=== PATIENT | male | born 1970 | race Caucasian/White ===

== ENCOUNTER → 2018-10-06 07:18 | Outpatient (CLI) | payer BC, SELFPAY ==
[2017-10-26 15:55] VITALS: BMI 29.9
[2018-10-06 08:23] LABS: Hemoglobin A1c 5.8 % (4.2-6.3)
== END ==
PROVIDERS: Referring Provider Nurse Practitioner Family; Visit Provider Nurse Practitioner Family
DX: R73.09 Other abnormal glucose (principal)
CPT/HCPCS: 36415; 83036

== ENCOUNTER → 2019-03-10 07:35 | Outpatient (CLI) | payer BC, SELFPAY ==
[2018-11-03 15:39] VITALS: BMI 30.8
[2019-03-10 07:56] LABS: Absolute Lymphocyte Count 1.85 X10^3/ul (0.83-4.51); Absolute Neutrophil Count 5.6 X10^3/uL (2.0-7.7); Basophil# 0.05 X10^3/uL; Basophil% 0.6 % (0-1); Eosinophil# 0.63 X10^3/uL; Hematocrit 44.1 % (40-54); Lymphocyte # 1.85 X10^3/ul (4.0); Lymphocyte % 20.4 % (19-41); Mean Corpuscular Hgb 30.1 pg (27.0-32.0); Mean Corpuscular Volume 88.4 fL (80-94); Mean Platelet Vol. 9.6 fl (6.2-12.0); Monocyte# 0.96 X10^3/uL; Monocyte% 10.6 % (0-10); Neutrophil # 5.55 X10^3/uL (2.7-7.7); Neutrophil % 61.3 % (47-70); Platelet Count 303 K/mm3 (150-450); RBC Distribution Width CV 12.6 % (11.6-14.6); RBC Distribution Width SD 40.1 fl (35.1-43.9); Red Blood Count 4.99 M/mm3 (4.6-6.2); White Blood Count 9.1 K/mm3 (4.4-11.0)
[2019-03-10 08:03] LABS: POSITIVE COUNT NO; POSITIVE DIFFERENTIAL NO; POSITIVE MORPHOLOGY NO
[2019-03-10 08:34] LABS: ALB/GLOB Ratio 1.2 RATIO (0.9-2.4); AST(SGOT) 23 U/L (15-37); Alanine Aminotransfer ALT/SGPT 33 U/L (16-61); Albumin, Serum 3.8 g/dL (3.2-5.0); Alkaline Phosphatase 72 U/L (45-117); Anion Gap 7 (5-15); BUN 18 mg/dL (7-18); Calcium,Total 8.8 mg/dL (8.5-10.1); Chloride 105 mmol/L (98-107); Cholesterol 129 mg/dL (200); EST Glomerular Filtration Rate 85 mL/min (>60); Est Glom Filt Rate - Afr Amer 103 mL/min (>60); Globulin 3.3 g/dL (2.2-4.2); Glucose 116 mg/dL (74-106); High Density Lipoprotein 48 mg/dL; Protein, Total 7.1 g/dL (6.4-8.2); Sodium Level 140 mmol/L (136-145); T4 Total, Thyroxin 7.1 ug/dL (4.5-12.1); Thyroid Stim Hormone (TSH) 2.03 uIU/mL (0.358-3.74); Triglycerides 81 mg/dL; Very Low Density Lipoprotein 16 mg/dL (5-40)
[2019-03-10 09:27] LABS: Hemoglobin A1c 5.7 % (4.2-6.3)
== END ==
PROVIDERS: Referring Provider Nurse Practitioner Family; Visit Provider Nurse Practitioner Family
DX: R53.83 Other fatigue (principal); E78.2 Mixed hyperlipidemia; R73.09 Other abnormal glucose
CPT/HCPCS: 36415; 80053; 80061; 83036; 84436; 84443; 85025

== ENCOUNTER → 2020-12-27 10:32 | Outpatient (CLI) | payer BC, SELFPAY ==
[2020-11-26 16:00] VITALS: BMI 31.6
[2020-12-27 11:38] LABS: AST(SGOT) 24 U/L (15-37); Alanine Aminotransfer ALT/SGPT 38 U/L (16-61); Albumin, Serum 4.1 g/dL (3.2-5.0); Alkaline Phosphatase 71 U/L (45-117); Cholesterol 148 mg/dL (200); Globulin 3.7 g/dL (2.2-4.2); High Density Lipoprotein 48 mg/dL; Protein, Total 7.8 g/dL (6.4-8.2); Triglycerides 64 mg/dL; Very Low Density Lipoprotein 13 mg/dL (5-40)
== END ==
PROVIDERS: Referring Provider Internal Medicine Cardiovascular Disease; Visit Provider Internal Medicine Cardiovascular Disease
DX: E78.00 Pure hypercholesterolemia, unspecified (principal)
CPT/HCPCS: 36415; 80061; 80076

== ENCOUNTER 2021-01-16 08:11 | Day surgery (SDC) | payer BC, SELFPAY ==
[2020-11-26 16:00] VITALS: BMI 31.6
[2021-01-16 08:32] VITALS: BP 111/72; PULSE 62; RESP 14; TEMP 36.3; O2SAT 100; BMI 29.7
[2021-01-16] MEDS: Lactated Ringers 1,000 ML 100 ML IV (08:49)
--- NOTE | 2021-01-16 09:13 | HP.PCM_ITS ---
History of Present Illness Date of Admission: 01/16/21 The patient is a 50 year old M here for screening colonoscopy. The patient has had no previous colonoscopy. He has no family history of colon cancer. He denies any abdominal pain or blood in his stool. Past Medical/Surgical History - Planned Operation Planned Operative Procedure/s: COLONOSCOPY Date of Operative Procedure: 01/16/21 Permit Signed: Yes S.O.S: No Is This Patient Having a Total Joint: No - Previous Hospitalizations/Surgeries HX Hospitalizations: Yes HX of Surgeries: NASAL TIMES 2000 AND 2009. T AND A. VASECTOMY Any Problems With Anesthesia: No You/Your Family Experience Fever (Hyperthermia) With Anes: No Cholinesterase deficiency: No - Cardiovascular Hx Chest Pain within Last 2 months: No Hx of Irregular Heartbeat and/or Afib: No - DR. MODESTO ESPARZA LAST VISIT 12/14/20 Hx Heart Attack: No Hx Congestive Heart Failure: No Hx Rheumatic Fever: No Hx Hypertension: No Hx Internal Defibrillator: No Hx Pacemaker: No Hx Cardiac Catheterization: No Hx Cardiac Surgery/Stents/Etc.: No Hx Stress Test: Yes - 10/2016 [facility] HX Edema: No Hx Pain in Legs when Walking/Leg Cramps: No - Respiratory Chronic Cough: No HX of Shortness of Breath: No - WHEEZES WITH ALLERGRIES NO DIFF WITH INJECTIONS Hoarseness: No Hx Chronic Obstructive Pulmonary Disease (COPD): No Hx Asthma: Yes - ALLERGY INDUCED ASTHMA Hx Emphysema: No Hx Sleep Apnea: Yes CPAP: Yes BIPAP: No Hx Oxygen Use at Home: No Hx Respiratory Tract Infection/Cold (presently): No Result (for STOP score): Positive Hx Smoking: No Smoking Status: Never smoker - Gastrointestinal Hx Gastroesophageal Reflux: No Controlled With Meds: No Hx Gastrointestinal Disorders: No Hx Gastrointestinal Bleed: No Hx Ulcer: No Hx Hiatal Hernia: No Difficulty Chewing/Swallowing: No Recent Onset of Swallowing Problems: No Special diet followed at home: No Hx Unplanned Weight Loss of 20#: No HX Unplanned Weight Gain of 20#: No - Neurological Hx Seizures: No HX Syncope/Blackout Spells/Unconsciousness: No Hx Transient Ischemic Attacks (TIA): No Hx Multiple Sclerosis: No Hx Parkinson's Disease: No Hx Head/Neck Injury: No Hx Headaches: No Hx Back Injury/Pain: No Recent Onset of Speech Difficulty: No Restless Legs: Yes Does patient have nerve stimulator: No - Blood Disorder Hx Leukemia: No Bleeding Tendencies: No Hx Deep Vein Thrombosis: No Hx High Cholesterol: No Blood Transmitted Disease: No Hx Hepatitis: No Hx Cirrhosis: No Hx Anemia: No Hx Blood Disorders: No - Genitourinary Hx Renal Disease: No - Musculoskeletal Hx Arthritis: Yes Hx Rheumatoid Arthritis: No Hx Gout: No Recent Onset of an Orthopedic Problem: No - Endocrine Hx Diabetes: No Thyroid Disease: No Hx Steroid Therapy: No - Psycho/Social Hx Substance Use: No Hx Alcohol Use: No Hx Anxiety: No Hx Depression: No Mental Illness: No Hx Dementia: No - Miscellaneous Hx Cancer: No Recent Exposure to Contagious Disease: No Active MRSA: No Hx of C-Diff: No Any Loose Teeth: No Allergies iodine Allergy (Verified 01/09/21 09:32) Anaphylaxis - Discharge Is Pt Admitted From a Half-Way, or a Mcfp: No Who Could Help: After D/C, Where Do you Plan to Go: Return Home - Physical Exam Vitals/I&O's: Vital Signs Temp Pulse Resp BP Pulse Ox 97.4 F L 62 14 111/72 100 01/16/21 08:32 01/16/21 08:32 01/16/21 08:32 01/16/21 08:32 01/16/21 08:32 Oxygen Delivery Method Room Air Weight: 219 lb 12.814 oz Body Mass Index (BMI) 29.7 General: Alert, Oriented x3 Neck: No JVD Lungs: Normal air movement Cardiovascular: Regular rate, Regular Rhythm Abdomen: Soft, Non Tender, Non-Distended Microbiology Past 72 Hours 01/15/21 06:00 Interface Orders SARS-CoV-2 Antigen (Rapid) - Final Current Medications Lactated Ringer's () 1,000 mls @ 100 mls/hr IV .Q10H [facility] Last Admin: 01/16/21 08:49 Dose: 100 mls/hr Documented by: Assessment/Plan All Active Problems (Last Reviewed 11/26/20 @ 16:01 by Janee Palma) Dyspnea (Acute) Chest pain (Acute) 50-year-old male for screening colonoscopy I explained endoscopy in detail to the patient. I explained the risks including but not limited to stroke or heart attack with anesthesia, perforation of the GI tract, bleeding, infection. I explained that any of these could necessitate further emergency surgery. The patient understands and all questions were answered sufficiently. The patient wishes to proceed with procedure. Federico Guzman MD Pager: [facility] [address] [place] [address] [address] [place] [address] Office: Surgery Risks - Colonoscopy Risks Include but are not Limited To: Risks include but are not limited to: Bleeding, perforation requiring further surgery, inability to complete colonoscopy requiring barium enema.
[2021-01-16 09:42] VITALS: BP 100/55; BP 111/72; PULSE 66; RESP 16; TEMP 36.1; O2SAT 99
--- NOTE | 2021-01-16 09:42 | OP.COLON_ITS ---
Patient Name: Alden Ramirez Procedure Date: 01/16/2021 9:18 AM Date of : 1970 Age: 50 Procedure: Colonoscopy Indications: Screening for colorectal malignant neoplasm Providers: Federico Guzman MD Referring MD: Milana Tolbert Medicines: Monitored Anesthesia Care Patient Profile: This is a 50 year old male. Refer to note in patient chart for documentation of history and physical. Last Colonoscopy: none. The patient's first colonoscopy is today. Complications: No immediate complications. Procedure: Pre-Anesthesia Assessment: - Prior to the procedure, a History and Physical was performed, and patient medications and allergies were reviewed. The patient's tolerance of previous anesthesia was also reviewed. The risks and benefits of the procedure and the sedation options and risks were discussed with the patient. All questions were answered, and informed consent was obtained. Prior Anticoagulants: The patient has taken no previous anticoagulant or antiplatelet agents. After reviewing the risks and benefits, the patient was deemed in satisfactory condition to undergo the procedure. After I obtained informed consent, the scope was passed under direct vision. Throughout the procedure, the patient's blood pressure, pulse, and oxygen saturations were monitored continuously. The colonoscope was introduced through the anus and advanced to the cecum, identified by appendiceal orifice and ileocecal valve. The colonoscopy was performed without difficulty. The patient tolerated the procedure well. The quality of the bowel preparation was good. Scope In: 9:26:01 AM Scope Withdrawal Time 0 hours 6 minutes 20 seconds Scope Out: 9:39:00 AM Total Procedure Duration Time 0 hours 12 minutes 59 seconds Findings: The entire examined colon appeared normal on direct and retroflexion views. Impression: - The entire examined colon is normal on direct and retroflexion views. - No specimens collected. Recommendation: - Discharge patient to home. - Resume previous diet. - Continue present medications. - Repeat colonoscopy in 10 years for screening purposes. Procedure Code(s): --- Professional --- 55656, Colonoscopy, flexible; diagnostic, including collection of specimen(s) by brushing or washing, when performed (separate procedure) Diagnosis Code(s): --- Professional --- Z12.11, Encounter for screening for malignant neoplasm of colon CPT copyright 2017 [employer]. All rights reserved. The codes documented in this report are preliminary and upon medical coder review may be revised to meet current compliance requirements. Federico Guzman MD 01/16/2021 9:41:56 AM This report has been signed electronically. Number of Addenda: 0 Note Initiated On: 01/16/2021 9:18 AM
--- NOTE | 2021-01-16 09:42 | OP.CCLET_ITS ---
01/16/2021 Milana Tolbert Re : Colonoscopy procedure for Alden Ramirez Dear Giancarlo This procedure was performed on Saturday, January 16, 2021. My impressions and recommendations are as follows: Impressions : - The entire examined colon is normal on direct and retroflexion views. - No specimens collected. Recommendations : - Discharge patient to home. - Resume previous diet. - Continue present medications. - Repeat colonoscopy in 10 years for screening purposes. My findings are described in the full procedure note, which is enclosed. If I can be of further assistance, please feel free to contact me at Doctor phone number(s): , Work: . Sincerely, Federico Guzman MD 01/16/2021 9:41:56 AM This report has been signed electronically.
[2021-01-16 09:45] VITALS: BP 111/72; BP 92/69; PULSE 66; RESP 16; O2SAT 100
[2021-01-16 09:55] VITALS: BP 111/72; BP 99/67; PULSE 58; RESP 16; O2SAT 100
[2021-01-16 09:59] VITALS: BP 103/62; BP 111/72; PULSE 58; RESP 16; TEMP 36.3; O2SAT 100
[2021-01-16 10:24] VITALS: BP 111/72
== END 2021-01-16 10:25 | disposition home or self-care (01) ==
LOC: EN 08:13 → AC 08:14
PROVIDERS: PCP Nurse Practitioner Family; Referring Provider Nurse Practitioner Family; Visit Provider Surgery
PROC: 0DJD8ZZ Inspection of Lower Intestinal Tract, Via Natural or Artificial Opening Endoscopic (ICD-10-PCS; CPT 45378; principal; 2021-01-16 09:10)
DX: Z12.11 Encounter for screening for malignant neoplasm of colon (principal); Z20.822 Contact with and (suspected) exposure to COVID-19; J45.909 Unspecified asthma, uncomplicated; G47.30 Sleep apnea, unspecified; M19.90 Unspecified osteoarthritis, unspecified site
CPT/HCPCS: 45378; 87426; C9803; J7120; J2405

== ENCOUNTER → 2021-11-02 14:25 | Outpatient (CLI) | payer BC, SELFPAY | PROVIDERS: PCP Nurse Practitioner Family; Visit Provider Internal Medicine Critical Care Medicine | DX: Z46.89 Encounter for fitting and adjustment of other specified devices (principal) ==

== ENCOUNTER 2021-12-19 08:06 | Outpatient (CLI) | payer BC, SELFPAY ==
[2021-12-19 09:08] LABS: AST(SGOT) 42 U/L (15-37); Alanine Aminotransfer ALT/SGPT 38 U/L (16-61); Albumin, Serum 3.9 g/dL (3.2-5.0); Alkaline Phosphatase 72 U/L (45-117); Bilirubin, Direct 0.28 mg/dL (0.00-0.30); Cholesterol 136 mg/dL (200); High Density Lipoprotein 43 mg/dL; Protein, Total 7.9 g/dL (6.4-8.2); Triglycerides 60 mg/dL; Very Low Density Lipoprotein 12 mg/dL (5-40)
== END 2021-12-19 23:59 | disposition home or self-care (01) ==
LOC: LAB 08:07
PROVIDERS: PCP Nurse Practitioner Family; Referring Provider Internal Medicine Cardiovascular Disease; Visit Provider Internal Medicine Cardiovascular Disease
DX: E78.00 Pure hypercholesterolemia, unspecified (principal)
CPT/HCPCS: 36415; 80061; 80076

== ENCOUNTER → 2022-08-13 | Outpatient (CLI) | payer BC, SELFPAY ==
[2022-08-13 07:41] LABS: AST(SGOT) 22 U/L (15-37); Alanine Aminotransfer ALT/SGPT 35 U/L (16-61); Albumin, Serum 3.6 g/dL (3.2-5.0); Alkaline Phosphatase 66 U/L (45-117); Bilirubin, Direct 0.27 mg/dL (0.00-0.30); Cholesterol 136 mg/dL (200); Globulin 3.9 g/dL (2.2-4.2); High Density Lipoprotein 48 mg/dL; Protein, Total 7.5 g/dL (6.4-8.2); Triglycerides 80 mg/dL; Very Low Density Lipoprotein 16 mg/dL (5-40)
== END | disposition home or self-care (01) ==
LOC: LAB 06:04
PROVIDERS: PCP Nurse Practitioner Family; Referring Provider Internal Medicine Cardiovascular Disease; Visit Provider Internal Medicine Cardiovascular Disease
DX: E78.00 Pure hypercholesterolemia, unspecified (principal)
CPT/HCPCS: 36415; 80061; 80076

== ENCOUNTER → 2023-02-22 | Outpatient (CLI) | payer BC, SELFPAY ==
--- NOTE | 2023-02-22 14:04 | VDLE_ITS ---
Reason For Study: Pain RIGHT LEFT CFV is compressible, spontaneous, phasic, CFV is compressible, spontaneous, phasic, competent and demonstrates normal competent, and demonstrates normal augmentation. augmentation. FV is compressible, spontaneous, phasic, FV is compressible, spontaneous, phasic, competent and demonstrates normal competent and demonstrates normal augmentation. augmentation. POP V is compressible, spontaneous, phasic, POP V is compressible, spontaneous, phasic, competent and demonstrates normal competent and demonstrates normal augmentation. augmentation. T/P Trunk is compressible. T/P Trunk is compressible. PTV is compressible. PTV is compressible. RT PerV is compressible. LT PerV is compressible. SFJ is competent and measures 0.55 x 0.60 cm. SFJ is INCOMPETENT and measures 0.65 x 0.67 GSV proximal thigh measures 0.47 x 0.48 cm. cm. ASV mid thigh is INCOMPETENT for greater than GSV proximal thigh measures 0.43 x 0.43 cm. 0.5 seconds and measures 0.42 x 0.60 cm. GSV at knee measures 0.48 x 0.53 cm. GSV at knee measures 0.30 x 0.33 cm. GSV INCOMPETENT throughout for greater than GSV INCOMPETENT throughout for greater than 0.5 seconds. 0.5 seconds. ASV proximal calf is INCOMPETENT for greater SSV proximal calf is competent and measures than 0.5 seconds and measures 0.49 x 0.53 cm. 0.27 x 0.30 cm. ASV mid calf is INCOMPETENT for greater than GSV distal calf PARTIALLY COMPRESSIBLE with 0.5 seconds and measures 0.49 x 0.53 cm. bright intraluminal echogenicity. SSV prox calf PARTIALLY COMPRESSIBLE with Procedure bright intraluminal echogenicity and This is a venous duplex using B-mode, color diminished flow noted in color and doppler. flow and spectral Doppler. Exam performed in department. The exam was diagnostic. VL/Venous Duplex US - Kulwinder Extrem Interpretation Summary Chronic superficial vein thrombosis is noted in the right great saphenous vein. Chronic superficial vein thrombosis is noted in the left small saphenous vein. Deep veins of the bilateral lower extremities are patent and compressible segme ntally. There is no evidence of bilateral lower extremity deep vein thrombosis. Positive for reflux in the right great saphenous and accessory saphenous veins Positive for reflux in the left saphenofemoral junction, great saphenous vein, accessory saphenous vein Ordering Physician: Terra Plummer Referring Physician: Terra Plummer Performed By: Bishop Rodriguez RVT
== END | disposition home or self-care (01) ==
PROVIDERS: PCP Nurse Practitioner Family; Referring Provider Physician Assistant; Visit Provider Physician Assistant
DX: I83.893 Varicose veins of bilateral lower extremities with other complications (principal)
CPT/HCPCS: 93970

== ENCOUNTER 2023-04-28 08:22 | Day surgery (SDC) | payer BC, SELFPAY ==
[2023-04-28 08:41] LABS: Absolute Lymphocyte Count 1.75 X10^3/uL (0.83-4.51); Absolute Neutrophil Count 4.2 X10^3/uL (2.0-7.7); Basophil# 0.08 X10^3/uL; Basophil% 1.1 % (0-1); Eosinophil# 0.34 X10^3/uL; Eosinophils% 4.7 % (0-5); Hematocrit 44.2 % (40-54); Lymphocyte # 1.75 X10^3/ul (0.83-4.51); Lymphocyte % 24.1 % (19-41); Mean Corp Hgb Conc 33.9 g/dL (32-36); Mean Corpuscular Hgb 30.6 pg (27.0-32.0); Mean Corpuscular Volume 90.2 fL (80-94); Mean Platelet Vol. 9.1 fl (6.2-12.0); Monocyte# 0.83 X10^3/uL; Monocyte% 11.4 % (0-10); NRBC Flagged by Analyzer 0 % (0-5); Neutrophil # 4.24 X10^3/uL (2.7-7.7); Neutrophil % 58.3 % (47-70); Platelet Count 323 K/mm3 (150-450); RBC Distribution Width CV 12.4 % (11.6-14.6); RBC Distribution Width SD 40.8 fl (35.1-43.9); White Blood Count 7.3 K/mm3 (4.4-11.0)
[2023-04-28 08:58] LABS: AST(SGOT) 20 U/L (15-37); Alanine Aminotransfer ALT/SGPT 26 U/L (16-61); Albumin, Serum 3.6 g/dL (3.2-5.0); Alkaline Phosphatase 73 U/L (45-117); Anion Gap 5 (5-15); BUN 15 mg/dL (7-18); BUN/Creat Ratio 12.8 RATIO (10-20); Chloride 106 mmol/L (98-107); Cholesterol 125 mg/dL (200); Creatinine, Serum 1.17 mg/dL (0.70-1.30); EST Glomerular Filtration Rate 70 mL/min (>60); Est Glom Filt Rate - Afr Amer 84 mL/min (>60); Estimated Creatinine Clearance 81.06 ml/min; Globulin 3.8 g/dL (2.2-4.2); Glucose 111 mg/dL (74-106); High Density Lipoprotein 42 mg/dL; Protein, Total 7.4 g/dL (6.4-8.2); Sodium Level 139 mmol/L (136-145); Triglycerides 58 mg/dL; Very Low Density Lipoprotein 12 mg/dL (5-40)
--- NOTE | 2023-04-28 12:51 | PCM.OPRPT ---
Report of Operation Date of Procedure: 04/28/23 Pre-Operative Diagnosis: right lower extremity painful varicose veins, great saphenous reflux Post-Operative Diagnosis: same Surgery/Procedure Performed:: ablation right greater saphenous vein with radiofrequency Surgeon: Jann Cedeno Type of Anesthesia: Local and Sedation,Conscious Estimated Blood Loss (mL): 1 Description of Procedure: HPI: Patient is a 52-year-old male with right lower extremity venous insufficiency refractory to compression therapy. He presents now for great saphenous vein ablation with radiofrequency. Description of procedure: Upon obtaining informed consent and verification correct patient procedure site patient was taken to the Operational Assistant where he was positioned prepped and draped in usual sterile fashion. Time was performed conscious sedation administered with Versed and fentanyl. Ultrasound used to evaluate the right great saphenous vein and the saphenofemoral junction identified. Skin anesthetized over the saphenous vein at the knee and under ultrasound guidance the vessel accessed in retrograde fashion with micropuncture needle wire. This then exchanged out for the 7 [place] ablation sheath. Through the ablation sheath a Tronic RF ablation device was advanced and followed under ultrasound guidance up to just below the saphenofemoral junction. Longitudinal ultrasound measurement was obtained confirming 2.5 cm from the saphenofemoral junction to the tip of the catheter. Tumescent solution was then injected along the length of the saphenous vein to be treated with satisfactory tumescent instilled circumferentially surrounding the saphenous vein. The ablation device was then activated for 2 activations just below the saphenofemoral junction and then along the length of the treatment zone for single activation each segment. After completing the treatment the sheath and probe were withdrawn and manual pressure held for 5 minutes after which aspect of the status was noted. Ultrasound used to assess the common femoral vein and the saphenofemoral junction which were both compressible and patent. Bridger wrap was then applied and the patient taken recovery room prior to discharge to home
== END 2023-04-28 12:30 | disposition home or self-care (01) ==
PROVIDERS: PCP Nurse Practitioner Family; Referring Provider Surgery Trauma Surgery; Visit Provider Surgery Trauma Surgery
DX: I83.811 Varicose veins of right lower extremity with pain (principal); G47.33 Obstructive sleep apnea (adult) (pediatric); E78.5 Hyperlipidemia, unspecified; Z79.82 Long term (current) use of aspirin; Z79.899 Other long term (current) drug therapy
CPT/HCPCS: 36415; 36475; 80048; 80061; 80076; 85025; 99152; 99153; C1888; C1894; J7040

== ENCOUNTER → 2023-11-08 | Outpatient (CLI) | payer BC, SELFPAY ==
[2023-11-08 08:37] LABS: Absolute Lymphocyte Count 2.07 X10^3/uL (0.83-4.51); Absolute Neutrophil Count 3.3 X10^3/uL (2.0-7.7); Basophil# 0.08 X10^3/uL; Basophil% 1.2 % (0-1); Eosinophil# 0.25 X10^3/uL; Eosinophils% 3.8 % (0-5); Hematocrit 43.1 % (40-54); Hemoglobin 14.7 g/dL (13.0-16.5); Lymphocyte # 2.07 X10^3/ul (0.83-4.51); Lymphocyte % 31.8 % (19-41); Mean Corp Hgb Conc 34.1 g/dL (32-36); Mean Corpuscular Hgb 30.3 pg (27.0-32.0); Mean Corpuscular Volume 88.9 fL (80-94); Mean Platelet Vol. 9.1 fl (6.2-12.0); Monocyte# 0.77 X10^3/uL; Monocyte% 11.8 % (0-10); NRBC Flagged by Analyzer 0 % (0-5); Neutrophil # 3.33 X10^3/uL (2.7-7.7); Neutrophil % 51.2 % (47-70); Platelet Count 296 K/mm3 (150-450); RBC Distribution Width CV 12.1 % (11.6-14.6); RBC Distribution Width SD 39.4 fl (35.1-43.9); Red Blood Count 4.85 M/mm3 (4.6-6.2); White Blood Count 6.5 K/mm3 (4.4-11.0)
[2023-11-10 11:08] LABS: Alternaria alternata 1.59 kU/L (Class III); Bermuda Grass <0.10 kU/L (Class 0); Bluegrass, Kentucky <0.10 kU/L (Class 0); Cat Hair/Dander, Standard <0.10 kU/L (Class 0); D farinae Mite <0.10 kU/L (Class 0); D pteronyssinus <0.10 kU/L (Class 0); Dog Epithelia <0.10 kU/L (Class 0); Elm, American White <0.10 kU/L (Class 0); Mouse Urine <0.10 kU/L (Class 0); Oak, White <0.10 kU/L (Class 0); Plantain, English <0.10 kU/L (Class 0); Ragweed, Short/Common <0.10 kU/L (Class 0)
[2023-11-11 17:07] LABS: Aspirgillus flavus Negative (Neg:<1:1); Aspirgillus fumigatus Negative (Neg:<1:1); Aspirgillus niger Negative (Neg:<1:1); Immunoglobulin E 30 IU/mL (6-495)
== END | disposition home or self-care (01) ==
LOC: PAVLAB 08:24
PROVIDERS: PCP Nurse Practitioner Family; Referring Provider Nurse Practitioner Acute Care; Visit Provider Nurse Practitioner Acute Care
DX: J30.9 Allergic rhinitis, unspecified (principal)
CPT/HCPCS: 36415; 82785; 85025; 86003; 86606

== ENCOUNTER → 2024-11-23 | Outpatient (CLI) | payer BC, SELFPAY ==
[2024-11-23 06:37] LABS: Absolute Lymphocyte Count 1.71 X10^3/uL (0.83-4.51); Absolute Neutrophil Count 4.2 X10^3/uL (2.0-7.7); Basophil# 0.08 X10^3/uL; Basophil% 1.1 % (0-1); Eosinophil# 0.26 X10^3/uL; Eosinophils% 3.7 % (0-5); Hematocrit 43.2 % (40-54); Hemoglobin 14.7 g/dL (13.0-16.5); Lymphocyte # 1.71 X10^3/ul (0.83-4.51); Mean Corpuscular Hgb 30.3 pg (27.0-32.0); Mean Corpuscular Volume 89.1 fL (80-94); Mean Platelet Vol. 9.1 fl (6.2-12.0); Monocyte# 0.81 X10^3/uL; Monocyte% 11.4 % (0-10); NRBC Flagged by Analyzer 0 % (0-5); Neutrophil # 4.24 X10^3/uL (2.7-7.7); Neutrophil % 59.5 % (47-70); Platelet Count 312 K/mm3 (150-450); RBC Distribution Width CV 12.6 % (11.6-14.6); RBC Distribution Width SD 41.1 fl (35.1-43.9); Red Blood Count 4.85 M/mm3 (4.6-6.2); White Blood Count 7.1 K/mm3 (4.4-11.0)
== END | disposition home or self-care (01) ==
LOC: LAB 06:16
PROVIDERS: Referring Provider Nurse Practitioner Family; Visit Provider Nurse Practitioner Family
DX: R06.00 Dyspnea, unspecified (principal)
CPT/HCPCS: 36415; 85025

== ENCOUNTER → 2024-12-22 | Outpatient (CLI) | payer BC, SELFPAY ==
[2024-12-22 09:21] LABS: Absolute Lymphocyte Count 1.43 X10^3/uL (0.83-4.51); Absolute Neutrophil Count 4.2 X10^3/uL (2.0-7.7); Basophil# 0.04 X10^3/uL; Basophil% 0.6 % (0-1); Eosinophil# 0.22 X10^3/uL; Eosinophils% 3.3 % (0-5); Hematocrit 43.1 % (40-54); Hemoglobin 14.4 g/dL (13.0-16.5); Lymphocyte # 1.43 X10^3/ul (0.83-4.51); Lymphocyte % 21.6 % (19-41); Mean Corp Hgb Conc 33.4 g/dL (32-36); Mean Corpuscular Hgb 29.8 pg (27.0-32.0); Mean Platelet Vol. 9.1 fl (6.2-12.0); Monocyte# 0.75 X10^3/uL; Monocyte% 11.3 % (0-10); NRBC Flagged by Analyzer 0 % (0-5); Neutrophil # 4.16 X10^3/uL (2.7-7.7); Neutrophil % 62.7 % (47-70); Platelet Count 317 K/mm3 (150-450); RBC Distribution Width CV 12.6 % (11.6-14.6); RBC Distribution Width SD 41.4 fl (35.1-43.9); Red Blood Count 4.84 M/mm3 (4.6-6.2); White Blood Count 6.6 K/mm3 (4.4-11.0)
[2024-12-22 09:56] LABS: ALB/GLOB Ratio 0.9 RATIO (0.9-2.4); AST(SGOT) 18 U/L (15-37); Alanine Aminotransfer ALT/SGPT 22 U/L (16-61); Albumin, Serum 3.5 g/dL (3.2-5.0); Alkaline Phosphatase 65 U/L (45-117); Anion Gap 4 (5-15); BUN 18 mg/dL (7-18); BUN/Creat Ratio 19.2 RATIO (10-20); Calcium,Total 9.2 mg/dL (8.5-10.1); Chloride 105 mmol/L (98-107); Cholesterol 187 mg/dL (200); Creatinine, Serum 0.94 mg/dL (0.70-1.30); EST Glomerular Filtration Rate 89 mL/min (>60); Est Glom Filt Rate - Afr Amer 108 mL/min (>60); Globulin 3.8 g/dL (2.2-4.2); Glucose 101 mg/dL (74-106); High Density Lipoprotein 50 mg/dL; PSA,Total - Annual Screen 1.01 ng/mL (0.00-4.00); Potassium 4.2 mmol/L (3.5-5.1); Protein, Total 7.3 g/dL (6.4-8.2); Sodium Level 138 mmol/L (136-145); Triglycerides 56 mg/dL; Very Low Density Lipoprotein 11 mg/dL (5-40)
== END | disposition home or self-care (01) ==
LOC: LAB 08:35
PROVIDERS: PCP Nurse Practitioner Family; Referring Provider Nurse Practitioner Family; Visit Provider Nurse Practitioner Family
DX: Z00.01 Encounter for general adult medical examination with abnormal findings (principal); Z12.5 Encounter for screening for malignant neoplasm of prostate
CPT/HCPCS: 36415; 80053; 80061; 84153; 85025; G0103

== ENCOUNTER → 2025-01-04 | Outpatient (CLI) | payer BC, SELFPAY ==
--- NOTE | 2025-01-04 12:25 | MRI_ITS ---
PROCEDURE: Noncontrast MRI of the left knee. REASON FOR EXAM: Medial left knee pain. Evaluate for meniscal tear TECHNIQUE: Multiplanar, multisequence MRI images of the left knee were obtained without IV contrast. COMPARISON: None available FINDINGS The patellar ligament and included distal quadriceps tendon are intact. Small amount of joint fluid, without sizeable joint effusion. There is some edematous signal superficial to the otherwise intact medial collateral ligament. The cruciate and collateral ligaments are intact. Mild articular cartilage loss involving the medial compartment, greatest involving the weight-bearing surface of the medial femoral condyle. No significant articular cartilage loss of the lateral compartment. There is moderate articular cartilage loss involving the lateral patellar facet. No evidence of transient patellar dislocation. The patellar retinacula and popliteus muscle/tendon are intact. No sizable popliteal cyst. No soft tissue mass or drainable fluid collection of the left knee. There is moderate marrow edema involving the posterior medial aspect of the tibial plateau. There is some focally decreased T1 signal involving the posterior medial cortical margin of the tibial plateau, favored to represent an area of trabecular microfracture. No tibial plateau depression is demonstrated. No discrete lateral meniscal tear. There is a curvilinear radial type tear involving the posterior horn medial meniscus on image 19 of the axial T2 fat saturated sequence and image 12 of the coronal T2 fat saturated sequence. No flipped meniscal fragment. Moderate edema involving the anteromedial soft tissues of the left knee, inferior to the joint line. MRI/Lower Ext Joint Only (Routine) IMPRESSION: Moderate marrow edema posterior medial tibial plateau. There is a horizontally oriented focal area of decreased T1 signal of the posterior medial tibial plateau, favored to represent an area of trabecular osmar rofracture. No tibial plateau depression is demonstrated. No internal ligamentous derangement or sizable joint effusion. Intact lateral meniscus. Small radial type tear involving the posterior horn m edial meniscus. Moderate edema of the soft tissues and subcutaneous fat of the anterior medial left knee, inferior to the joint line, which could be due to recent trauma. Suggest correlation with clinical exam findings. Moderate articular cartilage loss involving the medial compartment and in the l ateral patellar facet. Reading Location: [facility]
== END | disposition home or self-care (01) ==
LOC: MRI 12:20
PROVIDERS: PCP Nurse Practitioner Family; Referring Provider Orthopaedic Surgery Sports Medicine; Visit Provider Orthopaedic Surgery Sports Medicine
DX: M25.562 Pain in left knee (principal)
CPT/HCPCS: 73721

== ENCOUNTER 2025-02-01 07:50 | Day surgery (SDC) | payer BC, SELFPAY ==
--- NOTE | 2025-01-22 17:30 | PAT.ANESEVAL ---
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 When Was Last Pacemaker Check QUESTION #4 FULL TEXT: You/Your Family Experience fever (hyperthermia) with Anesthesia Last Oral Intake Last Oral intake: Last Oral Intake NPO since Meds taken in AM with sips of water? 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 PONV - orthopedic mechanic: PONV - orthopedic mechanic Female No 01/22/25 12:03 HX of Motion Sickness No 01/22/25 12:03 HX of N/V After Surgery No 01/22/25 12:03 Non-Smoker Yes 01/22/25 12:03 Duration of Surgery greater Yes 01/22/25 12:03 than 60 minutes Number of Risk Factors 2 01/22/25 12:03 PONV Score Moderate Risk 01/22/25 12:03 Height & Weight Height & Weight: Anesthesia: Height & Weight Height 5 ft 11 in 01/09/25 15:21 Respiratory Assessment Respiratory Assessment - orthopedic mechanic: Respiratory Tract Infection Hx - orthopedic mechanic Hx Respiratory Tract Infection No 01/22/25 12:03 STOP Sleep Apnea STOP Sleep Apnea - orthopedic mechanic: STOP Sleep Apnea - orthopedic mechanic Hx Hypertension No 01/22/25 12:03 Hx Sleep Apnea Yes 01/22/25 12:03 CPAP Yes 01/22/25 12:03 BIPAP No 01/22/25 12:03 Do you snore loudly (louder than talking or can be heard Do you often feel tired/ fatigued/ sleepy during daytime? Has anyone observed you stop breathing during sleep? STOP Results Positive 01/22/25 12:03 QUESTION #5 FULL TEXT : Do you snore loudly (louder than talking or can be heard through closed doors)? 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 Specify any problems Hx of Preganancy in last 3 N/A 01/22/25 12:03 Months Nurse Filling Out Transfusion VCHRISTIN 01/22/25 12:03 & Questions: Date: 01/22/25 01/22/25 12:03 Time: 12:03 01/22/25 12:03 Patient unable to answer at this time (ie. confused, unrespo /Reproduction History /Reproductive History - orthopedic mechanic: /Reproductive Hx- orthopedic mechanic Hx Now Gestational Age (in weeks): EDC: Hx Hx Para Hx Section SAB PFSH Medical History (Updated 01/22/25 @ 12:02 by Coreen Bishop) Wears glasses History of steroid therapy Arthritis Gastric reflux Non-smoker BiPAP (biphasic positive airway pressure) dependence Sleep apnea Uses crutches Tear of meniscus of left knee Left tibial fracture High cholesterol History of asthma History of environmental allergies Osteoarthritis of left knee Left knee pain History of exercise stress test (~10/2016) History of echocardiogram (~10/2016) Dyspnea TIESHA (obstructive sleep apnea) Restless leg syndrome Hyperlipidemia Abnormal echocardiogram Chest pain Home Medications ?Medication ?Instructions ?Recorded ?Last Taken ?Type aspirin 81 mg tablet,delayed 81 mg PO QDAY 10/21/17 Unknown History release (Adult Low Dose Aspirin) atorvastatin 10 mg tablet 10 mg PO QDAY #90 tabs 06/06/23 Unknown Rx pramipexole 1 mg tablet 1 mg PO QHS #90 tabs 05/07/24 Unknown Rx fluticasone fur. 200 mcg-umeclid 1 inh inhalation DAILY #3 ea 11/06/24 Unknown Rx 62.5 mcg-vilant 25 mcg inhalat.powder (Trelegy Ellipta) dupilumab 300 mg/2 mL subcutaneous 300 mg (2 mL) subcut Q2W #4 mL 11/21/24 Unknown Rx pen injector (Dupixent) Allergy/AdvReac Type Severity Reaction Status Date / Time iodine Allergy Anaphylaxis Verified 01/22/25 11:53 Family History (Updated 01/09/25 @ 15:15 by Beti Jaime) Grandmother Myocardial infarction, Onset Age: 40 x3 ME's Father Alcoholism Mother Breast cancer Aunt Cancer Breast cancer Grandmother Diabetes Grandfather Heart disease Surgical History (Updated 01/22/25 @ 12:02 by Coreen Bishop) Hx of surgical procedure Hx of colonoscopy H/O knee surgery History of nasal surgery Social History (Updated 01/09/25 @ 15:15 by Beti Jaime) Smoking Status: Never smoker alcohol intake: current substance use type: does not use additional social history: uses aspirin and ibuprofen as needed Audit: Pertinent Findings Pertinent Findings Additional pertinent findings: This is a 52-year-old white male who presents today for outpatient cardiovascular follow-up of his history of hyperlipidemia superimposed upon a history of abnormal ECG, family history of cardiovascular disease, and TIESHA. Since his visit of 12-02-2021 he states overall he is been doing well. He states he has not required any further outpatient or inpatient cardiovascular diagnostic studies/procedures. The patient denies symptoms considered classic for angina pectoris, CHF / pulmonary edema (with respect to orthopnea / PND), ongoing palpitations, or near syncope / syncope. The patient denies ongoing peripheral pitting edema. He did have lipid labs on 08-13-2022. His total cholesterol was 136 with an LDL of 72 and an HDL of 48. His triglycerides were 80. Current Visit Impressions Current Visit Impressions: This patient presents to the office today for follow-up of his severe persistent asthma complicated by obstructive sleep apnea. He is ambulatory and currently on room air. He has not recently been seen in the ED or urgent care for any respiratory illness. He has not required any antibiotics or prednisone for any breathing problems. He was seen in the urgent care back in May for sinusitis and treated with a course of Augmentin. He is compliant with use of Trelegy 1 puff daily. He does report rinsing his mouth out after each use. He denies any medication side effect such as sore throat or thrush. He has not recently needed his albuterol rescue inhaler. He is compliant with Dupixent injections at home. The patient reports that recently he canceled his [employer] service which canceled his email. Unfortunately, this was linked to his Dupixent injections and he is 1 week late on getting an injection. He needs to get back in touch with the specialty pharmacy to set up delivery. Currently he denies any difficulty with shortness of breath. He denies any cough, sputum production or hemoptysis. He denies any wheezing, chest tightness, chest pain or palpitations. He also denies any fever, chills or body aches. He wakes up feeling rested refreshed with the use of his PAP device. He is not having difficulty with dry mouth or mask leaks. He is not requiring naps. He is not having excessive nocturia. Recommendation Anesthesia Recommendation Anesthesia recommendation: OPTIMIZED for anesthesia (Pending physical exam by anesthesiologist on DOS. Low risk surgery. )
[2025-02-01] VITALS (9 sets, daily range): BP systolic 121–144; BP diastolic 77–91; PULSE 72–96; RESP 16–20; TEMP 36.1–36.8; O2SAT 96–100; BMI 31.1
[2025-02-01] MEDS: 0.9% Normal Saline (1000mL) 1,000 ML 15 ML IV (08:13)
--- NOTE | 2025-02-01 08:31 | PRE.ANES_ITS ---
ASA Classification* ASA Classification ASA Classification: 2 Assessment & Plan Anesthesia* Anesthesia Assessment Anesthesia Assessment: Discussed sedation and/or anesthesia options, risks, benefits, and alternatives with patient/parents/legal guardian/POA. Questions invited. The patient/parents/legal guardian/POA seems to understand and agrees to proceed with anesthesia plan. Reviewed the physical assessment, medical history, allergy history and patient home medications list prior to surgery/procedure/anesthetic and documented any changes. Performed airway and anesthesia risk assessments. Anesthesia Type Anesthesia Type: General History Source History Obtained from:: Patient, Chart and Significant Other (spouse) Anesthesia Focused Assessment* Temperature: 98.2 F Pulse Rate: 72 Blood Pressure: 121/82 Respiratory Rate: 17 Pulse Ox: 97 Oxygen Delivery Method: Room Air Airway Assessment Mouth opens: >3 cm Mallampati Score: II Teeth Condition: Intact Neck Range of motion (ROM): Full ROM Focused Labs Anesthesia Preop lab: CBC WBC 6.6 K/mm3 (4.4-11.0) 12/22/24 08:46 12/22/24 RBC 4.84 M/mm3 (4.6-6.2) 12/22/24 08:46 12/22/24 Hgb 14.4 g/dL (13.0-16.5) 12/22/24 08:46 12/22/24 Hct 43.1 % (40-54) 12/22/24 08:46 12/22/24 Plt Count 317 K/mm3 (150-450) 12/22/24 08:46 12/22/24 CHEMISTRY Potassium 4.2 mmol/L (3.5-5.1) 12/22/24 08:46 12/22/24 Sodium 138 mmol/L (136-145) 12/22/24 08:46 12/22/24 BUN 18 mg/dL (7-18) 12/22/24 08:46 12/22/24 Creatinine 0.94 mg/dL (0.70-1.30) 12/22/24 08:46 12/22/24 Glucose 101 mg/dL (74-106) 12/22/24 08:46 12/22/24 TSH 2.03 uIU/mL (0.358-3.74) 03/10/19 07:38 04/27/ 19 COAG Pre-Assessment Diagnosis/Proposed Procedure Planned Operative Procedure(s): Bilateral upper blepharoplasty Anesthesia History Anesthesia History - technologies division chair: Anesthesia History - technologies division chair Hx Hospitalization No 01/22/25 12:03 Any Problems With Anesthesia No 01/22/25 12:03 Cholinesterase deficiency No 01/22/25 12:03 You/Your Family Experience No 01/22/25 12:03 fever (hyperthermia) with Relationship Recent Exposure to Contagious No 02/01/25 08:13 Disease Does patient have nerve No 01/22/25 12:03 stimulator Patient instructed to have device shut off --Does patient have Pacemaker No 02/01/25 08:13 or ICD? When Was Last Pacemaker Check QUESTION #4 FULL TEXT: You/Your Family Experience fever (hyperthermia) with Anesthesia Last Oral Intake Last Oral intake: Last Oral Intake NPO since 00:00 02/01/25 08:13 Meds taken in AM with sips of No 02/01/25 08:13 water? 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 PONV - technologies division chair: PONV - technologies division chair Female No 01/22/25 12:03 HX of Motion Sickness No 01/22/25 12:03 HX of N/V After Surgery No 01/22/25 12:03 Non-Smoker Yes 01/22/25 12:03 Duration of Surgery greater Yes 01/22/25 12:03 than 60 minutes Number of Risk Factors 2 01/22/25 12:03 PONV Score Moderate Risk 01/22/25 12:03 Height & Weight Height & Weight: Anesthesia: Height & Weight Height 6 ft 02/01/25 08:13 Weight: 104 kg 02/01/25 08:13 Body Mass Index (BMI) 31.1 02/01/25 08:13 Respiratory Assessment Respiratory Assessment - technologies division chair: Respiratory Tract Infection Hx - technologies division chair Hx Respiratory Tract Infection No 01/22/25 12:03 STOP Sleep Apnea STOP Sleep Apnea - technologies division chair: STOP Sleep Apnea - technologies division chair Hx Hypertension No 01/22/25 12:03 Hx Sleep Apnea Yes 01/22/25 12:03 CPAP Yes 01/22/25 12:03 BIPAP No 01/22/25 12:03 Do you snore loudly (louder than talking or can be heard Do you often feel tired/ fatigued/ sleepy during daytime? Has anyone observed you stop breathing during sleep? STOP Results Positive 01/22/25 12:03 QUESTION #5 FULL TEXT : Do you snore loudly (louder than talking or can be heard through closed doors)? 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 Specify any problems Hx of Preganancy in last 3 N/A 01/22/25 12:03 Months Nurse Filling Out Transfusion VCHRISTIN 01/22/25 12:03 & Questions: Date: 01/22/25 01/22/25 12:03 Time: 12:03 01/22/25 12:03 Patient unable to answer at this time (ie. confused, unrespo /Reproduction History /Reproductive History - technologies division chair: /Reproductive Hx- technologies division chair Hx Now Gestational Age (in weeks): EDC: Hx Hx Para Hx Section SAB Active Medications Active Medications: Current Medications Generic Name Dose Route Start Last Admin Trade Name Freq PRN Reason Stop Dose Admin Cefazolin Sodium 2 gm/ N/A 20 mls @ 400 mls/hr 02/01/25 09:20 IV 02/01/25 09:22 X1 ONE Sodium Chloride 1,000 mls @ 15 mls/hr 02/01/25 07:55 02/01/25 08:13 IV 02/06/25 21:14 15 mls/hr .Q48H CANDI Administration PFSH Medical History (Updated 01/22/25 @ 12:02 by Coreen Bishop) Wears glasses History of steroid therapy Arthritis Gastric reflux Non-smoker BiPAP (biphasic positive airway pressure) dependence Sleep apnea Uses crutches Tear of meniscus of left knee Left tibial fracture High cholesterol History of asthma History of environmental allergies Osteoarthritis of left knee Left knee pain History of exercise stress test (~10/2016) History of echocardiogram (~10/2016) Dyspnea TIESHA (obstructive sleep apnea) Restless leg syndrome Hyperlipidemia Abnormal echocardiogram Chest pain Home Medications ?Medication ?Instructions ?Recorded ?Last Taken ?Type atorvastatin 10 mg tablet 10 mg PO QDAY #90 tabs 06/0601/31/25 Rx pramipexole 1 mg tablet 1 mg PO QHS #90 tabs 4 01/31/25 Rx fluticasone fur. 200 mcg-umeclid 1 inh inhalation JOSÉ MANUEL Y #3 ea 11/06/24 01/31/25 Rx 62.5 mcg-vilant 25 mcg inhalat.powder (Trelegy Ellipta) dupilumab 300 mg/2 mL subcutaneous 300 mg (2 mL) subcu t Q2W #4 mL 11/21/24 01/31/25 Rx pen injector (Dupixent) cephalexin 500 mg capsule 500 mg PO BID 5 days #10 cap s 01/29/25 Unknown Rx erythromycin 5 mg/gram (0.5 %) eye 1 applic ophthalmic (eye) DAILY 01/29/25 Unknown Rx ointment #3.5 grams oxycodone-acetaminophen 5 mg-325 1 tab PO TID PRN pain 02/01/25 Unknown History mg tablet (Percocet) Allergy/AdvReac Type Severity Reaction Status Date / Time iodine Allergy Anaphylaxis Verified 02/01/25 08:10 Family History (Updated 01/09/25 @ 15:15 by Beti Jaime) Grandmother Myocardial infarction, Onset Age: 40 x3 HI's Father Alcoholism Mother Breast cancer Aunt Cancer Breast cancer Grandmother Diabetes Grandfather Heart disease Surgical History (Updated 01/22/25 @ 12:02 by Coreen Bishop) Hx of surgical procedure Hx of colonoscopy H/O knee surgery History of nasal surgery Social History (Updated 01/09/25 @ 15:15 by Beti Jaime) Smoking Status: Never smoker alcohol intake: current substance use type: does not use additional social history: uses aspirin and ibuprofen as needed Review of Systems (Anesthesia) ROS Narrative System reviewed and no additional complaints, except as documented.
--- NOTE | 2025-02-01 09:16 | PCM.HP.BLA ---
History and Physical Date of Admission: 02/01/25 The patient is examined and there are no changes to the H&P dated 01/28/2025. Informed consent was obtained for bilateral upper blepharoplasty. He is marked in the preop holding area prior to surgery. Assessment & Plan Assessment/Plan (1) Visual field defect: (2) Dermatochalasis of both upper eyelids: PLAN: Plan Patient for bilateral upper blepharoplasty.
[2025-02-01] MEDS: Cefazolin 2 GM in Syringe IV (09:55)
[2025-02-01] MEDS: Lidocaine 1% /Epi 1:100 (20ml) 20 ML Vial (10:07)
[2025-02-01] MEDS: Erythromycin Base 1 OPTH.TUBE 1 APPLIC (10:15)
[2025-02-01] MEDS: Tetracaine 0.5% Ophthalmic Bottle 1 DRP (10:15)
[2025-02-01] MEDS: EPINEPHrine Nasal 0.1% 30 ML Bottle (10:15)
--- NOTE | 2025-02-01 11:11 | EX.PCM.DISCH ---
Discharge Instructions Dressing / Incision Additional Dressing/Incision Instructions:: Follow the instructions given in the office. Keep your head elevated and maintain cool compresses today. Follow Up Care Please Follow Up With: Tatianna Whipple MD When: As scheduled Test Results: Test results from this visit will be discussed in further detail at your follow-up appointment, if applicable. Discharge Plan Admission Attending Provider: Tatianna Whipple Primary Care Provider: Anju Navarrete Instructions Print Language: Cymro Discharge Orders/Prescriptions Prescriptions: No Action Trelegy Ellipta 200-62.5-25 mcg blister with device 1 inh inhalation DAILY Qty: 3 3RF cephalexin 500 mg capsule 500 mg PO BID 5 Days Qty: 10 0RF erythromycin 5 mg/gram (0.5 %) ointment 1 applic ophthalmic (eye) DAILY Qty: 3.5 0RF Rx Instructions: Apply a thin layer on the incisions once a day and in the eyes bilaterally at nighttime oxycodone-acetaminophen [Percocet] 5-325 mg tablet 1 tab PO TID PRN (Reason: pain) atorvastatin 10 mg tablet 10 mg PO QDAY Qty: 90 3RF pramipexole 1 mg tablet 1 mg PO QHS Qty: 90 3RF Dupixent Pen 300 mg/2 mL pen injector 300 mg subcut Q2W Qty: 4 11RF Referrals / Follow Up: Anju Navarrete, OUTDOOR ADVENTURE INSTRUCTOR-C [Primary Care Provider] - Disposition Disposition (needs filled in before D/C Order can be placed): Home, Self Care
--- NOTE | 2025-02-01 11:12 | EX.PCM.DISCH ---
Discharge Instructions Dressing / Incision Additional Dressing/Incision Instructions:: Follow the instructions given in the office. Keep your head elevated and maintain cool compresses today. Follow Up Care Please Follow Up With: Tatianna Whipple MD Test Results: Test results from this visit will be discussed in further detail at your follow-up appointment, if applicable. Discharge Plan Admission Attending Provider: Tatianna Whipple Primary Care Provider: Anju Navarrete Instructions Print Language: Thai Discharge Orders/Prescriptions Prescriptions: No Action Trelegy Ellipta 200-62.5-25 mcg blister with device 1 inh inhalation DAILY Qty: 3 3RF cephalexin 500 mg capsule 500 mg PO BID 5 Days Qty: 10 0RF erythromycin 5 mg/gram (0.5 %) ointment 1 applic ophthalmic (eye) DAILY Qty: 3.5 0RF Rx Instructions: Apply a thin layer on the incisions once a day and in the eyes bilaterally at nighttime oxycodone-acetaminophen [Percocet] 5-325 mg tablet 1 tab PO TID PRN (Reason: pain) atorvastatin 10 mg tablet 10 mg PO QDAY Qty: 90 3RF pramipexole 1 mg tablet 1 mg PO QHS Qty: 90 3RF Dupixent Pen 300 mg/2 mL pen injector 300 mg subcut Q2W Qty: 4 11RF Referrals / Follow Up: Anju Navarrete, COMMUNITY OUTREACH SPECIALIST-C [Primary Care Provider] - Disposition Disposition (needs filled in before D/C Order can be placed): Home, Self Care
--- NOTE | 2025-02-01 11:13 | OP.PCM_ITS ---
Problems Associated Problem List Diagnoses (1) Dermatochalasis of both upper eyelids: (2) Visual field defect: Operative Report (Standard) Operative Information Date of Procedure: 02/01/25 Pre-Operative Diagnosis: Bilateral upper eyelid dermatochalasis and visual field limitation. Post-Operative Diagnosis: Same Surgery/Procedure Performed: Bilateral upper blepharoplasty. co supervisor grounds and landscape: Yes Land Surveyor Assistant: Samira Jordan Tasks completed by gallery assistant: Retracting Type of Anesthesia: General RN Documented Start/Stop Times: Operation Date: 02/01/25 09:20 Case Time Into Pre-Op 02/01/25 07:51 Out of Pre-Op 02/01/25 09:37 Anesthesia Start 02/01/25 09:44 Into Room 02/01/25 09:44 Procedure Start 02/01/25 10:15 Procedure End 02/01/25 11:08 Procedure Start Time: 10:15 Procedure Stop Time: 11:08 Select all DRAINS/GRAFTS/IMPLANTS that apply: None Estimated Blood Loss: Minimal Specimen collected: No Description of surgery: The patient presents with a history of visual field defect as well as dermatochalasis. He presents for bilateral upper blepharoplasty. An informed consent is obtained. He is marked in the preop holding area prior to surgery. The patient is brought to the operating room and placed under general anesthesia in the supine position. Care is taken to pad all pressure points, apply a a warming blanket, and sequential compression stockings. Tetracaine drops were placed in the eyes bilaterally. The patient's prepped and draped in the usual sterile fashion. Corneal markham lubricated with erythromycin ophthalmic ointment are positioned. We initially began with injecting 1% Xylocaine with epinephrine along the premarked incision lines. After allowing an adequate amount of time for hemostasis to take effect, the incisions are made. Topical epi is put on the incision lines to reduce bruising. The premarked incision is then excised. Hemostasis is controlled with bipolar cautery. A strip of orbicularis oculi is also removed. Hemostasis is controlled with bipolar cautery. The incisions tacked together with fast-absorbing gut. Cool compresses are placed on the eye and we directed our attention to the opposite side with the identical procedure performed. Following this, a 5-0 Prolene is used to approximate skin edges in a subcuticular fashion. The sutures anchored at the sikhism and glabella using Mastisol and Steri-Strips. Erythromycin ophthalmic ointment is placed on the incisions and cool compresses are applied. He tolerated the procedure well was taken to the recovery area in an awake and stable condition. Needle and sponge counts are correct. Surgical Findings: As above Complications Complications: No Admit VTE Documentation VTE Mechan Device Prophylaxis: SCD's
--- NOTE | 2025-02-01 11:27 | PCM.POST.ANE ---
Anesthesia: Postop Eval I Current Vital Signs Temperature: 97.0 F Pulse Rate: 89 Blood Pressure: 130/84 Respiratory Rate: 20 Pulse Ox: 100 Assessment Airway patent: Yes Spontaneous unlabored respirations: Yes nausea: No Vomiting: No Anesthesia Complication: No Fluid Hydration Crystalloid volume administer (ml): 1,100 Total IV fluid infused: 1,100 Progress Note Anesthesia document: Postop Eval 1 completed: Yes
--- NOTE | 2025-02-01 11:49 | POSTOPAN2_ITS ---
Anesthesia Postop Eval I Sum Postop Eval Completion status Anesthesia document: Postop Eval 1 completed: Yes Anesthesia Postop Eval I Summary Anesthesia Postop Eval I Summary: Anesthesia Postop Eval I: Assessment Summary Airway patent Yes 02/01/25 11:27 EMERGENCY DEPARTMENT TECHNICIAN.JGEN Spontaneous unlabored Yes 02/01/25 11:27 EMERGENCY DEPARTMENT TECHNICIAN.JGEN respirations Mental status nausea No 02/01/25 11:27 EMERGENCY DEPARTMENT TECHNICIAN.JGEN Vomiting No 02/01/25 11:27 EMERGENCY DEPARTMENT TECHNICIAN.JGEN Anesthesia Postop Eval I: Fluid Summary Crystalloid volume administer 1,100 02/01/25 11:27 EMERGENCY DEPARTMENT TECHNICIAN.JGEN (ml) Colloids volume administered ( ml) Blood Product volume administered (ml) Total IV fluid infused 1,100 02/01/25 11:27 EMERGENCY DEPARTMENT TECHNICIAN.JGEN Anesthesia Postop Eval I: Summary Notes Anesthesia Complication No 02/01/25 11:27 EMERGENCY DEPARTMENT TECHNICIAN.ArethaGEN Anesthesia Complication Comment: Post-operative progress note Anesthesia: Postop Eval II Evaluation Mental status: Awake Pain Level: 1 nausea: No Vomiting: No Complications Anesthesia Complication: No
--- NOTE | 2025-02-01 11:49 | PCM.POSTANE2 ---
Anesthesia Postop Eval I Sum Postop Eval Completion status Anesthesia document: Postop Eval 1 completed: Yes Anesthesia Postop Eval I Summary Anesthesia Postop Eval I Summary: Anesthesia Postop Eval I: Assessment Summary Airway patent Yes 02/01/25 11:27 TECHNICAL SERVICES REPRESENTATIVE.JGEN Spontaneous unlabored Yes 02/01/25 11:27 TECHNICAL SERVICES REPRESENTATIVE.JGEN respirations Mental status nausea No 02/01/25 11:27 TECHNICAL SERVICES REPRESENTATIVE.JGEN Vomiting No 02/01/25 11:27 TECHNICAL SERVICES REPRESENTATIVE.JGEN Anesthesia Postop Eval I: Fluid Summary Crystalloid volume administer 1,100 02/01/25 11:27 TECHNICAL SERVICES REPRESENTATIVE.JGEN (ml) Colloids volume administered ( ml) Blood Product volume administered (ml) Total IV fluid infused 1,100 02/01/25 11:27 TECHNICAL SERVICES REPRESENTATIVE.JGEN Anesthesia Postop Eval I: Summary Notes Anesthesia Complication No 02/01/25 11:27 TECHNICAL SERVICES REPRESENTATIVE.ArethaGEN Anesthesia Complication Comment: Post-operative progress note Anesthesia: Postop Eval II Evaluation Mental status: Awake Pain Level: 1 nausea: No Vomiting: No Complications Anesthesia Complication: No
== END 2025-02-01 13:45 | disposition home or self-care (01) ==
LOC: SDC 07:50 → AC 07:51
PROVIDERS: PCP Nurse Practitioner Family; Referring Provider Plastic Surgery; Visit Provider Plastic Surgery
PROC: (CPT 15822; principal; 2025-02-01 09:10)
DX: H02.831 Dermatochalasis of right upper eyelid (principal); H02.834 Dermatochalasis of left upper eyelid; H53.40 Unspecified visual field defects; K21.9 Gastro-esophageal reflux disease without esophagitis; E78.00 Pure hypercholesterolemia, unspecified; Z79.899 Other long term (current) drug therapy; Z79.51 Long term (current) use of inhaled steroids
CPT/HCPCS: 15822; 00103; J2405

== ENCOUNTER → 2025-04-18 | Outpatient (CLI) | payer BC, SELFPAY ==
--- NOTE | 2025-04-18 07:26 | VDLE_ITS ---
Reason For Study Reason For Study: BLE PAin RIGHT LEFT CFV is compressible, spontaneous, phasic, competent CFV is compressible, phasic, and INCOMPETENT for and demonstrates normal augmentation. greater than 1.0 second. FV is compressible, spontaneous, phasic, competent FV is compressible, spontaneous, phasic, competent and demonstrates normal augmentation. and demonstrates normal augmentation. POP V is compressible, spontaneous, phasic, competent POP V is compressible, spontaneous, phasic, competent and demonstrates normal augmentation. and demonstrates normal augmentation. T/P Trunk is compressible. T/P Trunk is compressible. PTV is compressible. PTV is compressible. RT PerV is compressible. LT PerV is compressible. 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 GSV ankle to knee SFJ is INCOMPETENT and measures 0.51 cm. appears PARTIALLY COMPRESSIBLE with CHRONIC SVT in GSV proximal thigh measures 0.57 x 0.52 cm. distal portions of vessel. GSV at knee measures 0.55 x 0.65 cm. SFJ is competent and measures 0.55 cm. GSV INCOMPETENT throughout for greater than 0.5 GSV at knee measures 0.24 x 0.28 cm. seconds. GSV is competent throughout. GSV appears PARTIALLY COMPRESSIBLE with CHRONIC SVT ASV proximal thigh is INCOMPETENT for greater than in distal portions of vessel. 0.5 seconds and measures 0.37 x 0.41 cm. ASV at knee is INCOMPETENT for greater than 0.5 ASV distal thigh is INCOMPETENT for greater than 0.5 seconds and measures 0.51 x 0.59 cm. seconds and measures 0.32 x 0.33 cm. Perforating Vessel mid calf is INCOMPETENT for ASV at knee is INCOMPETENT for greater than 0.5 greater than 0.5 seconds and measures 0.30 cm. seconds and measures 0.38 x 0.48 cm. SSV at junction is competent and measures 0.29 cm. Perforating Vessel distal calf is INCOMPETENT for SSV mid calf is competent and measures 0.48 x 0.54 greater than 0.5 seconds and measures 0.26 cm. cm. SSV appears PARTIALLY COMPRESSIBLE with CHRONIC SVT SSV appears PARTIALLY COMPRESSIBLE with CHRONIC SVT throughout vessel. throughtout vessel. SSV at junction is competent and measures 0.36 cm. SSV mid calf is competent and measures 0.34 x 0.29 cm. Procedure Exam performed in department. This is a venous duplex using B-mode, color flow and spectral Doppler. The exam was diagnostic. Patient was scanned in reverse Trendelenburg position during reflux assessment. VL/Venous Duplex US - Kulwinder Extrem Interpretation Summary Deep veins of the bilateral lower extremities are patent and compressible segme ntally. There is no evidence of bilateral lower extremity deep vein thrombosis. Chronic superficial vein thrombosis noted in the right great saphenous vein bel ow the knee, small saphenous vein. Chronic superficial vein thrombosis noted in the left great saphenous vein, sma ll saphenous vein. Positive for reflux in the right accessory saphenous veins in the thigh, access ory saphenous vein at knee, salvationist vein in calf. Positive for reflux in the left common femoral vein, saphenofemoral junction, g reat saphenous vein throughout, accessory saphenous vein at knee, perforating vein in the calf Ordering Physician: Terar Mtz Referring Physician: Anju Navarrete Performed By: Bishop Rodriguez RVT
--- OUTSIDE RECORDS SUMMARY | 2025-04-18 07:30 | XMS RPT_ITS | CCD ---
Author Organization [facility] Care Team Providers Care Machine Coil Assembler Name Role Phone Kathy Yang LPN Unavailable Unavaila ble DeFinis, Harumi Y Unavailable Unavailable Mary Carmen Sol Unavailable Unavailable Mary Carmen Sol Unavailable Unavailable Helritchie DEICER ELEMENT WINDER MACHINE, DEICER ELEMENT WINDER MACHINE-C Will Primary Care Provider Giancarlo DEICER ELEMENT WINDER MACHINE, DEICER ELEMENT WINDER MACHINE-C Will Referring Provider Dr. Isaac Allrde Attending Provider Janee Palma Attending Provider Unavailable Dr. Nnamdi Mondragon Attending Provider CAIO Galvan Attending Provider Dr. Jann Cedeno Attending Provider Giancarlo DEICER ELEMENT WINDER MACHINE, DEICER ELEMENT WINDER MACHINE-C Will Primary Care Provider Giancarlo DEICER ELEMENT WINDER MACHINE, DEICER ELEMENT WINDER MACHINE-C Will Referring Provider CAIO Plummer Attending Provider CAIO Plummer Referring Provider Bebe LAWSON-CKatja Attending Provider Care Physician, No Primary Primary Care Provider Unavailable Kevan LAWSON-Aster Tee Attending Provider Kevan LAWSON-CAster Referring Provider Care Physician, No Primary Referring Provider Un available Sancho Jaramillo MD Attending Provider [phone] Rodríguez VO, Dr. Virgen Attending Provider Landon DEICER ELEMENT WINDER MACHINE-C, Anju Primary Care Provider [phone] Landon DEICER ELEMENT WINDER MACHINE-C, Anju Attending Provider Landon DEICER ELEMENT WINDER MACHINE-C, Anju Referring Provider Sancho Jaramillo MD Referring Provider Sole VO, Dr. Campuzano Attending Provider Sole VO, Dr. Campuzano Referring Provider Sole VO, Dr. Campuzano Other Provider Sancho Jaramillo MD Attending Provider [phone] Terra Gann Attending Provider [place], Tatianna Attending Unavailable Landon, Anju Referring Unavailable Alndon, Anju Referring Unavailable Landon, Anju Primary Care Unavailable [place], Tatianna Attending Unavailable Bebe DEICER ELEMENT WINDER MACHINE, Katja Attending Unavailable Giancarlo DEICER ELEMENT WINDER MACHINE, Will Referring Unavailable Giancarlo DEICER ELEMENT WINDER MACHINE, Will Primary Care Unavailable Landon, Anju Primary Care Unavailable [place], Tatianna Consulting Unavailable [place], Tatianna Referring Unavailable [place], Tatianna Attending Unavailable Landon, Anju Referring Unavailable Landon, Anju Primary Care Unavailable [place], Tatianna Attending Unavailable Bebe DEICER ELEMENT WINDER MACHINE, Katja Attending Unavailable Care Physician, No Primary Referring Unava ilable Care Physician, No Primary Primary Care Unava ilable Aster Mathur Attending Unavailable Sancho Jaramillo Attending Unavailable Care Physician, No Primary Referring Unava ilable Care Physician, No Primary Primary Care Unava ilable Landon, Anju Primary Care Unavailable Landon, Anju Referring Unavailable Terra Mtz Attending Unavailable Mumtaz Diez Attending Unavailable Care Physician, No Primary Primary Care Unava ilable Param Arreguin Attending Unavailable Sancho Jaramillo Attending Unavailable Landon, Anju Primary Care Unavailable Landon, Anju Referring Unavailable Sancho Jaramillo Attending Unavailable Landon, Anju Primary Care Unavailable Landon, Anju Referring Unavailable Landon, Anju Primary Care Unavailable [place], Tatianna Referring Unavailable [place], Tatianna Attending Unavailable Landon, Anju Primary Care Unavailable Terra Mtz Referring Unavailable Terra Mtz Attending Unavailable Care Physician, No Primary Primary Care Unava ilable Aster Mathur Referring Unavailable Aster Mathur Attending Unavailable Landon, Anju Attending Unavailable Landon, Anju Primary Care Unavailable Landon, Anju Referring Unavailable Sancho Jaramillo Attending Unavailable Landon, Anju Primary Care Unavailable Sancho Jaramillo Referring Unavailable Landon, Anju Primary Care Unavailable Landon, Anju Referring Unavailable Tatianna Whipple Attending Unavailable Tatianna Whipple Attending Unavailable Landon, Anju Referring Unavailable Allergies Allergy Classification Reported Allergen(s) Allergy Type Date of Onset Reaction(s) Facility (5 sources) Iodine Drug Allergy 12-02-2021 Anaphylaxis [facility] (1 source) Iodine Drug Allergy 04-02-2025 [facility] Repository Medications Current Medications Medication Drug Class(es) Dates Sig (Normalized) Sig (Original) 2 ml dupilumab 150 mg/ml auto-injector (4 sources) Interleukin-4 Receptor alpha Antagonist Start: 01-19-2024 End: 11-21-2024 Dupilumab (Dupixent Pen) 300 mg/2 mL pen injector Active 300 mg SC every 2 weeks November 21, 2024 5:03pm Fluticasone-Umeclid in-Vilanter (6 sources) Start: 11-06-2024 Fluticasone-Umecli din-Vilanter (Trelegy Ellipta) 200-62.5-25 mcg blister with device Active 1 NMA INHALATION DAILY November 06, 2024 9:01am Start: 12-22-2023 End: 11-06-2024 Wownvoldbaq-Xaubanjry-Mlycls er (Trelegy Ellipta) 200-62.5-25 mcg blister with device Discontinued 1 NMA INHALATION DAILY December 22, 2023 9:42am November 06, 2024 9:01am Start: 11-08-2023 End: 12-22-2023 Wjplzpfatjg-Dvwekjcya-Jpsrez er (Trelegy Ellipta) 200-62.5-25 mcg blister with device Discontinued 1 NMA INHALATION DAILY November 08, 2023 1:00am December 22, 2023 9:42am Completed/Discontinued Medications Medication Drug Class(es) Dates Sig (Normalized) Sig (Original) ?Allergy (5 sources) Start: 07-11-2014 End: 10-26-2017 inject 1 mg by intramuscular injection every week ?Allergy Discontinued 1 mg IM EVERY WEEK July 11, 2014 12:00am October 26, 2017 10:15am Start: 07-11-2014 End: 10-26-2017 inject 1 mg by intramuscular injection every week ?Allergy Discontinued 1 MG IM EVERY WEEK July 11, 2014 12:00am October 26, 2017 10:15am acetaminophen 325 mg / oxyCODONE hydrochloride 5 mg oral tablet (4 sources) Opioid Agonist Start: 01-29-2025 End: 04-02-2025 Oxycodone-Acetaminophen (Percocet) 5-325 mg tablet Discontinued 1 {tbl} PO THREE TIMES A DAY as needed for pain February 01, 2025 12:00am April 02, 2025 9:11am amoxicillin 875 mg / clavulanate 125 mg oral tablet (2 sources) Penicillin-class Antibacterial Start: 06-08-2024 End: 06-18-2024 Amoxicillin-Pot Clavulanate 875-125 mg tablet Discontinued 1 {tbl} PO Q12H 20 June 08, 2024 12:00am June 17, 2024 12:00am June 18, 2024 12:03am aspirin 81 mg delayed release oral tablet (5 sources) Platelet Aggregation Inhibitor, Nonsteroidal Anti-inflammatory Drug Start: 10-21-2017 End: 01-29-2025 Aspirin (Adult Low Dose Aspirin) 81 mg tablet,delayed release (DR/EC) Discontinued 81 mg PO daily October 21, 2017 1:00am January 29, 2025 3:38pm ASPIRIN TBEC (2 sources) Start: 10-15-2016 take 1 tablet by mouth once daily ASPIR-81 TBEC One tablet by mouth daily ASPIRIN TBEC [id number] Nnamdi Mondragon MD ASPIRIN TBEC (2 sources) Start: 10-15-2016 take 1 tablet by mouth once daily ASPIR-81 TBEC One tablet by mouth daily ASPIRIN TBEC [id number] Nnamdi Mondragon MD atorvastatin 10 mg oral tablet (20 sources) HMG-CoA Reductase Inhibitor Start: 10-21-2017 End: 06-06-2023 take 1 tablet by mouth once daily Atorvastatin 10 mg tablet Discontinued 10 mg PO daily June 18, 2022 9:02am June 06, 2023 8:32am Start: 10-14-2016 take 1 tablet by jens once daily ATORVASTATIN CALCIUM 10 MG TABS One tablet by mouth daily ATORVASTATIN CALCIUM [id number] Nnamdi Mondragon MD 120 actuat budesonide 0.16 mg/actuat / formoterol fumarate 0.0045 mg/actuat metered dose inhaler (20 sources) Corticosteroid, beta2-Adrenergic Agonist Start: 04-13-2022 End: 04-16-2022 Budesonide-Formoterol (Symbicort) 160-4.5 mcg/actuation HFA aerosol inhaler Discontinued 2 NMA INHALATION Q12H 3 April 13, 2022 3:18pm April 16, 2022 11:21am Start: 04-13-2022 End: 04-16-2022 take 1 puff(s) by inhalation every twelve hours Budesonide-Formoterol (Symbicort) 160-4.5 mcg/actuation HFA aerosol inhaler Discontinued 2 PUFF INHALATION Q12H 3 April 13, 2022 3:18pm April 16, 2022 11:21am Start: 10-28-2020 End: 04-13-2022 Budesonide-Formoterol (Symbi therese) 160-4.5 mcg/actuation HFA aerosol inhaler Discontinued 2 NMA INHALATION Q12H 3 October 28, 2020 8:25am April 13, 2022 3:19pm Start: 10-28-2020 End: 04-13-2022 take 1 puff(s) by inhalation every twelve hours Budesonide-Formoterol (Symbicort) 160-4.5 mcg/actuation HFA aerosol inhaler Discontinued 2 PUFF INHALATION Q12H 3 October 28, 2020 8:25am April 13, 2022 3:19pm Start: 10-21-2017 End: 10-28-2020 Budesonide-Formoterol (Symbi therese) 160-4.5 mcg/actuation HFA aerosol inhaler Discontinued 2 NMA INHALATION Q12H 10.2 September 07, 2018 8:51am October 31, 2019 8:20am Start: 10-21-2017 End: 10-28-2020 take 1 puff(s) by inhalation every twelve hours Budesonide-Formoterol (Symbicort) 160-4.5 mcg/actuation HFA aerosol inhaler Discontinued 2 PUFF INHALATION Q12H 10.2 September 07, 2018 8:51am October 31, 2019 8:20am Start: 10-05-2016 take 2 puff(s) by in halation twice daily SYMBICORT 160-4.5 MCG/ACT AERO 2 puffs INH Twice daily BUDESONIDE-FORMOTEROL FUMARATE [id number] Isaac Allred Start: 10-05-2016 take 2 puff(s) by in halation twice daily SYMBICORT 160-4.5 MCG/ACT AERO 2 puffs INH Twice daily BUDESONIDE-FORMOTEROL FUMARATE [id number] Katja Spence CNP Start: 10-05-2016 take 2 puff(s) by in halation twice daily SYMBICORT 160-4.5 MCG/ACT AERO 2 puffs INH Twice daily BUDESONIDE-FORMOTEROL FUMARATE [id number] Isaac Allred cephalexin 500 mg oral capsule (3 sources) Cephalosporin Antibacterial Start: 02-12-2025 End: 02-19-2025 take 1 capsule by mouth twice daily Cephalexin 500 mg capsule Discontinued 500 mg PO TWICE A DAY February 12, 2025 12:00am February 19, 2025 3:42pm Start: 01-29-2025 End: 02-03-2025 take 1 capsule by mouth twice daily Cephalexin 500 mg capsule Discontinued 500 mg PO TWICE A DAY 10 5 January 29, 2025 12:00am February 02, 2025 12:00am February 03, 2025 12:12am erythromycin 0.005 mg/mg ophthalmic ointment (2 sources) Macrolide, Macrolide Antimicrobial Start: 01-29-2025 End: 02-19-2025 Erythromycin 5 mg/gram (0.5 %) ointment Discontinued 1 NMA OPHTHALMIC DAILY 3.5 January 29, 2025 12:00am February 19, 2025 3:42pm Apply a thin layer on the incisions once a day and in the eyes bilaterally at nighttime 60 actuat fluticasone propionate 0.232 mg/actuat / salmeterol xinafoate 0.014 mg/actuat dry powder inhaler (19 sources) Corticosteroid, beta2-Adrenergic Agonist Start: 12-06-2022 End: 12-08-2022 Fluticasone Propion-Salmeterol (Advair Diskus) 500-50 mcg/dose blister with device Discontinued 1 NMA INHALATION TWICE A DAY 3 December 06, 2022 12:24pm December 08, 2022 4:22pm Start: 12-06-2022 End: 12-08-2022 Fluticasone Propion-Salmeter ol (Advair Diskus) 500-50 mcg/dose blister with device Discontinued 1 INH INHALATION TWICE A DAY 3 December 06, 2022 12:24pm December 08, 2022 4:22pm Start: 12-02-2022 End: 11-08-2023 Fluticasone Propion-Salmeter ol (Airduo Respiclick) 232-14 mcg/actuation aerosol powdr breath activated Discontinued 1 NMA INHALATION TWICE A DAY 3 December 08, 2022 4:23pm November 08, 2023 9:05am Start: 12-02-2022 End: 12-08-2022 Fluticasone Propion-Salmeter ol (Airduo Respiclick) 232-14 mcg/actuation aerosol powdr breath activated Active 1 INH INHALATION TWICE A DAY 3 December 08, 2022 4:23pm Start: 04-16-2022 End: 12-06-2022 Fluticasone Propion-Salmeter ol (Advair Diskus) 500-50 mcg/dose blister with device Discontinued 1 NMA INHALATION TWICE A DAY 3 April 16, 2022 12:00am December 06, 2022 12:24pm Start: 04-16-2022 End: 12-06-2022 Fluticasone Propion-Salmeter ol (Advair Diskus) 500-50 mcg/dose blister with device Discontinued 1 INH INHALATION TWICE A DAY 3 April 16, 2022 12:00am December 06, 2022 12:24pm Start: 04-16-2022 Fluticasone Pr opion-Salmeterol (Advair Diskus) 500-50 mcg/dose blister with device Active 1 INH INHALATION TWICE A DAY 3 April 16, 2022 12:00am 14 actuat fluticasone furoate 0.2 mg/actuat / vilanterol 0.025 mg/actuat dry powder inhaler (8 sources) Corticosteroid, beta2-Adrenergic Agonist Start: 04-01-2016 End: 10-05-2016 take 1 puff(s) by inhalation once daily BREO ELLIPTA 200-25 MCG/INH AEPB One puffs INH daily FLUTICASONE FUROATE-VILANTEROL [id number] Isaac Allred Start: 04-01-2016 take 1 puff(s) by in halation once daily BREO ELLIPTA 200-25 MCG/INH AEPB One puffs INH daily FLUTICASONE FUROATE-VILANTEROL [id number] Isaac Allred Start: 04-01-2016 End: 10-05-2016 take 1 puff(s) by inhalation once daily BREO ELLIPTA 200-25 MCG/INH AEPB One puffs INH daily FLUTICASONE FUROATE-VILANTEROL [id number] Isaac Allred ibuprofen 200 mg oral tablet (5 sources) Nonsteroidal Anti-inflammatory Drug Start: 07-11-2014 End: 10-26-2017 Ibuprofen 200 mg tablet Discontinued 1 {tbl} PO EVERY 4 HOURS NEEDED as needed for Pain July 11, 2014 12:00am October 26, 2017 10:15am meloxicam 15 mg oral tablet (10 sources) Nonsteroidal Anti-inflammatory Drug Start: 08-19-2021 End: 02-16-2023 take 1 tablet by mouth once daily as needed Meloxicam 15 mg tablet Discontinued 15 mg PO DAILY as needed December 02, 2021 5:06pm February 16, 2023 2:16pm pramipexole dihydrochloride 1 mg oral tablet (20 sources) Nonergot Dopamine Agonist Start: 10-31-2019 End: 05-07-2024 take 1 tablet by mouth at bedtime Pramipexole 1 mg tablet Discontinued 1 mg PO AT BEDTIME 90 February 09, 2023 1:34pm May 07, 2024 9:00am Start: 04-03-2019 End: 10-31-2019 take 0.5 mg by mouth at bedtime Pramipexole 1 mg tablet Discontinued 0.5 mg PO AT BEDTIME 90 April 03, 2019 12:00am October 31, 2019 8:20am Start: 04-03-2019 End: 10-31-2019 take 0.5 mg by mouth at bedtime Pramipexole Discontinued 0.5 MG PO AT BEDTIME 90 May 21st, 2019 12:00am October 31, 2019 8:20am Start: 10-21-2017 End: 04-03-2019 Pramipexole (Mirapex) 0.25 m g tablet Discontinued 0.25 mg PO .COMPLEX March 02, 2018 12:59pm April 03, 2019 4:00pm 0.25 mg PO 1 tablet po prior to sleep Start: 10-05-2017 MIRAPEX 0.25 M G TABS 1 tablet PO prior to sleep PRAMIPEXOLE DIHYDROCHLORIDE [id number] Isaac Knight Chalino Problems Active Problems Problem Classification Problem Date Documented Date Episodic/Chronic Asthma (8 sources) Asthma; Translations: [Unspecified asthma, uncomplicated] Onset: 11-23-2024 10-31-2019 Chronic Comment on above: On Dupixent Blindness and vision defects (12 sources) Visual field defect; Translations: [Unspecified visual field defects] Onset: 01-29-2025 01-09-2025 Episodic Disorders of lipid metabolism (11 sources) Hyperlipidemia; Translations: [Hyperlipidemia, unspecified] Onset: 10-14-2016 10-14-2016 Chronic Nonspecific chest pain (9 sources) Chest pain; Translations: [Chest pain, unspecified] Onset: 10-15-2016 10-15-2016 Episodic Osteoarthritis (8 sources) Osteoarthritis of left knee joint; Translations: [Unilateral primary osteoarthritis, left knee] Onset: 01-10-2025 11-27-2024 Chronic Other eye disorders (12 sources) Dermatochalasis of right upper eyelid; Translations: [Dermatochalasis of both upper eyelids] Onset: 03-06-2025 01-09-2025 Episodic Other eye disorders (2 sources) Dermatochalasis of left upper eyelid; Translations: [Dermatochalasis of left upper eyelid] Onset: 01-29-2025 Episodic Other hereditary and degenerative nervous system conditions (14 sources) Restless legs; Translations: [Restless legs syndrome] Onset: 03-05-2016 03-05-2016 Chronic Other hereditary and degenerative nervous system conditions (1 source) Restless legs syndrome; Translations: [Restless legs syndrome (RLS)] 11-11-2022 Chronic Other lower respiratory disease (9 sources) Dyspnea; Translations: [Dyspnea, unspecified] Onset: 02-17-2016 02-17-2016 Episodic Other non-traumatic joint disorders (5 sources) Swelling of knee joint; Translations: [Effusion, right knee] 08-19-2021 Episodic Other non-traumatic joint disorders (12 sources) Pain in right knee; Translations: [Right knee pain] 08-20-2021 Episodic Other non-traumatic joint disorders (1 source) Pain in left knee; Translations: [Pain in left knee] Onset: 01-17-2025 Episodic Other nutritional; endocrine; and metabolic disorders (3 sources) Obesity; Translations: [Obesity, unspecified] 11-06-2024 Chronic Other upper respiratory disease (2 sources) Allergic rhinitis; Translations: [Allergic rhinitis, unspecified] 01-19-2024 Chronic Comment on above: Multiple allergies a s tested ENT Other upper respiratory disease (1 source) Allergic rhinitis, unspecified; Translations: [Allergic rhinitis, unspecified] Onset: 11-06-2024 Chronic Other upper respiratory disease (5 sources) Polyp of nasal cavity and/or nasal sinus; Translations: [Nasal polyp, unspecified] 10-28-2020 Episodic Comment on above: Multiple polypectomi es in the past Residual codes; unclassified (1 source) Obstructive sleep apnea (adult) (pediatric); Translations: [Obstructive sleep apnea (adult)(pediatric)] 11-11-2022 Chronic Residual codes; unclassified (3 sources) History of repair of eyelid; Translations: [Other specified postprocedural states] 02-12-2025 Episodic Residual codes; unclassified (1 source) Localized edema; Translations: [Localized edema] Onset: 04-16-2025 Episodic Unclassified (15 sources) Obstructive sleep apnea syndrome; Translations: [Obstructive sleep apnea (adult) (pediatric)] Onset: 02-17-2016 02-17-2016 Chronic Comment on above: BiPAP 17/13 cmH2O Varicose veins of lower extremity (8 sources) Varicose veins of lower extremity; Translations: [Varicose veins of bilateral lower extremities with other complications] Onset: 04-16-2025 02-16-2023 Episodic Past or Other Problems Problem Classification Problem Date Documented Date Episodic/Chronic Fracture of lower limb (5 sources) Fracture of tibia; Translations: [Unspecified fracture of shaft of left tibia, initial encounter for closed fracture] Onset: 01-10-2025 01-22-2025 Episodic Immunizations and screening for infectious disease (3 sources) Contact with and (suspected) exposure to other viral communicable diseases; Translations: [Contact with or suspected exposure to other viral communicable disease] Onset: 06-08-2024 06-08-2024 Episodic Joint disorders and dislocations; trauma-related (5 sources) Tear of meniscus of knee; Translations: [Unspecified tear of unspecified meniscus, current injury, left knee, initial encounter] Onset: 01-10-2025 01-10-2025 Episodic Other circulatory disease (4 sources) Electrocardiogram abnormal; Translations: [Abnormal electrocardiogram [ECG] [EKG]] Onset: 10-15-2016 10-15-2016 Episodic Other lower respiratory disease (1 source) Dyspnea, unspecified; Translations: [Dyspnea, unspecified] Onset: 12-14-2024 Episodic Other upper respiratory infections (3 sources) Acute sinusitis; Translations: [Acute sinusitis, unspecified] Onset: 06-08-2024 06-08-2024 Episodic Results Test Name Value Interpretation Reference Range Facility MR/Suzie 04-02-2025 MR/BMSESTELA [facility] Vascular Surgery [address] [place] [address] OFFICE VISIT Date of Service: 04/02/25 MR#: [id number] Acct: [id number] Name: ISAURA RAMIREZ Rep #: [id number] : 1970 Provider: CAIO Dominguez Age/Sex: 54/M Location: [facility] Status: Signed Intake Vital Signs 02/19/25 15:41 03/21/25 08:49 Height 6 ft 6 ft Weight: 235 lb 235 lb BMI 31.8 31.8 BP 133/82 H 135/88 H Blood Pressure Location Rt brachial Rt brachial Position Sitting Sitting Respiration 18 16 Pulse 94 61 Pulse Source Monitor Temp 97.7 F L 98.6 F Temp Source Oral Temporal Pulse Oximetry (%) 96 99 Oxygen Delivery Method room air room air Intake Visit Reasons: Itching where varicose veins were Chart Clerk Required: No Accompanied by: Self Is patient in pain?: No Allergies iodine Allergy (Verified 04/02/25 09:11) Anaphylaxis Medications ???Medication ???Instructions ???Recorded ???Confirmed ???Type atorvastatin 10 mg tablet 10 mg PO QDAY #90 tabs 06/06/23 Rx pramipexole 1 mg tablet 1 mg PO QHS #90 tabs 05/07/2403/15 Rx fluticasone fur. 200 mcg-umeclid 1 inh inhalation DAILY #3 ea 11/0604/02/25 Rx 62.5 mcg-vilant 25 mcg inhalat.powder (Trelegy Ellipta) dupilumab 300 mg/2 mL subcutaneous 300 mg (2 mL) subcut Q2W #4 mL 0 11/21/24 04/02/25 Rx pen injector (Dupixent) PFSH Medical History Wears glasses History of steroid therapy Arthritis Gastric reflux Non-smoker BiPAP (biphasic positive airway pressure) dependence Sleep apnea Uses crutches Tear of meniscus of left knee Left tibial fracture High cholesterol History of asthma History of environmental allergies Osteoarthritis of left knee Left knee pain History of exercise stress test ( 10/2016) History of echocardiogram ( 10/2016) Dyspnea TIESHA (obstructive sleep apnea) Restless leg syndrome Hyperlipidemia Abnormal echocardiogram Chest pain Surgical History Hx of surgical procedure Hx of colonoscopy H/O knee surgery History of nasal surgery Family History Grandmother Myocardial infarction, Onset Age: 40 x3 [place] Father Alcoholism Mother Breast cancer Aunt Cancer Breast cancer Grandmother Diabetes Grandfather Heart disease Social History Smoking Status: Never smoker alcohol intake: current substance use type: does not use additional social history: uses aspirin and ibuprofen as needed HPI HPI HPI: ISAURA RAMIREZ, is a 54 M who presents to the office today with complaint of bilateral lower leg itching. Recall he had prior R GSV RFA 04/28/2023 for painful RLE varicosities at that time. He reports the pain has largely remained resolved; however, over the last several months he has had this increased itching bilaterally which is worst in the evenings. He does also have some persistent mild edema bilaterally. He has some reticular/spider veins bilateral shins. He does not have any wounds. He does not apply lotion routinely. He does wear his measured compression stockings daily. ROS General General: No weight change, appetite, fatigue, colon cancer, breast cancer or weakness HEENT HEENT: Yes eye surgery; No difficulty swallowing, eye injury, swollen glands or hoarseness Endo Endocrine: No thyroid disease, diabetes mellitus, thyroid cancer, Hair loss, heat intolerance or cold intolerance Skin Skin: No rash or changing moles Musc Musculoskeletal: No back problems, arthritis, rheumatoid arthritis, gout or joint pain Cardio Cardiovascular: No murmur, pacemaker, heart disease, atrial fibrillation, high blood pressure, heart attack, heart stent, palpitations, shortness of breath with exertion or chest pain Psych Psychiatric: No depression, anxiety or hearing voices Resp Respiratory: No shortness of breath, Yes sleep apnea, No cough, No COPD, Yes asthma, No emphysema and No wheezing Gastro Gastrointestinal: No abdominal pain, No nausea or vomiting, No diarrhea, No constipation, No blood in stool, No acid reflux, No hemorrhoids, No ulcers, No gallbladder problem and No black,tarry stools Dashawn Hematologic: No blood thinners, No blood disorders, No bleeding, No anemia and No blood clots Neuro Neurologic: No system reviewed and no additional complaints, except as documented, No as per HPI, No abnormal gait, No abnormal hearing, No abnormal movements, No abnormal speech, No behavioral changes, No burning sensations, No confusion, No convulsions, No disequilibrium, No dizziness, No localized weakness, No frequent falls, No headache(s), No lack of coordina (more content not included)... Normal [facility] Plastic Surgery Visit Report on 02-19-2025 Plastic Surgery Visit Report [facility] Plastic Reconstructive Surgery [address] [place] [address] OFFICE VISIT Date of Service: 02/19/25 MR#: [id number] Acct: [id number] Name: ISAURA RAMIREZ Rep #: [id number] : 1970 Provider: Dr. Tatianna caro MD Age/Sex: 54/M Location: [facility] Status: Signed Intake Vital Signs 01/09/25 15:21 02/12/25 10:28 02/19/25 15:41 Height 5 ft 11 in 6 ft 6 ft Weight: 235 lb BMI 31.8 BP 144/87 H 133/82 H Blood Pressure Location Lt brachial Rt brachial Position Sitting Sitting Respiration 18 18 Pulse 70 94 Temp 98.4 F 97.7 F L Temp Source Temporal Oral Pulse Oximetry (%) 94 96 Oxygen Delivery Method room air room air Intake Visit Reasons: post #2 cierra upper bleph Chief Complaint: post cierra bleph #2 Is patient in pain?: No Allergies iodine Allergy (Verified 02/19/25 15:42) Anaphylaxis Medications ???Medication ???Instructions ???Recorded ???Confirmed ???Type atorvastatin 10 mg tablet 10 mg PO QDAY #90 tabs 06/06/23 Rx pramipexole 1 mg tablet 1 mg PO QHS #90 tabs 05/07/24 0407/08 Rx fluticasone fur. 200 mcg-umeclid 1 inh inhalation DAILY #3 ea 11/0602/19/25 Rx 62.5 mcg-vilant 25 mcg inhalat.powder (Trelegy Ellipta) dupilumab 300 mg/2 mL subcutaneous 300 mg (2 mL) subcut Q2W #4 mL 0 11/21/24 02/19/25 Rx pen injector (Dupixent) oxycodone-acetamino phen 5 mg-325 1 tab PO TID PRN pain 02/01/2507/08 History mg tablet (Percocet) Nurse's Note: pt here post upper bleph #2, no issues Subjective Details: Isaura comes in for recheck of the blepharoplasty that was done 3 weeks ago. He denies any problems. Objective Details: He still has some residual bruising above and below the left eye. His swelling is gradually resolving. Residual absorbable sutures are clipped. I reviewed massaging of the eyelids from medial to lateral with eye cream. He states his vision is improved and he is happy with the results. I will see him back as needed and he is encouraged to call with any problems. Coding Level of Care Code Global Post Op Diagnoses Status post blepharoplasty Z98.890 [facility] Medical History (Updated 01/22/25 @ 12:02 by Coreen Bishop) Wears glasses History of steroid therapy Arthritis Gastric reflux Non-smoker BiPAP (biphasic positive airway pressure) dependence Sleep apnea Uses crutches Tear of meniscus of left knee Left tibial fracture High cholesterol History of asthma History of environmental allergies Osteoarthritis of left knee Left knee pain History of exercise stress test ( 10/2016) History of echocardiogram ( 10/2016) Dyspnea TIESAH (obstructive sleep apnea) Restless leg syndrome Hyperlipidemia Abnormal echocardiogram Chest pain Surgical History (Updated 02/12/25 @ 10:[address] Tatianna Whipple MD) Hx of surgical procedure Hx of colonoscopy H/O knee surgery History of nasal surgery Family History (Updated 01/09/25 @ 15:15 by Beti Jaime) Grandmother Myocardial infarction, Onset Age: 40 x3 [place] Father Alcoholism Mother Breast cancer Aunt Cancer Breast cancer Grandmother Diabetes Grandfather Heart disease Social History (Updated 01/09/25 @ 15:15 by Beti Jaime) Smoking Status: Never smoker alcohol intake: current substance use type: does not use additional social history: uses aspirin and ibuprofen as needed Assessment and Plan (No Qualifiers) Assessment and Plan (1) Status post blepharoplasty: Status: Acute Plan Details Additional Comments: Follow-up as needed 02/19/25 1625 Date Tatianna Whipple MD Cosigner Signature: Date (if applicable) CC: [facility] Plastic Surgery Visit Report on 02-12-2025 Plastic Surgery Visit Report [facility] Plastic Reconstructive Surgery [address], [address] [place] [address] OFFICE VISIT Date of Service: 02/12/25 MR#: [id number] Acct: [id number] Name: ISAURA RAMIREZ Rep #: [id number] : 1970 Provider: Dr. Tatianna caro MD Age/Sex: 54/M Location: [facility] Status: Signed Intake Vital Signs 01/09/25 15:21 02/01/25 08:13 02/12/25 10:28 Height 5 ft 11 in 6 ft 6 ft BP 144/87 H Blood Pressure Location Lt brachial Position Sitting Respiration 18 Pulse 70 Temp 98.4 F Temp Source Temporal Pulse Oximetry (%) 94 Oxygen Delivery Method room air Intake Visit Reasons: post #1 cierra upper bleph Chief Complaint: post cierra bleph Is patient in pain?: No Allergies iodine Allergy (Verified 02/12/25 10:32) Anaphylaxis Medications ???Medication ???Instructions ???Recorded ???Confirmed ???Type atorvastatin 10 mg tablet 10 mg PO QDAY #90 tabs 06/06/23 Rx pramipexole 1 mg tablet 1 mg PO QHS #90 tabs 05/07/24 0412/08 Rx fluticasone fur. 200 mcg-umeclid 1 inh inhalation DAILY #3 ea 11/0602/12/25 Rx 62.5 mcg-vilant 25 mcg inhalat.powder (Trelegy Ellipta) dupilumab 300 mg/2 mL subcutaneous 300 mg (2 mL) subcut Q2W #4 mL 0 11/21/24 02/12/25 Rx pen injector (Dupixent) erythromycin 5 mg/gram (0.5 %) eye 1 applic ophthalmic (eye) DAILY 01/29/25 02/12/25 Rx ointment #3.5 grams oxycodone-acetamino phen 5 mg-325 1 tab PO TID PRN pain 02/01/2512/08 History mg tablet (Percocet) cephalexin 500 mg capsule 500 mg PO BID 02/12/25 02/12/25 Hi story Nurse's Note: post upper bleph , no issues other than itching. Subjective Details: Isaura comes in for recheck of the bilateral upper blepharoplasty. He is happy with the results and states his visual field and upward and lateral gaze has improved. He states he has some itching of his eyelids and I have told him to reduce the amount of topical antibiotic ointment he is using. Objective Details: Incisions are well-approximated. He has slightly more bruising on the left than the right. There is mild swelling present. The sutures are removed and the patient was instructed on massaging the eyelids from medial to lateral to help reduce the edema. He is to continue sleeping in an elevated position. He can begin to get the eyelid area wet when he washes and he can begin to drive. I will see him back in a week for recheck and he is encouraged to call with any problems or questions. Coding Level of Care Code Global Post Op Diagnoses Status post blepharoplasty Z98.890 [facility] Medical History (Updated 01/22/25 @ 12:02 by Coreen Bishop) Wears glasses History of steroid therapy Arthritis Gastric reflux Non-smoker BiPAP (biphasic positive airway pressure) dependence Sleep apnea Uses crutches Tear of meniscus of left knee Left tibial fracture High cholesterol History of asthma History of environmental allergies Osteoarthritis of left knee Left knee pain History of exercise stress test ( 10/2016) History of echocardiogram ( 10/2016) Dyspnea TIESHA (obstructive sleep apnea) Restless leg syndrome Hyperlipidemia Abnormal echocardiogram Chest pain Surgical History (Updated 02/12/25 @ 10:[address] Tatianna Whipple MD) Hx of surgical procedure Hx of colonoscopy H/O knee surgery History of nasal surgery Family History (Updated 01/09/25 @ 15:15 by Beti Jaime) Grandmother Myocardial infarction, Onset Age: 40 x3 [place] Father Alcoholism Mother Breast cancer Aunt Cancer Breast cancer Grandmother Diabetes Grandfather Heart disease Social History (Updated 01/09/25 @ 15:15 by Beti Jaime) Smoking Status: Never smoker alcohol intake: current substance use type: does not use additional social history: uses aspirin and ibuprofen as needed Assessment and Plan (No Qualifiers) Assessment and Plan (1) Status post blepharoplasty: Status: Acute Plan Details Additional Comments: Follow-up in 1 week. 02/12/25 1714 Date Tatianna Whipple MD Cosigner Signature: Date (if applicable) CC: [facility] Discharge Instructionon 03-2 Discharge Instruction [facility] Medical Records Department [address] [place] [address] Instructions for Home/Discharge Instructions 02/01/25 1112 MR#: [id number] Acct: [id number] Name: ISAURA RAMIREZ Rep #: [id number] : 1970 54 From: Tatianna Whipple MD PCP: DASHA Pitts Status:REG [facility] Discharge Instructions Dressing / Incision Additional Dressing/Incision Instructions:: Follow the instructions given in the office. Keep your head elevated and maintain cool compresses today. Follow Up Care Please Follow Up With: Tatianna Whipple MD Test Results: Test results from this visit will be discussed in further detail at your follow-up appointment, if applicable. Discharge Plan Admission Attending Provider: Tatianna Whipple Primary Care Provider: Anju Navarrete Instructions Print Language: Eritrean Discharge Orders/Prescription s Prescriptions: No Action Trelegy Ellipta 200-62.5-25 mcg blister with device 1 inh inhalation DAILY Qty: 3 3RF cephalexin 500 mg capsule 500 mg PO BID 5 Days Qty: 10 0RF erythromycin 5 mg/gram (0.5 %) ointment 1 applic ophthalmic (eye) DAILY Qty: 3.5 0RF Rx Instructions: Apply a thin layer on the incisions once a day and in the eyes bilaterally at nighttime oxycodone-acetamino phen [Percocet] 5-325 mg tablet 1 tab PO TID PRN (Reason: pain) atorvastatin 10 mg tablet 10 mg PO QDAY Qty: 90 3RF pramipexole 1 mg tablet 1 mg PO QHS Qty: 90 3RF Dupixent Pen 300 mg/2 mL pen injector 300 mg subcut Q2W Qty: 4 11RF Referrals / Follow Up: Anju Navarrete NP-C [Primary Care Provider] - Disposition Disposition (needs filled in before D/C Order can be placed): Home, Self Care 02/01/251112 Tatianna Whipple MD CC: DEICER ELEMENT WINDER MACHINE-C Anju Navarrete Signed [facility] Discharge Instruction [facility] Medical Records Department [address] [place] [address] Instructions for Home/Discharge Instructions 02/01/25 1111 MR#: [id number] Acct: [id number] Name: ISAURA RAMIREZ Rep #: [id number] : 1970 54 From: Tatianna Whipple MD PCP: DASHA Pitts Status:REG [facility] Discharge Instructions Dressing / Incision Additional Dressing/Incision Instructions:: Follow the instructions given in the office. Keep your head elevated and maintain cool compresses today. Follow Up Care Please Follow Up With: Tatianna Whipple MD When: As scheduled Test Results: Test results from this visit will be discussed in further detail at your follow-up appointment, if applicable. Discharge Plan Admission Attending Provider: Tatianna Whipple Primary Care Provider: Anju Navarrete Instructions Print Language: Eritrean Discharge Orders/Prescription s Prescriptions: No Action Trelegy Ellipta 200-62.5-25 mcg blister with device 1 inh inhalation DAILY Qty: 3 3RF cephalexin 500 mg capsule 500 mg PO BID 5 Days Qty: 10 0RF erythromycin 5 mg/gram (0.5 %) ointment 1 applic ophthalmic (eye) DAILY Qty: 3.5 0RF Rx Instructions: Apply a thin layer on the incisions once a day and in the eyes bilaterally at nighttime oxycodone-acetamino phen [Percocet] 5-325 mg tablet 1 tab PO TID PRN (Reason: pain) atorvastatin 10 mg tablet 10 mg PO QDAY Qty: 90 3RF pramipexole 1 mg tablet 1 mg PO QHS Qty: 90 3RF Dupixent Pen 300 mg/2 mL pen injector 300 mg subcut Q2W Qty: 4 11RF Referrals / Follow Up: Anju Navarrete NP-C [Primary Care Provider] - Disposition Disposition (needs filled in before D/C Order can be placed): Home, Self Care 02/01/25 1112 Tatianna Whipple MD CC: DEICER ELEMENT WINDER MACHINE-C Anju Navarrete Signed [facility] MR/POSTOP.Alexy 02-01-2025 MR/POSTOP.[facility] Medical Records Department [address] [place] [address] Anesthesia Postop Eval I 02/01/25 1127 MR#: [id number] Acct: [id number] Name: ISAURA RAMIREZ Rep #: [id number] : 1970 54 From: Marline Marcum CRNA PCP: DASHA Pitts Status:REG [facility] Y Race: C Location: [place] [address] Anesthesia: Postop Eval I Current Vital Signs Temperature: 97.0 F Pulse Rate: 89 Blood Pressure: 130/84 Respiratory Rate: 20 Pulse Ox: 100 Assessment Airway patent: Yes Spontaneous unlabored respirations: Yes nausea: No Vomiting: No Anesthesia Complication: No Fluid Hydration Crystalloid volume administer (ml): 1,100 Total IV fluid infused: 1,100 Progress Note Anesthesia document: Postop Eval 1 completed: Yes 02/01/25 112 Date Marline Marcum CRNA Cosigner Signature: Date CC: Signed [facility] MR/[id number] 02-01-2025 [facility] Medical Records Department [address] [place] [address] Anesthesia Postop Eval II 02/01/25 1149 MR#: [id number] Acct: [id number] Name: ISAURA RAMIREZ Rep #: [id number] : 1970 54 From: Isidoro Mcclendon MD PCP: DASHA Pitts Status:REG [facility] Y Race: C Location: [place] [address] Anesthesia Postop Eval I Sum Postop Eval Completion status Anesthesia document: Postop Eval 1 completed: Yes Anesthesia Postop Eval I Summary Anesthesia Postop Eval I Summary: Anesthesia Postop Eval I: Assessment Summary Airway patent Yes 02/01/25 11:27 ADULT MANAGER.JGEN Spontaneous unlabored Yes 02/01/25 11:27 ADULT MANAGER.JGEN respirations Mental status nausea No 02/01/25 11:27 ADULT MANAGER.JGEN Vomiting No 02/01/25 11:27 ADULT MANAGER.JGEN Anesthesia Postop Eval I: Fluid Summary Crystalloid volume administer 1,100 02/01/25 11:27 ADULT MANAGER.JGEN (ml) Colloids volume administered ( ml) Blood Product volume administered (ml) Total IV fluid infused 1,100 02/01/25 11:27 ADULT MANAGER.JGEN Anesthesia Postop Eval I: Summary Notes Anesthesia Complication No 02/01/25 11:27 ADULT MANAGER.JGEN Anesthesia Complication Comment: Post-operative progress note Anesthesia: Postop Eval II Evaluation Mental status: Awake Pain Level: 1 nausea: No Vomiting: No Complications Anesthesia Complication: No 02/01/25 1150 Date Isidoro Hakan VO Cosigner Signature: Date CC: Signed [facility] Operative Reporton Operative Report [facility] Medical Records Department [address] [place] [address] Operative Report 02/01/25 1113 MR#: [id number] Acct: [id number] Name: ISAURA RAMIREZ Rep #: [id number] : 1970 54 From: Tatianna Whipple MD PCP: DASHA Pitts Status:REG [facility] Location: [place] [address] Problems Associated Problem List Diagnoses (1) Dermatochalasis of both upper eyelids: (2) Visual field defect: Operative Report (Standard) Operative Information Date of Procedure: 02/01/25 Pre-Operative Diagnosis: Bilateral upper eyelid dermatochalasis and visual field limitation. Post-Operative Diagnosis: Same Surgery/Procedure Performed: Bilateral upper blepharoplasty. digital community manager: Yes Insole Presser: Samira Jordan Tasks completed by foundation assistant: Retracting Type of Anesthesia: General RN Documented Start/Stop Times: Operation Date: 02/01/25 09:20 Case Time Into Pre-Op 02/01/25 07:51 Out of Pre-Op 02/01/25 09:37 Anesthesia Start 02/01/25 09:44 Into Room 02/01/25 09:44 Procedure Start 02/01/25 10:15 Procedure End 02/01/25 11:08 Procedure Start Time: 10:15 Procedure Stop Time: 11:08 Select all DRAINS/GRAFTS/IMPLA NTS that apply: None Estimated Blood Loss: Minimal Specimen collected: No Description of surgery: The patient presents with a history of visual field defect as well as dermatochalasis. He presents for bilateral upper blepharoplasty. An informed consent is obtained. He is marked in the preop holding area prior to surgery. The patient is brought to the operating room and placed under general anesthesia in the supine position. Care is taken to pad all pressure points, apply a a warming blanket, and sequential compression stockings. Tetracaine drops were placed in the eyes bilaterally. The patient's prepped and draped in the usual sterile fashion. Corneal markham lubricated with erythromycin ophthalmic ointment are positioned. We initially began with injecting 1% Xylocaine with epinephrine along the premarked incision lines. After allowing an adequate amount of time for hemostasis to take effect, the incisions are made. Topical epi is put on the incision lines to reduce bruising. The premarked incision is then excised. Hemostasis is controlled with bipolar cautery. A strip of orbicularis oculi is also removed. Hemostasis is controlled with bipolar cautery. The incisions tacked together with fast-absorbing gut. Cool compresses are placed on the eye and we directed our attention to the opposite side with the identical procedure performed. Following this, a 5-0 Prolene is used to approximate skin edges in a subcuticular fashion. The sutures anchored at the judaism and glabella using Mastisol and Steri-Strips. Erythromycin ophthalmic ointment is placed on the incisions and cool compresses are applied. He tolerated the procedure well was taken to the recovery area in an awake and stable condition. Needle and sponge counts are correct. Surgical Findings: As above Complications Complications: No Admit VTE Documentation VTE Mechan Device Prophylaxis: SCD's 02/01/25 2248 Cosigner Signature (if applicable): CC: DASHA Navarrete; Dr. Tatianna Whiplpe MD Signed [facility] Plastic Surgery Visit Report on 01-29-2025 Plastic Surgery Visit Report [facility] Plastic Reconstructive Surgery [address], [address] [place], [place] [id number] OFFICE VISIT Date of Service: 01/29/25 MR#: [id number] Acct: [id number] Name: ISAURA RAMIREZ Rep #: [id number] : 1970 Provider: Dr. Tatianna caro MD Age/Sex: 54/M Location: [facility] Status: Signed Intake Vital Signs 01/09/25 15:21 01/23/25 15:41 01/29/25 15:36 Height 5 ft 11 in 5 ft 11 in 5 ft 11 in Weight: 231 lb 233 lb 8 oz 233 lb BMI 32.2 32.5 32.5 BP 129/84 H 128/87 H 138/84 H Blood Pressure Location Lt brachial Lt brachial Lt brachial Position Sitting Sitting Sitting Respiration 18 18 18 Pulse 78 79 78 Temp 97.4 F L 97.8 F 98.3 F Temp Source Oral Oral Pulse Oximetry (%) 96 96 96 Oxygen Delivery Method room air room air room air Intake Visit Reasons: pre #2 cierra upper bleph Chief Complaint: upper bleph prep #2 Is patient in pain?: No Allergies iodine Allergy (Verified 01/29/25 15:37) Anaphylaxis Medications ???Medication ???Instructions ???Recorded ???Confirmed ???Type atorvastatin 10 mg tablet 10 mg PO QDAY #90 tabs 06/06/23 Rx pramipexole 1 mg tablet 1 mg PO QHS #90 tabs 05/07/2401/12 Rx fluticasone fur. 200 mcg-umeclid 1 inh inhalation DAILY #3 ea 11/0601/22/25 Rx 62.5 mcg-vilant 25 mcg inhalat.powder (Trelegy Ellipta) dupilumab 300 mg/2 mL subcutaneous 300 mg (2 mL) subcut Q2W #4 mL 0 11/21/24 01/29/25 Rx pen injector (Dupixent) cephalexin 500 mg capsule 500 mg PO BID 5 days #10 caps 01/1201/29/25 Rx erythromycin 5 mg/gram (0.5 %) eye 1 applic ophthalmic (eye) DAILY 01/29/25 01/29/25 Rx ointment #3.5 grams oxycodone-acetamino phen 5 mg-325 1 tab PO TID PRN pain 3 days #6 01/29/25 Rx mg tablet (Percocet) tab-caps Nurse's Note: pt here for pre op #2 cierra upper bleph PFSH Medical History (Updated 01/22/25 @ 12:02 by Coreen Bishop) Wears glasses History of steroid therapy Arthritis Gastric reflux Non-smoker BiPAP (biphasic positive airway pressure) dependence Sleep apnea Uses crutches Tear of meniscus of left knee Left tibial fracture High cholesterol History of asthma History of environmental allergies Osteoarthritis of left knee Left knee pain History of exercise stress test ( 10/2016) History of echocardiogram ( 10/2016) Dyspnea TIESHA (obstructive sleep apnea) Restless leg syndrome Hyperlipidemia Abnormal echocardiogram Chest pain Surgical History (Updated 01/22/25 @ 12:02 by Coreen Bishop) Hx of surgical procedure Hx of colonoscopy H/O knee surgery History of nasal surgery Family History (Updated 01/09/25 @ 15:15 by Beti Jaime) Grandmother Myocardial infarction, Onset Age: 40 x3 [place] Father Alcoholism Mother Breast cancer Aunt Cancer Breast cancer Grandmother Diabetes Grandfather Heart disease Social History (Updated 01/09/25 @ 15:15 by Beti Jaime) Smoking Status: Never smoker alcohol intake: current substance use type: does not use additional social history: uses aspirin and ibuprofen as needed HPI pre #2 cierra upper bleph Details: Isaura comes in for preop preparation regarding the upcoming blepharoplasty. He has obtained his medical clearance from his primary care provider. Of note is his allergy to iodine. He continues the use of crutches and anticipates this may be discontinued later this week. Exam Details Patient with bilateral upper eyelid dermatochalasis and obstruction of his visual orozco. The procedure of upper blepharoplasty was reviewed with him including the incisions and scars as well as limitations after surgery. The pre and postop instructions were reviewed item by item. Questions were answered as they occurred. I reviewed his medications with him. I have given him prescriptions for Keflex, Percocet, and erythromycin ophthalmic ointment. Their appropriate use and risks were reviewed. The potential risk and complications of surgery were reviewed which include but are not exclusive of bleeding, infection, pain, numbness, asymmetry, scar tissue, skin necrosis, the need for further s urgery, dry eye, DVT, and even . He wishes to proceed with surgery. HENMT Other: His voice sounds hoarse but he denies URI Coding Level of Care Code Off vis,est,level 4 Diagnoses Dermatochalasis of both upper eyelids H02.831; H02.834 Visual field defect H53.40 Assessment and Plan (No Qualifiers) Assessment and Plan (1) Dermatochalasis of both upper eyelids: Status: Acute (2) Visual field defect: Status: Acute Plan Details Additional Comments: We will proceed with upper blepharoplasty in the near future. He is encouraged to call with any questions. 01/29/25 1626 Date (more content not included)... [facility] Plastic Surgery Visit Report on 01-23-2025 Plastic Surgery Visit Report [facility] Plastic Reconstructive Surgery [address], [address] [place] [address] OFFICE VISIT Date of Service: 01/23/25 MR#: [id number] Acct: [id number] Name: ISAURA RAMIREZ Rep #: [id number] : 1970 Provider: Dr. Tatianna caro MD Age/Sex: 54/M Location: [facility] Status: Signed Intake Vital Signs 01/09/25 15:21 01/23/25 15:41 Height 5 ft 11 in 5 ft 11 in Weight: 231 lb 233 lb 8 oz BMI 32.2 32.5 BP 129/84 H 128/87 H Blood Pressure Location Lt brachial Lt brachial Position Sitting Sitting Respiration 18 18 Pulse 78 79 Temp 97.4 F L 97.8 F Temp Source Oral Oral Pulse Oximetry (%) 96 96 Oxygen Delivery Method room air room air Intake Visit Reasons: pre op #1 cierra upper bleph Chief Complaint: upper bleph prep #1 Is patient in pain?: No Allergies iodine Allergy (Verified 01/23/25 15:42) Anaphylaxis Medications ???Medication ???Instructions ???Recorded ???Confirmed ???Type aspirin 81 mg tablet,delayed 81 mg PO QDAY 10/21/17 01/22/25 Hi story release (Adult Low Dose Aspirin) atorvastatin 10 mg tablet 10 mg PO QDAY #90 tabs 06/06/23 Rx pramipexole 1 mg tablet 1 mg PO QHS #90 tabs 05/07/2401/12 Rx fluticasone fur. 200 mcg-umeclid 1 inh inhalation DAILY #3 ea 11/0601/22/25 Rx 62.5 mcg-vilant 25 mcg inhalat.powder (Trelegy Ellipta) dupilumab 300 mg/2 mL subcutaneous 300 mg (2 mL) subcut Q2W #4 mL 0 11/21/24 01/23/25 Rx pen injector (Dupixent) Nurse's Note: pt here for pre op #1 upper bleph PFSH Medical History (Updated 01/22/25 @ 12:02 by Coreen Bishop) Wears glasses History of steroid therapy Arthritis Gastric reflux Non-smoker BiPAP (biphasic positive airway pressure) dependence Sleep apnea Uses crutches Tear of meniscus of left knee Left tibial fracture High cholesterol History of asthma History of environmental allergies Osteoarthritis of left knee Left knee pain History of exercise stress test ( 10/2016) History of echocardiogram ( 10/2016) Dyspnea TIESHA (obstructive sleep apnea) Restless leg syndrome Hyperlipidemia Abnormal echocardiogram Chest pain Surgical History (Updated 01/22/25 @ 12:02 by Coreen Bishop) Hx of surgical procedure Hx of colonoscopy H/O knee surgery History of nasal surgery Family History (Updated 01/09/25 @ 15:15 by Beti Jaime) Grandmother Myocardial infarction, Onset Age: 40 x3 [place] Father Alcoholism Mother Breast cancer Aunt Cancer Breast cancer Grandmother Diabetes Grandfather Heart disease Social History (Updated 01/09/25 @ 15:15 by Beti Jaime) Smoking Status: Never smoker alcohol intake: current substance use type: does not use additional social history: uses aspirin and ibuprofen as needed HPI pre op #1 cierra upper bleph Details: Isaura comes in for preop preparation regarding the upcoming upper blepharoplasty. He is recently sustained a microfracture of his left leg requiring the use of crutches. He is scheduled to see his primary care provider for a medical clearance in the near future. Exam Details The patient is noted to have bilateral upper eyelid dermatochalasis which is obstructing vision on upward and lateral gaze. The patient was given a packet of information to review prior to the next appointment. I reviewed with him the need to keep his head elevated at night to prevent bruising and swelling postoperatively. I also reviewed the cold compresses that he will continue the day of surgery. I have given him a packet of information to review including the pre and postop instructions, the medications to avoid before surgery, and an informed consent. I reviewed the perioperative course including the length of the procedure which will be under a general anesthetic. And overall review of the surgery was covered including the incision location. Const General: cooperative and healthy appearing Eyes Alignment and Position: alignment abnormal EOM: EOM intact bilaterally Extrem Other: Patient ambulating with crutches maintaining not weightbearing on his left leg. Psych Appearance: grossly normal Coding Level of Care Code Off vis,est,level 3 Diagnoses Visual field defect H53.40 Dermatochalasis of both upper eyelids H02.831; H02.834 Assessment and Plan (No Qualifiers) Assessment and Plan (1) Visual field defect: Status: Acute (2) Dermatochalasis of both upper eyelids: Status: Acute Plan Details Additional Comments: I will see him back for further preop preparation after he has had his medical clearance. 01/23/25 1620 Date Tatianna Whipple MD Cosigner Signature: Date ____ (more content not included)... 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 When Was Last Pacemaker Check QUESTION #4 FULL TEXT: You/Your Family Experience fever (hyperthermia) with Anesthesia Last Oral Intake Last Oral intake: Last Oral Intake NPO since Meds taken in AM with sips of water? 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 Has anyone observed you stop breathing during sleep? STOP Results Positive 01/22/25 12:03 QUESTION #5 FULL TEXT : Do you snore loudly (louder than talking or can be heard through closed doors)? 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 Specify any problems Hx of Preganancy in last 3 N/A 01/22/25 12:03 Months Nurse Filling Out Transfusion VCHRISTIN 01/22/25 12:03 Questions: Date: 01/22/25 01/22/25 12:03 Time: 12:03 01/22/25 12:03 Patient unable to answer at this time (ie. 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 Hx Now Gestational Age (in weeks): EDC: Hx Hx Para Hx [facility] Medical History (Updated 01/22/25 @ 12:02 by Coreen Bishop) Wears glasses History of steroid therapy Arthritis Gastric reflux Non-smoker BiPAP (biphasic positive airway pressure) dependence Sleep apnea Uses crutches Tear of meniscus of left knee Left tibial fracture High cholesterol History of asthma History of environmental allergies Osteoarthritis of left knee Left knee pain History of exercise stress test ( 10/2016) History of echocardiogram ( 10/2016) Dyspnea TIESHA (obstructive sleep apnea) Restless leg syndrome Hyperlipidemia Abnormal echocardiogram Chest pain Home Medications ???Medication ???Instructions ???Recorded ???Last Taken ???Type aspirin 81 mg tablet,delayed 81 mg PO QDAY 10/21/17 Unknown His tory release (Adult Low Dose Aspirin) atorvastatin 10 mg tablet 10 mg PO QDAY #90 tabs 06/06/23 Un known Rx pramipexole 1 mg tablet 1 mg PO QHS #90 tabs 06/24/24 Unkn own Rx fluticasone fur. 200 mcg-umeclid 1 inh inhalation DAILY #3 ea 12/ (more content not included)... Normal [facility] Orthopedic Visit Reporton Orthopedic Visit Report [facility] [address] [place] [address] [address] [place] [address] OFFICE VISIT Date of Service: 01/10/25 MR#: [id number] Acct: [id number] Name: ISAURA RAMIREZ Rep #: [id number] : 1970 Provider: Dr. Sancho rashid MD Age/Sex: 54/M Location: [facility] Status: Signed Intake Vital Signs 12/24/24 15:43 01/09/25 15:21 Height 5 ft 11 in 5 ft 11 in Weight: 231 lb BMI 32.2 BP 129/84 H Blood Pressure Location Lt brachial Position Sitting Respiration 18 Pulse 78 Temp 97.4 F L Temp Source Oral Pulse Oximetry (%) 96 Oxygen Delivery Method room air Intake Visit Reasons: LEFT KNEE Chief Complaint: upper bleph consult Allergies iodine Allergy (Verified 01/09/25 15:16) Anaphylaxis [facility] Medical History (Updated 01/10/25 @ 10:54 by Sancho Jaramillo MD) Tear of meniscus of left knee Left tibial fracture High cholesterol History of asthma History of environmental allergies Osteoarthritis of left knee Left knee pain History of exercise stress test ( 10/2016) History of echocardiogram ( 10/2016) Dyspnea TIESHA (obstructive sleep apnea) Restless leg syndrome Hyperlipidemia Abnormal echocardiogram Chest pain Surgical History (Updated 01/09/25 @ 15:14 by Beti Jaime) H/O knee surgery History of nasal surgery Family History (Updated 01/09/25 @ 15:15 by Beti Jaime) Grandmother Myocardial infarction, Onset Age: 40 x3 [place] Father Alcoholism Mother Breast cancer Aunt Cancer Breast cancer Grandmother Diabetes Grandfather Heart disease Social History (Updated 01/09/25 @ 15:15 by Beti Jaime) Smoking Status: Never smoker alcohol intake: current substance use type: does not use additional social history: uses aspirin and ibuprofen as needed HPI LEFT KNEE Details: This documentation accurately reflects the service provided and the decisions made by me, Dr. Sancho Jaramillo MD 01/10/25 0906. Part of today???s visit was documented by [ ], acting as scribe. ISAURA RAMIREZ is a 54 year old M here today for FU L knee MRI, phone call FU. Supplemental Info [facility] Imaging Services [address] [place], [place] [id number] Lower Ext Joint Only (Routine) MR#: [id number] Acct: [id number] Name: ISAURA RAMIREZ Rep #: [id number] : 1970 M 54 From: Bobby Acuna DO PCP: DASHA Pitts Status: REG CLI Study: Lower Ext Joint Only (Routine) Date of Exam: 01/04/25 Exam# [id number] Ordering Dr: Sancho Jaramillo MD PROCEDURE: Noncontrast MRI of the left knee. REASON FOR EXAM: Medial left knee pain. Evaluate for meniscal tear TECHNIQUE: Multiplanar, multisequence MRI images of the left knee were obtained without IV contrast. COMPARISON: None available FINDINGS The patellar ligament and included distal quadriceps tendon are intact. Small amount of joint fluid, without sizeable joint effusion. There is some edematous signal superficial to the otherwise intact medial collateral ligament. The cruciate and collateral ligaments are intact. Mild articular cartilage loss involving the medial compartment, greatest involving the weight- bearing surface of the medial femoral condyle. No significant articular cartilage loss of the lateral compartment. There is moderate articular cartilage loss involving the lateral patellar facet. No evidence of transient patellar dislocation. The patellar retinacula and popliteus muscle/tendon are intact. No sizable popliteal cyst. No soft tissue mass or drainable fluid collection of the left knee. There is moderate marrow edema involving the posterior medial aspect of the tibial plateau. There is some focally decreased T1 signal involving the posterior medial cortical margin of the tibial plateau, favored to represent an area of trabecular microfracture. No tibial plateau depression is demonstrated. No discrete lateral meniscal tear. There is a curvilinear radial type tear involving the posterior horn medial meniscus on image 19 of the axial T2 fat saturated sequence and image 12 of the coronal T2 fat saturated sequence. No flipped meniscal fragment. Moderate edema involving the anteromedial soft tissues of the left knee, inferior to the joint line. MRI/Lower Ext Joint Only (Routine) IMPRESSION: Moderate marrow edema posterior medial tibial plateau. There is a horizontally oriented focal area of decreased T1 signal of the posterior medial tibial plateau, favored to represent an area of trabecular microfracture. No tibial plateau depression is demonstrated. No internal lig (more content not included)... Normal [facility] Plastic Surgery Visit Report on 01-09-2025 Plastic Surgery Visit Report [facility] [address], [address] [place] [address] OFFICE VISIT Date of Service: 01/09/25 MR#: [id number] Acct: [id number] Name: ISAURA RAMIREZ Rep #: [id number] : 1970 Provider: Dr. Tatianna caro MD Age/Sex: 54/M Location: [facility] Status: Signed Intake Vital Signs 12/24/24 15:43 01/09/25 15:21 Height 5 ft 11 in 5 ft 11 in Weight: 231 lb BMI 32.2 BP 129/84 H Blood Pressure Location Lt brachial Position Sitting Respiration 18 Pulse 78 Temp 97.4 F L Temp Source Oral Pulse Oximetry (%) 96 Oxygen Delivery Method room air Intake Visit Reasons: UPPER BLEPH Chief Complaint: upper bleph consult Is patient in pain?: No Allergies iodine Allergy (Verified 01/09/25 15:16) Anaphylaxis Medications ???Medication ???Instructions ???Recorded ???Confirmed ???Type aspirin 81 mg tablet,delayed 81 mg PO QDAY 10/21/17 12/31/24 Hi story release (Adult Low Dose Aspirin) atorvastatin 10 mg tablet 10 mg PO QDAY #90 tabs 06/06/23 Rx pramipexole 1 mg tablet 1 mg PO QHS #90 tabs 05/07/2412/16 Rx fluticasone fur. 200 mcg-umeclid 1 inh inhalation DAILY #3 ea 11/0601/09/25 Rx 62.5 mcg-vilant 25 mcg inhalat.powder (Trelegy Ellipta) dupilumab 300 mg/2 mL subcutaneous 300 mg (2 mL) subcut Q2W #4 mL 0 11/21/24 01/09/25 Rx pen injector (Dupixent) Have you fallen in the past year?: No Nurse's Note: pt here for upper bleph [facility] Medical History (Updated 01/09/25 @ 15:[address] Tatianna Whipple MD) High cholesterol History of asthma History of environmental allergies Osteoarthritis of left knee Left knee pain History of exercise stress test ( 10/2016) History of echocardiogram ( 10/2016) Dyspnea TIESHA (obstructive sleep apnea) Restless leg syndrome Hyperlipidemia Abnormal echocardiogram Chest pain Surgical History (Updated 01/09/25 @ 15:14 by Beti Jaime) H/O knee surgery History of nasal surgery Family History (Updated 01/09/25 @ 15:15 by Beti Jaime) Grandmother Myocardial infarction, Onset Age: 40 x3 [place] Father Alcoholism Mother Breast cancer Aunt Cancer Breast cancer Grandmother Diabetes Grandfather Heart disease Social History (Updated 01/09/25 @ 15:15 by Beti Jaime) Smoking Status: Never smoker alcohol intake: current substance use type: does not use additional social history: uses aspirin and ibuprofen as needed HPI UPPER BLEPH Details: Mr. Ramirez is a 54-year-old male here for consideration of upper blepharoplasty. He describes issues with his vision especially on upper lateral gaze. At times he needs to physically hold his e yelid skin open in order to facilitate his vision. He does have a history of asthma and uses a CPAP regularly at nighttime. He takes a baby aspirin daily. 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 He had considered this in the past however he did not feel comfortable with the previous provider. ROS General General: Yes good health; No fatigue, fever(s) or weight loss HENMT HENMT: Yes rhinitis; No sore throat/mouth sore, nasal congestion, contacts or glaucoma Endo Endocrine: No thyroid disease, polydipsia, heat intolerance, cold intolerance, hepatitis or excessive urine Skin Skin: No Bleeding, bruising, changing moles or suspicious lesion Musc Musculoskeletal: No joint pain, joint stiffness, muscle weakness, back pain, osteoarthritis or Muscle aches/ myalgia Neuro Neurological: No headache(s), No lightheadedness and No numbness Cardio Cardiovascular: No chest pain, pacemaker, fatigue or shortness of breat with exertion Psych Psychiatric: No depression, claustrophobia or anxiety Resp Respiratory: Yes sleep apnea and asthma; No spitting up, shortness of breath, emphysema, TB, Cough or Smoker Gastro Gastrointestinal: No diarrhea, constipation, blood in stool, nausea, vomiting or abdominal bloating Dashawn Hematologic: No anemia, No bleeding and No abnormal bleeding Genitourinary: No urinary frequency, blood in urine or incontinence Exam Details 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 His eyelid skin comes down over his eyelashes. He is noted to elevate his eyebrows when opening his eyes in order to facilitate his vision. The overlying skin is intact. The procedure of upper blepharoplasty was reviewed with the patient including the incisions and scars as well as limitations after surgery. The procedure would be done as an outpatient under a general anesthetic. The expected pre-, intra-, postoperative course were reviewed. The recovery afterward as well as the need to sleep in a recliner pos (more content not included)... Normal [facility] Lower Ext Joint Only (Routin e)on 01-04-2025 Lower Ext Joint Only (Routine) [facility] Imaging Services [address] [place] [address] Lower Ext Joint Only (Routine) MR#: [id number] Acct: [id number] Name: ISAURA RAMIREZ Rep #: [id number] : 1970 M 54 From: Bobby Craft i DO PCP: DASHA Pitts Status: REG CLI Study: Lower Ext Joint Only (Routine) Date of Exam: 0 01/04/25 Exam# [id number] Ordering Dr: Sancho Jaramillo MD PROCEDURE: Noncontrast MRI of the left knee. REASON FOR EXAM: Medial left knee pain. Evaluate for meniscal tear TECHNIQUE: Multiplanar, multisequence MRI images of the left knee were obtained without IV contrast. COMPARISON: None available FINDINGS The patellar ligament and included distal quadriceps tendon are intact. Small amount of joint fluid, without sizeable joint effusion. There is some edematous signal superficial to the otherwise intact medial collateral ligament. The cruciate and collateral ligaments are intact. Mild articular cartilage loss involving the medial compartment, greatest involving the weight- bearing surface of the medial femoral condyle. No significant articular cartilage loss of the lateral compartment. There is moderate articular cartilage loss involving the lateral patellar facet. No evidence of transient patellar dislocation. The patellar retinacula and popliteus muscle/tendon are intact. No sizable popliteal cyst. No soft tissue mass or drainable fluid collection of the left knee. There is moderate marrow edema involving the posterior medial aspect of the tibial plateau. There is some focally decreased T1 signal involving the posterior medial cortical margin of the tibial plateau, favored to represent an area of trabecular microfracture. No tibial plateau depression is demonstrated. No discrete lateral meniscal tear. There is a curvilinear radial type tear involving the posterior horn medial meniscus on image 19 of the axial T2 fat saturated sequence and image 12 of the coronal T2 fat saturated sequence. No flipped meniscal fragment. Moderate edema involving the anteromedial soft tissues of the left knee, inferior to the joint line. MRI/Lower Ext Joint Only (Routine) IMPRESSION: Moderate marrow edema posterior medial tibial plateau. There is a horizontally oriented focal area of decreased T1 signal of the posterior medial tibial plateau, favored to represent an area of trabecular microfracture. No tibial plateau depression is demonstrated. No internal ligamentous derangement or sizable joint effusion. Intact lateral meniscus. Small radial type tear involving the posterior horn medial meniscus. Moderate edema of the soft tissues and subcutaneous fat of the anterior medial left knee, inferior to the joint line, which could be due to recent trauma. Suggest correlation with clinical exam findings. Moderate articular cartilage loss involving the medial compartment and in the lateral patellar facet. Electronically Signed By: Bobby rashid 01/07/2025 20:30 Reading Location: [facility] CC: DASHA Navarrete; Dr. Sancho Jaramillo MD Coldfusion: Signed [facility] Orthopedic Visit Reporton Orthopedic Visit Report [facility] [address] [place] [address] OFFICE VISIT Date of Service: 12/31/24 MR#: [id number] Acct: [id number] Name: ISAURA RAMIREZ Rep #: [id number] : 1970 Provider: Dr. Sancho rashid MD Age/Sex: 54/M Location: [facility] Status: Signed Intake Vital Signs 11/23/24 16:01 12/24/24 15:43 Height 5 ft 11 in 5 ft 11 in BP 160/89 H Blood Pressure Location Rt brachial Position Sitting Respiration 18 Pulse 81 Pulse Source Monitor Temp 97.7 F L Temp Source Temporal Pulse Oximetry (%) 97 Oxygen Delivery Method room air Intake Visit Reasons: LEFT KNEE Chief Complaint: Left Knee Pain Accompanied by: Self Is patient in pain?: Yes (Sitting (3) ) Pain scale (1-10): 3 Allergies iodine Allergy (Verified 12/31/24 15:35) Anaphylaxis Medications ???Medication ???Instructions ???Recorded ???Confirmed ???Type aspirin 81 mg tablet,delayed 81 mg PO QDAY 10/21/17 12/31/24 Hi story release (Adult Low Dose Aspirin) atorvastatin 10 mg tablet 10 mg PO QDAY #90 tabs 06/06/23 Rx pramipexole 1 mg tablet 1 mg PO QHS #90 tabs 05/07/2412/15 Rx fluticasone fur. 200 mcg-umeclid 1 inh inhalation DAILY #3 ea 11/0612/31/24 Rx 62.5 mcg-vilant 25 mcg inhalat.powder (Trelegy Ellipta) dupilumab 300 mg/2 mL subcutaneous 300 mg (2 mL) subcut Q2W #4 mL 0 11/21/24 12/31/24 Rx pen injector (Dupixent) [facility] Medical History Osteoarthritis of left knee Left knee pain History of exercise stress test ( 10/2016) History of echocardiogram ( 10/2016) Dyspnea TIESHA (obstructive sleep apnea) Restless leg syndrome Hyperlipidemia Abnormal echocardiogram Chest pain Surgical History History of nasal surgery Family History Grandmother Myocardial infarction, Onset Age: 40 x3 [place] Social History Smoking Status: Never smoker alcohol intake: current HPI LEFT KNEE Details: This documentation accurately reflects the service provided and the decisions made by me, Dr. Sancho Jaramillo MD 12/31/24 1116. Part of today???s visit was documented by [ ], acting as scribe. ISAURA RAMIREZ is a 54 year old M here today for 4 weeks follow-up left knee mild osteoarthritis as well as a cortisone shot. Unfortunately the pain has not improved in fact it has gotten worse according to the patient. Patient did have a cortisone injection but it only lasted about a week. The patient's pain is still located at the anterior medial aspect of the joint line. Had a surgery arthroscopy 8 years ago on the other knee as well. Coding Level of Care Code Off vis,est,level 3 Diagnoses Osteoarthritis of left knee M17.12 Left knee pain M25.562 Assessment and Plan Assessment and Plan (1) Osteoarthritis of left knee: Status: Acute Plan: ISAURA RAMIREZ is a 54 year old M here today for 4 weeks follow-up left knee mild osteoarthritis as well as a cortisone shot. Unfortunately the pain has not improved in fact it has gotten worse according to the patient. I will go ahead and order an MRI to rule out meniscus tears or other pathology about the knee and follow-up after that the patient understands no further questions or concerns. (2) Left knee pain: Status: Acute Orders: Orders Lower Ext Joint Only (Routine) Today M25.562 - Pain in left knee Ortho Exam General General: Yes no acute distress Neurologic: Yes alert and Yes oriented x3 Psychologic: Yes reasonable and appropriate Left Knee Skin/Wound: Yes CDI, No ecchymosis, No erythema and No swelling (mild) Examination: Yes med jt line tenderness Patella Grind: No KNEE: normal gait, NVI, slight varus alignment 12/31/24 1548 Date [facility] Signature: Date (if applicable) CC: Normal [facility] Absolute lymphocyte countOrd ered By: Anju Navarrete on 12-22-2024 Lymphocytes Auto (Unsp spec) [#/Vol] 1.43 10*3/uL 0.83-4.51 [facility] Absolute neutrophil countOrd ered By: Anjuestevan Navarrete on 12-22-2024 Neutrophils (Bld) [#/Vol] 4.2 10*3/uL 2.0-7.7 [facility] Albumin to globulin ratioOrd ered By: [facility] on 12-22-2024 Albumin/Globulin [Mass ratio] 0.9 {ratio} 0.9-2.4 [facility] Automated lymphocyte count a s percentage of total leukocytesOrdered By: [facility] on 12-22-2024 Lymphocytes/100 WBC Auto (Unsp spec) 21.6 % 19-41 [facility] Basophil percentageOrdered B y: [facility] on 12-22-2024 Basophils/100 WBC (Bld) 0.6 % 0-1 [facility] Bilirubin, totalOrdered By: Anju Landon on 12-22-2024 Bilirubin [Mass/Vol] 1.30 mg/dL High 0.20-1.00 [facility] Comment on above: For patients on eltr ombopag therapy, use of Dimension [place] TBIL is not recommended. Blood urea nitrogen (BUN)/cr eatinine ratioOrdered By: Anju Landon on 12-22-2024 Urea nitrogen/Creatinine [Mass ratio] 19.2 mg/mg 10-20 [facility] CBC W/Diff, Automatedon Absolute Lymph 1.43 X10 3/uL Normal 0.83-4.51 [facility] Comment on above: Performed By: #### L 100.0100, L501.9910, L500.4050, L500.4100 ####[facility] [address] [place], [place], [id number] Absolute Neut 4.2 X10 3/uL Normal 2.0-7.7 [facility] Comment on above: Performed By: #### L 100.0100, L501.9910, L500.4050, L500.4100 ####[facility] [address] [place], [address] Basophils/100 WBC (Bld) 0.6 % Normal 0-1 [facility] Comment on above: Performed By: #### L 100.0100, L501.9910, L500.4050, L500.4100 ####[facility] [address] [place], [address] Eosinophils/100 WBC (Bld) 3.3 % Normal 0-5 [facility] Comment on above: Performed By: #### L 100.0100, L501.9910, L500.4050, L500.4100 ####[facility] [address] [place], [address] Erythrocyte distribution width (RBC) [Ratio] 12.6 % Normal 11.6-14.6 [facility] Comment on above: Performed By: #### L 100.0100, L501.9910, L500.4050, L500.4100 ####[facility] [address] [place], [address] Hematocrit (Bld) [Volume fraction] 43.1 % Normal 40-54 [facility] Comment on above: Performed By: #### L 100.0100, L501.9910, L500.4050, L500.4100 ####[facility] [address] [place], [address] Hemoglobin (Bld) [Mass/Vol] 14.4 g/dL Normal 13.0-16.5 [facility] Comment on above: Performed By: #### L 100.0100, L501.9910, L500.4050, L500.4100 ####[facility] [address] [place], [address] IG% 0.500 Normal 0.0-0.9 [facility] Comment on above: Result Comment: IG% - Immature Granulocytes (promyelocytes, myelocytes and metamyelocytes) > 1% indicates that a LEFT SHIFT is Present. Performed By: #### L 100.0100, L501.9910, L500.4050, L500.4100 ####[facility] [address] [place], [address] Lymphocytes/100 WBC (Bld) 21.6 % Normal 19-41 [facility] Comment on above: Performed By: #### L 100.0100, L501.9910, L500.4050, L500.4100 ####[facility] [address] [place], [address] MCH (RBC) [Entitic mass] 29.8 pg Normal 27.0-32.0 [facility] Comment on above: Performed By: #### L 100.0100, L501.9910, L500.4050, L500.4100 ####[facility] [address] [place], [address] MCHC (RBC) [Mass/Vol] 33.4 g/dL Normal 32-36 [facility] Comment on above: Performed By: #### L 100.0100, L501.9910, L500.4050, L500.4100 ####[facility] [address] [place], [address] MCV (RBC) [Entitic vol] 89.0 fL Normal 80-94 [facility] Comment on above: Performed By: #### L 100.0100, L501.9910, L500.4050, L500.4100 ####[facility] [address] [place], [address] Monocytes/100 WBC (Bld) 11.3 % High 0-10 [facility] Comment on above: Performed By: #### L 100.0100, L501.9910, L500.4050, L500.4100 ####[facility] [address] [place], [address] Neutrophils/100 WBC (Bld) 62.7 % Normal 47-70 [facility] Comment on above: Performed By: #### L 100.0100, L501.9910, L500.4050, L500.4100 ####[facility] [address] [place], [address] Nucleated RBC (Bld) [#/Vol] 0 10*3/uL Normal 0-5 [facility] Comment on above: Performed By: #### L 100.0100, L501.9910, L500.4050, L500.4100 ####[facility] [address] [place], [address] Platelet mean volume (Bld) [Entitic vol] 9.1 fL Normal 6.2-12.0 [facility] Comment on above: Performed By: #### L 100.0100, L501.9910, L500.4050, L500.4100 ####[facility] [address] [place], [address] Platelets (Bld) [#/Vol] 317 10*3/uL Normal 150-450 [facility] Comment on above: Performed By: #### L 100.0100, L501.9910, L500.4050, L500.4100 ####[facility] [address] [place], [address] RBC (Bld) [#/Vol] 4.84 10*6/uL Normal 4.6-6.2 [facility] Comment on above: Performed By: #### L 100.0100, L501.9910, L500.4050, L500.4100 ####[facility] [address] [place], [address] RDW SD 41.4 fl Normal 35.1-43.9 [facility] Comment on above: Performed By: #### L 100.0100, L501.9910, L500.4050, L500.4100 ####[facility] [address] [place], [address] WBC (Bld) [#/Vol] 6.6 10*3/uL Normal 4.4-11.0 [facility] Comment on above: Performed By: #### L 100.0100, L501.9910, L500.4050, L500.4100 ####[facility] [address] [place], [address] Carbon dioxide measurementOr dered By: Anju Navarrete on 12-22-2024 CO2 [Moles/Vol] 29.0 mmol/L 21.0-32.0 [facility] Chloride measurementOrdered By: Anju Navarrete on 12-22-2024 Chloride [Moles/Vol] 105 mmol/L 98-107 [facility] Comprehensive Metabolic Prof ilon 12-22-2024 Albumin [Mass/Vol] 3.5 g/dL Normal 3.2-5.0 [facility] Comment on above: Performed By: #### L 100.0100, L501.9910, L500.4050, L500.4100 ####[facility] [address] [place], [address] Albumin/Globulin [Mass ratio] 0.9 {ratio} Normal 0.9-2.4 [facility] Comment on above: Performed By: #### L 100.0100, L501.9910, L500.4050, L500.4100 ####[facility] [address] [place], [address] ALK P 65 U/L Normal 45-117 [facility] Comment on above: Performed By: #### L 100.0100, L501.9910, L500.4050, L500.4100 ####[facility] [address] [place], [address] ALT [Catalytic activity/Vol] 22 U/L Normal 16-61 [facility] Comment on above: Performed By: #### L 100.0100, L501.9910, L500.4050, L500.4100 ####[facility] [address] [place], [address] AST [Catalytic activity/Vol] 18 U/L Normal 15-37 [facility] Comment on above: Performed By: #### L 100.0100, L501.9910, L500.4050, L500.4100 ####[facility] [address] [place], [address] Bilirubin [Mass/Vol] 1.30 mg/dL High 0.20-1.00 [facility] Comment on above: Result Comment: For patients on eltrombopag therapy, use of Dimension [place] TBIL is not recommended. Performed By: #### L 100.0100, L501.9910, L500.4050, L500.4100 ####[facility] [address] [place], [address] BUN/CRE 19.2 RATIO Normal 10-20 [facility] Comment on above: Performed By: #### L 100.0100, L501.9910, L500.4050, L500.4100 ####[facility] [address] [place], [address] CA,Total 9.2 mg/dL Normal 8.5-10.1 [facility] Comment on above: Performed By: #### L 100.0100, L501.9910, L500.4050, L500.4100 ####[facility] [address] [place], [address] Chloride [Moles/Vol] 105 mmol/L Normal 98-107 [facility] Comment on above: Performed By: #### L 100.0100, L501.9910, L500.4050, L500.4100 ####[facility] [address] [place], [address] CO2 [Moles/Vol] 29.0 mmol/L Normal 21.0-32.0 [facility] Comment on above: Performed By: #### L 100.0100, L501.9910, L500.4050, L500.4100 ####[facility] [address] [place], [address] Creatinine [Mass/Vol] 0.94 mg/dL Normal 0.70-1.30 [facility] Comment on above: Result Comment: The validity of the calculated GFR GFRAA in patients over 70 years has not been determined. Clinical correlation is essential. Performed By: #### L 100.0100, L501.9910, L500.4050, L500.4100 ####[facility] [address] [place], [address] EST GFR - AA 108 mL/min Normal >60 [facility] Comment on above: Result Comment: Afri can Australian GFR Calc Performed By: #### L 100.0100, L501.9910, L500.4050, L500.4100 ####[facility] [address] [place], [address] GAP 4 Low 5-15 [facility] Comment on above: Performed By: #### L 100.0100, L501.9910, L500.4050, L500.4100 ####[facility] [address] [place], [address] GFR/1.73 sq M.predicted among non-blacks MDRD (S/P/Bld) [Vol rate/Area] 89 mL/min/{1.73_m2} Normal >60 [facility] Comment on above: Result Comment: Non- GFR Calc Performed By: #### L 100.0100, L501.9910, L500.4050, L500.4100 ####[facility] [address] [place], [address] Globulin (S) [Mass/Vol] 3.8 g/dL Normal 2.2-4.2 [facility] Comment on above: Performed By: #### L 100.0100, L501.9910, L500.4050, L500.4100 ####[facility] [address] [place], [address] Glucose [Mass/Vol] 101 mg/dL Normal 74-106 [facility] Comment on above: Result Comment: Fast ing Glucose result from 100 to 125 mg/dL suggests IMPAIRED HOMEOSTASIS per A.D.A. criteria. Performed By: #### L 100.0100, L501.9910, L500.4050, L500.4100 ####[facility] [address] [place], [address] Potassium [Moles/Vol] 4.2 mmol/L Normal 3.5-5.1 [facility] Comment on above: Performed By: #### L 100.0100, L501.9910, L500.4050, L500.4100 ####[facility] [address] [place], [address] Sodium [Moles/Vol] 138 mmol/L Normal 136-145 [facility] Comment on above: Performed By: #### L 100.0100, L501.9910, L500.4050, L500.4100 ####[facility] [address] [place], [address] T PROT 7.3 g/dL Normal 6.4-8.2 [facility] Comment on above: Performed By: #### L 100.0100, L501.9910, L500.4050, L500.4100 ####[facility] [address] [place], [address] Urea nitrogen [Mass/Vol] 18 mg/dL Normal 7-18 [facility] Comment on above: Performed By: #### L 100.0100, L501.9910, L500.4050, L500.4101 ####[facility] [address] [place], [address] Eosinophil percentageOrdered By: Anju Navarrete on 12-22-2024 Eosinophils/100 WBC (Bld) 3.3 % 0-5 [facility] Erythrocyte distribution wid th ratioOrdered By: Anjuestevan Navarrete on 12-22-2024 Erythrocyte distribution width (RBC) [Ratio] 12.6 % 11.6-14.6 [facility] Erythrocyte distribution wid th standard deviationOrdered By: Anjuestevan Navarrete on 12-22-2024 Erythrocyte distribution width (RBC) [Entitic vol] 41.4 fL 35.1-43.9 [facility] Erythrocyte distribution width (RBC) [Ratio] 41.4 fl 35.1-43.9 [facility] Estimated glomerular filtrat ion rate (GFR) AmericanOrdered By: Anju Navarrete on 12-22-2024 Estimated GFR (MDRD) Amer 108 mL/min >60 [facility] Comment on above: GFR Calc Glomerular filtration rate ( GFR) estimationOrdered By: Anju Navarrete on 12-22-2024 Estimated GFR (MDRD) Non-Af Amer 89 mL/min >60 [facility] Comment on above: Non- GFR Calc GFR/1.73 sq M.predicted among non-blacks MDRD (S/P/Bld) [Vol rate/Area] 89 mL/min/{1.73_m2} >60 [facility] Comment on above: Non- GFR Calc Glucose measurementOrdered B y: Anju Navarrete on 12-22-2024 Glucose [Mass/Vol] 101 mg/dL 74-106 [facility] Comment on above: Fasting Glucose resu lt from 100 to 125 mg/dL suggests IMPAIRED HOMEOSTASIS per A.D.A. criteria. Hematocrit Auto (Bld) [Volum e fraction]Ordered By: Anju Navarrete on 12-22-2024 Hematocrit (Bld) [Volume fraction] 43.1 % 40-54 [facility] Hemoglobin measurementOrdere d By: Anju Navarrete on 12-22-2024 Hemoglobin (Bld) [Mass/Vol] 14.4 g/dL 13.0-16.5 [facility] High density lipoprotein (HD L) measurementOrdered By: Anju Navarrete on 12-22-2024 Cholesterol in HDL [Mass/Vol] 50 mg/dL >40 [facility] Comment on above: The drugs N-Acetylcy steine and Metamizole may falsely depress this assay. Reference Range HDL <40 mg/dL Low HDL Cholesterol HDL >or= 60 mg/dL High HDL Cholesterol Immature granulocytes/100 WB C Auto (Bld)Ordered By: Anju Navarrete on 12-22-2024 Immature granulocytes/100 WBC (Bld) 0.500 % 0.0-0.9 [facility] Comment on above: IG% - Immature Granu locytes (promyelocytes, myelocytes and metamyelocytes) > 1% indicates that a LEFT SHIFT is Present. Laboratory - Chemistry and C hemistry - challengeOrdered By: Anju Navarrete on 12-22-2024 AST [Catalytic activity/Vol] 18 U/L 15-37 [facility] Lipid Profileon 12-22-2024 Cholesterol [Mass/Vol] 187 mg/dL Normal 200 [facility] Comment on above: Result Comment: <200 mg/dL Desirable 200-240 mg/dL Borderline >240 mg/dL High Risk Performed By: #### L 100.0100, L501.9910, L500.4050, L500.4100 ####[facility] [address] [place], [address] Cholesterol in HDL [Mass/Vol] 50 mg/dL Normal [facility] Comment on above: Result Comment: The drugs N-Acetylcysteine and Metamizole may falsely depress this assay. Reference Range HDL <40 mg/dL Low HDL Cholesterol HDL >or= 60 mg/dL High HDL Cholesterol Performed By: #### L 100.0100, L501.9910, L500.4050, L500.4100 ####[facility] [address] [place], [address] Cholesterol in LDL [Mass/Vol] 126 mg/dL Normal 0-130 [facility] Comment on above: Performed By: #### L 100.0100, L501.9910, L500.4050, L500.4100 ####[facility] [address] [place], [address] Cholesterol in VLDL [Mass/Vol] 11 mg/dL Normal 5-40 [facility] Comment on above: Performed By: #### L 100.0100, L501.9910, L500.4050, L500.4100 ####[facility] [address] [place], [address] Triglyceride [Mass/Vol] 56 mg/dL Normal [facility] Comment on above: Result Comment: The drugs N-Acetylcysteine and Metamizole may falsely depress this assay. Serum Triglycerides Reference Interval Normal <150 mg/dL Borderline high 150 - 199 mg/dL High 200 - 499 mg/dL Very High > or = 500 mg/dL Performed By: #### L 100.0100, L501.9910, L500.4050, L500.4100 ####[facility] [address] [place], [address] Low density lipoprotein (LDL ) cholesterol measurementOrdered By: Anju Navarrete on 12-22-2024 Cholesterol in LDL [Mass/Vol] 126 mg/dL 0-130 [facility] Lymphocytes Auto (Unsp spec) [#/Vol]Ordered By: Anju Navarrete on 12-22-2024 Lymphocytes (Bld) [#/Vol] 1.43 10*3/uL 0.83-4.51 [facility] Lymphocytes/100 WBC Auto (Un sp spec)Ordered By: Anju Navarrete on 12-22-2024 Lymphocytes/100 WBC (Bld) 21.6 % 19-41 [facility] MCV (mean corpuscular volume ) determinationOrdered By: Anju Navarrete on 12-22-2024 MCV (RBC) [Entitic vol] 89.0 fL 80-94 [facility] Mean corpuscular hemoglobin (MCH) determinationOrdered By: Anju Navarrete on 12-22-2024 MCH (RBC) [Entitic mass] 29.8 pg 27.0-32.0 [facility] Mean corpuscular hemoglobin concentration (MCHC) determinationOrdered By: Anju Navarrete on 12-22-2024 MCHC (RBC) [Mass/Vol] 33.4 g/dL 32-36 [facility] Mean platelet volume determi nationOrdered By: Anju Navarrete on 12-22-2024 Platelet mean volume (Bld) [Entitic vol] 9.1 fL 6.2-12.0 [facility] Monocyte percentageOrdered B y: Anju Navarrete on 12-22-2024 Monocytes/100 WBC (Bld) 11.3 % High 0-10 [facility] Neutrophil percentageOrdered By: Anju Navarrete on 12-22-2024 Neutrophils/100 WBC (Bld) 62.7 % 47-70 [facility] Nucleated red blood cell per centageOrdered By: Anju Navarrete on 12-22-2024 Nucleated RBC/100 WBC (Bld) [Ratio] 0 % 0-5 [facility] PSA,Total - Annual Screenon 12-22-2024 PSA,TOT SCREEN 1.01 ng/mL Normal 0.00-4.00 [facility] Comment on above: Result Comment: This test was performed using the TPSA assay method for the [employer] chemistry system. Values obtained with different assay methods cannot be used interchangably. When changing PSA assays in the course of monitoring a patient, additional sequential testing should be carried out to confirm baseline values. Performed By: #### L 100.0100, L501.9910, L500.4050, L500.4100 ####[facility] [address] [place], [address] Platelet countOrdered By: Ra garcia Navarrete on 12-22-2024 Platelets (Bld) [#/Vol] 317 10*3/uL 150-450 [facility] Potassium measurementOrdered By: Anju Navarrete on 12-22-2024 Potassium [Moles/Vol] 4.2 mmol/L 3.5-5.1 [facility] RBC Auto (Bld) [#/Vol]Ordere d By: Anju Navarrete on 12-22-2024 RBC (Bld) [#/Vol] 4.84 10*6/uL 4.6-6.2 [facility] Screening prostate specific antigen (PSA) measurementOrdered By: Anju Navarrete on 12-22-2024 Prostate Specific Antigen Screen 1.01 ng/mL 0.00-4.00 [facility] Comment on above: This test was perfor med using the TPSA assay method for the[employer] chemistry system. Values obtained with differentassay methods cannot be used interchangably.When changing PSA assays in the course of monitoring apatient, additional sequential testing should be carriedout to confirm baseline values. Serum anion gap measurementO rdered By: Anju Navarrete on 12-22-2024 Anion gap [Moles/Vol] 4 mmol/L Low 5-15 [facility] Serum globulin measurementOr dered By: Anju Navarrete on 12-22-2024 Globulin (S) [Mass/Vol] 3.8 g/dL 2.2-4.2 [facility] Serum or plasma alanine haq otransferase (ALT) measurementOrdered By: Anju Navarrete on 12-22-2024 ALT [Catalytic activity/Vol] 22 U/L 16-61 [facility] Serum or plasma albumin mary kate urement (mass/volume)Ordered By: Anju Navarrete on 12-22-2024 Albumin [Mass/Vol] 3.5 g/dL 3.2-5.0 [facility] Serum or plasma alkaline nadege sphatase measurementOrdered By: Anju Navarrete on 12-22-2024 ALP [Catalytic activity/Vol] 65 U/L 45-117 [facility] Serum or plasma calcium mary kate urement (mass/volume)Ordered By: Anju Navarrete on 12-22-2024 Calcium [Mass/Vol] 9.2 mg/dL 8.5-10.1 [facility] Serum or plasma cholesterol measurement (mass/volume)Ordered By: Anju Navarrete on 12-22-2024 Cholesterol [Mass/Vol] 187 mg/dL <200 [facility] Comment on above: <200 mg/dL Desirable 200-240 mg/dL Borderline >240 mg/dL High Risk Serum or plasma creatinine m easurement (mass/volume)Ordered By: Anju Navarrete on 12-22-2024 Creatinine [Mass/Vol] 0.94 mg/dL 0.70-1.30 [facility] Comment on above: The validity of the calculated GFR & GFRAA in patients over 70 years has not been determined. Clinical correlation is essential. Serum or plasma urea nitroge n measurement (mass/volume)Ordered By: Anju Navarrete on 12-22-2024 Urea nitrogen [Mass/Vol] 18 mg/dL 7-18 [facility] Sodium levelOrdered By: Leila Navarrete on 12-22-2024 Sodium [Moles/Vol] 138 mmol/L 136-145 [facility] Total proteinOrdered By: Andres Navarrete on 12-22-2024 Protein [Mass/Vol] 7.3 g/dL 6.4-8.2 [facility] Triglycerides measurementOrd ered By: Anju Navarrete on 12-22-2024 Triglyceride [Mass/Vol] 56 mg/dL <199 [facility] Comment on above: The drugs N-Acetylcy steine and Metamizole may falsely depress this assay.Serum Triglycerides Reference Interval Normal <150 mg/dL Borderline high 150 - 199 mg/dL High 200 - 499 mg/dL Very High > or = 500 mg/dL Very low density lipoprotein (VLDL) cholesterol measurementOrdered By: Anju Navarrete on 12-22-2024 Very low density lipoprotein (VLDL) cholesterol measurement 11 mg/dL 5-40 [facility] VLDL Cholesterol 11 mg/dL 5-40 [facility] White blood cell (WBC) count Ordered By: Anju Navarrete on 12-22-2024 WBC (Bld) [#/Vol] 6.6 10*3/uL 4.4-11.0 [facility] Knee 4 or More Viewson 11-27 Knee 4 or More Views [facility] [address] [place] [address] Knee 4 or More Views MR#: [id number] Acct: [id number] Name: ISAURA RAMIREZ Rep #: [id number] : 1970 M 53 From: Navjot Mcallister MD PCP: Care Physician,No Primary Status: DEP AMB Study: Knee 4 or More Views Date of Exam: 11/27/24 Exam# [id number] Ordering Dr: Sancho Jaramillo MD -[id number] STUDY: X-RAY - LEFT KNEE REASON FOR EXAM: Male, 53 years old. Pain. TECHNIQUE: 4 views of the left knee. COMPARISON: None. FINDINGS: Normal visualized distal femur. Normal visualized proximal tibia and fibula. Normal proximal tibiofibular articulation. There is no demonstrated fracture. Normal medial femorotibial compartment. Normal lateral femorotibial compartment. Normal patellofemoral articulation. There is no demonstrated joint effusion. The soft tissue structures are unremarkable. RAD/Knee 4 or More Views IMPRESSION: Normal x-ray examination of the left knee. Electronically Signed: Navjot Mcallister MD at 14:38 EST Reading Location ID and State: [facility] / [place] , Service support , CC: Dr. Sancho Jaramillo MD; No Primary Care Physician Coldfusion: Signed Normal [facility] Orthopedic Visit Reporton Orthopedic Visit Report [facility] [address] [place] [address] OFFICE VISIT Date of Service: 11/27/24 MR#: [id number] Acct: [id number] Name: ISAURA RAMIREZ Rep #: [id number] : 1970 Provider: Dr. Sancho rashid MD Age/Sex: 53/M Location: [facility]JASWINDER Status: Signed with Addenda ADDENDUM by Joyce Figueroa on 11/27/24 at 1626 Office Procedure Documentation entered by Joyce Figueroa 11/27/24 16:26: Ortho Injections Injections Yes Knee Left Is this a patient provided medication?: No Details: Obtained consent for injection. Under sterile conditions, injected the patients left knee with 2cc Kenalog 4cc Bupivacaine. The patient tolerated the injection well without any noted complication. Patient should call our office if redness develops, pain worsens or if they have any concerns. Office Meds Kenalog 40 mg/mL suspension for injection Performing Provider: Sancho Jaramillo MD Performing Location: [facility] Administered by: Sancho Jaramillo MD on 11/27/24 16:24 Dose Route Admin Location Dispensed Lot Number Expiration Date NDC You ufacturer 80 mg intra-articular left knee 2 mL [id number] 03/14/26 9964-8466-12 [employer] Date cc: * Signed Intake Vital Signs 11/23/24 16:01 Height 5 ft 11 in BP 160/89 H Blood Pressure Location Rt brachial Position Sitting Respiration 18 Pulse 81 Pulse Source Monitor Temp 97.7 F L Temp Source Temporal Pulse Oximetry (%) 97 Oxygen Delivery Method room air Intake Visit Reasons: LEFT KNEE Accompanied by: Self Is patient in pain?: Yes Allergies iodine Allergy (Verified 11/27/24 14:52) Anaphylaxis Medications ???Medication ???Instructions ???Recorded ???Confirmed ???Type aspirin 81 mg tablet,delayed 81 mg PO QDAY 10/21/17 11/27/24 History release (Adult Low Dose Aspirin) atorvastatin 10 mg tablet 10 mg PO QDAY #90 tabs 06/06/23 11/27/24 Rx pramipexole 1 mg tablet 1 mg PO QHS #90 tabs 05/07/24 11/27/24 Rx fluticasone fur. 200 mcg-umeclid 1 inh inhalation DAILY #3 ea 11/06/24 11/27/24 Rx 62.5 mcg-vilant 25 mcg inhalat.powder (Trelegy Ellipta) dupilumab 300 mg/2 mL subcutaneous 300 mg (2 mL) subcut Q2W #4 mL 11/21/24 11/27/24 Rx pen injector (Dupixent) [facility] Medical History (Updated 11/27/24 @ 15:11 by Sancho Jaramillo MD) Osteoarthritis of left knee Left knee pain History of exercise stress test ( 10/2016) History of echocardiogram ( 10/2016) Dyspnea TIESHA (obstructive sleep apnea) Restless leg syndrome Hyperlipidemia Abnormal echocardiogram Chest pain Surgical History (Reviewed 11/06/24 @ 07:57 by Katja Spence [employer] 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 Sancho Jaramillo MD 11/27/24 8163. Part of today???s visit was documented by [ ], acting as scribe. ISAURA RAMIREZ is a 53 year old M here today for L knee pain. 6 weeks history came on gradually although over the weekend over the last 3 days patient had an acute twisting injury felt a pop and medial side pain catching slight swelling in the knee. Mostly a sharp pain on the medial inside aspect of the knee. The patient also had prior surgery on the right side about [address] Fine had a knee arthroscopic surgery the patient has not had recent investigations on the left side. No recent physical therapy but the patient did try some meloxicam that seems to be making a little bit better. It swelled less than the other side when he injured the right knee. The patient is having some difficulty ambulating. Pain worse with walking. 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 Will follow up if no improvement. Can be strain, meniscus tear, OA, tendonitis or other ddx. Left knee intra-articular cortisone injection We discussed the pros and cons ris (more content not included)... Normal [facility] Absolute neutrophil countOrd ered By: RENNY Mathur on 11-23-2024 Neutrophils (Bld) [#/Vol] 4.2 10*3/uL 2.0-7.7 [facility] Basophil percentageOrdered B y: RENNY Mathur on 11-23-2024 Basophils/100 WBC (Bld) 1.1 % High 0-1 [facility] CBC W/Diff, Automatedon 11-14-2024 Absolute Lymph 1.71 X10 3/uL Normal 0.83-4.51 [facility] Comment on above: Performed By: #### L 100.0100 ####[facility] [address] [place], [address] Absolute Neut 4.2 X10 3/uL Normal 2.0-7.7 [facility] Comment on above: Performed By: #### L 100.0100 ####[facility] [address] [place], [address] Basophils/100 WBC (Bld) 1.1 % High 0-1 [facility] Comment on above: Performed By: #### L 100.0100 ####[facility] [address] [place], [address] Eosinophils/100 WBC (Bld) 3.7 % Normal 0-5 [facility] Comment on above: Performed By: #### L 100.0100 ####[facility] [address] [place], [address] Erythrocyte distribution width (RBC) [Ratio] 12.6 % Normal 11.6-14.6 [facility] Comment on above: Performed By: #### L 100.0100 ####[facility] [address] [place], [address] Hematocrit (Bld) [Volume fraction] 43.2 % Normal 40-54 [facility] Comment on above: Performed By: #### L 100.0100 ####[facility] [address] [place], [address] Hemoglobin (Bld) [Mass/Vol] 14.7 g/dL Normal 13.0-16.5 [facility] Comment on above: Performed By: #### L 100.0100 ####[facility] [address] [place], [address] IG% 0.300 Normal 0.0-0.9 [facility] Comment on above: Result Comment: IG% - Immature Granulocytes (promyelocytes, myelocytes and metamyelocytes) > 1% indicates that a LEFT SHIFT is Present. Performed By: #### L 100.0100 ####[facility] [address] [place], [address] Lymphocytes/100 WBC (Bld) 24.0 % Normal 19-41 [facility] Comment on above: Performed By: #### L 100.0100 ####[facility] [address] [place], [address] MCH (RBC) [Entitic mass] 30.3 pg Normal 27.0-32.0 [facility] Comment on above: Performed By: #### L 100.0100 ####[facility] [address] [place], [address] MCHC (RBC) [Mass/Vol] 34.0 g/dL Normal 32-36 [facility] Comment on above: Performed By: #### L 100.0100 ####[facility] [address] [place], [address] MCV (RBC) [Entitic vol] 89.1 fL Normal 80-94 [facility] Comment on above: Performed By: #### L 100.0100 ####[facility] [address] [place], [address] Monocytes/100 WBC (Bld) 11.4 % High 0-10 [facility] Comment on above: Performed By: #### L 100.0100 ####[facility] [address] [place], [address] Neutrophils/100 WBC (Bld) 59.5 % Normal 47-70 [facility] Comment on above: Performed By: #### L 100.0100 ####[facility] [address] [place], [address] Nucleated RBC (Bld) [#/Vol] 0 10*3/uL Normal 0-5 [facility] Comment on above: Performed By: #### L 100.0100 ####[facility] [address] [place], [address] Platelet mean volume (Bld) [Entitic vol] 9.1 fL Normal 6.2-12.0 [facility] Comment on above: Performed By: #### L 100.0100 ####[facility] [address] [place], [address] Platelets (Bld) [#/Vol] 312 10*3/uL Normal 150-450 [facility] Comment on above: Performed By: #### L 100.0100 ####[facility] [address] [place], [address] RBC (Bld) [#/Vol] 4.85 10*6/uL Normal 4.6-6.2 [facility] Comment on above: Performed By: #### L 100.0100 ####[facility] [address] [place], [address] RDW SD 41.1 fl Normal 35.1-43.9 [facility] Comment on above: Performed By: #### L 100.0100 ####[facility] [address] [place], [address] WBC (Bld) [#/Vol] 7.1 10*3/uL Normal 4.4-11.0 [facility] Comment on above: Performed By: #### L 100.0100 ####[facility] [address] [place], [place], [id number] Eosinophil percentageOrdered By: RENNY Mathur on 11-23-2024 Eosinophils/100 WBC (Bld) 3.7 % 0-5 [facility] Erythrocyte distribution wid th ratioOrdered By: RENNY Mathur on 11-23-2024 Erythrocyte distribution width (RBC) [Ratio] 12.6 % 11.6-14.6 [facility] Erythrocyte distribution wid th standard deviationOrdered By: RENNY Mathur on 11-23-2024 Erythrocyte distribution width (RBC) [Entitic vol] 41.1 fL 35.1-43.9 [facility] Hematocrit Auto (Bld) [Volum e fraction]Ordered By: RENNY Mathur on 11-23-2024 Hematocrit (Bld) [Volume fraction] 43.2 % 40-54 [facility] Hemoglobin measurementOrdere d By: RENNY Mathur on 11-23-2024 Hemoglobin (Bld) [Mass/Vol] 14.7 g/dL 13.0-16.5 [facility] Immature granulocytes/100 WB C Auto (Bld)Ordered By: RENNY Mathur on 11-23-2024 Immature granulocytes/100 WBC (Bld) 0.300 % 0.0-0.9 [facility] Comment on above: IG% - Immature Granu locytes (promyelocytes, myelocytes and metamyelocytes) > 1% indicates that a LEFT SHIFT is Present. Lymphocytes Auto (Unsp spec) [#/Vol]Ordered By: RENNY Mathur on 11-23-2024 Lymphocytes (Bld) [#/Vol] 1.71 10*3/uL 0.83-4.51 [facility] Lymphocytes/100 WBC Auto (Un sp spec)Ordered By: RENNY Mathur on 11-23-2024 Lymphocytes/100 WBC (Bld) 24.0 % 19-41 [facility] MCV (mean corpuscular volume ) determinationOrdered By: RENNY Mathur on 11-23-2024 MCV (RBC) [Entitic vol] 89.1 fL 80-94 [facility] Mean corpuscular hemoglobin (MCH) determinationOrdered By: RENNY Mathur on 11-23-2024 MCH (RBC) [Entitic mass] 30.3 pg 27.0-32.0 [facility] Mean corpuscular hemoglobin concentration (MCHC) determinationOrdered By: RENNY Mathur on 11-23-2024 MCHC (RBC) [Mass/Vol] 34.0 g/dL 32-36 [facility] Mean platelet volume determi nationOrdered By: RENNY Mathur on 11-23-2024 Platelet mean volume (Bld) [Entitic vol] 9.1 fL 6.2-12.0 [facility] Monocyte percentageOrdered B y: RENNY Mathur on 11-23-2024 Monocytes/100 WBC (Bld) 11.4 % High 0-10 [facility] Neutrophil percentageOrdered By: RENNY Mathur on 11-23-2024 Neutrophils/100 WBC (Bld) 59.5 % 47-70 [facility] Nucleated red blood cell per centageOrdered By: RENNY Mathur on 11-23-2024 Nucleated RBC/100 WBC (Bld) [Ratio] 0 % 0-5 [facility] Office Visit Reporton 2024 Office Visit Report [facility] [address] [place] [address] OFFICE VISIT Date of Service: 11/23/24 MR#: [id number] Acct: [id number] Patient: ISAURA RAMIREZ Rep #: [id number] : 1970 Provider: Aster Mathur NP Age/Sex: 53/M Location: [facility] Status: Signed Intake Vital Signs 11/06/24 07:31 11/23/24 16:01 Height 5 ft 11 in 5 ft 11 in Weight: 234 lb 6 oz BMI 32.6 BP 134/88 H 160/89 H Blood Pressure Location Lt brachial Rt brachial Position Sitting Sitting Respiration 16 18 Pulse 74 81 Pulse Source Monitor Monitor Temp 97.3 F L 97.7 F L Temp Source Temporal Pulse Oximetry (%) 97 97 Oxygen Delivery Method room air room air Intake Visit Reasons: Asthma - severe persistent asthma Chart Clerk Required: No Accompanied by: Self Is patient in pain?: No Allergies iodine Allergy (Verified 11/23/24 16:02) Anaphylaxis Office Procedures Asthma Injection Procedure: Details:: Patient presented for Dupxient injection. Patient tolerated treatment well. The patient was monitored for 15 minutes after treatment. Patient shows no signs of adverse reaction. Reviewed signs and symptoms of reaction. Patient instructed to call the office with new or worsening symptoms. Patient advised to report to the emergency department during after hours if necessary. Patient departed from the office with no signs of distress. Injections Is this a patient provided medication?: Yes Office Meds Dupixent Pen 300 mg/2 mL subcutaneous pen injector Performing Provider: DASHA Crawford Performing Location: [facility] Administered by: Reyna Cisneros on 11/23/24 16:00 Dose Route Admin Location Dispensed Lot Number Expiration Date NDC Man ufacturer 300 mg subcut left arm 2 mL [id number] 03/13/26 [id number] [employer] Assessment and Plan Assessment and Plan Orders: Orders Dupixent Injection (Patient Provided) Today J45.50 - Severe persistent asthma, uncomplicated Medications: New Dupixent Pen (dupilumab) 300 mg (2 mL) subcut ONCE 2 mL 0RF NS J45.50 - Severe persistent asthma, uncomplicated 11/23/24 1626 Date Aster Johnson Signature: Date (if applicable) CC: Normal [facility] Platelet countOrdered By: RENNY Mathur on 11-23-2024 Platelets (Bld) [#/Vol] 312 10*3/uL 150-450 [facility] RBC Auto (Bld) [#/Vol]Ordere d By: RENNY Mathur on 11-23-2024 RBC (Bld) [#/Vol] 4.85 10*6/uL 4.6-6.2 [facility] White blood cell (WBC) count Ordered By: RENNY Mathur on 11-23-2024 WBC (Bld) [#/Vol] 7.1 10*3/uL 4.4-11.0 [facility] Pulmonary Visit Reporton Pulmonary Visit Report [facility] [place] [address] [place] [address] OFFICE VISIT Date of Service: 11/06/24 MR#: [id number] Acct: [id number] Name: ISAURA RAMIREZ Rep #: [id number] : 1970 Provider: DASHA Spence Age/Sex: 53/M Location: [facility] Status: Signed Assessment and Plan Assessment and Plan (1) Asthma: Status: Chronic Qualifiers: Asthma complication type: uncomplicated Asthma persistence: persistent Asthma severity: severe Qualified Code(s): J45.50 - Severe persistent asthma, uncomplicated Comment: On Dupixent Plan: No signs of exacerbation of asthma today. He was provided with a sample of Dupixent in the office today to prevent exacerbation and allow the patient time to get a hold of the specialty pharmacy to set up his next delivery. No change in maintenance medications, continue Trelegy and Dupixent. No additional testing at this time. Contact the office with any signs of new or worsening symptoms. Follow-up in 6 months. (2) TIESHA (obstructive sleep apnea): Status: Chronic Comment: BiPAP 17/13 cmH2O Plan: He is using and benefiting from Pap therapy. No indication for titration study at this time. Contact the office for any new or worsening symptoms in the meantime. Follow-up in 6 months. (3) Obesity: Status: Chronic Qualifiers: Body mass index: BMI 32.0-32.9 Obesity classification: adult class 1 (BMI 30 - 34.9) Obesity type: due to excess calories Serious obesity comorbidity presence: with serious comorbidity Qualified Code(s): E66.811 - Obesity, class 1; E66.09 - Other obesity due to excess calories; Z68.32 - Body mass index [BMI] 32.0-32.9, adult Plan: Complicates exam, plan, care and prognosis. Encourage weight loss. Medications: Refilled fluticasone-umeclid in-vilanter 200-62.5-25 mcg (Trelegy Ellipta) 1 inh inhalation DAILY 3 ea 3RF J30.9 - Allergic rhinitis, unspecified HPI 6 M FU Chief Complaint: Routine follow-up HPI Comments Details: This patient presents to the office today for follow-up of his severe persistent asthma complicated by obstructive sleep apnea. He is ambulatory and currently on room air. He has not recently been seen in the ED or urgent care for any respiratory illness. He has not required any antibiotics or prednisone for any breathing problems. He was seen in the urgent care back in May for sinusitis and treated with a course of Augmentin. He is compliant with use of Trelegy 1 puff daily. He does report rinsing his mouth out after each use. He denies any medication side effect such as sore throat or thrush. He has not recently needed his albuterol rescue inhaler. He is compliant with Dupixent injections at home. The patient reports that recently he canceled his [employer] service which canceled his email. Unfortunately, this was linked to his Dupixent injections and he is 1 week late on getting an injection. He needs to get back in touch with the specialty pharmacy to set up delivery. Currently he denies any difficulty with shortness of breath. He denies any cough, sputum production or hemoptysis. He denies any wheezing, chest tightness, chest pain or palpitations. He also denies any fever, chills or body aches. He wakes up feeling rested refreshed with the use of his PAP device. He is not having difficulty with dry mouth or mask leaks. He is not requiring naps. He is not having excessive nocturia. Compliance report for the past 30 days shows 100% compliance with average use of 6 hours and 28 minutes per night. Current setting is 17/13 cm of water with residual AHI of 0.2 events per hour. Leaks do not appear to be a problem. 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 200 mcg-umeclid 1 inh inhalation DAILY #3 ea 11/06/24 11/06/24 Rx 62.5 mcg-vilant 25 mcg inhalat.powder (more content not included)... Normal [facility] Urgent Care Visit Reporton 0 06-08-2024 Urgent Care Visit Report [facility] [address], [address] [place] [address] OFFICE VISIT Date of Service: 06/08/24 MR#: [id number] Acct: [id number] Name: ISAURA RAMIREZ Rep #: [id number] : 1970 Provider: CAIO Gutierrez Age/Sex: 53/M Location: [facility] Status: Signed Intake Vital Signs 05/03/24 12:25 06/08/24 11:15 Height 6 ft 5 ft 11 in Weight: 235 lb 230 lb BMI 31.8 32.1 BP 137/85 H 132/96 H Blood Pressure Location Rt brachial Rt brachial Position Sitting Sitting Respiration 14 16 Pulse 69 103 H Pulse Source Monitor Monitor Temp 98.6 F 100.4 F H Temp Source Temporal Pulse Oximetry (%) 97 97 Oxygen Delivery Method room air room air Intake Visit Reasons: congestion/fever/pringle Chief Complaint: CONGESTION FEVER HEADACHE Chart Clerk Required: No Accompanied by: Self Is patient in pain?: No Allergies iodine Allergy (Verified 06/08/24 11:16) Anaphylaxis Medications ???Medication ???Instructions ???Recorded ???Confirmed ???Type aspirin 81 mg tablet,delayed 81 mg PO QDAY 10/21/17 06/08/24 History release (Adult Low Dose Aspirin) atorvastatin 10 mg tablet 10 mg PO QDAY #90 tabs 06/06/23 06/08/24 Rx fluticasone fur. 200 mcg-umeclid 1 inh inhalation DAILY #3 ea 12/22/23 06/08/24 Rx 62.5 mcg-vilant 25 mcg inhalat.powder (Trelegy Ellipta) dupilumab 300 mg/2 mL subcutaneous 300 mg (2 mL) subcut Q2W #4 mL 01/19/24 06/08/24 Rx pen injector (Dupixent) pramipexole 1 mg tablet 1 mg PO QHS #90 tabs 05/07/24 06/08/24 Rx amoxicillin 875 mg-potassium 1 tab PO Q12H 10 days #20 tabs 06/08/24 06/08/24 Rx clavulanate 125 mg tablet PFSH Medical History (Updated 06/08/24 @ 11:48 by Mumtaz KEARNEY, CAIO) History of exercise stress test ( 10/2016) History of echocardiogram ( 10/2016) Dyspnea TIESHA (obstructive sleep apnea) Restless leg syndrome Hyperlipidemia Abnormal echocardiogram Chest pain Surgical History History of nasal surgery Family History Grandmother Myocardial infarction, Onset Age: 40 x3 [place] Social History Smoking Status: Never smoker alcohol intake: current HPI HPI Chief Complaint: CONGESTION FEVER HEADACHE Details: ISAURA RAMIREZ, is a 53 M who presents to the office today for complaint of cough, fever, headache and sinus pain and pressure for the past week. Patient denies hemoptysis, shortness of breath or difficulty breathing. No nausea, vomiting or diarrhea. No loss of taste or smell. No other associated symptoms or alleviating/aggrava ting factors. ROS Const Constitutional: No other (6 system ROS completed with pertinent findings in the HPI otherwise normal.) Exam Const General: cooperative and healthy appearing HENMT Head: normal to inspection Ears: hearing grossly normal bilaterally, TM's normal bilaterally and EAC's normal Nose: nasal discharge purulent Face and sinus: sinus tenderness frontal and maxillary Mouth: oral mucosae normal Throat: abnormal tonsil bilaterally erythema and hypertrophy 1+ and postnasal drainage Resp Effort Inspection: normal respiratory effort Auscultation: Bilateral: Clear to Auscultation Cardio Palpation: normal PMI Rate: regular rate Rhythm: regular rhythm Neuro General: patient alert and CN's II-XI intact bilaterally Psych Appearance: grossly normal Mental Status: mental status grossly normal Results POC DELIA Covid FluAB PCR POC Delia Covid PCR Not Detected Last Edit by Emily Calderón MA on 06/08/24 11:34 POC DELIA FLU NOT DETECTED FLU A B Last Edit by Emily Calderón MA on 06/08/24 11:34 Coding Level of Care Code Off vis,new,level 3 Diagnoses Acute sinusitis J01.90 Contact with or suspected exposure to other viral communicable disease Z20.828 Assessment and Plan Assessment and Plan (1) Acute sinusitis: Status: Acute (2) Contact with or suspected exposure to other viral communicable disease: Status: Acute Orders: Orders POC Delia Covid FLUAB PCR Today Medications: New amoxicillin-pot clavulanate 875-125 mg 1 TAB PO Q12H 10 days 20 tabs 0RF J01.90 - Acute sinusitis, unspecified Plan Patient tested negative for COVID in the office today. Augmentin as prescribed today. Encouraged to get plenty of rest, drink lots of clear liquids, and use Tylenol or Ibuprofen (unless contraindicated) for fever and comfort. Patient also educated on other symptomatic management techniques. To be seen in 7-10 days if no improvement; sooner if worsening of symptoms. Patient advised of potential red flags and when appropriate to report to the ED. Patient verbalized understanding and agreement with all the (more content not included)... Normal [facility] Pulmonary Visit Reporton Pulmonary Visit Report [facility] [place] [address] [place] [address] OFFICE VISIT Date of Service: 05/03/24 MR#: [id number] Acct: [id number] Name: ISAURA RAMIREZ Rep #: [id number] : 1970 Provider: DASHA Spence Age/Sex: 53/M Location: [facility] Status: Signed with Addenda ADDENDUM by DASHA Spence on 05/15/24 at 1433 Assessment and Plan Assessment and Plan (1) Asthma: Status: Chronic Qualifiers: Asthma severity: severe Asthma persistence: persistent Asthma complication type: uncomplicated Qualified Code(s): J45.50 - Severe persistent asthma, uncomplicated (2) TIESHA (obstructive sleep apnea): Status: Chronic Comment: BiPAP 17/11 cmH2O Plan Details Follow Up: 6 Months ([facility]) 05/15/24 1433 Date Katja Spence NP cc: DASHA Mondragon * Signed Assessment and Plan Assessment and Plan (1) Asthma: Status: Chronic Qualifiers: Asthma severity: moderate Asthma persistence: persistent Asthma complication type: uncomplicated Qualified Code(s): J45.40 - Moderate persistent asthma, uncomplicated Plan: Improved, no signs of exacerbation of asthma today. No change in maintenance medications, including Dupixent. No additional testing at this time. Contact the office with any signs of new or worsening symptoms. Follow-up in 6 months. (2) TIESHA (obstructive sleep apnea): Status: Chronic Comment: BiPAP 17/11 cmH2O Plan: He is using and benefiting from Pap therapy. No indication for titration study at this time. Continue to encourage weight loss. Contact the office for any new or worsening symptoms in the meantime. Follow-up in 6 months. Plan Details Follow Up: 6 Months ([facility]) HPI 3 M FU Chief Complaint: Response to Dupixent HPI Comments Details: This patient presents to the office today for follow-up of his severe persistent asthma complicated by obstructive sleep apnea. He is ambulatory and currently on room air. He has not recently been seen in the ED or urgent care for any respiratory illness. He has not required any antibiotics or prednisone for any breathing problems. He is compliant with use of Trelegy 1 puff daily. He does report rinsing his mouth out after each use. He denies any medication side effect such as sore throat or thrush. He has not recently needed his albuterol rescue inhaler. He is compliant with Dupixent injections at home. Currently he denies any difficulty with shortness of breath. He denies any cough, sputum production or hemoptysis. He denies any wheezing, chest tightness, chest pain or palpitations. He also denies any fever, chills or body aches. He wakes up feeling rested refreshed with the use of his PAP device. He is not having difficulty with dry mouth or mask leaks. He is not requiring naps. He is not having excessive nocturia. Compliance report for the past 30 days shows 97% compliance with average use of 6 hours and 45 minutes per night. Current setting is 17/11 cm of water with residual AHI of 1.4 events per hour. Leaks do not appear to be a problem. 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 200 mcg-umeclid 1 inh inhalation DAILY #3 ea 12/22/23 05/03/24 Rx 62.5 mcg-vilant 25 mcg inhalat.powder (Trelegy Ellipta) dupilumab 300 mg/2 mL subcutaneous 300 mg (2 mL) subcut Q2W #4 mL 01/19/24 05/03/24 Rx pen injector (Dupixent) [facility] Medical History (Reviewed 05/03/24 @ 14:48 by Katja Spence [employer], [employer]-C) History of exercise stress test ( 10/2016) History of echocardiogram ( 10/2016) Dyspnea TIESHA (obstructive sleep apnea) Restless leg syndrome Hyperlipidemia Abnormal echocardiogram Chest pain Surgical History (Reviewed 05/03/24 @ 14:48 by Katja Spence [employer], [employer]-C) History of nasal surgery Family History (Reviewed 05/03/24 @ 14:48 by Katja Spence [employer], [employer]-C) Grandmother Luisa (more content not included)... Normal [facility] Absolute lymphocyte countOrd ered By: Dr. Cedeno on 04-28-2023 Lymphocytes Auto (Unsp spec) [#/Vol] 1.75 10*3/uL 0.83-4.51 [facility] Basophil percentageOrdered B y: Dr. Cedeno on 04-28-2023 Basophils/100 WBC (Bld) 1.1 % 0-1 [facility] Eosinophils/100 WBC (Bld) 4.7 % 0-5 [facility] Neutrophils (Bld) [#/Vol] 4.2 10*3/uL 2.0-7.7 [facility] Neutrophils/100 WBC (Bld) 58.3 % 47-70 [facility] WBC (Bld) [#/Vol] 7.3 10*3/uL 4.4-11.0 [facility] Bilirubin [Mass/Vol] 1.40 mg/dL 0.20-1.00 [facility] Comment on above: For patients on eltr ombopag therapy, use of Dimension [place] TBIL is not recommended. Chloride [Moles/Vol] 106 mmol/L 98-107 [facility] Cholesterol [Mass/Vol] 125 mg/dL <200 [facility] Comment on above: <200 mg/dL Desirable 200-240 mg/dL Borderline >240 mg/dL High Risk Glucose [Mass/Vol] 111 mg/dL 74-106 [facility] Comment on above: Fasting Glucose resu lt from 100 to 125 mg/dL suggests IMPAIRED HOMEOSTASIS per A.D.A. criteria. Potassium [Moles/Vol] 4.0 mmol/L 3.5-5.1 [facility] Protein [Mass/Vol] 7.4 g/dL 6.4-8.2 [facility] Sodium [Moles/Vol] 139 mmol/L 136-145 [facility] Triglyceride [Mass/Vol] 58 mg/dL <199 [facility] Comment on above: The drugs N-Acetylcy steine and Metamizole may falsely depress this assay.Serum Triglycerides Reference Interval Normal <150 mg/dL Borderline high 150 - 199 mg/dL High 200 - 499 mg/dL Very High > or = 500 mg/dL Blood erythrocytes count (nu mber/volume)Ordered By: Dr. Cedeno on 04-28-2023 RBC (Bld) [#/Vol] 4.90 10*6/uL 4.6-6.2 [facility] Blood hemoglobin measurement (mass/volume)Ordered By: Dr. Cedeno on 04-28-2023 Hemoglobin (Bld) [Mass/Vol] 15.0 g/dL 13.0-16.5 [facility] Blood lymphocytes/100 leukoc ytesOrdered By: Dr. Cedeno on 04-28-2023 Lymphocytes/100 WBC (Bld) 24.1 % 19-41 [facility] Blood monocytes/100 leukocyt esOrdered By: Dr. Cedeno on 04-28-2023 Monocytes/100 WBC (Bld) 11.4 % 0-10 [facility] Blood platelet mean volumeOr dered By: Dr. Cedeno on 04-28-2023 Platelet mean volume (Bld) [Entitic vol] 9.1 fL 6.2-12.0 [facility] Determination of erythrocyte mean corpuscular volume (MCV)Ordered By: Dr. Cedeno on 04-28-2023 MCV (RBC) [Entitic vol] 90.2 fL 80-94 [facility] Direct bilirubinOrdered By: Dr. Cedeno on 04-28-2023 Bilirubin.direct [Mass/Vol] 0.30 mg/dL 0.00-0.30 [facility] Hematocrit Auto (Bld) [Volum e fraction]Ordered By: Dr. Cedeno on 04-28-2023 Hematocrit (Bld) [Volume fraction] 44.2 % 40-54 [facility] Laboratory - Chemistry and C hemistry - challengeOrdered By: Dr. Cedeno on 04-28-2023 ALP [Catalytic activity/Vol] 73 U/L 45-117 [facility] ALT [Catalytic activity/Vol] 26 U/L 16-61 [facility] CO2 [Moles/Vol] 28.0 mmol/L 21.0-32.0 [facility] Globulin (S) [Mass/Vol] 3.8 g/dL 2.2-4.2 [facility] Urea nitrogen/Creatinine [Mass ratio] 12.8 mg/mg 10-20 [facility] - Hematology and Cell countsOrdered By: Dr. Cedeno on 04-28-2023 Erythrocyte distribution width (RBC) [Entitic vol] 40.8 fL 35.1-43.9 [facility] Erythrocyte distribution width (RBC) [Ratio] 12.4 % 11.6-14.6 [facility] Immature granulocytes/100 WBC (Bld) 0.400 % 0.0-0.9 [facility] Comment on above: IG% - Immature Granu locytes (promyelocytes, myelocytes and metamyelocytes) > 1% indicates that a LEFT SHIFT is Present. MCH (RBC) [Entitic mass] 30.6 pg 27.0-32.0 [facility] Nucleated RBC/100 WBC (Bld) [Ratio] 0 % 0-5 [facility] MCHC Auto (RBC) [Mass/Vol]Or dered By: Dr. Cedeno on 04-28-2023 MCHC (RBC) [Mass/Vol] 33.9 g/dL 32-36 [facility] No Panel InformationOrdered By: Dr. Cedeno on 04-28-2023 Estimated Creatinine Clearance Calc 81.06 ml/min [facility] Estimated GFR (MDRD) Amer 84 mL/min >60 [facility] Comment on above: GFR Calc Estimated GFR (MDRD) Non-Af Amer 70 mL/min >60 [facility] Comment on above: Non- GFR Calc Platelets bldOrdered By: Dr. Cedeno on 04-28-2023 Platelets (Bld) [#/Vol] 323 10*3/uL 150-450 [facility] Serum or plasma albumin mary kate urement (mass/volume)Ordered By: Dr. Cedeno on 04-28-2023 Albumin [Mass/Vol] 3.6 g/dL 3.2-5.0 [facility] Serum or plasma calcium mary kate urement (mass/volume)Ordered By: Dr. Cedeno on 04-28-2023 Calcium [Mass/Vol] 9.0 mg/dL 8.5-10.1 [facility] Serum or plasma cholesterol in HDL measurement (mass/volume)Ordered By: Dr. Cedeno on 04-28-2023 Cholesterol in HDL [Mass/Vol] 42 mg/dL >40 [facility] Comment on above: The drugs N-Acetylcy steine and Metamizole may falsely depress this assay. Reference Range HDL <40 mg/dL Low HDL Cholesterol HDL >or= 60 mg/dL High HDL Cholesterol Serum or plasma cholesterol in VLDL measurement (mass/volume)Ordered By: Dr. Cedeno on 04-28-2023 Cholesterol in VLDL [Mass/Vol] 12 mg/dL 5-40 [facility] Serum or plasma creatinine m easurement (mass/volume)Ordered By: Dr. Cedeno on 04-28-2023 Creatinine [Mass/Vol] 1.17 mg/dL 0.70-1.30 [facility] Comment on above: The validity of the calculated GFR & GFRAA in patients over 70 years has not been determined. Clinical correlation is essential. Serum or plasma low density lipoprotein (LDL) cholesterol measurement (mass/volume)Ordered By: Dr. Cedeno on 04-28-2023 Cholesterol in LDL [Mass/Vol] 71 mg/dL 0-130 [facility] Serum or plasma urea nitroge n measurement (mass/volume)Ordered By: Dr. Cedeno on 04-28-2023 Urea nitrogen [Mass/Vol] 15 mg/dL 7-18 [facility] Thin prep Papanicolaou smear with manual screeningOrdered By: Dr. Cedeno on 04-28-2023 Thin prep Papanicolaou smear with manual screening 20 U/L 15-37 [facility] Thin prep Papanicolaou smear with manual screening 5 5-15 [facility] Basophil percentageon 2021 Bilirubin [Mass/Vol] 1.30 mg/dL 0.20-1.00 [facility] Work Phone: [phone] Comment on above: For patients on eltr ombopag therapy, use of Dimension [place] TBIL is not recommended. Cholesterol [Mass/Vol] 136 mg/dL <200 [facility] Work Phone: [phone] Comment on above: <200 mg/dL Desirable 200-240 mg/dL Borderline >240 mg/dL High Risk Protein [Mass/Vol] 7.5 g/dL 6.4-8.2 [facility] Work Phone: [phone] Triglyceride [Mass/Vol] 80 mg/dL <199 [facility] Work Phone: [phone] Comment on above: The drugs N-Acetylcy steine and Metamizole may falsely depress this assay.Serum Triglycerides Reference Interval Normal <150 mg/dL Borderline high 150 - 199 mg/dL High 200 - 499 mg/dL Very High > or = 500 mg/dL Direct bilirubinon 2 Bilirubin.direct [Mass/Vol] 0.27 mg/dL 0.00-0.30 [facility] Work Phone: [phone] Laboratory - Chemistry and C hemistry - challengeon 08-13-2022 ALP [Catalytic activity/Vol] 66 U/L 45-117 [facility] Work Phone: [phone] ALT [Catalytic activity/Vol] 35 U/L 16-61 [facility] Work Phone: [phone] Globulin (S) [Mass/Vol] 3.9 g/dL 2.2-4.2 [facility] Work Phone: [phone] Serum or plasma albumin mary kate urement (mass/volume)on 08-13-2022 Albumin [Mass/Vol] 3.6 g/dL 3.2-5.0 [facility] Work Phone: [phone] Serum or plasma cholesterol in HDL measurement (mass/volume)on 08-13-2022 Cholesterol in HDL [Mass/Vol] 48 mg/dL >40 [facility] Work Phone: [phone] Comment on above: The drugs N-Acetylcy steine and Metamizole may falsely depress this assay. Reference Range HDL <40 mg/dL Low HDL Cholesterol HDL >or= 60 mg/dL High HDL Cholesterol Serum or plasma cholesterol in VLDL measurement (mass/volume)on 08-13-2022 Cholesterol in VLDL [Mass/Vol] 16 mg/dL 5-40 [facility] Work Phone: Serum or plasma low density lipoprotein (LDL) cholesterol measurement (mass/volume)on 08-13-2022 Cholesterol in LDL [Mass/Vol] 72 mg/dL 0-130 [facility] Work Phone: Thin prep Papanicolaou smear with manual screeningon 08-13-2022 Thin prep Papanicolaou smear with manual screening 22 U/L 15-37 [facility] Work Phone: Office Visit: OSAon 10-05-20 Dietary management education, guidance, and counseling (procedure) yes Invalid Interpretation Code [facility] Phone: Documentation of current medications (procedure) Done Invalid Interpretation Code [facility] Phone: Fall risk assessment No Invalid Interpretation Code [facility] Phone: Tobacco smoking status NHIS Never Invalid Interpretation Code [facility] Phone: Tobacco use [facility] Never smoker Invalid Interpretation Code [facility] Phone: Clinical Lists Update: 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 01-27-2017 Alanine aminotransferase (ALT) 54 U/L Invalid Interpretation Code [facility] Phone: [phone] Albumin 4.6 g/dL Invalid Interpretation Code [facility] Phone: [phone] Alkaline phosphatase (ALP) 67 U/L Invalid Interpretation Code [facility] Phone: [phone] Aspartate aminotransferase (AST) 35 U/L Invalid Interpretation Code [facility] Phone: [phone] Bilirubin (total) 1.40 mg/dL High [facility] Phone: [phone] Calcium 10.2 mg/dL Invalid Interpretation Code [facility] Phone: Chloride 102 mmol/L Invalid Interpretation Code [facility] Work Phone: [phone] Cholesterol 142 mg/dL Invalid Interpretation Code [facility] Work Phone: [phone] Cholesterol to HDL Ratio 3.4 {ratio} Invalid Interpretation Code [facility] Work Phone: [phone] CO2 26 mmol/L Invalid Interpretation Code [facility] Work Phone: [phone] Creatinine 0.9 mg/dL Invalid Interpretation Code [facility] Work Phone: [phone] Erythrocytes (RBC) 5.16 10*6/uL Invalid Interpretation Code [facility] Work Phone: [phone] Glucose 96 mg/dL Invalid Interpretation Code [facility] Work Phone: [phone] Glucose mass conc 96 mg/dL Invalid Interpretation Code [facility] Work Phone: HDL Cholesterol 42.00 mg/dL Invalid Interpretation Code [facility] Work Phone: [phone] Hematocrit (HCT) 45.1 % Invalid Interpretation Code [facility] Work Phone: [phone] Hemoglobin (HGB) 15.0 g/dL Invalid Interpretation Code [facility] Work Phone: [phone] LDL Cholesterol 84.4 mg/dL Invalid Interpretation Code [facility] Work Phone: [phone] MCH 29.0 pg Invalid Interpretation Code [facility] Work Phone: [phone] MCHC 33.2 g/dL Invalid Interpretation Code [facility] Work Phone: [phone] MCV 87.4 fL Invalid Interpretation Code [facility] Work Phone: [phone] Platelets 319 10*3/mm3 Invalid Interpretation Code [facility] Work Phone: [phone] PMV by Sam 9.0 fL Invalid Interpretation Code [facility] Work Phone: [phone] Potassium 4.6 mmol/L Invalid Interpretation Code [facility] Work Phone: [phone] Protein 8.0 g/dL Invalid Interpretation Code [facility] Work Phone: [phone] RDW-CA 12.3 % Invalid Interpretation Code [facility] Work Phone: [phone] Sodium 144 mmol/L Invalid Interpretation Code [facility] Phone: [phone] Triglyceride 78 mg/dL Invalid Interpretation Code [facility] Phone: [phone] Urea nitrogen 12 mg/dL Invalid Interpretation Code [facility] Phone: [phone] very low density lipoproteins 15.60 mg/dL Invalid Interpretation Code [facility] Phone: [phone] WBC (Leukocytes) 7.1 10*3/uL Invalid Interpretation Code [facility] Phone: [phone] Clinical Lists Update: 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 10-27-2016 Left ventricular Ejection fraction 65 % Invalid Interpretation Code [facility] Phone: [phone] Office Visiton 10-15-2016 Dietary management education, guidance, and counseling (procedure) yes Invalid Interpretation Code [facility] Phone: [phone] Documentation of current medications (procedure) Done Invalid Interpretation Code [facility] Phone: [phone] Tobacco use [facility] Never smoker Invalid Interpretation Code [facility] Phone: [phone] Replaced Document: [employer] E CG Observationson 10-15-2016 EKG QRS axis 3 deg Invalid Interpretation Code [facility] Phone: electrocardiogram interpretation Sinus Rhythm Voltage criteria for LVH (R(I)+S(III) exceeds 2.50 mV) -Voltage criteria w/o ST/T abnormality may be normal. BORDERLINE Invalid Interpretation Code [facility] Phone: [phone] GE use only - for [employer] import when terms are not otherwise specified 398 ms Invalid Interpretation Code [facility] Phone: [phone] Interpretation Sinus Rhythm Voltage criteria for LVH (R(I)+S(III) exceeds 2.50 mV) -Voltage criteria w/o ST/T abnormality may be normal. BORDERLINE Invalid Interpretation Code [facility] Phone: P [place] 20 deg Invalid Interpretation Code [facility] Phone: P wave axis, electrocardiogram 20 deg Invalid Interpretation Code [facility] Phone: [phone] ME Interval 142 ms Invalid Interpretation Code [facility] [employer] Work Phone: [phone] ME interval, electrocardiogram 142 ms Invalid Interpretation Code [facility] Work Phone: [phone] Pulse (Heart Rate) 67 /min Invalid Interpretation Code [facility] Work Phone: [phone] QRS axis, electrocardiogram 3 deg Invalid Interpretation Code [facility] Work Phone: [phone] QRS Duration 96 ms Invalid Interpretation Code [facility] [employer] Work Phone: [phone] QRS duration, electrocardiogram 96 ms Invalid Interpretation Code [facility] Work Phone: [phone] QT Interval new path ms Invalid Interpretation Code [facility] [employer] Work Phone: QT interval, electrocardiogram new path ms Invalid Interpretation Code [facility] Work Phone: [phone] QTc [place] 398 ms Invalid Interpretation Code [facility] Phone: T [place] -1 deg Invalid Interpretation Code [facility] [employer] Work Phone: T wave axis, electrocardiogram -1 deg Invalid Interpretation Code [facility] Phone: [phone] Office Visit: TIESHA follow upo n 10-05-2016 Tobacco smoking status NHIS Never Invalid Interpretation Code [facility] Phone: [phone] Clinical Lists Update: 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 10-01-2016 HbA1c 5.7 % Invalid Interpretation Code [facility] Phone: [phone] Lab Report: Ferritinon 03-09 Ferritin 91 ng/mL Invalid Interpretation Code 26-388 [facility] Work Phone: [phone] Vital Signs Date Time Vital Sign Value Performing Clinician Facility 03-21-2025 08:49-0400 Body height 182.88 cm Anju Navarrete NP-C Work Phone: [facility] 03-21-2025 08:49-0400 Body mass index (BMI) [Ratio] 31.8 kg/m2 Anju Navarrete NP-C Work Phone: [facility] 03-21-2025 08:49-0400 Body temperature 98.6 [degF] Anju Landon [employer] MACHINE-C Work Phone: [facility] 03-21-2025 08:49-0400 Body weight 106.59 kg Anju Landon [employer] MACHINE-C Work Phone: [facility] 03-21-2025 08:49-0400 Diastolic blood pressure 88 mm[Hg] Anju Landon [employer] MACHINE-C Work Phone: [facility] 03-21-2025 08:49-0400 Heart rate 61 /min Anju Landon [employer] MACHINE-C Work Phone: [facility] 03-21-2025 08:49-0400 Respiratory rate 16 /min Anju Landon [employer]INE-C Work Phone: [facility] 03-21-2025 08:49-0400 SaO2% (BldA) [Mass fraction] 99 % Anju Landon [employer] MACHINE-C Work Phone: [facility] 03-21-2025 08:49-0400 Systolic blood pressure 135 mm[Hg] Anju Landon [employer] MACHINE-C Work Phone: [facility] 02-19-2025 15:41-0400 Body mass index (BMI) [Ratio] 31.8 kg/m2 Anju Landon [employer] MACHINE-C Work Phone: [facility] 02-19-2025 15:41-0400 Body temperature 97.7 [degF] Anju Landon [employer] MACHINE-C Work Phone: [facility] 02-19-2025 15:41-0400 Body weight 106.59 kg Anju Landon [employer] MACHINE-C Work Phone: [facility] 02-19-2025 15:41-0400 Diastolic blood pressure 82 mm[Hg] Anju Landon [employer] MACHINE-C Work Phone: [facility] 02-19-2025 15:41-0400 Heart rate 94 /min Anju Landon [employer] MACHINE-C Work Phone: [facility] 02-19-2025 15:41-0400 Respiratory rate 18 /min Anju Landon [employer] MACHINE-C Work Phone: [facility] 02-19-2025 15:41-0400 SaO2% (BldA) [Mass fraction] 96 % Anju Landon [employer] MACHINE-C Work Phone: [facility] 02-19-2025 15:41-0400 Systolic blood pressure 133 mm[Hg] Anju Landon [employer] MACHINE-C Work Phone: [facility] 02-12-2025 10:28-0400 Body temperature 98.4 [degF] Anju Landon [employer] MACHINE-C Work Phone: [facility] 02-12-2025 10:28-0400 Diastolic blood pressure 87 mm[Hg] Anju Landon [employer] MACHINE-C Work Phone: [facility] 02-12-2025 10:28-0400 Heart rate 70 /min Anju Landon [employer] MACHINE-C Work Phone: [facility] 02-12-2025 10:28-0400 Respiratory rate 18 /min Anju Landon [employer] MACHINE-C Work Phone: [facility] 02-12-2025 10:28-0400 SaO2% (BldA) [Mass fraction] 94 % Anju Landon [employer] MACHINE-C Work Phone: [facility] 02-12-2025 10:28-0400 Systolic blood pressure 144 mm[Hg] Anju Landon [employer] MACHINE-C Work Phone: [facility] 02-01-2025 11:56-0400 Body temperature 97.8 [degF] No Primary Care Physician [facility] 02-01-2025 11:56-0400 Diastolic blood pressure 83 mm[Hg] No Primary Care Physician [facility] 02-01-2025 11:56-0400 Heart rate 76 /min No Primary Care Physician [facility] 02-01-2025 11:56-0400 Respiratory rate 16 /min No Primary Care Physician [facility] 02-01-2025 11:56-0400 SaO2% (BldA) [Mass fraction] 96 % No Primary Care Physician [facility] 02-01-2025 11:56-0400 Systolic blood pressure 132 mm[Hg] No Primary Care Physician [facility] 02-01-2025 08:13-0400 Body height 182.88 cm No Primary Care Physician [facility] 02-01-2025 08:13-0400 Body mass index (BMI) [Ratio] 31.1 kg/m2 No Primary Care Physician [facility] 02-01-2025 08:13-0400 Body weight 104 kg No Primary Care Physician [facility] 01-29-2025 15:36-0400 Body mass index (BMI) [Ratio] 32.5 kg/m2 No Primary Care Physician [facility] 01-29-2025 15:36-0400 Body temperature 98.3 [degF] No Primary Care Physician [facility] 01-29-2025 15:36-0400 Body weight 105.68 kg No Primary Care Physician [facility] 01-29-2025 15:36-0400 Diastolic blood pressure 84 mm[Hg] No Primary Care Physician [facility] 01-29-2025 15:36-0400 Heart rate 78 /min No Primary Care Physician [facility] 01-29-2025 15:36-0400 Respiratory rate 18 /min No Primary Care Physician [facility] 01-29-2025 15:36-0400 SaO2% (BldA) [Mass fraction] 96 % No Primary Care Physician [facility] 01-29-2025 15:36-0400 Systolic blood pressure 138 mm[Hg] No Primary Care Physician [facility] 01-23-2025 15:41-0400 Body mass index (BMI) [Ratio] 32.5 kg/m2 No Primary Care Physician [facility] 01-23-2025 15:41-0400 Body temperature 97.8 [degF] No Primary Care Physician [facility] 01-23-2025 15:41-0400 Body weight 105.91 kg No Primary Care Physician [facility] 01-23-2025 15:41-0400 Diastolic blood pressure 87 mm[Hg] No Primary Care Physician [facility] 01-23-2025 15:41-0400 Heart rate 79 /min No Primary Care Physician [facility] 01-23-2025 15:41-0400 Respiratory rate 18 /min No Primary Care Physician [facility] 01-23-2025 15:41-0400 SaO2% (BldA) [Mass fraction] 96 % No Primary Care Physician [facility] 01-23-2025 15:41-0400 Systolic blood pressure 128 mm[Hg] No Primary Care Physician [facility] 01-09-2025 15:21-0500 Body mass index (BMI) [Ratio] 32.2 kg/m2 No Primary Care Physician [facility] 01-09-2025 15:21-0500 Body temperature 97.4 [degF] No Primary Care Physician [facility] 01-09-2025 15:21-0500 Body weight 104.77 kg No Primary Care Physician [facility] 01-09-2025 15:21-0500 Diastolic blood pressure 84 mm[Hg] No Primary Care Physician [facility] 01-09-2025 15:21-0500 Heart rate 78 /min No Primary Care Physician [facility] 01-09-2025 15:21-0500 Respiratory rate 18 /min No Primary Care Physician [facility] 01-09-2025 15:21-0500 SaO2% (BldA) [Mass fraction] 96 % No Primary Care Physician [facility] 01-09-2025 15:21-0500 Systolic blood pressure 129 mm[Hg] No Primary Care Physician [facility] 11-23-2024 16:01-0500 Body temperature 97.7 [degF] No Primary Care Physician [facility] 11-23-2024 16:01-0500 Diastolic blood pressure 89 mm[Hg] No Primary Care Physician [facility] 11-23-2024 16:01-0500 Heart rate 81 /min No Primary Care Physician [facility] 11-23-2024 16:01-0500 Respiratory rate 18 /min No Primary Care Physician [facility] 11-23-2024 16:01-0500 SaO2% (BldA) [Mass fraction] 97 % No Primary Care Physician [facility] 11-23-2024 16:01-0500 Systolic blood pressure 160 mm[Hg] No Primary Care Physician [facility] 11-06-2024 07:31-0500 Body mass index (BMI) [Ratio] 32.6 kg/m2 No Primary Care Physician [facility] 11-06-2024 07:31-0500 Body temperature 97.3 [degF] No Primary Care Physician [facility] 11-06-2024 07:31-0500 Body weight 106.31 kg No Primary Care Physician [facility] 11-06-2024 07:31-0500 Diastolic blood pressure 88 mm[Hg] No Primary Care Physician [facility] 11-06-2024 07:31-0500 Heart rate 74 /min No Primary Care Physician [facility] 11-06-2024 07:31-0500 Respiratory rate 16 /min No Primary Care Physician [facility] 11-06-2024 07:31-0500 SaO2% (BldA) [Mass fraction] 97 % No Primary Care Physician [facility] 11-06-2024 07:31-0500 Systolic blood pressure 134 mm[Hg] No Primary Care Physician [facility] 04-28-2023 08:41-0400 Body height 182.88 cm [employer] MACHINE-C Will Hellinger [employer] W[employer] MACHINE Work Phone: [facility] 04-28-2023 08:41-0400 Body weight 106.14 kg [employer] MACHINE-C Will Hellinger [employer] MACHINE Work Phone: [facility] 03-31-2023 09:09-0400 Body weight 106.14 kg [employer] MACHINE-C Will Hellinger [employer] MACHINE Work Phone: [facility] 03-31-2023 09:09-0400 Diastolic blood pressure 77 mm[Hg] [employer] MACHINE-C Will Hellinger [employer] MACHINE Work Phone: [facility] 03-31-2023 09:09-0400 Heart rate 72 /min [employer]INE-C Will Hellinger [employer] MACHINE Work Phone: [facility] 03-31-2023 09:09-0400 Respiratory rate 16 /min [employer] MACHINE-C Will Hellinger [employer] MACHINE Work Phone: [facility] 03-31-2023 09:09-0400 SaO2% (BldA) [Mass fraction] 99 % [employer] MACHINE-C Will Hellinger [employer] MACHINE Work Phone: [facility] 03-31-2023 09:09-0400 Systolic blood pressure 124 mm[Hg] [employer] MACHINE-C Will Hellinger [employer] MACHINE Work Phone: [facility] 02-16-2023 14:18-0400 Diastolic blood pressure 78 mm[Hg] [employer] MACHINE-C Will Hellinger [employer] MACHINE Work Phone: [facility] 02-16-2023 14:18-0400 Heart rate 82 /min [employer] MACHINE-C Will Hellinger [employer] MACHINE Work Phone: [facility] 02-16-2023 14:18-0400 SaO2% (BldA) [Mass fraction] 97 % [employer] MACHINE-C Will Hellinger [employer] W[employer] MACHINE Work Phone: [facility] 02-16-2023 14:18-0400 Systolic blood pressure 114 mm[Hg] [employer] MACHINE-C Will Hellinger [employer] MACHINE Work Phone: [facility] 01-24-2023 16:03-0400 Body height 182.88 cm [employer] MACHINE-C Will Hellinger [employer] MACHINE Work Phone: [facility] 01-24-2023 16:03-0400 Body mass index (BMI) [Ratio] 32 kg/m2 [employer]-C Will Hellinger [employer] MACHINE Work Phone: [facility] 01-24-2023 16:03-0400 Body weight 107.13 kg [employer] MACHINE-C Will Hellinger [employer] MACHINE Work Phone: [facility] 01-24-2023 16:03-0400 Diastolic blood pressure 88 mm[Hg] [employer] MACHINE-C Will Hellinger [employer] MACHINE Work Phone: [facility] 01-24-2023 16:03-0400 Heart rate 68 /min [employer] MACHINE-C Will Hellinger [employer] MACHINE Work Phone: [facility] 01-24-2023 16:03-0400 Respiratory rate 16 /min [employer] MACHINE-C Will Hellinger [employer] MACHINE Work Phone: [facility] 01-24-2023 16:03-0400 Systolic blood pressure 128 mm[Hg] [employer] MACHINE-C Will Hellinger [employer] MACHINE Work Phone: [facility] 11-11-2022 06:52-0500 Body mass index (BMI) [Ratio] 32.1 kg/m2 [employer] MACHINE-C Will Hellinger [employer]LE[employer] WINDER MACHINE Work Phone: [facility] 11-11-2022 06:52-0500 Body temperature 97.2 [degF] [employer] MACHINE-C Will Hellinger DEIC[employer] ELEMENT WINDER MACHINE Work Phone: [facility] 11-11-2022 06:52-0500 Body weight 107.5 kg [employer]ER MACHINE-C Will Hellinger DEICER ELEMENT WINDER MACHINE Work Phone: [facility] 11-11-2022 06:52-0500 Diastolic blood pressure 84 mm[Hg] [employer] WINDER MACHINE-C Will Hellinger DEICER ELEMENT WINDER MACHINE Work Phone: [facility] 11-11-2022 06:52-0500 Heart rate 78 /min [employer] WINDER MACHINE-C Will Hellinger DEICER ELEMENT WINDER MACHINE Work Phone: [facility] 11-11-2022 06:52-0500 Respiratory rate 18 /min [employer] WIND[employer] MACHINE-C Will Hellinger DEICER ELEMENT WINDER MACHINE Work Phone: [facility] 11-11-2022 06:52-0500 SaO2% (BldA) [Mass fraction] 96 % [employer] WINDER MACHINE-C Will Hellinger DEICER ELEMENT WINDER MACHINE Work Phone: [facility] 11-11-2022 06:52-0500 Systolic blood pressure 138 mm[Hg] [employer] WINDER MACHINE-C Will Hellinger DEICER ELEMENT WINDER MACHINE Work Phone: [facility] 10-05-2017 05:18-0500 BMI (Body Mass Index) 27.86 kg/m2 Mary Carmen [facility] Work Phone: 10-05-2017 05:18-0500 Body Temperature 97.5 [degF] [facility] [place] Work Phone: 10-05-2017 05:18-0500 BP Diastolic 82 mm[Hg] Mary Carmen [facility] Work Phone: 10-05-2017 05:18-0500 BP Systolic 139 mm[Hg] Mary Carmen Sol [facility] [place] Work Phone: 10-05-2017 05:18-0500 Height 182.25 cm Mary Carmen Sol [facility] Work Phone: 10-05-2017 05:18-0500 Pulse (Heart Rate) 80 /min Mary Carmen Ebenezer [facility] [place] Work Phone: 10-05-2017 05:18-0500 Respiratory Rate 18 /min Mary Carmenjulita Sol [facility] [place] Work Phone: 10-05-2017 05:18-0500 Weight 92.53 kg Mary Carmen Sol [facility] [place] Work Phone: 10-15-2016 15:01-0500 BMI (Body Mass Index) 28.95 kg/m2 Harumi [facility]is [facility] Work Phone: 10-15-2016 15:01-0500 BP Diastolic 82 mm[Hg] Harumi DeFinis [facility] Work Phone: 10-15-2016 15:01-0500 BP Systolic 128 mm[Hg] Harumi DeFinis [facility] Work Phone: 10-15-2016 15:01-0500 BSA (Body Surface Area) 2.18 m2 Harumi DeFinis [facility] Work Phone: 10-15-2016 15:01-0500 Pulse (Heart Rate) 72 /min Harumi DeFinis [facility] Work Phone: 10-15-2016 15:01-0500 Respiratory Rate 16 /min Harumi DeFinis [facility] Work Phone: 10-15-2016 15:01-0500 Weight 96.16 kg Harumi DeFinis [facility] Work Phone: 10-05-2016 06:52-0500 Body Temperature 96.4 [degF] [facility] Work Phone: 10-05-2016 06:52-0500 Body Temperature 96.44 [degF] [facility] Work Phone: 10-05-2016 06:52-0500 Height 182.25 cm [facility] Work Phone: 10-05-2016 06:52-0500 Pulse Oximetry 99 % [facility] Work Phone: 10-05-2016 06:52-0500 Weight 95 kg [facility] Work Phone: Encounters Encounter Date Encounter Type Care Provider Facility Start: 04-18-2025 [facility] Facility:[facility] Start: 04-02-2025 End: 04-02-2025 Patient encounter procedure Terra KEARNEY -[facility] Work Phone: Start: 04-02-2025 End: 04-02-2025 ambulatory [facility] DEIC[employer] ELEMENT WINDER MACHINE-C Work Phone: [facility] Work Phone: Start: 02-19-2025 End: 02-19-[address] Tatianna Whipple MD -[facility] Work Phone: Start: 02-19-2025 End: 02-19-2025 ambulatory [facility] Facility:[facility] Start: 02-12-2025 End: 02-12-[address] Tatianna Whipple MD -[facility] Work Phone: Start: 02-12-2025 End: 02-12-2025 ambulatory [facility] Facility:[facility] Start: 02-01-2025 [facility] Start: 02-01-2025 Non-patient / Non-visit Dr. Tatianna best MD -[facility] Start: 02-01-2025 End: 02-01-2025 Admission to same day surgery center Dr. Tatianna Whipple MD -[facility] Start: 02-01-2025 End: 02-01-2025 ambulatory No Primary Care Physician [facility] Work Phone: Start: 01-29-2025 End: 01-29-[address] Tatianan Whipple MD -[facility] Work Phone: Start: 01-29-2025 End: 01-29-2025 ambulatory Tatianna Sole Facility:[facility] Start: 01-23-2025 End: 01-23-[address] Tatianna Whipple MD -[facility] Work Phone: Start: 01-23-2025 End: 01-23-2025 ambulatory Tatianna Sole Facility:[facility] Start: 01-10-2025 End: 01-10-[address] Sancho Jaramillo MD -[facility] Work Phone: Start: 01-10-2025 End: 01-10-2025 [facility] Start: 01-09-2025 End: 01-09-[address] Tatianna Whipple MD -[facility] Work Phone: Start: 01-09-2025 End: 01-09-2025 ambulatory [facility] Facility:[facility] Start: 01-07-2025 Encounter for genera l adult medical examination with abnormal findings Anju Landon [facility] Start: 01-04-2025 End: 01-04-[address] Sancho Jaramillo MD -[facility] Work Phone: Start: 01-04-2025 End: 01-04-2025 ambulatory Sancho Jaramillo Facility:[facility] Start: 12-31-2024 End: 12-31-[address] Sancho Jaramillo MD -[facility] Work Phone: Start: 12-31-2024 End: 12-31-2024 ambulatory Sancho Jaramillo Facility:[facility] Start: 12-22-2024 End: 12-22-2024 Patient encounter procedure Anju Navarrete DEIC[employer] ELEMENT WINDER MACHINE-C -Laboratory Work Phone: Start: 12-22-2024 End: 12-22-2024 ambulatory Anjuestevan Navarrete Facility:[facility] Start: 11-27-2024 End: 11-27-[address] Sancho Jaramillo MD -[facility] Work Phone: Start: 11-27-2024 End: 11-27-2024 ambulatory Sancho Jaramillo Facility:[facility] Start: 11-23-2024 End: 11-23-2024 Patient encounter procedure RENNY Mathur -[facility] Work Phone: Start: 11-23-2024 End: 11-23-2024 ambulatory No Primary Care Physician Facility:[facility] Start: 11-23-2024 End: 11-23-2024 Patient encounter procedure DE[employer] ELE[employer] WINDER MACHINE Aster Mathur -Laboratory Work Phone: Start: 11-23-2024 End: 11-23-2024 ambulatory No Primary Care Physician Facility:[facility] Start: 11-06-2024 End: 11-06-2024 Patient encounter procedure Katja Spence NP-C -[facility] Work Phone: Start: 11-06-2024 End: 11-06-2024 ambulatory Katja Spence DEIC[employer] ELE[employer] WINDER MACHINE Facility:[facility] Start: 06-08-2024 End: 06-08-2024 ambulatory Mumtaz KEARNEY Facility:[facility] Start: 05-03-2024 End: 05-03-2024 ambulatory Katja Spence DEIC[employer] ELEMENT WINDER MACHINE Facility:[facility] Start: 04-28-2023 End: 04-28-2023 Admission to same day surgery center DE[employer] WINDER MACHINE-C Will Mondragon DEICER ELEMENT WINDER MACHINE Work Phone: [facility] Start: 04-28-2023 End: 04-28-2023 ambulatory [employer] WIND[employer] MACHINE-C Will Mondragon DEICER ELEMENT WINDER MACHINE Work Phone: [facility] Work Phone: Start: 03-31-2023 End: 03-31-2023 Patient encounter procedure DE[employer] ELE[employer] WINDER MACHINE-C Will Mondragon DEICER ELEMENT WINDER MACHINE Work Phone: [facility] Start: 02-22-2023 Non-patient / Non-visit [employer] MACHINE-C Gary Mondragon DEICER ELEMENT WINDER MACHINE Work Phone: [facility] Start: 02-22-2023 End: 02-22-2023 ambulatory [employer] WIND[employer] MACHINE-C Will Mnodragon DEICER ELEMENT WINDER MACHINE Work Phone: [facility] Work Phone: Start: 02-22-2023 End: 02-22-2023 Patient encounter procedure DE[employer] ELEMENT WINDER MACHINE-C Will Mondragon DEICER ELEMENT WINDER MACHINE Work Phone: [facility]-Cardi[facility] Start: 02-16-2023 End: 02-16-2023 Patient encounter procedure DEICER ELEMENT WINDER MACHINE-C Will Mondragon DEICER ELEMENT WINDER MACHINE Work Phone: [facility] Start: 01-24-2023 End: 01-24-2023 Patient encounter procedure DEICER ELEMENT WINDER MACHINE-C Will Mondragon DEICER ELEMENT WINDER MACHINE Work Phone: [facility] Start: 01-11-2023 Non-patient / Non-visit DE[employer] WINDER MACHINE-C Gary Mondragon DEICER ELEMENT WINDER MACHINE Work Phone: [facility] Start: 11-11-2022 End: 11-11-2022 Patient encounter procedure DEIC[employer] ELEMENT WINDER MACHINE-C Wlil Mondragon DEICER ELEMENT WINDER MACHINE Work Phone: [facility]-Pulmonary Medicine [facility] Start: 08-13-2022 End: 08-13-2022 ambulatory [facility] Work Phone: Start: 08-13-2022 End: 08-13-2022 Patient encounter procedure [facility] Procedures Date Procedure Procedure Detail Performing Clinician Start: 02-01-2025 Blepharoplasty No Prima ry Care Physician Start: 01-04-2025 MRI of joint of lowe r extremity No Primary Care Physician Start: 12-22-2024 Measurement of renal function Anju Navarrete DE[employer] WIND[employer] MACHINE-C Work Phone: Comment on above: GFR Calc Start: 12-22-2024 Prostate specific an tigen measurement Anju Navarrete DE[employer] WINDER MACHINE-C Work Phone: Comment on above: This test was perfor med using the TPSA assay method for [employer] chemistry system. Values obtained with differentassay methods cannot be used interchangably.When changing PSA assays in the course of monitoring apatient, additional sequential testing should be carriedout to confirm baseline values. Start: 11-27-2024 X-ray of knee, four or more views No Primary Care Physician Start: 10-15-2016 End: 10-15-2016 Ecg routine ecg w/least 12 lds w/i&r Nnamdi Mondragon MD Start: 10-15-2016 End: 10-15-2016 Electrocardiogram, complete Nnamdi soto MD Start: 06-14-2016 End: 10-01-2016 Pulmonary Function Test - complete Isaac Allred Work Phone: Start: 06-14-2016 End: 10-01-2016 Pulmonary Function Test - complete Isaac Allred Work Phone: Start: 04-01-2016 End: 04-03-2016 Demo&/eval of pt utiliz aersl gen/neb/inhlr/ip Isaac Allred Work Phone: Start: 04-01-2016 End: 04-03-2016 Evaluate pt use of inhaler Isaac Nathan r Work Phone: Start: 03-05-2016 End: 03-13-2016 Assay of ferritin Katja Tee DEICER ELEMENT WINDER MACHINE Work Phone: Start: 03-05-2016 End: 03-13-2016 Assay of ferritin Katja Tee DEIC[employer] ELEMENT WINDER MACHINE Work Phone: Start: 02-17-2016 End: 10-01-2016 Follow Up Appt 3 months Katja Salazar er SURGICAL ONCOLOGIST Work Phone: Start: 02-17-2016 End: 10-01-2016 Pulmonary Function Test - complete Katja Spence CNP Work Phone: Start: 02-17-2016 End: 10-01-2016 Follow Up Appt 3 months Katja S Martin garcia SURGICAL ONCOLOGIST Work Phone: Start: 02-17-2016 End: 10-01-2016 Pulmonary Function Test - complete Katja Spence CNP Work Phone: Plan of Treatment Date Care Activity Detail Author Start: 02-01-2025 Anesthesia eyelid reconstructive procedure ANESTH BLEPHAROPLASTY [facility] Start: 02-01-2025 Blepharoplasty upper eyelid BLEPHAROPLASTY UPPER EYELID [facility] Start: 02-01-2025 [facility] Start: 02-01-2025 Patient discharge [facility] Start: 10-26-2017 End: 10-26-2017 Appointment Appointment [facility] Phone: Start: 10-05-2017 End: 10-05-2017 Follow Up Appt 1 year Follow Up Appt 1 year [facility] Phone: Start: 10-05-2017 End: 10-05-2017 Appointment Appointment [facility] Phone: Start: 10-21-2016 End: 10-21-2016 Echocardiography Echocardiogram (complete) [facility] Phone: Start: 10-21-2016 End: 10-21-2016 Echocardiography Echocardiogram (complete) [facility] Phone: Start: 10-15-2016 End: 10-18-2016 Cardiovascular stress test using treadmill Treadmill stress test (no imaging) [facility] Phone: Start: 10-15-2016 End: 10-15-2016 Ecg routine ecg w/least 12 lds w/i&r EKG (In office) [facility] Phone: Start: 10-15-2016 End: 10-15-2016 Echocardiography Echocardiogram (complete) [facility] Phone: Start: 10-15-2016 End: 10-15-2016 Follow Up Appt 1 year Follow Up Appt 1 year [facility] Phone: Start: 10-15-2016 End: 10-15-2016 PFM PFM [facility] [employer] Work Phone: Start: 10-15-2016 End: 10-18-2016 Cardiovascular stress test using treadmill Treadmill stress test (no imaging) [facility] Work Phone: Start: 10-15-2016 End: 10-15-2016 Echocardiography Echocardiogram (complete) [facility] Work Phone: Start: 10-15-2016 End: 10-15-2016 Electrocardiogram, complete EKG (In office) [facility] [employer] [facility] [employer] Phone: Start: 10-15-2016 End: 10-15-2016 Follow Up Appt 1 year Follow Up Appt 1 year [employer] [facility] [employer] Phone: Start: 10-15-2016 End: 10-15-2016 PFM PFM [facility] Work Phone: Start: 10-05-2016 End: 10-05-2016 Follow Up Appt 1 year Follow Up Appt 1 year [facility] Phone: Start: 10-05-2016 End: 10-05-2016 Follow Up Appt 1 year Follow Up Appt 1 year [employer] [facility] [employer] Phone: Start: 06-14-2016 End: 10-01-2016 Pulmonary Function Test - complete Pulmonary Function Test - complete [facility] [employer] Work Phone: Start: 06-14-2016 End: 10-01-2016 Pulmonary Function Test - complete Pulmonary Function Test - complete [facility] Work Phone: Start: 04-01-2016 End: 04-01-2016 Follow Up Appt 6 months Follow Up Appt 6 months [facility] [employer] Work Phone: Start: 04-01-2016 End: 04-01-2016 Follow Up Appt 6 months Follow Up Appt 6 months [facility] Work Phone: Start: 03-05-2016 End: 03-13-2016 Assay of ferritin Ferritin [facility] Work Phone: Start: 03-05-2016 End: 03-13-2016 Assay of ferritin Ferritin [facility] Work Phone: Start: 02-17-2016 End: 10-01-2016 Follow Up Appt 3 months Follow Up Appt 3 months [facility] Work Phone: Start: 02-17-2016 End: 10-01-2016 Pulmonary Function Test - complete Pulmonary Function Test - complete [facility] Work Phone: Start: 02-17-2016 End: 10-01-2016 Follow Up Appt 3 months Follow Up Appt 3 months [facility] Work Phone: Start: 02-17-2016 End: 10-01-2016 Pulmonary Function Test - complete Pulmonary Function Test - complete [facility] Work Phone: Lipid 1996 panel - S monalisa or Plasma [facility] Patient referral [facility] Work Phone: [facility] Payers Date Payer Category Payer Self-pay [id number] 2015 Unknown [id number] Unknown [id number] 2.16.8 [id number] Unknown [id number] 2.16.8 [id number] Unknown [id number] 2.16.8 [id number] Unknown [id number] 2.16.8 [id number] Unknown [id number] 2.16.8 [id number] Unknown [id number] 2.16.8 [id number] Unknown [id number] 2.16.8 [id number] Unknown [id number] 2.16.8 [id number] Unknown [id number] 2.16.8 [id number] Unknown [id number] 2.16.8 [id number] Unknown [id number] 2.16.8 40.1.496938.3.579.2.462 Unknown [id number] 2.16.8 [id number] Unknown [id number] 2.16.8 40.1.028719.3.579.2.462 Unknown [id number] 2.16.8 40.1.515647.3.579.2.462 Unknown [id number] 2.16.8 40.1.833457.3.579.2.462 Unknown [id number] 2.16.8 40.1.952995.3.579.2.462 Unknown [id number] 2.16.8 40.1.148516.3.579.2.462 Unknown [id number] 2.16.8 40.1.528876.3.579.2.462 Unknown [id number] 2.16.8 [id number] Unknown [id number] 2.16.8 [id number] Social History Date Type Detail Facility Start: 12-02-2021 End: 04-28-2023 Tobacco smoking status NHIS Unknown if ever smoked [facility] Start: 01-09-2021 Non-smoker [facility] Start: 1970 Sex Assigned At Male [facility] Start: 01-22-2025 End: 03-21-2025 Tobacco smoking status NHIS Never smoked tobacco (finding) [facility] Start: 02-01-2025 Sex Male (finding) [facility] Goals Date Patient Goal Desired Activity /State Mental Status Date Assessment Result Facility 02-01-2025 Cognitive function Voice/Name [facility] Work Phone: Clinical Notes 11-06-2024 to 02-01-2025 Note Date & Type Note Facility 02-01-2025 History and physical note [facility] 02-01-2025 Consult note Note Date/Time February 01, 2025 11:28am [facility] Medical Records Department [address] [place] [address] Anesthesia Postop Eval I 02/01/25 1127 MR#: [id number] Acct: [id number] Name: ISAURA RAMIREZ Rep #:[id number] : 1970 54 From: Marline Marcum CRNA PCP: DASHA Pitts Status:REG SDC Y Race: C Location: [place] [address] Anesthesia: Postop Eval I Current Vital Signs Temperature: 97.0 F Pulse Rate: 89 Blood Pressure: 130/84 Respiratory Rate: 20 Pulse Ox: 100 Assessment Airway patent: Yes Spontaneous unlabored respirations: Yes nausea: No Vomiting: No Anesthesia Complication: No Fluid Hydration Crystalloid volume administer (ml): 1,100 Total IV fluid infused: 1,100 Progress Note Anesthesia document: Postop Eval 1 completed: Yes 02/01/25 1128 <Electronically signed by Marline leach CRNA> Date _ Marline Marcum CRNA Cosigner Signature: Date CC: ~ Signed [facility] Work Phone: 1(106) 352-953203-21-2025 Discharge summary Author Tatianna Whipple [facility] Note Date/Time February 01, 2025 11: 13am [facility] Medical Records Department [address] [place] [address] Instructions for Home/Discharge Instructions 02/01/25 1112 MR#: [id number] Acct: [id number] Name: ISAURA RAMIREZ Rep #:[id number] : 1970 54 From: Tatianna Whipple MD PCP: DASHA Pitts Status:REG SDC Discharge Instructions Dressing / Incision Additional Dressing/Incision Instructions:: Follow the instructions given in theoffice. Keep your head elevated and maintain cool compresses today. Follow Up Care Please Follow Up With: Tatianna Whipple MD Test Results: Test results from this visit will be discussed in further detail at your follow- up appointment, if applicable. Discharge Plan Admission Attending Provider: Tatianna Whipple Primary Care Provider: Anju Navarrete Instructions Print Language: [place] Discharge Orders/Prescriptions Prescriptions: No Action Trelegy Ellipta 200-62.5-25 mcg blister with device 1 inh inhalation DAILY Qty: 3 3RF cephalexin 500 mg capsule 500 mg PO BID 5 Days Qty: 10 0RF erythromycin 5 mg/gram (0.5 %) ointment 1 applic ophthalmic (eye) DAILY Qty: 3.5 0RF Rx Instructions: Apply a thin layer on the incisions once a day and in the eyes bilaterally atnighttime oxycodone-acetaminophen [Percocet] 5-325 mg tablet 1 tab PO TID PRN (Reason: pain) atorvastatin 10 mg tablet 10 mg PO QDAY Qty: 90 3RF pramipexole 1 mg tablet 1 mg PO QHS Qty: 90 3RF Dupixent Pen 300 mg/2 mL pen injector 300 mg subcut Q2W Qty: 4 11RF Referrals / Follow Up: Anju Navarrete NP-C [Primary Care Provider] - Disposition Disposition (needs filled in before D/C Order can be placed): Home, Self Care 02/01/25 1113<Electronically signed by Tatianna Whipple MD>Tatianna Whipple MD CC: KONGC Anju Navarrete ~ Signed [facility] Work Phone: 1(282) 281-394003-21-2025 Discharge summary Author Tatianna Whipple [facility] Note Date/Time February 01, 2025 11: 12am [facility] Medical Records Department [address] [place] [address] [place] [address] Instructions for Home/Discharge Instructions 02/01/25 1111 MR#: [id number] Acct: [id number] Name: ISAURA RAMIREZ Rep #:[id number] : 1970 54 From: Tatianna Whipple MD PCP: DASHA Pitts Status:REG SDC Discharge Instructions Dressing / Incision Additional Dressing/Incision Instructions:: Follow the instructions given in theoffice. Keep your head elevated and maintain cool compresses today. Follow Up Care Please Follow Up With: Tatianna Whipple MD When: As scheduled Test Results: Test results from this visit will be discussed in further detail at your follow- up appointment, if applicable. Discharge Plan Admission Attending Provider: Tatianna Whipple Primary Care Provider: Anju Navarrete Instructions Print Language: Eritrean Discharge Orders/Prescriptions Prescriptions: No Action Trelegy Ellipta 200-62.5-25 mcg blister with device 1 inh inhalation DAILY Qty: 3 3RF cephalexin 500 mg capsule 500 mg PO BID 5 Days Qty: 10 0RF erythromycin 5 mg/gram (0.5 %) ointment 1 applic ophthalmic (eye) DAILY Qty: 3.5 0RF Rx Instructions: Apply a thin layer on the incisions once a day and in the eyes bilaterally atnighttime oxycodone-acetaminophen [Percocet] 5-325 mg tablet 1 tab PO TID PRN (Reason: pain) atorvastatin 10 mg tablet 10 mg PO QDAY Qty: 90 3RF pramipexole 1 mg tablet 1 mg PO QHS Qty: 90 3RF Dupixent Pen 300 mg/2 mL pen injector 300 mg subcut Q2W Qty: 4 11RF Referrals / Follow Up: Anju Navarrete, DASHA [Primary Care Provider] - Disposition Disposition (needs filled in before D/C Order can be placed): Home, Self Care 02/01/25 1112<Electronically signed by Tatianna Whipple MD>Tatianna Whipple MD CC: [employer] WINDER MACHINE-C nAju Navarrete ~ Signed [facility] Work Phone: 1(481) 108-311903-21-2025 Consult note [facility] Medical Records Department [address] [place] [address] Anesthesia Postop Eval II 02/01/25 1149 MR#: [id number] Acct: [id number] Name: ISAURA RAMIREZ Rep #:[id number] : 1970 54 From: Isidoro napoles MD PCP: DASHA Pitts Status:REG SDC Y Race: C Location: [place] [address] Anesthesia Postop Eval I Sum Postop Eval Completion status Anesthesia document: Postop Eval 1 completed: Yes Anesthesia Postop Eval I Summary Anesthesia Postop Eval I Summary: Anesthesia Postop Eval I: Assessment Summary Airway patent Yes 02/01/25 11:27 ADULT MANAGER.JGEN Spontaneous unlabored Yes 02/01/25 11:27 ADULT MANAGER.JGEN respirations Mental status nausea No 02/01/25 11:27 ADULT MANAGER.JGEN Vomiting No 02/01/25 11:27 ADULT MANAGER.JGEN Anesthesia Postop Eval I: Fluid Summary Crystalloid volume administer 1,100 02/01/25 11:27 ADULT MANAGER.JGEN (ml) Colloids volume administered ( ml) Blood Product volume administered (ml) Total IV fluid infused 1,100 02/01/25 11:27 ADULT MANAGER.JGEN Anesthesia Postop Eval I: Summary Notes Anesthesia Complication No 02/01/25 11:27 ADULT MANAGER.JGEN Anesthesia Complication Comment: Post-operative progress note Anesthesia: Postop Eval II Evaluation Mental status: Awake Pain Level: 1 nausea: No Vomiting: No Complications Anesthesia Complication: No 02/01/25 1150 lidya VO> Date _ Isidoro Mcclendon MD Cosigner Signature: Date CC: ~ Signed [facility]03-21-2025 Consult note [facility] Medical Records Department [address] [place] [address] Anesthesia Postop Eval I 02/01/25 1127 MR#: [id number] Acct: [id number] Name: ISAURA RAMIREZ Rep #:[id number] : 1970 54 From: Marline Marcum CRNA PCP: DASHA Pitts Status:REG [facility] Y Race: C Location: [place] [address] Anesthesia: Postop Eval I Current Vital Signs Temperature: 97.0 F Pulse Rate: 89 Blood Pressure: 130/84 Respiratory Rate: 20 Pulse Ox: 100 Assessment Airway patent: Yes Spontaneous unlabored respirations: Yes nausea: No Vomiting: No Anesthesia Complication: No Fluid Hydration Crystalloid volume administer (ml): 1,100 Total IV fluid infused: 1,100 Progress Note Anesthesia document: Postop Eval 1 completed: Yes 02/01/25 1128 y ADULT MANAGER> Date _ Marline Marcum ADULT MANAGER Cosigner Signature: Date CC: ~ Signed [facility]03-21-2025 Procedure note [facility] Medical Records Department [address] [place] [address] Operative Report 02/01/25 1113 MR#: [id number] Acct: [id number] Name: ISAURA RAMIREZ Rep #:[id number] : 1970 54 From: Tatianna Whipple MD PCP: DASHA Pitts [place] [facility] [place] [address] Problems Associated Problem List Diagnoses (1) Dermatochalasis of both upper eyelids: (2) Visual field defect: Operative Report (Standard) Operative Information Date of Procedure: 02/01/25 Pre-Operative Diagnosis: Bilateral upper eyelid dermatochalasis and visual fieldlimitation. Post-Operative Diagnosis: Same Surgery/Procedure Performed: Bilateral upper blepharoplasty. digital community manager: Yes Insole Presser: Samira Jordan Tasks completed by foundation assistant: Retracting Type of Anesthesia: General RN Documented Start/Stop Times: Operation Date: 02/01/25 09:20 Case Time Into Pre-Op 02/01/25 07:51 Out of Pre-Op 02/01/25 09:37 Anesthesia Start 02/01/25 09:44 Into Room 02/01/25 09:44 Procedure Start 02/01/25 10:15 Procedure End 02/01/25 11:08 Procedure Start Time: 10:15 Procedure Stop Time: 11:08 Select all DRAINS/GRAFTS/IMPLANTS that apply: None Estimated Blood Loss: Minimal Specimen collected: No Description of surgery: The patient presents with a history of visual field defect as well as dermatochalasis. He presents for bilateral upper blepharoplasty. An informed consent is obtained. He is marked in the preop holding area prior to surgery. The patient is brought to the operating room and placed under general anesthesiain the supine position. Care is taken to pad all pressure points, apply a a warming blanket, and sequential compressionstockings. Tetracaine drops were placed in the eyes bilaterally. The patient's prepped and draped in the usual sterile fashion. Corneal markham lubricated with erythromycin ophthalmic ointment are positioned. We initially began with injecting 1% Xylocaine with epinephrine along the premarked incision lines. After allowing an adequate amount of time for hemostasis to take effect, the incisions aremade. Topical epi is put on the incision lines to reduce bruising. The premarked incision is then excised. Hemostasis is controlled with bipolar cautery. A strip of orbicularis oculi is also removed.Hemostasis is controlled with bipolar cautery. The incisions tacked together with fast-absorbing gut. Cool compresses are placed on the eye and we directed our attention to the opposite side with theidentical procedure performed. Following this, a 5-0 Prolene is used to approximate skin edges in asubcuticular fashion. The sutures anchored at the judaism and glabella using Mastisol and Steri-Strips. Erythromycin ophthalmic ointment is placed on the incisions and cool compresses are applied. He tolerated the procedure well was taken to the recovery area in an awake and stable condition. Needleand sponge counts are correct. Surgical Findings: As above Complications Complications: No Admit VTE Documentation VTE Mechan Device Prophylaxis: SCD's 02/01/25 1118 Cosigner Signature (if applicable): CC: DASHA Navarrete; Dr. Tatianna Whipple MD~ Signed [facility]03-21-2025 History and physical note Author Tatianna Whipple [facility] Note Date/Time February 01, 2025 1:4 5pm [facility] Medical Records Department [address] [place] [address] History & Physical Exam 02/01/25 0916 MR#: [id number] Acct: [id number] Name: ISAURA RAMIREZ Rep #:[id number] : 1970 54 From: Tatianna Whipple MD PCP: DASHA Pitts [place] Location: [place] [address] History and Physical Date of Admission: 02/01/25 The patient is examined and there are no changes to the H&P dated 01/28/2025. Informed consent was obtained for bilateral upper blepharoplasty. He is marked in the preop holding area prior to surgery. Assessment & Plan Assessment/Plan (1) Visual field defect: (2) Dermatochalasis of both upper eyelids: PLAN: Plan Patient for bilateral upper blepharoplasty. 02/01/25915 <Electronically signed by Tatianna Whipple MD> Cosigner Signature (if applicable): CC: DEICER ELEMENT WINDER MACHINEArnold Navarrete; Dr. Tatianna Whipple MD~ Signed [facility] Work Phone: 1(853) 961-319603-21-2025 Discharge summary [facility] Medical Records Department [address] [place] [address] Instructions for Home/Discharge Instructions 02/01/25 1112 MR#: [id number] Acct: [id number] Name: ISAURA RAMIREZ STELLA Rep #:[id number] : 1970 54 From: Tatianna Whipple MD PCP: DASHA Pitts [place] Discharge Instructions Dressing / Incision Additional Dressing/Incision Instructions:: Follow the instructions given in theoffice. Keep your head elevated and maintain cool compresses today. Follow Up Care Please Follow Up With: Tatianna Whipple MD Test Results: Test results from this visit will be discussed in further detail at your follow- up appointment, if applicable. Discharge Plan Admission Attending Provider: Tatianna Whipple Primary Care Provider: Anju Navarrete Instructions Print Language: Eritrean Discharge Orders/Prescriptions Prescriptions: No Action Enoclejefe Ellipta 200-62.5-25 mcg blister with device 1 inh inhalation DAILY Qty: 3 3RF cephalexin 500 mg capsule 500 mg PO BID 5 Days Qty: 10 0RF erythromycin 5 mg/gram (0.5 %) ointment 1 applic ophthalmic (eye) DAILY Qty: 3.5 0RF Rx Instructions: Apply a thin layer on the incisions once a day and in the eyes bilaterally atnighttime oxycodone-acetaminophen [Percocet] 5-325 mg tablet 1 tab PO TID PRN (Reason: pain) atorvastatin 10 mg tablet 10 mg PO QDAY Qty: 90 3RF pramipexole 1 mg tablet 1 mg PO QHS Qty: 90 3RF Dupixent Pen 300 mg/2 mL pen injector 300 mg subcut Q2W Qty: 4 11RF Referrals / Follow Up: Anju Navarrete NP-Randal [Primary Care Provider] - Disposition Disposition (needs filled in before D/C Order can be placed): Home, Self Care 02/01/25 1113Tatianna Whipple MD CC: DEICER ELEMENT WINDER MACHINE-C Anju Navarrete ~ Signed [facility]03-21-2025 Discharge summary [facility] Medical Records Department [address] [place] [address] Instructions for Home/Discharge Instructions 02/01/25 1111 MR#: [id number] Acct: [id number] Name: ISAURA RAMIREZ Rep #:[id number] : 1970 54 From: Tatianna Whipple MD PCP: DASHA Pitts [place] Discharge Instructions Dressing / Incision Additional Dressing/Incision Instructions:: Follow the instructions given in theoffice. Keep your head elevated and maintain cool compresses today. Follow Up Care Please Follow Up With: Tatianna Whipple MD When: As scheduled Test Results: Test results from this visit will be discussed in further detail at your follow- up appointment, if applicable. Discharge Plan Admission Attending Provider: Tatianna Whipple Primary Care Provider: Anju Navarrete Instructions Print Language: Eritrean Discharge Orders/Prescriptions Prescriptions: No Action Trelejefe Ellipta 200-62.5-25 mcg blister with device 1 inh inhalation DAILY Qty: 3 3RF cephalexin 500 mg capsule 500 mg PO BID 5 Days Qty: 10 0RF erythromycin 5 mg/gram (0.5 %) ointment 1 applic ophthalmic (eye) DAILY Qty: 3.5 0RF Rx Instructions: Apply a thin layer on the incisions once a day and in the eyes bilaterally atnighttime oxycodone-acetaminophen [Percocet] 5-325 mg tablet 1 tab PO TID PRN (Reason: pain) atorvastatin 10 mg tablet 10 mg PO QDAY Qty: 90 3RF pramipexole 1 mg tablet 1 mg PO QHS Qty: 90 3RF Dupixent Pen 300 mg/2 mL pen injector 300 mg subcut Q2W Qty: 4 11RF Referrals / Follow Up: Anju Navarrete NP-C [Primary Care Provider] - Disposition Disposition (needs filled in before D/C Order can be placed): Home, Self Care 02/01/25 1112Tatianna Whipple MD CC: DASHA Navarrete ~ Signed [facility]03-21-2025 Consult note Author Isidoro Mcclendon [facility] Note Date/Time February 01, 2025 8:3 7am [facility] Medical Records Department [address] [place] [address] Pre-Anesthesia Evaluation 02/01/25 0831 MR#: [id number] Acct: [id number] Name: ISAURA RAMIREZ Rep #:[id number] : 1970 54 From: Isidoro napoles MD PCP: DASHA Pitts Status:REG [facility] Y Race: C Location: [place] [address] ASA Classification* ASA Classification ASA Classification: 2 Assessment & Plan Anesthesia* Anesthesia Assessment Anesthesia Assessment: Discussed sedation and/or anesthesia options, risks, benefits, and alternatives with patient/parents/legal guardian/POA. Questions invited. The patient/parents/legal guardian/POA seems to understand and agrees to proceedwith anesthesia plan. Reviewed the physical assessment, medical history, allergy history and patient home medications list prior to surgery/procedure/anesthetic and documented any changes. Performed airway and anesthesia risk assessments. Anesthesia Type Anesthesia Type: General History Source History Obtained from:: Patient, Chart and Significant Other (spouse) Anesthesia Focused Assessment* Temperature: 98.2 F Pulse Rate: 72 Blood Pressure: 121/82 Respiratory Rate: 17 Pulse Ox: 97 Oxygen Delivery Method: Room Air Airway Assessment Mouth opens: >3 cm Mallampati Score: II Teeth Condition: Intact Neck Range of motion (ROM): Full ROM Focused Labs Anesthesia Preop lab: CBC WBC 6.6 K/mm3 (4.4-11.0) 12/22/24 08:46 12/22/24 RBC 4.84 M/mm3 (4.6-6.2) 12/22/24 08:46 12/22/24 Hgb 14.4 g/dL (13.0-16.5) 12/22/24 08:46 12/22/24 Hct 43.1 % (40-54) 12/22/24 08:46 12/22/24 Plt Count 317 K/mm3 (150-450) 12/22/24 08:46 12/22/24 CHEMISTRY Potassium 4.2 mmol/L (3.5-5.1) 12/22/24 08:46 12/22/24 Sodium 138 mmol/L (136-145) 12/22/24 08:46 12/22/24 BUN 18 mg/dL (7-18) 12/22/24 08:46 12/22/24 Creatinine 0.94 mg/dL (0.70-1.30) 12/22/24 08:46 12/22/24 Glucose 101 mg/dL (74-106) 12/22/24 08:46 12/22/24 TSH 2.03 uIU/mL (0.358-3.74) 03/10/19 07:38 COAG Pre-Assessment Diagnosis/Proposed Procedure Planned Operative Procedure(s): Bilateral upper blepharoplasty Anesthesia History 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 When Was Last Pacemaker Check QUESTION #4 FULL TEXT: You/Your Family Experience fever (hyperthermia) with Anesthesia Last Oral Intake Last Oral intake: Last Oral Intake NPO since 00:00 02/01/25 08:13 Meds taken in AM with sips of No 02/01/25 08:13 water? 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 Has anyone observed you stop breathing during sleep? STOP Results Positive 01/22/25 12:03 QUESTION #5 FULL TEXT : Do you snore loudly (louder than talking or can be heard through closed doors)? 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 Specify any problems Hx of Preganancy in last 3 N/A 01/22/25 12:03 Months Nurse Filling Out Transfusion VCHRISTIN 01/22/25 12:03 & Questions: Date: 01/22/25 01/22/25 12:03 Time: 12:03 01/22/25 12:03 Patient unable to answer at this time (ie. 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 Hx Now Gestational Age (in weeks): EDC: Hx Hx Para Hx Section SAB Active Medications Active Medications: Current Medications Generic Name Dose Route Start Last Admin Trade Name Freq PRN Reason Stop Dose Admin Cefazolin Sodium 2 gm/ N/A 20 mls @ 400 mls/hr 02/01/25 09:20 IV 02/01/25 09:22 X1 ONE Sodium Chloride 1,000 mls @ 15 mls/hr 02/01/25 07:55 02/01/25 08:13 IV 02/06/25 21:14 15 mls/hr .Q48H CANDI Administration PFSH Medical History (Updated 01/22/25 @ 12:02 by Coreen Bishop) Wears glasses History of steroid therapy Arthritis Gastric reflux Non-smoker BiPAP (biphasic positive airway pressure) dependence Sleep apnea Uses crutches Tear of meniscus of left knee Left tibial fracture High cholesterol History of asthma History of environmental allergies Osteoarthritis of left knee Left knee pain History of exercise stress test (~10/2016) History of echocardiogram (~10/2016) Dyspnea TIESHA (obstructive sleep apnea) Restless leg syndrome Hyperlipidemia Abnormal echocardiogram Chest pain Home Medications ?Medication ?Instructions ?Recorded ?Last Taken ?Type atorvastatin 10 mg tablet 10 mg PO QDAY #90 tabs 06/0601/31/25 Rx pramipexole 1 mg tablet 1 mg PO QHS #90 tabs 4 01/31/25 Rx fluticasone fur. 200 mcg-umeclid 1 inh inhalation JOSÉ MANUEL Y #3 ea 11/06/24 01/31/25 Rx 62.5 mcg-vilant 25 mcg inhalat.powder (Trelegy Ellipta) dupilumab 300 mg/2 mL subcutaneous 300 mg (2 mL) subcu t Q2W #4 mL 11/21/24 01/31/25 Rx pen injector (Dupixent) cephalexin 500 mg capsule 500 mg PO BID 5 days #10 cap s 01/29/25 Unknown Rx erythromycin 5 mg/gram (0.5 %) eye 1 applic ophthalmic (eye) DAILY 01/29/25 Unknown Rx ointment #3.5 grams oxycodone-acetaminophen 5 mg-325 1 tab PO TID PRN pain 02/01/25 Unknown History mg tablet (Percocet) Allergy/AdvReac Type Severity Reaction Status Date / Time iodine Allergy Anaphylaxis Verified 02/01/25 08:10 Family History (Updated 01/09/25 @ 15:15 by Beti Jaime) Grandmother Myocardial infarction, Onset Age: 40 x3 [place] Father Alcoholism Mother Breast cancer Aunt Cancer Breast cancer Grandmother Diabetes Grandfather Heart disease Surgical History (Updated 01/22/25 @ 12:02 by Coreen Bishop) Hx of surgical procedure Hx of colonoscopy H/O knee surgery History of nasal surgery Social History (Updated 01/09/25 @ 15:15 by Beti Jaime) Smoking Status: Never smoker alcohol intake: current substance use type: does not use additional social history: uses aspirin and ibuprofen as needed Review of Systems (Anesthesia) ROS Narrative System reviewed and no additional complaints, except as documented. 02/01/25 0837 <Electronically signed by Isidoro bose MD> Date _ Isidoro Mcclendon MD Cosigner Signature: Date CC: ~ Signed [facility] Work Phone: 1(229) 566-612203-21-2025 [facility] Medical Records Department [address] [place] [address] History Physical Exam 02/01/25 0916 MR#: [id number] Acct: [id number] Name: ISAURA RAMIREZ Rep #: [id number] : 1970 54 From: Tatianna Whipple MD PCP: DASHA Pitts [place] [facility] [place]: [place] [address] History and Physical Date of Admission: 02/01/25 The patient is examined and there are no changes to the H P dated 01/28/2025. Informed consent was obtained for bilateral upper blepharoplasty. He is marked in the preop holding area prior to surgery. Assessment Plan Assessment/Plan (1) Visual field defect: (2) Dermatochalasis of both upper eyelids: PLAN: Plan Patient for bilateral upper blepharoplasty. 02/01/25 0916 Cosigner Signature (if applicable): CC: DEICER ELEMENT WINDER MACHINE-C Anju Navarrete; Dr. Tatianna Whipple MD [facility] Consult note [facility] Medical Records Department [address] [place] [address] Pre-Anesthesia Evaluation 02/01/25 0831 MR#: [id number] Acct: [id number] Name: ISAURA RAMIREZ Rep #:[id number] : 1970 54 From: Isidoro napoles MD PCP: DASHA Pitts Status:[facility] Y Race: C Location: [place] [address] ASA Classification* ASA Classification ASA Classification: 2 Assessment & Plan Anesthesia* Anesthesia Assessment Anesthesia Assessment: Discussed sedation and/or anesthesia options, risks, benefits, and alternatives with patient/parents/legal guardian/POA. Questions invited. The patient/parents/legal guardian/POA seems to understand and agrees to proceedwith anesthesia plan. Reviewed the physical assessment, medical history, allergy history and patient home medications list prior to surgery/procedure/anesthetic and documented any changes. Performed airway and anesthesia risk assessments. Anesthesia Type Anesthesia Type: General History Source History Obtained from:: Patient, Chart and Significant Other (spouse) Anesthesia Focused Assessment* Temperature: 98.2 F Pulse Rate: 72 Blood Pressure: 121/82 Respiratory Rate: 17 Pulse Ox: 97 Oxygen Delivery Method: Room Air Airway Assessment Mouth opens: >3 cm Mallampati Score: II Teeth Condition: Intact Neck Range of motion (ROM): Full ROM Focused Labs Anesthesia Preop lab: CBC WBC 6.6 K/mm3 (4.4-11.0) 12/22/24 08:46 12/22/24 RBC 4.84 M/mm3 (4.6-6.2) 12/22/24 08:46 12/22/24 Hgb 14.4 g/dL (13.0-16.5) 12/22/24 08:46 12/22/24 Hct 43.1 % (40-54) 12/22/24 08:46 12/22/24 Plt Count 317 K/mm3 (150-450) 12/22/24 08:46 12/22/24 CHEMISTRY Potassium 4.2 mmol/L (3.5-5.1) 12/22/24 08:46 12/22/24 Sodium 138 mmol/L (136-145) 12/22/24 08:46 12/22/24 BUN 18 mg/dL (7-18) 12/22/24 08:46 12/22/24 Creatinine 0.94 mg/dL (0.70-1.30) 12/22/24 08:46 12/22/24 Glucose 101 mg/dL (74-106) 12/22/24 08:46 12/22/24 TSH 2.03 uIU/mL (0.358-3.74) 03/10/19 07:38 COAG Pre-Assessment Diagnosis/Proposed Procedure Planned Operative Procedure(s): Bilateral upper blepharoplasty Anesthesia History 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 When Was Last Pacemaker Check QUESTION #4 FULL TEXT: You/Your Family Experience fever (hyperthermia) with Anesthesia Last Oral Intake Last Oral intake: Last Oral Intake NPO since 00:00 02/01/25 08:13 Meds taken in AM with sips of No 02/01/25 08:13 water? 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 Has anyone observed you stop breathing during sleep? STOP Results Positive 01/22/25 12:03 QUESTION #5 FULL TEXT : Do you snore loudly (louder than talking or can be heard through closeddoors)? 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 Specify any problems Hx of Preganancy in last 3 N/A 01/22/25 12:03 Months Nurse Filling Out Transfusion VCHRISTIN 01/22/25 12:03 & Questions: Date: 01/22/25 01/22/25 12:03 Time: 12:03 01/22/25 12:03 Patient unable to answer at this time (ie. 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 Hx Now Gestational Age (in weeks): EDC: Hx Hx Para Hx Section SAB Active Medications Active Medications: Current Medications Generic Name Dose Route Start Last Admin Trade Name Freq PRN Reason Stop Dose Admin Cefazolin Sodium 2 gm/ N/A 20 mls @ 400 mls/hr 02/01/25 09:20 IV 02/01/25 09:22 X1 ONE Sodium Chloride 1,000 mls @ 15 mls/hr 02/01/25 07:55 02/01/25 08:13 IV 02/06/25 21:14 15 mls/hr .Q48H CANDI Administration PFSH Medical History (Updated 01/22/25 @ 12:02 by Coreen Bishop) Wears glasses History of steroid therapy Arthritis Gastric reflux Non-smoker BiPAP (biphasic positive airway pressure) dependence Sleep apnea Uses crutches Tear of meniscus of left knee Left tibial fracture High cholesterol History of asthma History of environmental allergies Osteoarthritis of left knee Left knee pain History of exercise stress test (~10/2016) History of echocardiogram (~10/2016) Dyspnea TIESHA (obstructive sleep apnea) Restless leg syndrome Hyperlipidemia Abnormal echocardiogram Chest pain Home Medications ?Medication ?Instructions ?Recorded ?Last Taken ?Type atorvastatin 10 mg tablet 10 mg PO QDAY #90 tabs 06/0601/31/25 Rx pramipexole 1 mg tablet 1 mg PO QHS #90 tabs 4 01/31/25 Rx fluticasone fur. 200 mcg-umeclid 1 inh inhalation JOSÉ MANUEL Y #3 ea 11/06/24 01/31/25 Rx 62.5 mcg-vilant 25 mcg inhalat.powder (Trelegy Ellipta) dupilumab 300 mg/2 mL subcutaneous 300 mg (2 mL) subcu t Q2W #4 mL 11/21/24 01/31/25 Rx pen injector (Dupixent) cephalexin 500 mg capsule 500 mg PO BID 5 days #10 cap s 01/29/25 Unknown Rx erythromycin 5 mg/gram (0.5 %) eye 1 applic ophthalmic (eye) DAILY 01/29/25 Unknown Rx ointment #3.5 grams oxycodone-acetaminophen 5 mg-325 1 tab PO TID PRN pain 02/01/25 Unknown History mg tablet (Percocet) Allergy/AdvReac Type Severity Reaction Status Date / Time iodine Allergy Anaphylaxis Verified 02/01/25 08:10 Family History (Updated 01/09/25 @ 15:15 by Beti Jaime) Grandmother Myocardial infarction, Onset Age: 40 x3 [place] Father Alcoholism Mother Breast cancer Aunt Cancer Breast cancer Grandmother Diabetes Grandfather Heart disease Surgical History (Updated 01/22/25 @ 12:02 by Coreen Bishop) Hx of surgical procedure Hx of colonoscopy H/O knee surgery History of nasal surgery Social History (Updated 01/09/25 @ 15:15 by Beti Jaime) Smoking Status: Never smoker alcohol intake: current substance use type: does not use additional social history: uses aspirin and ibuprofen as needed Review of Systems (Anesthesia) ROS Narrative System reviewed and no additional complaints, except as documented. 02/01/25 0837 lidya VO> Date _ Isidoro Mcclendon MD Cosigner Signature: Date CC: ~ Signed [facility]02-17-2025 Evaluation note* Diagnosis Onset Date Resolution Status Admit Date Left knee pain acute December 152024 3:27pm Osteoarthritis of left knee acute December 31, 2024 3:27pm Dermatochalasis of both uppe r eyelids acute January 09, 2 025 2:57pm Visual field defect acute 2024 2:57pm Left knee pain acute December 162024 12:09pm Left tibial fracture acute 2024 12:09pm Osteoarthritis of left knee acute January 10, 2025 12:09pm Tear of meniscus of left knee acute January 10, 2025 12:09pm Dermatochalasis of both uppe r eyelids acute January 23, 2025 3:28pm Visual field defect acute January 23, 2025 3:28pm Dermatochalasis of both uppe r eyelids acute January 29, 2025 3:28pm Visual field defect acute January 29, 2025 3:28pm Dermatochalasis of both uppe r eyelids acute February 01, 2025 7:50am Visual field defect acute February 01, 2025 7:50am Status post blepharoplasty acute February 12, 2025 10:24am Status post blepharoplasty acute February 19, 2025 3:25pm [facility] Work Phone: [phone]) 538-433112-24-2024 Evaluation note* Diagnosis Onset Date Resolution Status Admit Date Asthma chronic November 06, 2024 7:39am Obesity chronic November 06, 2024 7:39am TIESHA (obstructive sleep apnea) chroni c November 06, 2024 7:39am Left knee pain acute November 272024 2:44pm Osteoarthritis of left knee acute November 27, 2024 2:44pm Left knee pain acute December 152024 3:27pm Osteoarthritis of left knee acute December 31, 2024 3:27pm Dermatochalasis of both uppe r eyelids acute January 09, 2 025 2:57pm Visual field defect acute 2024 2:57pm Left knee pain acute December 162024 12:09pm Left tibial fracture acute 2024 12:09pm Osteoarthritis of left knee acute January 10, 2025 12:09pm Tear of meniscus of left knee acute January 10, 2025 12:09pm Dermatochalasis of both uppe r eyelids acute January 23, 2025 3:28pm Visual field defect acute January 23, 2025 3:28pm Dermatochalasis of both uppe r eyelids acute January 29, 2025 3:28pm Visual field defect acute January 29, 2025 3:28pm Dermatochalasis of both uppe r eyelids acute February 01, 2025 7:50am Visual field defect acute February 01, 2025 7:50am [facility] Work Phone: Consult note Author Isidoro Mcclendon [facility] Note Date/Time February 01, 2025 11: 50am [facility] Medical Records Department [address] [place] [id number] Anesthesia Postop Eval II 02/01/25 1149 MR#: [id number] Acct: [id number] Name: ISAURA RAMIREZ Rep #:[id number] : 1970 54 From: Isidoro napoles MD PCP: DASHA Pitts Status:REG SDC Y Race: C Location: [place] [id number] Anesthesia Postop Eval I Sum Postop Eval Completion status Anesthesia document: Postop Eval 1 completed: Yes Anesthesia Postop Eval I Summary Anesthesia Postop Eval I Summary: Anesthesia Postop Eval I: Assessment Summary Airway patent Yes 02/01/25 11:27 ADULT MANAGER.JGEN Spontaneous unlabored Yes 02/01/25 11:27 ADULT MANAGER.JGEN respirations Mental status nausea No 02/01/25 11:27 ADULT MANAGER.JGEN Vomiting No 02/01/25 11:27 ADULT MANAGER.JGEN Anesthesia Postop Eval I: Fluid Summary Crystalloid volume administer 1,100 02/01/25 11:27 ADULT MANAGER.JGEN (ml) Colloids volume administered ( ml) Blood Product volume administered (ml) Total IV fluid infused 1,100 02/01/25 11:27 ADULT MANAGER.JGEN Anesthesia Postop Eval I: Summary Notes Anesthesia Complication No 02/01/25 11:27 ADULT MANAGER.JGEN Anesthesia Complication Comment: Post-operative progress note Anesthesia: Postop Eval II Evaluation Mental status: Awake Pain Level: 1 nausea: No Vomiting: No Complications Anesthesia Complication: No 02/01/25 1150 <Electronically signed by Isidoro bose MD> Date _ Isidoro Mcclendon MD Cosigner Signature: Date CC: ~ Signed [facility] Work Phone: Evaluation noteNo assessment information available [facility] Work Phone: Evaluation note* Diagnosis Onset Date Resolution Status Asthma chronic TIESHA (obstructive sleep apnea) chronic Restless leg syndrome chroni c Hyperlipidemia chronic Varicose veins of lower extremity noneactive [facility] Work Phone: Evaluation note* Diagnosis Onset Date Resolution Status Hyperlipidemia chronic Varicose veins of lower extremity noneactive Varicose veins of lower extremity noneactive [facility] Work Phone: Reason for referral (narrative)No reason for referral information [facility] Work Phone: Chief Complaint and Reason for Visit Chief Complaint E ORDER Chief Complaint 1 Y FU Amb Documentation 1 Y FU Varicose veins BLE PAIN Reason for Visit Asthma TIESHA (obstructive sleep apnea) Restless leg syndrome Hyperlipidemia Varicose veins of lower extremity Chief Complaint Amb Documentation 1 Y FU Varicose veins BLE PAIN DISCUSS RESULTS VENOUS INSUFF Reason for Visit Hyperlipidemia Varicose veins of lower extremity Varicose veins of lower extremity Chief Complaint Admit Date 6 M FU November 06, 2024 7:39am E-ORDER November 23, 2024 6 :15am Asthma - severe persistent asthma Januar y 2024 4:08pm LEFT KNEE November 27, 2024 2 :44pm Room 4 November 27, 2024 2 :53pm LEFT KNEE December 31, 2024 3:27pm LT KNEE MEDIAL PAIN, R/O MENISCUS TEAR F ebruary 2024 12:20pm UPPER BLEPH January 09, 2025 2:57pm LEFT KNEE January 10, 2025 12:09pm pre op #1 cierra upper bleph January 23 3:28pm pre #2 cierra upper bleph January 29, 2025 3:28pm Bilateral uppper blepharoplasty February 012024 7:50am Bilateral uppper blepharoplasty February 012024 9:16am Reason for Visit Admit Date Asthma November 06, 2024 7:39am Obesity November 06, 2024 7:39am TIESHA (obstructive sleep apnea) October 152023 7:39am Left knee pain November 27, 2024 2 :44pm Osteoarthritis of left knee November 2:44pm Left knee pain December 31, 2024 3:27pm Osteoarthritis of left knee December 3:27pm Dermatochalasis of both upper eyelids [facility] 2024 2:57pm Visual field defect January 09, 2025 2:57pm Left knee pain January 10, 2025 12:09pm Left tibial fracture January 10, 2025 12:09pm Osteoarthritis of left knee December 12:09pm Tear of meniscus of left knee December 162024 12:09pm Dermatochalasis of both upper eyelids [facility] 2024 3:28pm Visual field defect January 23, 2025 3:2 8pm Dermatochalasis of both upper eyelids [facility] 2024 3:28pm Visual field defect January 29, 2025 3:2 8pm Dermatochalasis of both upper eyelids [facility] 2024 7:50am Visual field defect February 01, 2025 7:5 0am Chief Complaint Admit Date LEFT KNEE December 31, 2024 3:27pm LT KNEE MEDIAL PAIN, R/O MENISCUS TEAR F ebruary 2024 12:20pm UPPER BLEPH January 09, 2025 2:57pm LEFT KNEE January 10, 2025 12:09pm pre op #1 cierra upper bleph January 23 3:28pm pre #2 cierra upper bleph January 29, 2025 3:28pm Bilateral uppper blepharoplasty February 012024 7:50am Bilateral uppper blepharoplasty February 012024 9:16am post #1 cierra upper bleph February 12, 2025 10:24am post #2 cierra upper bleph February 19, 2025 3:25pm Itching where varicose veins were April 022024 8:58am Reason for Visit Admit Date Left knee pain December 31, 2024 3:27pm Osteoarthritis of left knee December 3:27pm Dermatochalasis of both upper eyelids Fe bruary 2024 2:57pm Visual field defect January 09, 2025 2:57pm Left knee pain January 10, 2025 12:09pm Left tibial fracture January 10, 2025 12:09pm Osteoarthritis of left knee December 12:09pm Tear of meniscus of left knee December 162024 12:09pm Dermatochalasis of both upper eyelids [facility] 2024 3:28pm Visual field defect January 23, 2025 3:2 8pm Dermatochalasis of both upper eyelids [facility] 2024 3:28pm Visual field defect January 29, 2025 3:2 8pm Dermatochalasis of both upper eyelids [facility] 2024 7:50am Visual field defect February 01, 2025 7:5 0am Status post blepharoplasty February 12 10:24am Status post blepharoplasty February 19 3:25pm Family History No Family History Records Found Relationship Condition Age at Onset Recorded Date/T mauricio grandmother Myocardial infarction 40 Relationship Condition Age at Onset Recorded Date/T mauricio grandmother Myocardial infarction 40 father Alcoholism Unknown mother Malignant neoplasm of breast Unknown aunt Malignant neoplasm Unknown Malignant neoplasm of breast Unknown grandmother Diabetes mellitus Unknown grandfather Cardiac disease Unknown Advance Directives No Advanced Directives Records Found Advance Directive Response Recorded Date/ Time Advance Directives No October 21, 2015 1:36pm Living Will No January 09 10:33am Power of Account Developer No January 09, 2021 10:33am Advance Directive Response Recorded Date/ Time Advance Directives No April 28 8:41am Living Will No April 28, 2023 8:41am Power of Account Developer No April 28 8:41am Advance Directive Response Recorded Date/ Time Living Will No April 28, 2023 8:41am Do you have a Healthcare Power of Account Developer? No April 28, 2023 8:41am Advance Directives No December 4:43pm Living Will No January 22, 2025 12:03pm Do you have a Healthcare Power of Account Developer? No January 22, 2025 12:03pm Advance Directive Response Recorded Date/ Time Advance Directives No March 21, 2025 8:49am Living Will No January 22, 2025 12:03pm Do you have a Healthcare Power of Account Developer? No January 22, 2025 12:03pm Summary Purpose Additional Source Comments Goals (unrecognized section and content) Goals may be documented in a n alternate sectionGoals may be documented in an alternate sectionGoals may be documented in an alternate section Care Teams (unrecognized sec tion and content) Team Status: Active Member Role Status Dates Dr. Jamel Pena MD Family Provider Active Willhaylee Ninaer DEICER ELEMENT WINDER MACHINE, DEICER ELEMENT WINDER MACHINE-C Primary Care Provider Active Team Status: Inactive Member Role Status Dates Will Hellinger DEICER ELEMENT WINDER MACHINE, DEICER ELEMENT WINDER MACHINE-C Primary Care Provider, Referr ing Provider Active Dr. Nnamdi Mondragon MD Attending Provider Active Team Status: Inactive Member Role Status Dates Will Hellinger DEICER ELEMENT WINDER MACHINE, DEICER ELEMENT WINDER MACHINE-C Primary Care Provider, Referr ing Provider Active Dr. Isaac Allred MD Attending Provider Active Team Status: Active Member Role Status Dates Will Helrheaer DEICER ELEMENT WINDER MACHINE, DEICER ELEMENT WINDER MACHINE-C Primary Care Provider Active Janee Palma Attending Provider Active Team Status: Inactive Member Role Status Dates Will Hellinger DEICER ELEMENT WINDER MACHINE, DEICER ELEMENT WINDER MACHINE-C Primary Care Provider, Referr ing Provider Active CAIO Castlilo Attending Provider Active Team Status: Active Member Role Status Dates Will Hellinger DEICER ELEMENT WINDER MACHINE, DEICER ELEMENT WINDER MACHINE-C Primary Care Provider Active Dr. Jann Cedeno MD Attending Provider Active Team Status: Inactive Member Role Status Dates Will Hellinger DEICER ELEMENT WINDER MACHINE, DEICER ELEMENT WINDER MACHINE-C Primary Care Provider Active CAIO Castillo Attending Provider, Referrin g Provider Active Team Status: Inactive Member Role Status Dates Will Hellinger DEICER ELEMENT WINDER MACHINE, DEICER ELEMENT WINDER MACHINE-C Primary Care Provider, Referr ing Provider Active CAIO Coates Attending Provider Active Team Status: Active Member Role Status Dates Will Hellinger DEICER ELEMENT WINDER MACHINE, DEICER ELEMENT WINDER MACHINE-C Primary Care Provider Active Dr. Jann Cedeno MD Attending Provider Active CAIO Coates Referring Provider Active Team Status: Inactive Member Role Status Dates Will Mondragon DEICER ELEMENT WINDER MACHINE, DEICER ELEMENT WINDER MACHINE-C Primary Care Provider Active CAIO Coates Attending Provider, Referring Provider Active Team Status: Inactive Member Role Status Dates Will Mondragon DEICER ELEMENT WINDER MACHINE, DEICER ELEMENT WINDER MACHINE-C Primary Care Provider Active Dr. Jann Cedeno MD Attending Provider, Referring Pro vider Active Team Status: Active Member Role Status Dates Anju Navarrete DEICER ELEMENT WINDER MACHINE-C Primary Care Provider Active Team Status: Inactive Member Role Status Dates Katja Spence DEICER ELEMENT WINDER MACHINE, DEICER ELEMENT WINDER MACHINE-C Attending Provider Active Start: November 06, 2024 End: November 06, 2024 Team Status: Inactive Member Role Status Dates No Primary Care Physician Primary Care Provider Active Start: November 23, 2024 End: November 23, 2024 Aster Mathur NP-C Attending Provider Active Start: November 23, 2024 End: November 23, 2024 Aster Mathur NP-C Referring Provider Active Start: November 23, 2024 End: November 23, 2024 Team Status: Inactive Member Role Status Dates No Primary Care Physician Primary Care Provider Active Start: November 23, 2024 End: November 23, 2024 No Primary Care Physician Referring Provider Active Start: November 23, 2024 End: November 23, 2024 Aster Mathur NP-C Attending Provider Active Start: November 23, 2024 End: November 23, 2024 Team Status: Inactive Member Role Status Dates No Primary Care Physician Primary Care Provider Active Start: November 27, 2024 End: November 27, 2024 No Primary Care Physician Referring Provider Active Start: November 27, 2024 End: November 27, 2024 Sancho Jaramillo MD Attending Provider Active St art: November 27, 2024 End: November 27, 2024 Team Status: Inactive Member Role Status Dates No Primary Care Physician Primary Care Provider Active Start: November 27, 2024 End: November 27, 2024 Dr. Param Arreguin MD Attending Provider Active S tart: November 27, 2024 End: November 27, 2024 Team Status: Inactive Member Role Status Dates Anju Navarrete DEICER ELEMENT WINDER MACHINE-C Primary Care Provider Active Start: December 22, 2024 End: December 22, 2024 Anju Navarrete NP-C Attending Provider Active St art: December 22, 2024 End: December 22, 2024 Anju Navarrete DEICER ELEMENT WINDER MACHINE-C Referring Provider Active St art: December 22, 2024 End: December 22, 2024 Team Status: Inactive Member Role Status Dates Anju Navarrete DEICER ELEMENT WINDER MACHINE-C Primary Care Provider Active Start: December 31, 2024 End: December 31, 2024 Anju Navarrete DEICER ELEMENT WINDER MACHINE-C Referring Provider Active St art: December 31, 2024 End: December 31, 2024 Sancho Jaramillo MD Attending Provider Active St art: December 31, 2024 End: December 31, 2024 Team Status: Inactive Member Role Status Dates Anju Navarrete NP-C Primary Care Provider Active Start: January 04, 2025 End: January 04, 2025 Sancho Jaramillo MD Attending Provider Active St art: January 04, 2025 End: January 04, 2025 Sancho Jaramillo MD Referring Provider Active St art: January 04, 2025 End: January 04, 2025 Team Status: Inactive Member Role Status Dates Anju Navarrete NP-C Primary Care Provider Active Start: January 09, 2025 End: January 09, 2025 Anju Navarrete DEICER ELEMENT WINDER MACHINE-C Referring Provider Active St art: January 09, 2025 End: January 09, 2025 Dr. Tatianna Whipple MD Attending Provider Active Start: January 09, 2025 End: January 09, 2025 Team Status: Inactive Member Role Status Dates Anju Navarrete NP-C Primary Care Provider Active Start: January 10, 2025 End: January 10, 2025 Anju Navarrete NP-C Referring Provider Active St art: January 10, 2025 End: January 10, 2025 Sancho Jaramillo MD Attending Provider Active St art: January 10, 2025 End: January 10, 2025 Team Status: Inactive Member Role Status Dates Anju Navarrete NP-C Referring Provider Active St art: January 23, 2025 End: January 23, 2025 Dr. Tatianna Whipple MD Attending Provider Active Start: January 23, 2025 End: January 23, 2025 Team Status: Inactive Member Role Status Dates Anju Navarrete DEICER ELEMENT WINDER MACHINE-C Referring Provider Active St art: January 29, 2025 End: January 29, 2025 Dr. Tatianna Whipple MD Attending Provider Active Start: January 29, 2025 End: January 29, 2025 Team Status: Inactive Member Role Status Dates Anju Navarrete NP-C Primary Care Provider Active Start: February 01, 2025 End: February 01, 2025 Dr. Tatianna Whipple MD Attending Provider Active Start: February 01, 2025 End: February 01, 2025 Dr. Tatianna Whipple MD Referring Provider Active Start: February 01, 2025 End: February 01, 2025 Team Status: Active Member Role Status Dates Anju Navarrete DEICER ELEMENT WINDER MACHINE-C Primary Care Provider Active Start: February 01, 2025 Dr. Tatianna Whipple MD Attending Provider Active Start: February 01, 2025 Dr. Tatianna Whipple MD Referring Provider Active Start: February 01, 2025 Dr. Tatianna Whipple MD Other Provider Active St art: February 01, 2025 Team Status: Inactive Member Role Status Dates Anju Navarrete NP-C Primary Care Provider Active Start: February 12, 2025 End: February 12, 2025 Anju Navarrete NP-C Referring Provider Active St art: February 12, 2025 End: February 12, 2025 Dr. Tatianna Whipple MD Attending Provider Active Start: February 12, 2025 End: February 12, 2025 Team Status: Inactive Member Role Status Dates Anju Navarrete NP-C Primary Care Provider Active Start: February 19, 2025 End: February 19, 2025 Anju Navarrete DEICER ELEMENT WINDER MACHINE-C Referring Provider Active St art: February 19, 2025 End: February 19, 2025 Dr. Tatianna Whipple MD Attending Provider Active Start: February 19, 2025 End: February 19, 2025 Team Status: Inactive Member Role Status Dates Anju Navarrete NP-C Primary Care Provider Active Start: April 02, 2025 End: April 02, 2025 Anju Navarrete NP-C Referring Provider Active St art: April 02, 2025 End: April 02, 2025 CAIO Dominguez Attending Provider Active Star t: April 02, 2025 End: April 02, 2025 (unrecognized sect ion and content) No Status Records Found INFORMATION SOURCE (unrecogn ized section and content) DATE CREATED AUTHOR 04/17/2025 [facility] FOR RECORDS PERTAINING TO PATIENTS WHO ARE OR HAVE BEEN ENROLLED IN A CHEMICAL DEPENDENCY/SUBSTANCEABUSE PROGRAM, SOME INFORMATION MAY BE OMITTED. This clinical summary was aggregated from multiple sources. Caution should be exercised in using it in the provision of clinical care. This summary normalizes information from multiple sources, and as a consequence, information in this document may materially change the coding, format and clinical context of patient data. In addition, data may be omitted in some cases. CLINICAL DECISIONS SHOULD BE BASED ON THE PRIMARY CLINICAL RECORDS. [facility] [employer] [facility]. provides no warranty or guarantee of the accuracy or completeness of information in this document.
== END | disposition home or self-care (01) ==
LOC: CVS 07:26
PROVIDERS: PCP Nurse Practitioner Family; Referring Provider Physician Assistant; Visit Provider Physician Assistant
DX: I83.893 Varicose veins of bilateral lower extremities with other complications (principal); R60.0 Localized edema
CPT/HCPCS: 93970

== ENCOUNTER 2025-07-18 07:22 | Day surgery (SDC) | payer BC, SELFPAY ==
[2025-07-17 07:32] VITALS: BMI 32.3
--- NOTE | 2025-07-18 09:16 | HP.PCM_ITS ---
HPI - General HPI Narrative ISAURA WEBB, is a 54 M who presents right lower extremity painful/pruritic varicose veins on anterior lower leg. He had a prior GSV ablation which did not resolve his symptoms and they have been refractory to compression. Venous duplex reveals varicose veins originating from inferior aspect of accessory saphenous vein in thigh. [facility] Medical History Wears glasses History of steroid therapy Arthritis Gastric reflux Non-smoker BiPAP (biphasic positive airway pressure) dependence Sleep apnea Uses crutches Tear of meniscus of left knee Left tibial fracture High cholesterol History of asthma History of environmental allergies Osteoarthritis of left knee Left knee pain History of exercise stress test (~10/2016) History of echocardiogram (~10/2016) Dyspnea TIESHA (obstructive sleep apnea) Restless leg syndrome Hyperlipidemia Abnormal echocardiogram Chest pain Home Medications ?Medication ?Instructions ?Recorded ?Last Taken ?Type atorvastatin 10 mg tablet 10 mg PO QDAY #90 tabs 06/0601/31/25 Rx fluticasone fur. 200 mcg-umeclid 1 inh inhalation JOSÉ MANUEL Y #3 ea 11/06/24 07/18/25 Rx 62.5 mcg-vilant 25 mcg inhalat.powder (Trelegy Ellipta) dupilumab 300 mg/2 mL subcutaneous 300 mg (2 mL) subcu t Q2W #4 mL 11/21/24 01/31/25 Rx pen injector (Dupixent) pramipexole 1 mg tablet 1 mg PO QHS #90 tabs 5 Unknown Rx aspirin 81 mg tablet,delayed 81 mg PO DAILY 07/17/25 0 07/17/25 History release (Adult Low Dose Aspirin) Allergy/AdvReac Type Severity Reaction Status Date / Time iodine Allergy Anaphylaxis Verified 06/13/25 15:22 Family History Grandmother Myocardial infarction, Onset Age: 40 x3 VT's Father Alcoholism Mother Breast cancer Aunt Cancer Breast cancer Grandmother Diabetes Grandfather Heart disease Surgical History H/O blepharoplasty Hx of surgical procedure Hx of colonoscopy H/O knee surgery History of nasal surgery Social History Smoking Status: Never smoker alcohol intake: current substance use type: does not use additional social history: uses aspirin and ibuprofen as needed ROS Constitutional Constitutional: Denies chills, fever(s), frequent falls, lethargy or weakness Eyes Eyes: Denies blind spots, change in vision or loss of vision ENT HEENT: Denies bleeding gums, hoarseness or sore throat Cardiovascular Cardiovascular: Denies abdominal pain, bluish discoloration of hand/feet, chest pain with activity, claudication, cold extremities, cyanosis, dyspnea on exertion, erythema on extremities, irregular heart rhythm, leg edema, leg ulcers, numbness in extremities or weakness in extremities Respiratory/Chest Respiratory/Chest: Denies cough, excessive phlegm production, shortness of breath at rest, shortness of breath with exertion or wheezing Gastrointestinal Gastrointestinal: Denies anorexia, change in stool character, constipation, diarrhea, melena or rectal bleeding Genitourinary Genitourinary: Denies dysuria or hematuria Musculoskeletal Musculoskeletal: Denies abnormal gait Integumentary Integumentary: Reports other Details: ; Denies erythema, non-healing lesions or wounds Neurologic Neurologic: Denies abnormal speech, focal weakness, headache(s), loss of vision, numbness, paresthesias or sensory deficit Hematologic/Lymphatic Hematologic/Lymphatic: Denies easy bleeding, easy bruising or lymphadenopathy Vital Signs Vital Signs Vital Signs: Weight Weight: 232 lb Body Mass Index (BMI) 32.3 Physical Exam Const alert, oriented x3, no apparent distress and healthy appearing General Appearance: cooperative; Negative for combative or lethargic Orientation / Consciousness: awake Exam Limitations: no limitations HEENT Head and Scalp: normocephalic and atraumatic Eyes EOMs intact bilaterally General Eye: normal appearance of both eyes Neck full ROM General: trachea midline Resp normal respiratory effort and no use of accessory muscles Effort and Inspection: Negative for labored, stridor or audible wheezes Cardio regular rate and regular rhythm Back/Spine Cervical Spine: cervical ROM normal Extremity full ROM, normal capillary refill and no clubbing, cyanosis or edema Skin no rashes or lesions noted and no wounds Neuro oriented x3, CN's II-XII intact bilaterally, no focal motor deficits and no sensory deficits noted Psych thought process normal, cooperative, affect normal, speech normal and activity/motor behavior normal Assessment & Plan Assessment/Plan (1) Varicose veins with inflammation: PLAN: -foam ablation varicose vein cluster and ASV
--- NOTE | 2025-07-18 13:57 | PCM.OPRPT ---
Operative Report (Standard) Operative Information Date of Procedure: 07/18/25 Pre-Operative Diagnosis: Venous insufficiency and varicose veins with pain and pruritus of the right lower extremity Post-Operative Diagnosis: Same Surgery/Procedure Performed: Foam ablation right lower extremity varicosities and accessory saphenous vein in the thigh machine strap buckler: No Type of Anesthesia: Local Procedure Start Time: : Procedure Stop Time: :30 Select all DRAINS/GRAFTS/IMPLANTS that apply: None Estimated Blood Loss: 1 Specimen collected: No Description of surgery: HPI: Patient is a 54-year-old male with symptomatic varicose veins of the right lower extremity with prior great saphenous vein ablation. His symptoms have persisted despite this prior ablation and compression therapy and he is noted to have clusters of painful varicose veins on the superior aspect of the anterior lower leg extending cephalad to the inferior termination of the accessory saphenous vein which also was noted to have reflux. He presents now for foam ablation of these varicosities in the accessory saphenous vein. Description of procedure: Upon obtaining informed consent and verification correct patient procedure site the patient was taken to catheter he was positioned prepped and draped in usual sterile fashion. Timeout was performed and ultrasound used to access the varicosities in the anterior lower leg with a butterfly needle 23-gauge. Once successful access was obtained Varithena foam ablation solution was infused under ultrasound visualization with transition of the foam from the varicose vein clusters through the other varicosities and into the inferior most aspect of the accessory saphenous vein. Once satisfactory treatment zone transit was observed manual pressure was held at the superior aspect for 3 minutes after which the deep system and more proximal excess prostatic vein were assessed and found to be free of any foam. The butterfly needle was then withdrawn and manual pressure held until hemostasis was obtained. Compression wrap was then applied patient taken recovery area plan discharged home. Surgical Findings: See above Complications Complications: No
== END 2025-07-18 09:45 | disposition home or self-care (01) ==
PROVIDERS: PCP Nurse Practitioner Family; Referring Provider Surgery Trauma Surgery; Visit Provider Surgery Trauma Surgery
DX: I83.811 Varicose veins of right lower extremity with pain (principal); E78.00 Pure hypercholesterolemia, unspecified; Z79.51 Long term (current) use of inhaled steroids; Z79.82 Long term (current) use of aspirin; L29.9 Pruritus, unspecified; K21.9 Gastro-esophageal reflux disease without esophagitis; J45.909 Unspecified asthma, uncomplicated; I83.10 Varicose veins of unspecified lower extremity with inflammation; Z98.890 Other specified postprocedural states
CPT/HCPCS: 36465; C1894; A4216

== ENCOUNTER → 2025-07-23 | Outpatient (CLI) | payer BC, SELFPAY ==
--- NOTE | 2025-07-23 09:04 | VDLE_ITS ---
Reason For Study Reason For Study: S/P Foam ablation 07/18/2025 RIGHT LEFT CFV is compressible, spontaneous, phasic, competent CFV is compressible, spontaneous, phasic, competent, and demonstrates normal augmentation. and demonstrates normal augmentation. FV is compressible, spontaneous, phasic, competent and demonstrates normal augmentation. POP V is compressible, spontaneous, phasic, competent and demonstrates normal augmentation. T/P Trunk is compressible. PTV is compressible. RT PerV is compressible. 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 GSV ankle to knee appears PARTIALLY COMPRESSIBLE with CHRONIC SVT in distal portions of vessel. ASV at distal thigh to prox chew is occluded s/p Verithena ablation 07/18/2025. Procedure This is a venous duplex using B-mode, color flow and spectral Doppler. Exam performed in department. VL/Venous Duplex US, Unilateral Interpretation Summary Deep veins of the right lower extremity are patent and compressible segmentally . There is no evidence of right lower extremity deep vein thrombosis. Prior right great saphenous ablation above the knee. Great saphenous vein below the knee with chronic superficial thrombus noted. Right accessory saphenous vein occluded consistent with recent ablation. Ordering Physician: Terra Mtz Referring Physician: Anju Navarrete Performed By: Adelaida Gipson RVT
== END | disposition home or self-care (01) ==
LOC: CVS 09:01
PROVIDERS: PCP Nurse Practitioner Family; Referring Provider Surgery Trauma Surgery; Visit Provider Surgery Trauma Surgery
DX: I87.2 Venous insufficiency (chronic) (peripheral) (principal); Z48.812 Encounter for surgical aftercare following surgery on the circulatory system
CPT/HCPCS: 93971

== ENCOUNTER → 2025-11-01 | Outpatient (CLI) | payer BC, SELFPAY ==
--- NOTE | 2025-11-01 06:25 | CT_ITS ---
PROCEDURE: LIMITED CHEST CT CARDIAC ONLY 11/01/2025 REASON FOR EXAM: ASSESS FOR PLAQUE TECHNIQUE: Procedure Code: [id number] Modality: CT Procedure: LIMITED CHEST CT CARDIAC ONLY One or more dose reduction techniques were used (e.g., Automated exposure control, adjustment of the mA and/or kV according to patient size, use of iterative reconstruction technique). RADIATION DOSE SUMMARY: CTDlvol: 12.19 mGy DLP: 219.42 mGycm COMPARISON: None. CT/Limited Chest CT Cardiac Only IMPRESSION: Limited imaging of the lungs demonstrates no acute process. No pleural effusion or pneumothorax is seen in visualized areas. No adenopathy is noted. The visualized upper abdomen demonstrates no significant abnormality. Reading Location: [place] [id number]
--- OUTSIDE RECORDS SUMMARY | 2025-11-01 06:27 | XMS RPT_ITS | CCD ---
Author Organization [facility] Care Team Providers Care Track Laying Supervisor Name Role Phone Celia CONTINKathy Ruby Unavailable Unavaila Marj Rojas Unavailable Unavailable Mary Carmen Sol Unavailable Unavailable Mary Carmen Sol Unavailable Unavailable Helritchie MUSEUM DOCENT, MUSEUM DOCENT-C Will Primary Care Provider Giancarlo MUSEUM DOCENT, MUSEUM DOCENT-C Will Referring Provider Dr. Isaac Allred Attending Provider Janee Palma Attending Provider Unavailable Dr. Nnamdi Mondragon Attending Provider CAIO Galvan Attending Provider Dr. Jann Cedeno Attending Provider Giancarlo MUSEUM DOCENT, MUSEUM DOCENT-C Will Primary Care Provider Giancarlo MUSEUM DOCENT, MUSEUM DOCENT-C Will Referring Provider CAIO Plummer Attending Provider CAIO Plummer Referring Provider Bebe LAWSON-CKatja Attending Provider Care Physician, No Primary Primary Care Provider Unavailable Aster Lopez Attending Provider Kevan LAWSON-Aster Tee Referring Provider Care Physician, No Primary Referring Provider Un available Sancho Jaramillo MD Attending Provider Rodríguez VO, Dr. Virgen Attending Provider Landon MUSEUM DOCENT-C, Anju Primary Care Provider Landon MUSEUM DOCENT-C, Anju Attending Provider Landon MUSEUM DOCENT-C, Anju Referring Provider Sancho Jaramillo MD Referring Provider Sole VO, Dr. Campuzano Attending Provider Sole VO, Dr. Campuzano Referring Provider Sole VO, Dr. Campuzano Other Provider Sancho Jaramillo MD Attending Provider Terra Gann Attending Provider Landon MUSEUM DOCENT-C, Anju Primary Care Provider Landon MUSEUM DOCENT-C, Anju Referring Provider Bibi KEARNEY, Terra Referring Provider Pao VO, Dr. Forte Attending Provider Landon MUSEUM DOCENT-C, Anju Referring Provider Sole VO, Dr. Campuzano Attending Provider Landon MUSEUM DOCENT-C, Anju Primary Care Provider Landon MUSEUM DOCENT-C, Anju Primary Care Provider Landon MUSEUM DOCENT-C, Anju Referring Provider Sole VO, Dr. Campuzano Attending Provider Spence MUSEUM DOCENT-C, Katja Attending Provider Landon MUSEUM DOCENT-C, Anju Primary Care Provider Landon MUSEUM DOCENT-C, Anju Referring Provider [phone] Pao VO, Dr. Forte Referring Provider Dr. Jann Cedeno MD Other Provider Landon MUSEUM DOCENT-C, Hammond Primary Care Physician Terra Gann Attending Physician Dr. Jann Cedeno MD Attending Physician Bebe MUSEUM DOCENT-C, Katja Attending Physician Dr. Jann Cedeno MD Nurse Practitioner [phone] Landon MUSEUM DOCENT-C, Anju Primary Care Physician Terra Gann Attending Physician Landon MUSEUM DOCENT-C, Anju Referring Provider Landon, Anju Primary Care Unavailable Ghazoul, Tatianna Attending Unavailable Landon, Anju Referring Unavailable Landon, Anju Primary Care Unavailable [place], Jann Referring Unavailable [place], Jann Attending Unavailable Landon, Anju Primary Care Unavailable Ghazoul, Tatianna Referring Unavailable Ghazoul, Tatianna Attending Unavailable Care Physician, No Primary Primary Care Unava ilable Aster Mathur Referring Unavailable Aster Mathur Attending Unavailable Landon, Anju Primary Care Unavailable Louie Mtzison Referring Unavailable Terra Mtz Attending Unavailable Landon, Anju Primary Care Unavailable Sancho Jaramillo Referring Unavailable Sancho Jaramillo Attending Unavailable Landon, Anju Attending Unavailable Landon, Anju Primary Care Unavailable Landon, Anju Referring Unavailable Landon, Anju Primary Care Unavailable [place], Jann Referring Unavailable [place], Jann Attending Unavailable Landon, Anju Referring Unavailable Ghazoul, Tatianna Attending Unavailable Landon, Anju Referring Unavailable Landon, Anju Primary Care Unavailable Ghazoul, Tatianna Attending Unavailable Landon, Anju Primary Care Unavailable Landon, Anju Referring Unavailable BaltimoreJann Attending Unavailable Landon, Anju Primary Care Unavailable Landon, Anju Referring Unavailable Katja Spence NP Attending Unavailable Sancho Jaramillo Attending Unavailable Care Physician, No Primary Referring Unava ilable Care Physician, No Primary Primary Care Unava ilable Care Physician, No Primary Referring Unava ilable Care Physician, No Primary Primary Care Unava ilable Aster Mathur Attending Unavailable Katja Spence NP Attending Unavailable Landon, Anju Primary Care Unavailable Ghazoul, Tatianna Attending Unavailable Landon, Anju Referring Unavailable Lnadon, Anju Primary Care Unavailable Pao, Jann Attending Unavailable Pao, Jann Consulting Unavailable Pao, Jann Referring Unavailable Landon, Anju Primary Care Unavailable Ghazoul, Tatianna Attending Unavailable Ghazoul, Tatianna Consulting Unavailable James Whipplea Referring Unavailable Landon, Anju Primary Care Unavailable Jann Cedeno Attending Unavailable Terra Mtz Referring Unavailable Landon, Anju Primary Care Unavailable Jann Cedeno Attending Unavailable Terra Mtz Referring Unavailable Tatianna Whipple Attending Unavailable Landon, Anju Referring Unavailable Landon, Anju Referring Unavailable Landon, Anju Primary Care Unavailable Terra Mtz Attending Unavailable Landon, Anju Referring Unavailable Sancho Jaramillo Attending Unavailable Landon, Anju Primary Care Unavailable Landon, Anju Primary Care Unavailable Landon, Anju Referring Unavailable Sancho Jaramillo Attending Unavailable Care Physician, No Primary Primary Care Unava ilable Param Arreguin Attending Unavailable Landon, Anju Primary Care Unavailable Landon, Anju Referring Unavailable Terra Mtz Attending Unavailable Allergies Allergy Classification Reported Allergen(s) Allergy Type Date of Onset Reaction(s) Facility (11 sources) Iodine Drug Allergy 12-02-2021 Anaphylaxis [facility] (1 source) Iodine Drug Allergy 08-01-2025 [facility] Repository Medications Current Medications Medication Drug Class(es) Dates Sig (Normalized) Sig (Original) aspirin 81 mg delayed release oral tablet (14 sources) Platelet Aggregation Inhibitor, Nonsteroidal Anti-inflammatory Drug Start: 07-17-2025 Aspirin (Adult Low Dose Aspirin) 81 mg tablet,delayed release (DR/EC) Active 81 mg PO DAILY July 17, 2025 12:00am Complies with drug therapy Start: 10-21-2017 End: 01-29-2025 Aspirin (Adult Low Dose Aspi rin) 81 mg tablet,delayed release (DR/EC) Discontinued 81 mg PO daily October 21, 2017 1:00am January 29, 2025 3:38pm 2 ml dupilumab 150 mg/ml auto-injector (16 sources) Interleukin-4 Receptor alpha Antagonist Start: 01-19-2024 End: 11-21-2024 Dupilumab (Dupixent Pen) 300 mg/2 mL pen injector Active 300 mg SC every 2 weeks 4 November 21, 2024 5:03pm Complies with drug therapy Kcbvzwpixfn-Xvjwkwvdz-T ilanter (20 sources) Start: 11-06-2024 Fluticasone-Um eclidi n-Vilanter (Trelegy Ellipta) 200-62.5-25 mcg blister with device Active 1 NMA INHALATION DAILY 3 November 06, 2024 9:01am Allergic rhinitis Allergic rhinitis, unspecified Complies with drug therapy Start: 11-06-2024 Start: 11-06-2024 Fluticasone-Um eclidin-Vilanter (Trelegy Ellipta) 200-62.5-25 mcg blister with device Active 1 NMA INHALATION DAILY 3 November 06, 2024 9:01am Allergic rhinitis Allergic rhinitis, unspecified Start: 11-06-2024 Fluticasone-Um eclidin-Vilanter (Trelegy Ellipta) 200-62.5-25 mcg blister with device Active 1 NMA INHALATION DAILY November 06, 2024 9:01am Start: 12-22-2023 End: 11-06-2024 Fzswwqaupqf-Jomzabrjl-Bfmiwj er (Trelegy Ellipta) 200-62.5-25 mcg blister with device Discontinued 1 NMA INHALATION DAILY 3 December 22, 2023 9:42am November 06, 2024 9:01am Allergic rhinitis Allergic rhinitis, unspecified Start: 12-22-2023 End: 11-06-2024 Boelgythlmf-Fctofjjod-Bzshns er (Trelegy Ellipta) 200-62.5-25 mcg blister with device Discontinued 1 NMA INHALATION DAILY December 22, 2023 9:42am November 06, 2024 9:01am Start: 11-08-2023 End: 12-22-2023 Iwumagxdbab-Jtddrcrem-Deqoeu er (Trelegy Ellipta) 200-62.5-25 mcg blister with device Discontinued 1 NMA INHALATION DAILY 3 November 08, 2023 1:00am December 22, 2023 9:42am Allergic rhinitis Allergic rhinitis, unspecified Start: 11-08-2023 End: 12-22-2023 Owweipnwwhe-Jvzewgojd-Bldaak er (Trelegy Ellipta) 200-62.5-25 mcg blister with device Discontinued 1 NMA INHALATION DAILY November 08, 2023 1:00am December 22, 2023 9:42am Completed/Discontinued Medications Medication Drug Class(es) Dates Sig (Normalized) Sig (Original) ?Allergy (11 sources) Start: 07-11-2014 End: 10-26-2017 inject 1 [...] / oxyCODONE hydrochloride 5 mg oral tablet (16 sources) Opioid Agonist Start: 01-29-2025 End: 04-02-2025 Oxycodone-Acetaminophen (Percocet) 5-325 mg tablet Discontinued 1 {tbl} PO THREE TIMES A DAY as needed for pain 0 February 01, 2025 12:00am April 02, 2025 9:11am amoxicillin 875 mg / clavulanate 125 mg oral tablet (8 sources) Penicillin-class Antibacterial Start: 06-08-2024 End: 06-18-2024 Amoxicillin-Pot Clavulanate 875-125 mg tablet Discontinued 1 {tbl} PO Q12H 20 10 0 June 08, 2024 12:00am June 17, 2024 12:00am June 18, 2024 12:03am Acute sinusitis, unspecified ASPIRIN TBEC (2 sources) Start: 10-15-2016 take 1 tablet by mouth once daily ASPIR-81 TBEC One tablet by mouth daily ASPIRIN TBEC [id number] Nnamdi Mondragon MD ASPIRIN TBEC (2 sources) Start: 10-15-2016 take 1 tablet by mouth once daily ASPIR-81 TBEC One tablet by mouth daily ASPIRIN TBEC [id number] Nnamdi Mondragon MD atorvastatin 10 mg oral tablet (20 sources) HMG-CoA Reductase Inhibitor Start: 10-21-2017 End: 06-06-2023 take 1 tablet by mouth once daily Atorvastatin 10 mg tablet Discontinued 10 mg PO daily 90 3 June 18, 2022 9:02am June 06, 2023 8:32am Start: 10-14-2016 take 1 tablet by jens once daily ATORVASTATIN CALCIUM 10 MG TABS One tablet by mouth daily ATORVASTATIN CALCIUM [id number] Nnamdi Mondragon MD 120 actuat budesonide 0.16 mg/actuat / formoterol fumarate 0.0045 mg/actuat metered dose inhaler (20 sources) Corticosteroid, beta2-Adrenergic Agonist Start: 04-13-2022 End: 04-16-2022 Budesonide-Formoterol (Symbicort) 160-4.5 mcg/actuation HFA aerosol inhaler Discontinued 2 NMA INHALATION Q12H 3 3 April 13, 2022 3:18pm April 16, 2022 11:21am Dyspnea, unspecified Start: 04-13-2022 End: 04-16-2022 take 1 puff(s) by inhalation every twelve hours Budesonide-Formoterol (Symbicort) 160-4.5 mcg/actuation HFA aerosol inhaler Discontinued 2 PUFF INHALATION Q12H 3 April 13, 2022 3:18pm April 16, 2022 11:21am Start: 10-28-2020 End: 04-13-2022 Budesonide-Formoterol (Symbi therese) 160-4.5 mcg/actuation HFA aerosol inhaler Discontinued 2 NMA INHALATION Q12H 3 October 28, 2020 8:25am April 13, 2022 3:19pm Dyspnea, unspecified Start: 10-28-2020 End: 04-13-2022 Budesonide-Formoterol (Symbi therese) [...] inhaler Discontinued 2 NMA INHALATION Q12H 10.2 6 September 07, 2018 8:51am October 31, 2019 8:20am Start: 10-21-2017 End: 10-28-2020 take 1 puff(s) by inhalation every twelve hours Budesonide-Formoterol (Symbicort) 160-4.5 mcg/actuation HFA aerosol inhaler Discontinued 2 PUFF INHALATION Q12H 10.2 September 07, 2018 8:51am October 31, 2019 8:20am Start: 10-05-2016 take 2 puff(s) by in halation twice daily SYMBICORT 160-4.5 MCG/ACT AERO 2 puffs INH Twice daily BUDESONIDE-FORMOTEROL FUMARATE [id number] Isaac Allred Start: 10-05-2016 take 2 puff(s) by in halation twice daily SYMBICORT 160-4.5 MCG/ACT AERO 2 puffs INH Twice daily BUDESONIDE-FORMOTEROL FUMARATE [id number] Katja Spence CNP Start: 10-05-2016 take 2 puff(s) by in halation twice daily SYMBICORT 160-4.5 MCG/ACT AERO 2 puffs INH Twice daily BUDESONIDE-FORMOTEROL FUMARATE [id number] Isaac Allred cephalexin 500 mg oral capsule (15 sources) Cephalosporin Antibacterial Start: 02-12-2025 End: 02-19-2025 take 1 capsule by mouth twice daily Cephalexin 500 mg capsule Discontinued 500 mg PO TWICE A DAY February 12, 2025 12:00am February 19, 2025 3:42pm Start: 01-29-2025 End: 02-03-2025 take 1 capsule by mouth twice daily Cephalexin 500 mg capsule Discontinued 500 mg PO TWICE A DAY 10 5 0 January 29, 2025 12:00am February 02, 2025 12:00am February 03, 2025 12:12am erythromycin 0.005 mg/mg ophthalmic ointment (8 sources) Macrolide, Macrolide Antimicrobial Start: 01-29-2025 End: 02-19-2025 Erythromycin 5 mg/gram (0.5 %) ointment Discontinued 1 NMA OPHTHALMIC DAILY 3.5 0 January 29, 2025 12:00am February 19, 2025 3:42pm Apply a thin layer on the incisions once a day and in the eyes bilaterally at nighttime 60 actuat fluticasone propionate 0.232 mg/actuat / salmeterol xinafoate 0.014 mg/actuat dry powder inhaler (20 sources) Corticosteroid, beta2-Adrenergic Agonist Start: 12-06-2022 End: 12-08-2022 Fluticasone Propion-Salmeterol (Advair Diskus) 500-50 mcg/dose blister with device Discontinued 1 NMA INHALATION TWICE A DAY 3 3 December 06, 2022 12:24pm December 08, [...] 1 NMA INHALATION TWICE A DAY 3 3 December 08, 2022 4:23pm November 08, 2023 9:05am Start: 12-02-2022 End: 12-08-2022 Fluticasone Propion-Salmeter ol (Airduo Respiclick) 232-14 mcg/actuation aerosol powdr breath activated Active 1 INH INHALATION TWICE A DAY 3 December 08, 2022 4:23pm Start: 04-16-2022 End: 12-06-2022 Fluticasone Propion-Salmeter ol (Advair Diskus) 500-50 mcg/dose blister with device Discontinued 1 NMA INHALATION TWICE A DAY 3 3 April 16, 2022 12:00am December 06, 2022 12:24pm Start: 04-16-2022 End: 12-06-2022 Fluticasone Propion-Salmeter ol (Advair Diskus) 500-50 mcg/dose blister with device Discontinued 1 NMA INHALATION TWICE A DAY 3 April 162 12:00am December 06, 2022 12:24pm Start: 04-16-2022 End: 12-06-2022 Fluticasone Propion-Salmeter ol (Advair Diskus) 500-50 mcg/dose blister with device Discontinued 1 INH INHALATION TWICE A DAY April 16, 2022 12:00am December 06, 2022 12:24pm Start: 04-16-2022 Fluticasone Pr opion-Salmeterol (Advair Diskus) 500-50 mcg/dose blister with device Active 1 INH INHALATION TWICE A DAY April 16, 2022 12:00am 14 actuat fluticasone furoate 0.2 mg/actuat / vilanterol 0.025 mg/actuat dry powder inhaler (8 sources) Corticosteroid, beta2-Adrenergic Agonist Start: 04-01-2016 End: 10-05-2016 take 1 puff(s) by inhalation once daily BREO ELLIPTA 200-25 MCG/INH AEPB One puffs INH daily FLUTICASONE FUROATE-VILANTEROL [id number] Isaac Allred Start: 04-01-2016 take 1 puff(s) by in halation once daily BREO ELLIPTA 200-25 MCG/INH AEPB One puffs INH daily FLUTICASONE FUROATE-VILANTEROL [id number] Isaac Allred Start: 04-01-2016 End: 10-05-2016 take 1 puff(s) by inhalation once daily BREO ELLIPTA 200-25 MCG/INH AEPB One puffs INH daily FLUTICASONE FUROATE-VILANTEROL [id number] Isaac Allred ibuprofen 200 mg oral tablet (11 sources) Nonsteroidal Anti-inflammatory Drug Start: 07-11-2014 End: 10-26-2017 Ibuprofen 200 mg tablet Discontinued 1 {tbl} PO EVERY 4 HOURS NEEDED as needed for Pain July 11, 2014 12:00am October 26, 2017 10:15am meloxicam 15 mg oral tablet (20 sources) Nonsteroidal Anti-inflammatory Drug Start: 08-19-2021 End: 02-16-2023 take 1 tablet by mouth once daily as needed Meloxicam 15 mg tablet Discontinued 15 mg PO DAILY as needed December 02, 2021 5:06pm February 16, 2023 2:16pm pramipexole dihydrochloride 1 mg oral tablet (20 sources) Nonergot Dopamine Agonist Start: 10-31-2019 End: 06-25-2025 take 1 tablet by mouth at bedtime Pramipexole 1 mg tablet Discontinued 1 mg PO AT BEDTIME 90 3 May 07, 2024 9:00am June 25, 2025 11:38am Start: 04-03-2019 End: 10-31-2019 take 0.5 mg by mouth at bedtime Pramipexole 1 mg tablet Discontinued 0.5 mg PO AT BEDTIME 90 3 April 03, 2019 12:00am October 31, 2019 8:20am Start: 04-03-2019 End: 10-31-2019 take 0.5 mg by mouth at bedtime Pramipexole Discontinued 0.5 MG PO AT BEDTIME 90 April 03, 2019 12:00am October 31, 2019 8:20am Start: 10-21-2017 End: 04-03-2019 Pramipexole (Mirapex) 0.25 m g tablet Discontinued 0.25 mg PO .COMPLEX 30 6 March 02, 2018 12:59pm April 03, 2019 4:00pm 0.25 mg PO 1 tablet po prior to sleep Start: 10-05-2017 MIRAPEX 0.25 M G TABS 1 tablet PO prior to sleep PRAMIPEXOLE DIHYDROCHLORIDE [id number] Isaac Knight Chalino Problems Active Problems Problem Classification Problem Date Documented Date Episodic/Chronic Asthma (18 sources) Asthma; Translations: [Unspecified asthma, uncomplicated] Onset: 5 10-31-2019 Chronic Comment on above: On Dupixent Disorders of lipid metabolism (17 sources) Hyperlipidemia; Translations: [Hyperlipidemia, unspecified] Onset: 6 10-14-2016 Chronic Immunizations and screening for infectious disease (8 sources) Contact with and (suspected) exposure to other viral communicable diseases; Translations: [Contact with or suspected exposure to other viral communicable disease] 06-08-2024 Episodic Nonspecific chest pain (15 sources) Chest pain; Translations: [Chest pain, unspecified] Onset: 6 10-15-2016 Episodic Osteoarthritis (16 sources) Osteoarthritis of left knee joint; Translations: [Unilateral primary osteoarthritis, left knee] Onset: 5 11-27-2024 Chronic Other diseases of veins and lymphatics (11 sources) Vascular insufficiency; Translations: [Venous insufficiency (chronic) (peripheral)] 04-02-2025 Episodic Other diseases of veins and lymphatics (1 source) Venous insufficiency (chronic) (peripheral); Translations: [Venous insufficiency (chronic) (peripheral)] Onset: 5 Episodic Other hereditary and degenerative nervous system conditions (20 sources) Restless legs; Translations: [Restless legs syndrome] Onset: 6 03-05-2016 Chronic Other hereditary and degenerative nervous system conditions (1 source) Restless legs syndrome; Translations: [Restless legs syndrome (RLS)] 11-11-2022 Chronic Other inflammatory condition of skin (5 sources) Pruritus, unspecified; Translations: [Pruritus] 04-02-2025 Episodic Other lower respiratory disease (15 sources) Dyspnea; Translations: [Dyspnea, unspecified] Onset: 6 02-17-2016 Episodic Other non-traumatic joint disorders (11 sources) Swelling of knee joint; Translations: [Effusion, right knee] 08-19-2021 Episodic Other non-traumatic joint disorders (20 sources) Pain in right knee; Translations: [Right knee pain] 08-20-2021 Episodic Other nutritional; endocrine; and metabolic disorders (13 sources) Obesity; Translations: [Obesity, unspecified] 11-06-2024 Chronic Other upper respiratory disease (8 sources) Allergic rhinitis; Translations: [Allergic rhinitis, unspecified] 01-19-2024 Chronic Comment on above: Multiple allergies a s tested ENT Other upper respiratory disease (1 source) Allergic rhinitis, unspecified; Translations: [Allergic rhinitis, unspecified] Onset: Chronic Other upper respiratory disease (11 sources) Polyp of nasal cavity and/or nasal sinus; Translations: [Nasal polyp, unspecified] 10-28-2020 Episodic Comment on above: Multiple polypectomi es in the past Other upper respiratory infections (8 sources) Acute sinusitis; Translations: [Acute sinusitis, unspecified] 06-08-2024 Episodic Residual codes; unclassified (1 source) Obstructive sleep apnea (adult) (pediatric); Translations: [Obstructive sleep apnea (adult)(pediatric)] 11-11-2022 Chronic Residual codes; unclassified (14 sources) History of repair of eyelid; Translations: [Other specified postprocedural states] 02-12-2025 Episodic Unclassified (20 sources) Obstructive sleep apnea syndrome; Translations: [Obstructive sleep apnea (adult) (pediatric)] Onset: 02-17-2016 Chronic Comment on above: BiPAP 17/13 cmH2O Varicose veins of lower extremity (20 sources) Varicose veins of lower extremity; Translations: [Varicose veins of bilateral lower extremities with other complications] Onset: 02-16-2023 Episodic Comment on above: Interpretation Summa ryDeep veins of the bilateral lower extremities are patent and compressible segmentally. There is no evidence of bilaterallower extremity deep vein thrombosis.Chronic superficial vein thrombosis noted in the right great saphenous vein below the knee, small saphenous vein.Chronic superficial vein thrombosis noted in the left great saphenous vein, small saphenous vein.Positive for reflux in the right accessory saphenous veins in the thigh, accessory saphenous vein at knee, perforatorvein in calf.Positive for reflux in the left common femoral vein, saphenofemoral junction, great saphenous vein throughout, accessorysaphenous vein at knee, perforating vein in the calf Past or Other Problems Problem Classification Problem Date Documented Date Episodic/Chronic Blindness and vision defects (20 sources) Visual field defect; Translations: [Unspecified visual field defects] Onset: 01-29-2025 01-09-2025 Episodic Fracture of lower limb (12 sources) Fracture of tibia; Translations: [Unspecified fracture of shaft of left tibia, initial encounter for closed fracture] Onset: 01-10-2025 01-22-2025 Episodic Joint disorders and dislocations; trauma-related (12 sources) Tear of meniscus of knee; Translations: [Unspecified tear of unspecified meniscus, current injury, left knee, initial encounter] Onset: 01-10-2025 01-10-2025 Episodic Other circulatory disease (4 sources) Electrocardiogram abnormal; Translations: [Abnormal electrocardiogram [ECG] [EKG]] Onset: 10-15-2016 10-15-2016 Episodic Other eye disorders (20 sources) Dermatochalasis of right upper eyelid; Translations: [Dermatochalasis of both upper eyelids] Onset: 03-06-2025 01-09-2025 Episodic Other eye disorders (2 sources) Dermatochalasis of left upper eyelid; Translations: [Dermatochalasis of left upper eyelid] Onset: 01-29-2025 Episodic Other lower respiratory disease (1 source) Dyspnea, unspecified; Translations: [Dyspnea, unspecified] Onset: 12-14-2024 Episodic Other non-traumatic joint disorders (3 sources) Pain in left knee; Translations: [Left knee pain] Onset: 01-17-2025 11-27-2024 Episodic Results Test Name Value Interpretation Reference Range Facility MR/BMSMarikaZAIDABob 08-01-2025 MR/BMS.ASHU [facility] Surgery [address] [place] [address] OFFICE VISIT Date of Service: 08/01/25 MR#: [id number] Acct: [id number] Name: ISAURA RAMIREZ Rep #: [id number] : 1970 Provider: CAIO Dominguez Age/Sex: 54/M Location: [facility] Status: Signed Intake Vital Signs 05/10/25 16:12 07/18/25 07:53 08/01/25 10:33 Height 5 ft 11 in 6 ft Weight: 230 lb BP 133/80 H Blood Pressure Location Lt radial Position Sitting Respiration 14 Pulse 83 Pulse Source Monitor Temp 98.0 F Temp Source Temporal Pulse Oximetry (%) 98 Oxygen Delivery Method room air Intake Visit Reasons: Post R Foam Ablation 2-4 WK FU Is patient in pain?: No Allergies iodine Allergy (Verified 08/01/25 10:34) Anaphylaxis Medications ???Medication ???Instructions ???Recorded ???Confirmed ???Type atorvastatin 10 mg tablet 10 mg PO QDAY #90 tabs 06/06/23 Rx fluticasone fur. 200 mcg-umeclid 1 inh inhalation DAILY #3 ea 11/0608/01/25 Rx 62.5 mcg-vilant 25 mcg inhalat.powder (Trelegy Ellipta) dupilumab 300 mg/2 mL subcutaneous 300 mg (2 mL) subcut Q2W #4 mL 0 11/21/24 08/01/25 Rx pen injector (Samba[employer]me) pramipexole 1 mg tablet 1 mg PO QHS #90 tabs 06/25/2507/15 Rx aspirin 81 mg tablet,delayed 81 mg PO DAILY 07/17/25 08/01/25 H istory release (Adult Low Dose Aspirin) Have you fallen in the past year?: No PFSH Medical History Wears glasses History of [...] Hyperlipidemia Abnormal echocardiogram Chest pain Surgical History H/O blepharoplasty Hx of surgical procedure Hx of colonoscopy H/O knee surgery History of nasal surgery Family History Grandmother Myocardial infarction, Onset Age: 40 x3 SC's Father Alcoholism Mother Breast cancer Aunt Cancer Breast cancer Grandmother Diabetes Grandfather Heart disease Social History Smoking Status: Never smoker alcohol intake: current substance use type: does not use additional social history: uses aspirin and ibuprofen as needed HPI HPI HPI: ISAURA RAMIREZ, is a 54 M who presents to the office today for follow-up s/p foam ablation right lower extremity varicosities and accessory saphenous vein in the thigh 07/18/25. He reports resolution of his prior discomfort and pruritus since the ablation. He has noticed no adverse effects and he has no complaints today. He continues to adhere to conservative management measures for his CVI as well. ROS General General: No weight change, appetite, fatigue, colon cancer, breast cancer or weakness HEENT HEENT: No difficulty swallowing, eye injury, eye surgery, swollen glands or hoarseness Endo Endocrine: No [...] frequent falls, No headache(s), No lack of coordination, No loss of vision, No memory loss, No numbness, No other visual disturbances, No radicular pain, Yes restless legs, No sensory deficit (more content not included)... Normal [facility] Venous Duplex US, Unilateral on 07-23-2025 Venous Duplex US, Unilateral [facility] [address] [place] [address] Venous Duplex US, Unilateral 07/23/25 0904 MR#: [id number] Acct: [id number] Name: ISAURA RAMIREZ Rep #: [id number] : 1970 54 From: Jann Cedeno MD Attending Dr: Dr. Jann Cedeno MD Status: LILIBETH KIMBALL Ordering Dr: Terra Mtz Date: 07/23/25 Location: [facility] Sex: M C Admitted: Reason For Study Reason For Study: S/P Foam ablation 07/18/2025 RIGHT LEFT CFV is compressible, spontaneous, phasic, competent CFV is compressible, spontaneous, phasic, competent, and demonstrates normal augmentation. and demonstrates normal augmentation. FV is compressible, spontaneous, phasic, competent and demonstrates normal augmentation. POP V is compressible, spontaneous, phasic, competent and demonstrates normal augmentation. T/P Trunk is compressible. PTV is compressible. RT PerV is compressible. 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 GSV ankle to knee appears PARTIALLY COMPRESSIBLE with CHRONIC SVT in distal portions of vessel. ASV at distal thigh to prox chew is occluded s/p Verithena ablation 07/18/2025. Procedure This is a venous duplex using B-mode, color flow and spectral Doppler. Exam performed in department. VL/Venous Duplex US, Unilateral Interpretation Summary Deep veins of the right lower extremity are patent and compressible segmentally. There is no evidence of right lower extremity deep vein thrombosis. Prior right great saphenous ablation above the knee. Great saphenous vein below the knee with chronic superficial thrombus noted. Right accessory saphenous vein occluded consistent with recent ablation. __ Ordering Physician: Terar Mtz Referring Physician: Anju Navarrete Performed By: Adelaida Gipson RVT 07/23/25 163 Date Jann Cedeno MD CC: MUSEUM DOCENT-C Anju Navarrete; CAIO Dominguez; Dr. Jann Cedeno MD Date Dictated: 07/23/25903 Date Transcribed: 07/23/251631 Manager Construction: Signed Normal [facility] Venous duplex ultrasound rep ortOrdered By: Jann Cedeno on 07-23-2025 US Vein [facility] Cardi[facility] [address] [place] [address] Venous Duplex US, Unilateral 07/23/25903 MR#: [id number] Acct: [id number] Name: ISAURA RAMIREZ Rep #:[id number] : 1970 54 From: Jann Aponte Attending Dr: Dr. Jann Cedeno MD S tatus: REG CLI Ordering Dr: Terra Mtz Date: Location: [facility] Sex: M C Admitted: Reason For Study Reason For Study: S/P Foam ablation 07/18/2025 RIGHT LEFT CFV is compressible, spontaneous, phasic, competent CFV is compressible, spontaneous, phasic, competent, and demonstrates normal augmentation. and demonstrates normal augmentation. FV is compressible, spontaneous, phasic, competent and demonstrates normal augmentation. POP V is compressible, spontaneous, phasic, competent and demonstrates normal augmentation. T/P Trunk is compressible. PTV is compressible. RT PerV is compressible. 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 GSV ankle to knee appears PARTIALLY COMPRESSIBLE with CHRONIC SVT in distal portions of vessel. ASV at distal thigh to prox chew is occluded s/p Verithena ablation 07/18/2025. Procedure This is a venous duplex using B-mode, color flow and spectral Doppler. Exam performed in department. VL/Venous Duplex US, Unilateral Interpretation Summary Deep veins of the right lower extremity are patent and compressible segmentally.There is no evidence of right lower extremity deep vein thrombosis. Prior right great saphenous ablation above the knee. Great saphenous vein below the knee with chronic superficial thrombus noted. Right accessory saphenous vein occluded consistent with recent ablation. __ Ordering Physician: Terra Mtz Referring Physician: Anju Navarrete Performed By: Adelaida Gipson RVT 07/23/25 1632 Date _ Jann Cedeno MD CC: MUSEUM DOCENT-C Anju Navarrete; CAIO Dominguez; Dr. Jann Cedeno MD ~ Date Dictated: 07/23/2504 Date Transcribed: 07/23/25 1632 Manager Construction: Signed [facility] Work Phone: Operative Reporton 5 Operative Report [facility] Medical Records Department [address] [place] [address] Operative Report 07/18/25 1357 MR#: [id number] Acct: [id number] Name: ISAURA RAMIREZ Rep #: [id number] : 1970 54 From: Jann Cedeno MD PCP: DASHA Pitts Status:[facility] Location: [facility] Operative Report (Standard) Operative Information Date of Procedure: 07/18/25 Pre-Operative Diagnosis: Venous insufficiency and varicose veins with pain and pruritus of the right lower extremity Post-Operative Diagnosis: Same Surgery/Procedure Performed: Foam ablation right lower extremity varicosities and accessory saphenous vein in the thigh wrapper opener: No Type of Anesthesia: Local Procedure Start Time: :25 Procedure Stop Time: :30 Select all DRAINS/GRAFTS/IMPLA NTS that apply: None Estimated Blood Loss: 1 Specimen collected: No Description of surgery: HPI: Patient is a 54-year-old male with symptomatic varicose veins of the right lower extremity with prior great saphenous vein ablation. His symptoms have persisted despite this prior ablation and compression therapy and he is noted to have clusters of painful varicose veins on the superior aspect of the anterior lower leg extending cephalad to the inferior termination of the accessory saphenous vein which also was noted to have reflux. He presents now for foam ablation of these varicosities in the accessory saphenous vein. Description of procedure: Upon obtaining informed consent and verification correct patient procedure site the patient was taken to catheter he was positioned prepped and draped in usual sterile fashion. Timeout was performed and ultrasound used to access the varicosities in the anterior lower leg with a butterfly needle 23-gauge. Once successful access was obtained Varithena foam ablation solution was infused under ultrasound visualization with transition of the foam from the varicose vein clusters through the other varicosities and into the inferior most aspect of the accessory saphenous vein. Once satisfactory treatment zone transit was observed manual pressure was held at the superior aspect for 3 minutes after which the deep system and more proximal excess prostatic vein were assessed and found to be free of any foam. The butterfly needle was then withdrawn and manual pressure held until hemostasis was obtained. Compression wrap was then applied patient taken recovery area plan discharged home. Surgical Findings: See above Complications Complications: No 07/18/25 1400 Cosigner Signature (if applicable): CC: DASHA Navarrete; Dr. Jann Cedeno MD Signed Normal [facility] Pulmonary Visit Reporton Pulmonary Visit Report [facility] [place] [address] [place] [address] OFFICE VISIT Date of Service: 06/13/25 MR#: [id number] Acct: [id number] Name: ISAURA RAMIREZ Rep #: [id number] : 1970 Provider: DASHA Spence Age/Sex: 54/M Location: [facility] Status: Signed Assessment and Plan Assessment and Plan (1) Asthma: Status: Chronic Qualifiers: Asthma severity: severe Asthma persistence: persistent Asthma complication type: uncomplicated Qualified Code(s): J45.50 - Severe persistent asthma, uncomplicated Comment: On Dupixent Plan: No signs of exacerbation of asthma today. No change in maintenance medications, continue Trelegy and Dupixent. No additional testing at this time. Contact the office with any signs of new or worsening symptoms. Follow-up in 9 months. (2) TIESHA (obstructive sleep apnea): Status: Chronic Comment: BiPAP 17/13 cmH2O Plan: He is using and benefiting from Pap therapy. No indication for titration study at this time. Contact the office for any new or worsening symptoms in the meantime. Follow-up in 9 months. (3) Obesity: Status: Chronic Qualifiers: Obesity type: due to excess calories Obesity classification: adult class 1 (BMI 30 - 34.9) Serious obesity comorbidity presence: with serious comorbidity Body mass index: BMI 32.0-32.9 Qualified Code(s): E66.811 - Obesity, class 1; E66.09 - Other obesity due to excess calories; Z68.32 - Body mass index [BMI] 32.0-32.9, adult Plan: Complicates exam, plan, care and prognosis. Encourage weight loss. Plan Details Additional Comments: This note was generated with [employer] dictation software. It may contain incorrect words, spelling, and punctuation that were not noted in checking the note before signing. Follow Up: 9 Months ([facility]) HPI 6 M FU Chief Complaint: Routine follow-up HPI Comments Details: This patient presents to the office today for follow-up of his severe persistent asthma complicated by obstructive sleep apnea. He is ambulatory and on room air. He has not recently [...] body aches. He wakes up feeling rested refreshed. He is not having difficulty with dry mouth or mask leaks. He is not requiring naps. He is not having excessive nocturia. Compliance report for the past 30 days shows 93 % compliance with average use of 6 hours and 39 minutes per night. Current setting is 17/13 cm of water with residual AHI of 0.2 events per hour. Leaks do appear to be somewhat of a problem. 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 200 mcg-umeclid 1 inh inhalation DAILY #3 ea 11/0606/13/25 Rx 62.5 mcg-vilant 25 mcg inhalat.powder (Trelegy Ellipta) dupilumab 300 mg/2 mL subcutaneous 300 mg (2 mL) subcut Q2W #4 mL 0 11/21/24 06/13/25 Rx pen injector (Dupixent) Have you fallen in the past year?: No PFSH Medical History Wears glasses History of steroid therapy Arthritis Gastric reflux Non-smoker BiPAP (biphasic positive airway pressure) dependence Sleep apnea Uses crutches Tear of meniscus of left knee Left tibial fracture High cholesterol History of asthma History of environmental allergies Osteoarthritis of left knee Left knee pain History of exercise stress test ( 10/2016) History of echocardiogram ( 10/2016) Dyspnea TIESHA (obstructive sle (more content not included)... Normal [facility] MR/BMSMinh 05-15-2025 MR/BMS.ASHU [facility] Vascular Surgery [address] [place] [address] OFFICE VISIT Date of Service: 05/15/25 MR#: [id number] Acct: [id number] Name: ISAURA RAMIREZ Rep #: [id number] : 1970 Provider: Dr. Jann Cedeno MD Age/Sex: 54/M Location: [facility] Status: Signed Intake Vital Signs 05/10/25 16:12 05/15/25 15:32 Height 5 ft 11 in BP 131/85 H Blood Pressure Location Lt brachial Position Sitting Respiration 16 Pulse 68 Pulse Source Monitor Temp 98 F Temp Source Temporal Pulse Oximetry (%) 99 Oxygen Delivery Method room air Intake Visit Reasons: Discuss results Is patient in pain?: No Allergies iodine Allergy (Verified 07/02/25 15:34) Anaphylaxis Medications ???Medication ???Instructions ???Recorded ???Confirmed ???Type atorvastatin 10 mg tablet 10 mg PO QDAY #90 tabs 06/06/23 Rx pramipexole 1 mg tablet 1 mg PO QHS #90 tabs 05/07/24 0701/08 Rx fluticasone fur. 200 mcg-umeclid 1 inh inhalation DAILY #3 ea 11/0605/15/25 Rx 62.5 mcg-vilant 25 mcg inhalat.powder (Trelegy Ellipta) dupilumab 300 mg/2 mL subcutaneous 300 mg (2 mL) subcut Q2W #4 mL 0 11/21/24 05/15/25 Rx pen injector (Dupixent) Have you fallen in the past year?: No PFSH Medical History Wears glasses History of [...] Grandmother Myocardial infarction, Onset Age: 40 x3 SC's Father Alcoholism Mother Breast cancer Aunt Cancer Breast cancer Grandmother Diabetes Grandfather Heart disease Social History Smoking Status: Never smoker alcohol intake: current substance use type: does not use additional social history: uses aspirin and ibuprofen as needed HPI HPI HPI: ISAURA RAMIREZ, is a 54 M who presents to the office today for further discussion of bilateral lower extremity varicose veins primarily on the right with pruritus. He previously had right GSV thermal ablation for varicose veins with pain which resolved those symptoms. The pruritus began over the past few months despite consistent compression stocking use and skin moisturizing agents. ROS General General: No weight change, appetite, fatigue, colon cancer, breast cancer or weakness HEENT HEENT: No difficulty swallowing, eye injury, eye surgery, swollen glands or hoarseness Endo Endocrine: No [...] frequent falls, No headache(s), No lack of coordination, No loss of vision, No memory loss, No numbness, No other visual disturbances, No radicular pain, Yes restless legs, No sensory deficit, No syncope, No tingling, No tremor(s), No weakness and No other Exam Const General: cooperative, healthy appearing, comfortable, no acute distress and well developed Nutritiona (more content not included)... Normal [facility] Venous Duplex US - Kulwinder [facility] 04-18-2025 Venous Duplex US - Kulwinder [facility] Cardi[facility] Services [address] [place] [address] Venous Duplex US - Kulwinder Extrem 04/18/25 0804 MR#: [id number] Acct: [id number] Name: ISAURA RAMIREZ Rep #: [id number] : 1970 54 From: Jann Cedeno MD Attending Dr: CAIO Dominguez Status: REG CLI Ordering Dr: Terra Mtz Date: 04/18/25 Location: [facility] Sex: M C Admitted: Reason For Study Reason For Study: BLE PAin RIGHT LEFT CFV is compressible, spontaneous, phasic, competent CFV is compressible, phasic, and INCOMPETENT for and demonstrates normal augmentation. greater than 1.0 second. FV is compressible, spontaneous, phasic, competent FV is compressible, spontaneous, phasic, competent and demonstrates normal augmentation. and demonstrates normal augmentation. POP V is compressible, spontaneous, phasic, competent POP V is compressible, spontaneous, phasic, competent and demonstrates normal augmentation. and demonstrates normal augmentation. T/P Trunk is compressible. T/P Trunk is compressible. PTV is compressible. PTV is compressible. RT PerV is compressible. LT PerV is compressible. 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 GSV ankle to knee SFJ is INCOMPETENT and measures 0.51 cm. appears PARTIALLY COMPRESSIBLE with CHRONIC SVT in GSV proximal thigh measures 0.57 x 0.52 cm. distal portions of vessel. GSV at knee measures 0.55 x 0.65 cm. SFJ is competent and measures 0.55 cm. GSV INCOMPETENT throughout for greater than 0.5 GSV at knee measures 0.24 x 0.28 cm. seconds. GSV is competent throughout. GSV appears PARTIALLY COMPRESSIBLE with CHRONIC SVT ASV proximal thigh is INCOMPETENT for greater than in distal portions of vessel. 0.5 seconds and measures 0.37 x 0.41 cm. ASV at knee is INCOMPETENT for greater than 0.5 ASV distal thigh is INCOMPETENT for greater than 0.5 seconds and measures 0.51 x 0.59 cm. seconds and measures 0.32 x 0.33 cm. Perforating Vessel mid calf is INCOMPETENT for ASV at knee is INCOMPETENT for greater than 0.5 greater than 0.5 seconds and measures 0.30 cm. seconds and measures 0.38 x 0.48 cm. SSV at junction is competent and measures 0.29 cm. Perforating Vessel distal calf is INCOMPETENT for SSV mid calf is competent and measures 0.48 x 0.54 greater than 0.5 seconds and measures 0.26 cm. cm. SSV appears PARTIALLY COMPRESSIBLE with CHRONIC SVT SSV appears PARTIALLY COMPRESSIBLE with CHRONIC SVT throughout vessel. throughtout vessel. SSV at junction is competent and measures 0.36 cm. SSV mid calf is competent and measures 0.34 x 0.29 cm. Procedure Exam performed in department. This is a venous duplex using B-mode, color flow and spectral Doppler. The exam was diagnostic. Patient was scanned in reverse Trendelenburg position during reflux assessment. VL/Venous Duplex US - Kulwinder Extrem Interpretation Summary Deep veins of the bilateral lower extremities are patent and compressible segmentally. There is no evidence of bilateral lower extremity deep vein thrombosis. Chronic superficial vein thrombosis noted in the right great saphenous vein below the knee, small saphenous vein. Chronic superficial vein thrombosis noted in the left great saphenous vein, small saphenous vein. Positive for reflux in the right accessory saphenous veins in the thigh, accessory saphenous vein at knee, fixed capital clerk vein in calf. Positive for reflux in the left common femoral vein, saphenofemoral junction, great saphenous vein throughout, accessory saphenous vein at knee, perforating vein in the calf __ Ordering Physician: Terra Mtz Referring Physician: Anju Navarrete Performed By: Bishop Rodriguez, COURTNEYT 04/18/25 1615 Date Jann Cedeno MD CC: DASHA Navarrete; CAIO Dominguez Date Dictated: 04/18/25 0804 Date Transcribed: 04/18/251614 Manager Construction: Signed Normal [facility] Venous duplex ultrasound rep ortOrdered By: Jann Cedeno on 04-18-2025 US Vein [facility] Cardiovascular Services [address] [place] [address] Venous Duplex US - Kulwinder Extrem 04/18/25 0804 MR#: [id number] Acct: [id number] Name: ISAURA RAMIREZ Rep #:[id number] : 1970 54 From: Jann Aponte Attending Dr: CAIO Dominugez Stat us: REG CLI Ordering Dr: Terra Mtz Date: Location: [facility] Sex: M C Admitted: Reason For Study Reason For Study: BLE PAin RIGHT LEFT CFV is compressible, spontaneous, phasic, competent CFV is compressible, phasic, and INCOMPETENT for and demonstrates normal augmentation. greater than 1.0 second. FV is compressible, spontaneous, phasic, competent FV is compressible, spontaneous, phasic, competent and demonstrates normal augmentation. and demonstrates normal augmentation. POP V is compressible, spontaneous, phasic, competent POP V is compressible, spontaneous, phasic, competent and demonstrates normal augmentation. and demonstrates normal augmentation. T/P Trunk is compressible. T/P Trunk is compressible. PTV is compressible. PTV is compressible. RT PerV is compressible. LT PerV is compressible. 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 GSV ankle to knee SFJ is INCOMPETENT and measures 0.51 cm. appears PARTIALLY COMPRESSIBLE with CHRONIC SVT in GSV proximal thigh measures 0.57 x 0.52 cm. distal portions of vessel. GSV at knee measures 0.55 x 0.65 cm. SFJ is competent and measures 0.55 cm. GSV INCOMPETENT throughout for greater than 0.5 GSV at knee measures 0.24 x 0.28 cm. seconds. GSV is competent throughout. GSV appears PARTIALLY COMPRESSIBLE with CHRONIC SVT ASV proximal thigh is INCOMPETENT for greater than in distal portions of vessel. 0.5 seconds and measures 0.37 x 0.41 cm. ASV at knee isINCOMPETENT for greater than 0.5 ASV distal thigh is INCOMPETENT for greater than 0.5 seconds and measures 0.51 x 0.59 cm. seconds and measures 0.32 x 0.33 cm. Perforating Vessel mid calf is INCOMPETENT for ASV at knee is INCOMPETENT for greater than 0.5 greater than 0.5 seconds and measures 0.30 cm. seconds and measures 0.38 x 0.48 cm. SSV at junction is competent and measures 0.29 cm. Perforating Vessel distal calf is INCOMPETENT for SSV mid calf is competent and measures 0.48 x 0.54 greater than 0.5 seconds and measures 0.26 cm. cm. SSV appears PARTIALLY COMPRESSIBLE with CHRONIC SVT SSV appears PARTIALLY COMPRESSIBLE with CHRONIC SVT throughout vessel. throughtout vessel. SSV at junction is competent and measures 0.36 cm. SSV mid calf is competent and measures 0.34 x 0.29 cm. Procedure Exam performed in department. This is a venous duplex using B-mode, color flow and spectral Doppler. The exam was diagnostic. Patient was scanned in reverse Trendelenburg position during reflux assessment. VL/Venous Duplex US - Kulwinder Extrem Interpretation Summary Deep veins of the bilateral lower extremities are patent and compressible segmentally. There is no evidence of bilateral lower extremity deep vein thrombosis. Chronic superficial vein thrombosis noted in the right great saphenous vein below the knee, small saphenous vein. Chronic superficial vein thrombosis noted in the left great saphenous vein, small saphenous vein. Positive for reflux in the right accessory saphenous veins in the thigh, accessory saphenous vein at knee, fixed capital clerk vein in calf. Positive for reflux in the left common femoral vein, saphenofemoral junction, great saphenous vein throughout, accessory saphenous vein at knee, perforating vein in the calf __ Ordering Physician: Terra Mtz Referring Physician: Anju Navarrete Performed By: Bishop Rodriguez RVT 04/18/25 4485 Date _ Jann Cedeno MD CC: DASHA Navarrete; CAIO Dominguez ~ Date Dictated: 04/18/25 0804 Date Transcribed: 04/18/25 1615 Manager Construction: Signed [facility] Work Phone: MR/Suzie 04-02-2025 MR/MOOKIE [facility] Vascular Surgery 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 200 mcg-umeclid 1 inh inhalation DAILY #3 ea 11/0604/02/25 Rx 62.5 mcg-vilant 25 mcg inhalat.powder (Trelegy Ellipta) dupilumab 300 mg/2 mL subcutaneous 300 mg (2 mL) subcut Q2W #4 mL 0 11/21/24 04/02/25 Rx pen injector (Dupixent) [facility] Medical History Wears glasses History of steroid [...] Grandmother Myocardial infarction, Onset Age: 40 x3 SC's Father Alcoholism Mother Breast cancer Aunt Cancer [...] of coordina (more content not included)... Normal [facility] Plastic Surgery Visit Report on 02-19-2025 Plastic Surgery Visit Report [facility] Plastic Reconstructive Surgery [address], [address] [place] [id number] OFFICE VISIT Date of Service: 02/19/25 MR#: [id number] Acct: [id number] Name: ISAURA RAMIREZ Rep #: [id number] : 1970 Provider: Dr. Tatianna caro MD Age/Sex: 54/M Location: [email or web address] Status: Signed Intake Vital Signs 01/09/25 15:21 [...] room air Intake Visit Reasons: post #2 kulwinder upper bleph Chief Complaint: post kulwinder bleph #2 Is patient in pain?: No [...] Post Op Diagnoses Status post blepharoplasty Z98.890 [facility] Medical History (Updated 01/22/25 @ 12:02 by [...] Grandmother Myocardial infarction, Onset Age: 40 x3 SC's Father Alcoholism Mother Breast cancer Aunt Cancer [...] Follow-up as needed 02/19/25 1625 Date Tatianna Nolandignjose Signature: Date (if applicable) CC: Normal [facility] Plastic Surgery Visit Report on 02-12-2025 Plastic Surgery Visit Report [facility] Plastic Reconstructive Surgery [address], [address] [place] [address] OFFICE VISIT Date of Service: 02/12/25 MR#: [id number] Acct: [id number] Name: ISAURA RAMIREZ Rep #: [id number] : 1970 Provider: Dr. Tatianna caro MD Age/Sex: 54/M Location: [facility] Status: Signed Intake Vital Signs 01/09/25 15:21 02/01/25 08:13 02/12/25 10:28 Height 5 ft 11 in 6 ft 6 ft BP 144/87 H Blood Pressure Location Lt brachial Position Sitting Respiration 18 Pulse 70 Temp 98.4 F Temp Source Temporal Pulse Oximetry (%) 94 Oxygen Delivery Method room air Intake Visit Reasons: post #1 kulwinder upper bleph Chief Complaint: post kulwinder bleph Is patient in pain?: No Allergies iodine Allergy (Verified 02/12/25 10:32) Anaphylaxis Medications ???Medication ???Instructions ???Recorded ???Confirmed ???Type atorvastatin 10 mg tablet 10 mg PO QDAY #90 tabs 06/06/23 Rx pramipexole 1 mg tablet 1 mg PO QHS #90 tabs 05/07/24 04/12/08 Rx fluticasone fur. 200 mcg-umeclid 1 inh [...] capsule 500 mg PO BID 02/12/25 02/12/25 Dc story Nurse's Note: post upper bleph , [...] Post Op Diagnoses Status post blepharoplasty Z98.890 [facility] Medical History (Updated 01/22/25 @ 12:02 by [...] Grandmother Myocardial infarction, Onset Age: 40 x3 SC's Father Alcoholism Mother Breast cancer Aunt Cancer [...] week. 02/12/25 1714 Date Tatianna Whipple MD [facility] Signature: Date (if applicable) CC: Normal [facility] Discharge Instructionon 01-13 Discharge Instruction [facility] Medical Records Department [address] [place] [address] Instructions for Home/Discharge Instructions 02/01/25 1112 MR#: [id number] Acct: [id number] Name: ISAURA RAMIREZ Rep #: [id number] : 1970 54 From: Tatianna Whipple MD PCP: DASHA Pitts Status:REG [facility] Discharge Instructions Dressing / Incision Additional Dressing/Incision [...] Care Provider: Anju Navarrete Instructions Print Language: Syrian Discharge Orders/Prescription s Prescriptions: No Action Trelegy [...] can be placed): Home, Self Care 02/01/25 1113 Tatianna Whipple MD CC: MUSEUM DOCENT-C Anju Navarrete Signed Normal [facility] Discharge Instruction [facility] Medical Records Department [address] [place] [address] Instructions for Home/Discharge Instructions 02/01/25 1111 MR#: [id number] Acct: [id number] Name: ISAURA RAMIREZ Rep #: [id number] : 1970 54 From: Tatianna Whipple MD PCP: DASHA Pitts Status:REG [facility] Discharge Instructions Dressing / Incision Additional Dressing/Incision [...] Care Provider: Anju Navarrete Instructions Print Language: Syrian Discharge Orders/Prescription s Prescriptions: No Action Trelejefe Ellipta 200-62.5-25 mcg [...] Care 02/01/25 1112 Tatianna Whipple MD CC: MUSEUM DOCENT-C Anju Navarrete Signed [facility] MR/POSTOP.[facility] [place] 02-01-2025 MR/POSTOP.[facility] Medical Records Department [address] [place] [address] Anesthesia Postop Eval I 02/01/25 1127 MR#: [id number] Acct: [id number] Name: ISAURA RAMIREZ Rep #: [id number] : 1970 54 From: Marline Marcum CRNA PCP: DASHA Pitts Status:REG SDC Y Race: C Location: [address] Anesthesia: Postop Eval I Current Vital Signs Temperature: 97.0 F Pulse Rate: 89 Blood Pressure: 130/84 Respiratory Rate: 20 Pulse Ox: 100 Assessment Airway patent: Yes Spontaneous unlabored respirations: Yes nausea: No Vomiting: No Anesthesia Complication: No Fluid Hydration Crystalloid volume administer (ml): 1,100 Total IV fluid infused: 1,100 Progress Note Anesthesia document: Postop Eval 1 completed: Yes 02/01/25 1128 Date Marline Marcum CONTAINER FILLER Cosigner Signature: Date CC: Signed Normal [facility] MR/DEZXNSVN2xq 02-01-2025 MR/POSTOPAN2 [facility] Medical Records Department [address] [place] [address] Anesthesia Postop Eval II 02/01/25 1149 MR#: [id number] Acct: [id number] Name: ISAURA RAMIREZ Rep #: [id number] : 1970 54 From: Isidoro Mcclendon MD PCP: DASHA Pitts Status:REG SDC Y Race: C Location: [place] [address] Anesthesia Postop Eval I Sum Postop Eval Completion status Anesthesia document: Postop Eval 1 completed: Yes Anesthesia Postop Eval I Summary Anesthesia Postop Eval I Summary: Anesthesia Postop Eval I: Assessment Summary Airway patent Yes 02/01/25 11:27 CONTAINER FILLER.JGEN Spontaneous unlabored Yes 02/01/25 11:27 CONTAINER FILLER.JGEN respirations Mental status nausea No 02/01/25 11:27 CONTAINER FILLER.JGEN Vomiting No 02/01/25 11:27 CONTAINER FILLER.JGEN Anesthesia Postop Eval I: Fluid Summary Crystalloid volume administer 1,100 02/01/25 11:27 CONTAINER FILLER.JGEN (ml) Colloids volume administered ( ml) Blood Product volume administered (ml) Total IV fluid infused 1,100 02/01/25 11:27 CONTAINER FILLER.JGEN Anesthesia Postop Eval I: Summary Notes Anesthesia Complication No 02/01/25 11:27 CONTAINER FILLER.JGEN Anesthesia Complication Comment: Post-operative progress note Anesthesia: Postop Eval II Evaluation Mental status: Awake Pain Level: 1 nausea: No Vomiting: No Complications Anesthesia Complication: No 02/01/25 1150 Date Isidoro Johnson Signature: Date CC: Signed Normal [facility] Operative Reporton 5 Operative Report [facility] Medical Records Department [address] [place] [address] Operative Report 02/01/25 1113 MR#: [id number] Acct: [id number] Name: ISAURA RAMIREZ Rep #: [id number] : 1970 54 From: Tatianna Whipple MD PCP: DASHA Pitts Status:[facility] Location: [place] [address] Problems Associated Problem List Diagnoses (1) Dermatochalasis of both upper eyelids: (2) Visual field defect: Operative Report (Standard) Operative Information Date of Procedure: 02/01/25 Pre-Operative Diagnosis: Bilateral upper eyelid dermatochalasis and visual field limitation. Post-Operative Diagnosis: Same Surgery/Procedure Performed: Bilateral upper blepharoplasty. wrapper opener: Yes Administrative Job Titles: Samira Jordan Tasks completed by first aid attendant: Retracting Type of Anesthesia: General RN Documented [...] subcuticular fashion. The sutures anchored at the moravian and glabella using Mastisol and Steri-Strips. Erythromycin [...] 02/01/25 1118 Cosigner Signature (if applicable): CC: MUSEUM DOCENTArnold Navarrete; Dr. Tatianna Whipple MD Signed Normal [facility] Plastic Surgery Visit Report on 01-29-2025 Plastic Surgery Visit Report [facility] Plastic Reconstructive Surgery [address] [facility], [address] [place] [address] OFFICE VISIT Date of Service: 01/29/25 MR#: [id number] Acct: [id number] Name: ISAURA RAMIREZ Rep #: [id number] : 1970 Provider: Dr. Tatianna caro MD Age/Sex: 54/M Location[place] [facility] Status: Signed Intake Vital Signs 01/09/25 15:21 [...] room air Intake Visit Reasons: pre #2 kulwinder upper bleph Chief Complaint: upper bleph prep [...] Note: pt here for pre op #2 kulwinder upper bleph PFSH Medical History (Updated 01/22/25 [...] Grandmother Myocardial infarction, Onset Age: 40 x3 SC's Father Alcoholism Mother Breast cancer Aunt Cancer Breast cancer Grandmother Diabetes Grandfather Heart disease Social History (Updated 01/09/25 @ 15:15 by Beti Jaime) Smoking Status: Never smoker alcohol intake: current substance use type: does not use additional social history: uses aspirin and ibuprofen as needed HPI pre #2 kulwinder upper bleph Details: Isaura comes in for [...] 1626 Date (more content not included)... Normal [facility] Plastic Surgery Visit Report on 01-23-2025 Plastic Surgery Visit Report [facility] Plastic Reconstructive Surgery [address], [address] [place], [place] [address] OFFICE VISIT Date of Service: 01/23/25 MR#: [id number] Acct: [id number] Name: ISAURA RAMIREZ Rep #: [id number] : 1970 Provider: Dr. Tatianna caro MD Age/Sex: 54/M Location[place] [facility] Status: Signed Intake Vital Signs 01/09/25 15:21 [...] air Intake Visit Reasons: pre op #1 kulwinder upper bleph Chief Complaint: upper bleph prep [...] Grandmother Myocardial infarction, Onset Age: 40 x3 SC's Father Alcoholism Mother Breast cancer Aunt Cancer Breast cancer Grandmother Diabetes Grandfather Heart disease Social History (Updated 01/09/25 @ 15:15 by Beti Jaime) Smoking Status: Never smoker alcohol intake: current substance use type: does not use additional social history: uses aspirin and ibuprofen as needed HPI pre op #1 kulwinder upper bleph Details: Isaura comes in for [...] Date ____ (more content not included)... Normal [facility] Medical Records Department [address] [place] [address] PAT - Anesthesia 01/22/25 1730 MR#: [id number] Acct: [id number] Name: ISAURA RAMIREZ Rep #: [id number] : 1970 54 From: Elio Santillan MD PCP: DASHA Pitts Status:PRE [facility] Y Race: C Location: [facility] Pre-Assessment Diagnosis/Proposed Procedure Planned Operative Procedure(s): Bilateral upper blepharoplasty Anesthesia History Anesthesia History - remanufacturing 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] Tobacco Use History Tobacco Use History - remanufacturing technician: Tobacco Use History - remanufacturing technician Tobacco Use Smoking Status Never smoker 01/22/25 12:03 Hx Tobacco Use No 01/22/25 12:03 Years Smoking Packs Smoked per Day Smoking Cessation Date was within the last 15 years Hx Smoking Cessation Date Hx Smoking Cessation Counseling Hematologic Medial History Hematologic Hx - remanufacturing 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 200 mcg-umeclid 1 inh inhalation DAILY #3 ea / (more content not included)... Normal [facility] Orthopedic Visit Reporton Orthopedic Visit Report [facility] [address] [place] [address] [address] [place] [address] OFFICE VISIT Date of Service: 01/10/25 MR#: [id number] Acct: [id number] Name: ISAURA RAMIREZ Rep #: [id number] : 1970 Provider: Dr. Sancho rashid MD Age/Sex: 54/M Location: [facility] Status: Signed Intake Vital Signs 12/24/24 15:43 [...] Allergies iodine Allergy (Verified 01/09/25 15:16) Anaphylaxis [facility] Medical History (Updated 01/10/25 @ 10:54 by [...] Grandmother Myocardial infarction, Onset Age: 40 x3 SC's Father Alcoholism Mother Breast cancer Aunt Cancer [...] knee MRI, phone call FU. Supplemental Info [facility] Imaging Services [address] [place] [address] Lower Ext Joint Only (Routine) MR#: [id number] Acct: [id number] Name: ISAURA RAMIREZ Rep #: [id number] : 1970 M 54 From: Bobby Acuna DO PCP: DASHA Pitts Status: REG CLI Study: Lower Ext Joint Only (Routine) Date of Exam: 01/04/25 Exam# [id number] Ordering Dr: Sancho Jaramillo MD PROCEDURE: Noncontrast [...] internal lig (more content not included)... Normal [facility] Plastic Surgery Visit Report on 01-09-2025 Plastic Surgery Visit Report [facility] Plastic Reconstructive Surgery [address] [facility] [facility] [place] [address] OFFICE VISIT Date of Service: 01/09/25 MR#: [id number] Acct: [id number] Name: ISAURA RAMIREZ Rep #: [id number] : 1970 Provider: Dr. Tatianna caro MD Age/Sex: 54/M Location: [facility] Status: Signed Intake Vital Signs 12/24/24 [...] Nurse's Note: pt here for upper bleph PFSH Medical History (Updated 01/09/25 @ 15:57 by [...] Grandmother Myocardial infarction, Onset Age: 40 x3 SC's Father Alcoholism Mother Breast cancer Aunt Cancer [...] He has recently been seen by his cementer machine who advocated for him to have upper [...] recliner pos (more content not included)... Normal [facility] Lower Ext Joint Only (Routin e)on 01-04-2025 Lower Ext Joint Only (Routine) [facility] Imaging Services [address] [place], [place] [address] Lower Ext Joint Only (Routine) MR#: [id number] Acct: [id number] Name: ISAURA RAMIREZ Rep #: [id number] : 1970 M 54 From: Bobby Craft i, DO PCP: DASHA Pitts Status: REG CLI Study: Lower Ext Joint Only (Routine) Date of Exam: 0 01/04/25 Exam# [id number] Ordering Dr: Sancho Jaramillo MD PROCEDURE: Noncontrast [...] By: Bobby rashid 01/07/2025 20:30 Reading Location: [facility] CC: DASHA Navarrete; Dr. Sancho Jaramillo MD Manager Construction: Signed Normal [facility] Orthopedic Visit Reporton Orthopedic Visit Report [facility] [address] [place] [address] OFFICE VISIT Date of Service: 12/31/24 MR#: [id number] Acct: [id number] Name: ISAURA RAMIREZ Rep #: [id number] : 1970 Provider: Dr. Sancho rashid MD Age/Sex: 54/M Location: [facility] Status: Signed Intake Vital Signs 11/23/24 16:01 [...] 0 11/21/24 12/31/24 Rx pen injector (Dupixent) [facility] Medical History Osteoarthritis of left knee Left knee pain History of exercise stress test ( 10/2016) History of echocardiogram ( 10/2016) Dyspnea TIESHA (obstructive sleep apnea) Restless leg syndrome Hyperlipidemia Abnormal echocardiogram Chest pain Surgical History History of nasal surgery Family History Grandmother Myocardial infarction, Onset Age: 40 x3 SC's Social History Smoking Status: Never smoker alcohol [...] alignment 12/31/24 1548 Date [facility]: Date (if applicable) CC: Normal [facility] Absolute lymphocyte countOrd ered By: Anju Navarrete on 12-22-2024 Lymphocytes Auto (Unsp spec) [#/Vol] 1.43 10*3/uL 0.83-4.51 [facility] Absolute neutrophil countOrd ered By: Anjutraci Navarrete on 12-22-2024 Neutrophils (Bld) [#/Vol] 4.2 10*3/uL 2.0-7.7 [facility] Albumin to globulin ratioOrd ered By: Anjutraci Navarrete on 12-22-2024 Albumin/Globulin [Mass ratio] 0.9 {ratio} 0.9-2.4 [facility] Automated lymphocyte count a s percentage of total leukocytesOrdered By: Anju Navarrete on 12-22-2024 Lymphocytes/100 WBC Auto (Unsp spec) 21.6 % 19-41 [facility] Basophil percentageOrdered B y: Anju Navarrete on 12-22-2024 Basophils/100 WBC (Bld) 0.6 % 0-1 [facility] Bilirubin, totalOrdered By: Anju Navarrete on 12-22-2024 Bilirubin [Mass/Vol] 1.30 mg/dL High 0.20-1.00 [facility] Comment on above: For patients on eltr ombopag therapy, use of Dimension [place] TBIL is not recommended. Blood urea nitrogen (BUN)/cr eatinine ratioOrdered By: Anju Landon on 12-22-2024 Urea nitrogen/Creatinine [Mass ratio] 19.2 mg/mg 10-20 [facility] CBC W/Diff, Automatedon Absolute Lymph 1.43 X10 3/uL Normal 0.83-4.51 [facility] Comment on above: Performed By: #### L 100.0100, L501.9910, L500.4050, L500.4100 ####[facility] [address] [place], [address] Absolute Neut 4.2 X10 3/uL Normal 2.0-7.7 [facility] Comment on above: Performed By: #### L 100.0100, L501.9910, L500.4050, L500.4100 ####[facility] [address] [place], [address] Basophils/100 WBC (Bld) 0.6 % Normal 0-1 [facility] Comment on above: Performed By: #### L 100.0100, L501.9910, L500.4050, L500.4100 ####[facility] [address] [place], [address] Eosinophils/100 WBC (Bld) 3.3 % Normal 0-5 [facility] Comment on above: Performed By: #### L 100.0100, L501.9910, L500.4050, L500.4100 ####[facility] [address] [place], [address] Erythrocyte distribution width (RBC) [Ratio] 12.6 % Normal 11.6-14.6 [facility] Comment on above: Performed By: #### L 100.0100, L501.9910, L500.4050, L500.4100 ####[facility] [address] [place], [address] Hematocrit (Bld) [Volume fraction] 43.1 % Normal 40-54 [facility] Comment on above: Performed By: #### L 100.0100, L501.9910, L500.4050, L500.4100 ####[facility] [address] [place], [address] Hemoglobin (Bld) [Mass/Vol] 14.4 g/dL Normal 13.0-16.5 [facility] Comment on above: Performed By: #### L 100.0100, L501.9910, L500.4050, L500.4100 ####[facility] [address] [place], [address] IG% 0.500 Normal 0.0-0.9 [facility] Comment on above: Result Comment: IG% - Immature Granulocytes (promyelocytes, myelocytes and metamyelocytes) > 1% indicates that a LEFT SHIFT is Present. Performed By: #### L 100.0100, L501.9910, L500.4050, L500.4100 ####[facility] [address] [place], [address] Lymphocytes/100 WBC (Bld) 21.6 % Normal 19-41 [facility] Comment on above: Performed By: #### L 100.0100, L501.9910, L500.4050, L500.4100 ####[facility] [address] [place], [address] MCH (RBC) [Entitic mass] 29.8 pg Normal 27.0-32.0 [facility] Comment on above: Performed By: #### L 100.0100, L501.9910, L500.4050, L500.4100 ####[facility] [address] [place], [address] MCHC (RBC) [Mass/Vol] 33.4 g/dL Normal 32-36 [facility] Comment on above: Performed By: #### L 100.0100, L501.9910, L500.4050, L500.4100 ####[facility] [address] [place], [address] MCV (RBC) [Entitic vol] 89.0 fL Normal 80-94 [facility] Comment on above: Performed By: #### L 100.0100, L501.9910, L500.4050, L500.4100 ####[facility] [address] [place], [address] Monocytes/100 WBC (Bld) 11.3 % High 0-10 [facility] Comment on above: Performed By: #### L 100.0100, L501.9910, L500.4050, L500.4100 ####[facility] [address] [place], [address] Neutrophils/100 WBC (Bld) 62.7 % Normal 47-70 [facility] Comment on above: Performed By: #### L 100.0100, L501.9910, L500.4050, L500.4100 ####[facility] [address] [place], [address] Nucleated RBC (Bld) [#/Vol] 0 10*3/uL Normal 0-5 [facility] Comment on above: Performed By: #### L 100.0100, L501.9910, L500.4050, L500.4100 ####[facility] [address] [place], [address] Platelet mean volume (Bld) [Entitic vol] 9.1 fL Normal 6.2-12.0 [facility] Comment on above: Performed By: #### L 100.0100, L501.9910, L500.4050, L500.4100 ####[facility] [address] [place], [address] Platelets (Bld) [#/Vol] 317 10*3/uL Normal 150-450 [facility] Comment on above: Performed By: #### L 100.0100, L501.9910, L500.4050, L500.4100 ####[facility] [address] [place], [address] RBC (Bld) [#/Vol] 4.84 10*6/uL Normal 4.6-6.2 [facility] Comment on above: Performed By: #### L 100.0100, L501.9910, L500.4050, L500.4100 ####[facility] [address] [place], [address] RDW SD 41.4 fl Normal 35.1-43.9 [facility] Comment on above: Performed By: #### L 100.0100, L501.9910, L500.4050, L500.4100 ####[facility] [address] [place], [address] WBC (Bld) [#/Vol] 6.6 10*3/uL Normal 4.4-11.0 [facility] Comment on above: Performed By: #### L 100.0100, L501.9910, L500.4050, L500.4100 ####[facility] [address] [place], [address] Carbon dioxide measurementOr dered By: Anju Navarrete on 12-22-2024 CO2 [Moles/Vol] 29.0 mmol/L 21.0-32.0 [facility] Chloride measurementOrdered By: Anju Navarrete on 12-22-2024 Chloride [Moles/Vol] 105 mmol/L 98-107 [facility] Comprehensive Metabolic Prof ilon 12-22-2024 Albumin [Mass/Vol] 3.5 g/dL Normal 3.2-5.0 [facility] Comment on above: Performed By: #### L 100.0100, L501.9910, L500.4050, L500.4100 ####[facility] [address] [place], [address] Albumin/Globulin [Mass ratio] 0.9 {ratio} Normal 0.9-2.4 [facility] Comment on above: Performed By: #### L 100.0100, L501.9910, L500.4050, L500.4100 ####[facility] [address] [place], [address] ALK P 65 U/L Normal 45-117 [facility] Comment on above: Performed By: #### L 100.0100, L501.9910, L500.4050, L500.4100 ####[facility] [address] [place], [address] ALT [Catalytic activity/Vol] 22 U/L Normal 16-61 [facility] Comment on above: Performed By: #### L 100.0100, L501.9910, L500.4050, L500.4100 ####[facility] [address] [place], [address] AST [Catalytic activity/Vol] 18 U/L Normal 15-37 [facility] Comment on above: Performed By: #### L 100.0100, L501.9910, L500.4050, L500.4100 ####[facility] [address] [place], [address] Bilirubin [Mass/Vol] 1.30 mg/dL High 0.20-1.00 [facility] Comment on above: Result Comment: For patients on eltrombopag therapy, use of Dimension [place] TBIL is not recommended. Performed By: #### L 100.0100, L501.9910, L500.4050, L500.4100 ####[facility] [address] [place], [address] BUN/CRE 19.2 RATIO Normal 10-20 [facility] Comment on above: Performed By: #### L 100.0100, L501.9910, L500.4050, L500.4100 ####[facility] [address] [place], [address] CA,Total 9.2 mg/dL Normal 8.5-10.1 [facility] Comment on above: Performed By: #### L 100.0100, L501.9910, L500.4050, L500.4100 ####[facility] [address] [place], [address] Chloride [Moles/Vol] 105 mmol/L Normal 98-107 [facility] Comment on above: Performed By: #### L 100.0100, L501.9910, L500.4050, L500.4100 ####[facility] [address] [place], [address] CO2 [Moles/Vol] 29.0 mmol/L Normal 21.0-32.0 [facility] Comment on above: Performed By: #### L 100.0100, L501.9910, L500.4050, L500.4100 ####[facility] [address] [place], [address] Creatinine [Mass/Vol] 0.94 mg/dL Normal 0.70-1.30 [facility] Comment on above: Result Comment: The validity of the calculated GFR GFRAA in patients over 70 years has not been determined. Clinical correlation is essential. Performed By: #### L 100.0100, L501.9910, L500.4050, L500.4100 ####[facility] [address] [place], [address] EST GFR - AA 108 mL/min Normal >60 [facility] Comment on above: Result Comment: Afri can [place] GFR Calc Performed By: #### L 100.0100, L501.9910, L500.4050, L500.4100 ####[facility] [address] [place], [address] GAP 4 Low 5-15 [facility] Comment on above: Performed By: #### L 100.0100, L501.9910, L500.4050, L500.4100 ####[facility] [address] [place], [address] GFR/1.73 sq M.predicted among non-blacks MDRD (S/P/Bld) [Vol rate/Area] 89 mL/min/{1.73_m2} Normal >60 [facility] Comment on above: Result Comment: Non- GFR Calc Performed By: #### L 100.0100, L501.9910, L500.4050, L500.4100 ####[facility] [address] [place], [address] Globulin (S) [Mass/Vol] 3.8 g/dL Normal 2.2-4.2 [facility] Comment on above: Performed By: #### L 100.0100, L501.9910, L500.4050, L500.4100 ####[facility] [address] [place], [address] Glucose [Mass/Vol] 101 mg/dL Normal 74-106 [facility] Comment on above: Result Comment: Fast ing Glucose result from 100 to 125 mg/dL suggests IMPAIRED HOMEOSTASIS per A.D.A. criteria. Performed By: #### L 100.0100, L501.9910, L500.4050, L500.4100 ####[facility] [address] [place], [address] Potassium [Moles/Vol] 4.2 mmol/L Normal 3.5-5.1 [facility] Comment on above: Performed By: #### L 100.0100, L501.9910, L500.4050, L500.4100 ####[facility] [address] [place], [address] Sodium [Moles/Vol] 138 mmol/L Normal 136-145 [facility] Comment on above: Performed By: #### L 100.0100, L501.9910, L500.4050, L500.4100 ####[facility] [address] [place], [address] T PROT 7.3 g/dL Normal 6.4-8.2 [facility] Comment on above: Performed By: #### L 100.0100, L501.9910, L500.4050, L500.4100 ####[facility] [address] [place], [address] Urea nitrogen [Mass/Vol] 18 mg/dL Normal 7-18 [facility] Comment on above: Performed By: #### L 100.0100, L501.9910, L500.4050, L500.4100 ####[facility] [address] [place], [address] Eosinophil percentageOrdered By: Anju Navarrete on 12-22-2024 Eosinophils/100 WBC (Bld) 3.3 % 0-5 [facility] Erythrocyte distribution wid th ratioOrdered By: Anju Navarrete on 12-22-2024 Erythrocyte distribution width (RBC) [Ratio] 12.6 % 11.6-14.6 [facility] Erythrocyte distribution wid th standard deviationOrdered By: Anju Navarrete on 12-22-2024 Erythrocyte distribution width (RBC) [Entitic vol] 41.4 fL 35.1-43.9 [facility] Erythrocyte distribution width (RBC) [Ratio] 41.4 fl 35.1-43.9 [facility] Estimated glomerular filtrat ion rate (GFR) AmericanOrdered By: Anju Navarrete on 12-22-2024 Estimated GFR (MDRD) Amer 108 mL/min >60 [facility] Comment on above: GFR Calc Glomerular filtration rate ( GFR) estimationOrdered By: Anju Navarrete on 12-22-2024 Estimated GFR (MDRD) Non-Af Amer 89 mL/min >60 [facility] Comment on above: Non- GFR Calc GFR/1.73 sq M.predicted among non-blacks MDRD (S/P/Bld) [Vol rate/Area] 89 mL/min/{1.73_m2} >60 [facility] Comment on above: Non- GFR Calc Glucose measurementOrdered B y: Anju Navarrete on 12-22-2024 Glucose [Mass/Vol] 101 mg/dL 74-106 [facility] Comment on above: Fasting Glucose resu lt from 100 to 125 mg/dL suggests IMPAIRED HOMEOSTASIS per A.D.A. criteria. Hematocrit Auto (Bld) [Volum e fraction]Ordered By: Anju Navarrete on 12-22-2024 Hematocrit (Bld) [Volume fraction] 43.1 % 40-54 [facility] Hemoglobin measurementOrdere d By: Anju Navarrete on 12-22-2024 Hemoglobin (Bld) [Mass/Vol] 14.4 g/dL 13.0-16.5 [facility] High density lipoprotein (HD L) measurementOrdered By: Anju Navarrete on 12-22-2024 Cholesterol in HDL [Mass/Vol] 50 mg/dL >40 [facility] Comment on above: The drugs N-Acetylcy steine and Metamizole may falsely depress this assay. Reference Range HDL <40 mg/dL Low HDL Cholesterol HDL >or= 60 mg/dL High HDL Cholesterol Immature granulocytes/100 WB C Auto (Bld)Ordered By: Anju Navarrete on 12-22-2024 Immature granulocytes/100 WBC (Bld) 0.500 % 0.0-0.9 [facility] Comment on above: IG% - Immature Granu locytes (promyelocytes, myelocytes and metamyelocytes) > 1% indicates that a LEFT SHIFT is Present. Laboratory - Chemistry and C hemistry - challengeOrdered By: Anju Navarrete on 12-22-2024 AST [Catalytic activity/Vol] 18 U/L 15-37 [facility] Lipid Profileon 12-22-2024 Cholesterol [Mass/Vol] 187 mg/dL Normal 200 [facility] Comment on above: Result Comment: <200 mg/dL Desirable 200-240 mg/dL Borderline >240 mg/dL High Risk Performed By: #### L 100.0100, L501.9910, L500.4050, L500.4100 ####[facility] [address] [place], [address] Cholesterol in HDL [Mass/Vol] 50 mg/dL Normal [facility] Comment on above: Result Comment: The drugs N-Acetylcysteine and Metamizole may falsely depress this assay. Reference Range HDL <40 mg/dL Low HDL Cholesterol HDL >or= 60 mg/dL High HDL Cholesterol Performed By: #### L 100.0100, L501.9910, L500.4050, L500.4100 ####[facility] [address] [place], [address] Cholesterol in LDL [Mass/Vol] 126 mg/dL Normal 0-130 [facility] Comment on above: Performed By: #### L 100.0100, L501.9910, L500.4050, L500.4100 ####[facility] [address] [place], [address] Cholesterol in VLDL [Mass/Vol] 11 mg/dL Normal 5-40 [facility] Comment on above: Performed By: #### L 100.0100, L501.9910, L500.4050, L500.4100 ####[facility] [address] [place], [address] Triglyceride [Mass/Vol] 56 mg/dL Normal [facility] Comment on above: Result Comment: The drugs N-Acetylcysteine and Metamizole may falsely depress this assay. Serum Triglycerides Reference Interval Normal <150 mg/dL Borderline high 150 - 199 mg/dL High 200 - 499 mg/dL Very High > or = 500 mg/dL Performed By: #### L 100.0100, L501.9910, L500.4050, L500.4100 ####[facility] [address] [place], [address] Low density lipoprotein (LDL ) cholesterol measurementOrdered By: Anjutraci Navarrete on 12-22-2024 Cholesterol in LDL [Mass/Vol] 126 mg/dL 0-130 [facility] Lymphocytes Auto (Unsp spec) [#/Vol]Ordered By: Anjutraci Navarrete on 12-22-2024 Lymphocytes (Bld) [#/Vol] 1.43 10*3/uL 0.83-4.51 [facility] Lymphocytes/100 WBC Auto (Un sp spec)Ordered By: Anju Navarrete on 12-22-2024 Lymphocytes/100 WBC (Bld) 21.6 % 19-41 [facility] MCV (mean corpuscular volume ) determinationOrdered By: Anjutraci Navarrete on 12-22-2024 MCV (RBC) [Entitic vol] 89.0 fL 80-94 [facility] Mean corpuscular hemoglobin (MCH) determinationOrdered By: Anjutraci Navarrete on 12-22-2024 MCH (RBC) [Entitic mass] 29.8 pg 27.0-32.0 [facility] Mean corpuscular hemoglobin concentration (MCHC) determinationOrdered By: Anjutraci Navarrete on 12-22-2024 MCHC (RBC) [Mass/Vol] 33.4 g/dL 32-36 [facility] Mean platelet volume determi nationOrdered By: Anju Navarrete on 12-22-2024 Platelet mean volume (Bld) [Entitic vol] 9.1 fL 6.2-12.0 [facility] Monocyte percentageOrdered B y: Anju Navarrete on 12-22-2024 Monocytes/100 WBC (Bld) 11.3 % High 0-10 [facility] Neutrophil percentageOrdered By: Anju Navarrete on 12-22-2024 Neutrophils/100 WBC (Bld) 62.7 % 47-70 [facility] Nucleated red blood cell per centageOrdered By: Anju Navarrete on 12-22-2024 Nucleated RBC/100 WBC (Bld) [Ratio] 0 % 0-5 [facility] PSA,Total - Annual Screenon 12-22-2024 PSA,TOT SCREEN 1.01 ng/mL Normal 0.00-4.00 [facility] Comment on above: Result Comment: This test was performed using the TPSA assay method for the [employer] chemistry system. Values obtained with different assay methods cannot be used interchangably. When changing PSA assays in the course of monitoring a patient, additional sequential testing should be carried out to confirm baseline values. Performed By: #### L 100.0100, L501.9910, L500.4050, L500.4100 ####[facility] [address] [place], [address] Platelet countOrdered By: Ra garcia Navarrete on 12-22-2024 Platelets (Bld) [#/Vol] 317 10*3/uL 150-450 [facility] Potassium measurementOrdered By: Anju Navarrete on 12-22-2024 Potassium [Moles/Vol] 4.2 mmol/L 3.5-5.1 [facility] RBC Auto (Bld) [#/Vol]Ordere d By: Anju Navarrete on 12-22-2024 RBC (Bld) [#/Vol] 4.84 10*6/uL 4.6-6.2 [facility] Screening prostate specific antigen (PSA) measurementOrdered By: Anju Navarrete on 12-22-2024 Prostate Specific Antigen Screen 1.01 ng/mL 0.00-4.00 [facility] Comment on above: This test was perfor med using the TPSA assay method for [employer] chemistry system. Values obtained with differentassay methods cannot be used interchangably.When changing PSA assays in the course of monitoring apatient, additional sequential testing should be carriedout to confirm baseline values. Serum anion gap measurementO rdered By: Anju Navarrete on 12-22-2024 Anion gap [Moles/Vol] 4 mmol/L Low 5-15 [facility] Serum globulin measurementOr dered By: Anju Navarrete on 12-22-2024 Globulin (S) [Mass/Vol] 3.8 g/dL 2.2-4.2 [facility] Serum or plasma alanine haq otransferase (ALT) measurementOrdered By: Anju Navarrete on 12-22-2024 ALT [Catalytic activity/Vol] 22 U/L 16-61 [facility] Serum or plasma albumin mary kate urement (mass/volume)Ordered By: Anju Navarrete on 12-22-2024 Albumin [Mass/Vol] 3.5 g/dL 3.2-5.0 [facility] Serum or plasma alkaline nadege sphatase measurementOrdered By: Anju Navarrete on 12-22-2024 ALP [Catalytic activity/Vol] 65 U/L 45-117 [facility] Serum or plasma calcium mary kate urement (mass/volume)Ordered By: Anju Navarrete on 12-22-2024 Calcium [Mass/Vol] 9.2 mg/dL 8.5-10.1 [facility] Serum or plasma cholesterol measurement (mass/volume)Ordered By: Anju Navarrete on 12-22-2024 Cholesterol [Mass/Vol] 187 mg/dL <200 [facility] Comment on above: <200 mg/dL Desirable 200-240 mg/dL Borderline >240 mg/dL High Risk Serum or plasma creatinine m easurement (mass/volume)Ordered By: Anju Navarrete on 12-22-2024 Creatinine [Mass/Vol] 0.94 mg/dL 0.70-1.30 [facility] Comment on above: The validity of the calculated GFR & GFRAA in patients over 70 years has not been determined. Clinical correlation is essential. Serum or plasma urea nitroge n measurement (mass/volume)Ordered By: Anju Navarrete on 12-22-2024 Urea nitrogen [Mass/Vol] 18 mg/dL 7-18 [facility] Sodium levelOrdered By: Leila Navarrete on 12-22-2024 Sodium [Moles/Vol] 138 mmol/L 136-145 [facility] Total proteinOrdered By: Andres Navarrete on 12-22-2024 Protein [Mass/Vol] 7.3 g/dL 6.4-8.2 [facility] Triglycerides measurementOrd ered By: Anju Navarrete on 12-22-2024 Triglyceride [Mass/Vol] 56 mg/dL <199 [facility] Comment on above: The drugs N-Acetylcy steine and Metamizole may falsely depress this assay.Serum Triglycerides Reference Interval Normal <150 mg/dL Borderline high 150 - 199 mg/dL High 200 - 499 mg/dL Very High > or = 500 mg/dL Very low density lipoprotein (VLDL) cholesterol measurementOrdered By: Anju Navarrete on 12-22-2024 Very low density lipoprotein (VLDL) cholesterol measurement 11 mg/dL -40 [facility] VLDL Cholesterol 11 mg/dL -40 [facility] White blood cell (WBC) count Ordered By: Anju Navarrete on 12-22-2024 WBC (Bld) [#/Vol] 6.6 10*3/uL 4.4-11.0 [facility] Knee 4 or More Viewson 11-27 Knee 4 or More Views [facility] [address] [place] [address] Knee 4 or More Views MR#: [id number] Acct: [id number] Name: ISAURA RAMIREZ Rep #: [id number] : 1970 M 53 From: Navjot Mcallister MD PCP: Care Physician,No Primary Status: DEP [facility] Study: Knee 4 or More Views Date of Exam: 11/27/24 Exam# [id number] Ordering Dr: Sancho Jaramillo MD -[id number] STUDY: X-RAY - LEFT KNEE REASON [...] 14:38 EST Reading Location ID and State: [facility] / [place] , Service support , CC: Dr. Sancho Jaramillo MD; No Primary Care Physician Manager Construction: Signed Normal [facility] Orthopedic Visit Reporton Orthopedic Visit Report [facility] [address] [place] [address] [address] [place] [address] OFFICE VISIT Date of Service: 11/27/24 MR#: [id number] Acct: [id number] Name: ISAURA RAMIREZ Rep #: [id number] : 1970 Provider: Dr. Sancho rashid MD Age/Sex: 53/M Location[place] [facility] [place] Status: Signed with Addenda ADDENDUM by Joyce [...] Performing Provider: Sancho Jaramillo MD Performing Location: [facility] Administered by: Sancho Jaramillo MD on 11/27/24 16:24 Dose Route Admin Location Dispensed Lot Number Expiration Date NDC Man ufacturer 80 mg intra-articular left knee 2 mL [id number] 03/14/26 0143-9355-70 [facility] Date cc: * Signed Intake Vital [...] mL 11/21/24 11/27/24 Rx pen injector (Dupixent) [facility] Medical History (Updated 11/27/24 @ 15:11 by Sancho Jaramillo MD) Osteoarthritis of left knee Left knee pain History of exercise stress test ( 10/2016) History of echocardiogram ( 10/2016) Dyspnea TIESHA (obstructive sleep apnea) Restless leg syndrome Hyperlipidemia Abnormal echocardiogram Chest pain Surgical History History of nasal surgery Family History Grandmother Myocardial infarction, Onset Age: 40 x3 SC's Social History Smoking Status: Never smoker alcohol intake: current HPI LEFT KNEE Details: This documentation accurately reflects the service provided and the decisions made by me, Dr. Sancho Jaramillo MD 11/27/24 1323. 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 Normal [facility] Absolute neutrophil countOrd ered By: RENNY Mathur on 11-23-2024 Neutrophils (Bld) [#/Vol] 4.2 10*3/uL 2.0-7.7 [facility] Basophil percentageOrdered B y: RENNY Mathur on 11-23-2024 Basophils/100 WBC (Bld) 1.1 % High 0-1 [facility] CBC W/Diff, Automatedon 11-14 Absolute Lymph 1.71 X10 3/uL Normal 0.83-4.51 [facility] Comment on above: Performed By: #### L 100.0100 ####[facility] [address] [place], [address] Absolute Neut 4.2 X10 3/uL Normal 2.0-7.7 [facility] Comment on above: Performed By: #### L 100.0100 ####[facility] [address] [place], [address] Basophils/100 WBC (Bld) 1.1 % High 0-1 [facility] Comment on above: Performed By: #### L 100.0100 ####[facility] [address] [place], [address] Eosinophils/100 WBC (Bld) 3.7 % Normal 0-5 [facility] Comment on above: Performed By: #### L 100.0100 ####[facility] [address] [place], [address] Erythrocyte distribution width (RBC) [Ratio] 12.6 % Normal 11.6-14.6 [facility] Comment on above: Performed By: #### L 100.0100 ####[facility] [address] [place], [address] Hematocrit (Bld) [Volume fraction] 43.2 % Normal 40-54 [facility] Comment on above: Performed By: #### L 100.0100 ####[facility] [address] [place], [address] Hemoglobin (Bld) [Mass/Vol] 14.7 g/dL Normal 13.0-16.5 [facility] Comment on above: Performed By: #### L 100.0100 ####[facility] [address] [place], [address] IG% 0.300 Normal 0.0-0.9 [facility] Comment on above: Result Comment: IG% - Immature Granulocytes (promyelocytes, myelocytes and metamyelocytes) > 1% indicates that a LEFT SHIFT is Present. Performed By: #### L 100.0100 ####[facility] [address] [place], [address] Lymphocytes/100 WBC (Bld) 24.0 % Normal 19-41 [facility] Comment on above: Performed By: #### L 100.0100 ####[facility] [address] [place], [address] MCH (RBC) [Entitic mass] 30.3 pg Normal 27.0-32.0 [facility] Comment on above: Performed By: #### L 100.0100 ####[facility] [address] [place], [address] MCHC (RBC) [Mass/Vol] 34.0 g/dL Normal 32-36 [facility] Comment on above: Performed By: #### L 100.0100 ####[facility] [address] [place], [address] MCV (RBC) [Entitic vol] 89.1 fL Normal 80-94 [facility] Comment on above: Performed By: #### L 100.0100 ####[facility] [address] [place], [address] Monocytes/100 WBC (Bld) 11.4 % High 0-10 [facility] Comment on above: Performed By: #### L 100.0100 ####[facility] [address] [place], [address] Neutrophils/100 WBC (Bld) 59.5 % Normal 47-70 [facility] Comment on above: Performed By: #### L 100.0100 ####[facility] [address] [place], [address] Nucleated RBC (Bld) [#/Vol] 0 10*3/uL Normal 0-5 [facility] Comment on above: Performed By: #### L 100.0100 ####[facility] [address] [place], [address] Platelet mean volume (Bld) [Entitic vol] 9.1 fL Normal 6.2-12.0 [facility] Comment on above: Performed By: #### L 100.0100 ####[facility] [address] [place], [address] Platelets (Bld) [#/Vol] 312 10*3/uL Normal 150-450 [facility] Comment on above: Performed By: #### L 100.0100 ####[facility] [address] [place], [address] RBC (Bld) [#/Vol] 4.85 10*6/uL Normal 4.6-6.2 [facility] Comment on above: Performed By: #### L 100.0100 ####[facility] [address] [place], [address] RDW SD 41.1 fl Normal 35.1-43.9 [facility] Comment on above: Performed By: #### L 100.0100 ####[facility] [address] [place], [address] WBC (Bld) [#/Vol] 7.1 10*3/uL Normal 4.4-11.0 [facility] Comment on above: Performed By: #### L 100.0100 ####[facility] [address] [place], [address] Eosinophil percentageOrdered By: RENNY Mathur on 11-23-2024 Eosinophils/100 WBC (Bld) 3.7 % 0-5 [facility] Erythrocyte distribution wid th ratioOrdered By: RENNY Mathur on 11-23-2024 Erythrocyte distribution width (RBC) [Ratio] 12.6 % 11.6-14.6 [facility] Erythrocyte distribution wid th standard deviationOrdered By: RENNY Mathur on 11-23-2024 Erythrocyte distribution width (RBC) [Entitic vol] 41.1 fL 35.1-43.9 [facility] Hematocrit Auto (Bld) [Volum e fraction]Ordered By: RENNY Mathur on 11-23-2024 Hematocrit (Bld) [Volume fraction] 43.2 % 40-54 [facility] Hemoglobin measurementOrdere d By: RENNY Mathur on 11-23-2024 Hemoglobin (Bld) [Mass/Vol] 14.7 g/dL 13.0-16.5 [facility] Immature granulocytes/100 WB C Auto (Bld)Ordered By: RENNY Mathur on 11-23-2024 Immature granulocytes/100 WBC (Bld) 0.300 % 0.0-0.9 [facility] Comment on above: IG% - Immature Granu locytes (promyelocytes, myelocytes and metamyelocytes) > 1% indicates that a LEFT SHIFT is Present. Lymphocytes Auto (Unsp spec) [#/Vol]Ordered By: RENNY Mathur on 11-23-2024 Lymphocytes (Bld) [#/Vol] 1.71 10*3/uL 0.83-4.51 [facility] Lymphocytes/100 WBC Auto (Un sp spec)Ordered By: RENNY Mathur on 11-23-2024 Lymphocytes/100 WBC (Bld) 24.0 % 19-41 [facility] MCV (mean corpuscular volume ) determinationOrdered By: RENNY Mathur on 11-23-2024 MCV (RBC) [Entitic vol] 89.1 fL 80-94 [facility] Mean corpuscular hemoglobin (MCH) determinationOrdered By: RENNY Mathur on 11-23-2024 MCH (RBC) [Entitic mass] 30.3 pg 27.0-32.0 [facility] Mean corpuscular hemoglobin concentration (MCHC) determinationOrdered By: RENNY Mathur on 11-23-2024 MCHC (RBC) [Mass/Vol] 34.0 g/dL 32-36 [facility] Mean platelet volume determi nationOrdered By: RENNY Mathur on 11-23-2024 Platelet mean volume (Bld) [Entitic vol] 9.1 fL 6.2-12.0 [facility] Monocyte percentageOrdered B y: RENNY Mathur on 11-23-2024 Monocytes/100 WBC (Bld) 11.4 % High 0-10 [facility] Neutrophil percentageOrdered By: RENNY Mathur on 11-23-2024 Neutrophils/100 WBC (Bld) 59.5 % 47-70 [facility] Nucleated red blood cell per centageOrdered By: RENNY Mathur on 11-23-2024 Nucleated RBC/100 WBC (Bld) [Ratio] 0 % 0-5 [facility] Office Visit Reporton 2024 Office Visit Report [facility] [address] [place] [address] OFFICE VISIT Date of Service: 11/23/24 MR#: [id number] Acct: [id number] Patient: ISAURA RAMIREZ Rep #: [id number] : 1970 Provider: Aster Mathur NP Age/Sex: 53/M Location[place] [facility] [place] Status: Signed Intake Vital Signs 11/06/24 07:31 [...] Visit Reasons: Asthma - severe persistent asthma 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 Accompanied by: Self Is patient [...] injector Performing Provider: DASHA Crawford Performing Location: [facility] Administered by: Reyna Cisneros on 11/23/24 16:00 Dose Route Admin Location Dispensed Lot Number Expiration Date NDC Man ufacturer 300 mg subcut left arm 2 mL [id number] 03/13/26 1888-8304-20 [employer] Assessment and Plan Assessment and Plan Orders: Orders Dupixent Injection (Patient Provided) Today J45.50 - Severe persistent asthma, uncomplicated Medications: New Dupixent Pen (dupilumab) 300 mg (2 mL) subcut ONCE 2 mL 0RF NS J45.50 - Severe persistent asthma, uncomplicated 11/23/24 1626 Date Aster Johnson Signature: Date (if applicable) CC: Normal [facility] Platelet countOrdered By: RENNY Mathur on 11-23-2024 Platelets (Bld) [#/Vol] 312 10*3/uL 150-450 [facility] RBC Auto (Bld) [#/Vol]Ordere d By: RENNY Mathur on 11-23-2024 RBC (Bld) [#/Vol] 4.85 10*6/uL 4.6-6.2 [facility] White blood cell (WBC) count Ordered By: RENNY Mathur on 11-23-2024 WBC (Bld) [#/Vol] 7.1 10*3/uL 4.4-11.0 [facility] Pulmonary Visit Reporton Pulmonary Visit Report [facility] [place] [address] [place] [address] OFFICE VISIT Date of Service: 11/06/24 MR#: [id number] Acct: [id number] Name: ISAURA RAMIREZ Rep #: [id number] : 1970 Provider: DASHA Spence Age/Sex: 53/M [facility] Status: Signed Assessment and Plan Assessment and [...] patient reports that recently he canceled his [employer] service which canceled his email. Unfortunately, this [...] Chief Complaint: CONGESTION FEVER HEADACHE DME Vendor: [email or web address] Accompanied by: Self Allergies iodine Allergy (Verified 11/06/24 07:43) Anaphylaxis Medications ???Medication ???Instructions ???Recorded ???Confirmed ???Type aspirin 81 mg tablet,delayed 81 mg PO QDAY 10/21/17 11/06/24 History release (Adult Low Dose Aspirin) atorvastatin 10 mg tablet 10 mg PO QDAY #90 tabs 06/06/23 11/06/24 Rx dupilumab 300 mg/2 mL subcutaneous 300 mg (2 mL) subcut Q2W #4 mL 01/19/24 11/06/24 Rx pen injector (DupixG-cluster) pramipexole 1 mg tablet 1 mg PO QHS #90 tabs 05/07/24 11/06/24 Rx fluticasone fur. 200 mcg-umeclid 1 inh inhalation DAILY #3 ea 11/06/24 11/06/24 Rx 62.5 mcg-vilant 25 mcg inhalat.powder (more content not included)... Normal [facility] Absolute lymphocyte countOrd ered By: Dr. Cedeno on 04-28-2023 Lymphocytes Auto (Unsp spec) [#/Vol] 1.75 10*3/uL 0.83-4.51 [facility] Basophil percentageOrdered B y: Dr. Cedeno on 04-28-2023 Basophils/100 WBC (Bld) 1.1 % 0-1 [facility] Eosinophils/100 WBC (Bld) 4.7 % 0-5 [facility] Neutrophils (Bld) [#/Vol] 4.2 10*3/uL 2.0-7.7 [facility] Neutrophils/100 WBC (Bld) 58.3 % 47-70 [facility] WBC (Bld) [#/Vol] 7.3 10*3/uL 4.4-11.0 [facility] Bilirubin [Mass/Vol] 1.40 mg/dL 0.20-1.00 [facility] Comment on above: For patients on eltr ombopag therapy, use of Dimension [place] TBIL is not recommended. Chloride [Moles/Vol] 106 mmol/L 98-107 [facility] Cholesterol [Mass/Vol] 125 mg/dL <200 [facility] Comment on above: <200 mg/dL Desirable 200-240 mg/dL Borderline >240 mg/dL High Risk Glucose [Mass/Vol] 111 mg/dL 74-106 [facility] Comment on above: Fasting Glucose resu lt from 100 to 125 mg/dL suggests IMPAIRED HOMEOSTASIS per A.D.A. criteria. Potassium [Moles/Vol] 4.0 mmol/L 3.5-5.1 [facility] Protein [Mass/Vol] 7.4 g/dL 6.4-8.2 [facility] Sodium [Moles/Vol] 139 mmol/L 136-145 [facility] Triglyceride [Mass/Vol] 58 mg/dL <199 [facility] Comment on above: The drugs N-Acetylcy steine and Metamizole may falsely depress this assay.Serum Triglycerides Reference Interval Normal <150 mg/dL Borderline high 150 - 199 mg/dL High 200 - 499 mg/dL Very High > or = 500 mg/dL Blood erythrocytes count (nu mber/volume)Ordered By: Dr. Cedeno on 04-28-2023 RBC (Bld) [#/Vol] 4.90 10*6/uL 4.6-6.2 [facility] Blood hemoglobin measurement (mass/volume)Ordered By: Dr. Cedeno on 04-28-2023 Hemoglobin (Bld) [Mass/Vol] 15.0 g/dL 13.0-16.5 [facility] Blood lymphocytes/100 leukoc ytesOrdered By: Dr. Cedeno on 04-28-2023 Lymphocytes/100 WBC (Bld) 24.1 % 19-41 [facility] Blood monocytes/100 leukocyt esOrdered By: Dr. Cedeno on 04-28-2023 Monocytes/100 WBC (Bld) 11.4 % 0-10 [facility] Blood platelet mean volumeOr dered By: Dr. Cedeno on 04-28-2023 Platelet mean volume (Bld) [Entitic vol] 9.1 fL 6.2-12.0 [facility] Determination of erythrocyte mean corpuscular volume (MCV)Ordered By: Dr. Cedeno on 04-28-2023 MCV (RBC) [Entitic vol] 90.2 fL 80-94 [facility] Direct bilirubinOrdered By: Dr. Cedeno on 04-28-2023 Bilirubin.direct [Mass/Vol] 0.30 mg/dL 0.00-0.30 [facility] Hematocrit Auto (Bld) [Volum e fraction]Ordered By: Dr. Cedeno on 04-28-2023 Hematocrit (Bld) [Volume fraction] 44.2 % 40-54 [facility] Laboratory - Chemistry and C hemistry - challengeOrdered By: Dr. Cedeno on 04-28-2023 ALP [Catalytic activity/Vol] 73 U/L 45-117 [facility] ALT [Catalytic activity/Vol] 26 U/L 16-61 [facility] CO2 [Moles/Vol] 28.0 mmol/L 21.0-32.0 [facility] Globulin (S) [Mass/Vol] 3.8 g/dL 2.2-4.2 [facility] Urea nitrogen/Creatinine [Mass ratio] 12.8 mg/mg 10-20 [facility] Laboratory - Hematology and Cell countsOrdered By: Dr. Cedeno on 04-28-2023 Erythrocyte distribution width (RBC) [Entitic vol] 40.8 fL 35.1-43.9 [facility] Erythrocyte distribution width (RBC) [Ratio] 12.4 % 11.6-14.6 [facility] Immature granulocytes/100 WBC (Bld) 0.400 % 0.0-0.9 [facility] Comment on above: IG% - Immature Granu locytes (promyelocytes, myelocytes and metamyelocytes) > 1% indicates that a LEFT SHIFT is Present. MCH (RBC) [Entitic mass] 30.6 pg 27.0-32.0 [facility] Nucleated RBC/100 WBC (Bld) [Ratio] 0 % 0-5 [facility] MCHC Auto (RBC) [Mass/Vol]Or dered By: Dr. Cedeno on 04-28-2023 MCHC (RBC) [Mass/Vol] 33.9 g/dL 32-36 [facility] No Panel InformationOrdered By: Dr. Cedeno on 04-28-2023 Estimated Creatinine Clearance Calc 81.06 ml/min [facility] Estimated GFR (MDRD) Amer 84 mL/min >60 [facility] Comment on above: GFR Calc Estimated GFR (MDRD) Non-Af Amer 70 mL/min >60 [facility] Comment on above: Non- GFR Calc Platelets bldOrdered By: Dr. Cedeno on 04-28-2023 Platelets (Bld) [#/Vol] 323 10*3/uL 150-450 [facility] Serum or plasma albumin mary kate urement (mass/volume)Ordered By: Dr. Cedeno on 04-28-2023 Albumin [Mass/Vol] 3.6 g/dL 3.2-5.0 [facility] Serum or plasma calcium mary kate urement (mass/volume)Ordered By: Dr. Cedeno on 04-28-2023 Calcium [Mass/Vol] 9.0 mg/dL 8.5-10.1 [facility] Serum or plasma cholesterol in HDL measurement (mass/volume)Ordered By: Dr. Cedeno on 04-28-2023 Cholesterol in HDL [Mass/Vol] 42 mg/dL >40 [facility] Comment on above: The drugs N-Acetylcy steine and Metamizole may falsely depress this assay. Reference Range HDL <40 mg/dL Low HDL Cholesterol HDL >or= 60 mg/dL High HDL Cholesterol Serum or plasma cholesterol in VLDL measurement (mass/volume)Ordered By: Dr. Cedeno on 04-28-2023 Cholesterol in VLDL [Mass/Vol] 12 mg/dL 5-40 [facility] Serum or plasma creatinine m easurement (mass/volume)Ordered By: Dr. Cedeno on 04-28-2023 Creatinine [Mass/Vol] 1.17 mg/dL 0.70-1.30 [facility] Comment on above: The validity of the calculated GFR & GFRAA in patients over 70 years has not been determined. Clinical correlation is essential. Serum or plasma low density lipoprotein (LDL) cholesterol measurement (mass/volume)Ordered By: Dr. Cedeno on 04-28-2023 Cholesterol in LDL [Mass/Vol] 71 mg/dL 0-130 [facility] Serum or plasma urea nitroge n measurement (mass/volume)Ordered By: Dr. Cedeno on 04-28-2023 Urea nitrogen [Mass/Vol] 15 mg/dL 7-18 [facility] Thin prep Papanicolaou smear with manual screeningOrdered By: Dr. Cedeno on 04-28-2023 Thin prep Papanicolaou smear with manual screening 20 U/L 15-37 [facility] Thin prep Papanicolaou smear with manual screening 5 5-15 [facility] Basophil percentageon 2021 Bilirubin [Mass/Vol] 1.30 mg/dL 0.20-1.00 [facility] Work Phone: Comment on above: For patients on eltr ombopag therapy, use of Dimension [place] TBIL is not recommended. Cholesterol [Mass/Vol] 136 mg/dL <200 [facility] Work Phone: Comment on above: <200 mg/dL Desirable 200-240 mg/dL Borderline >240 mg/dL High Risk Protein [Mass/Vol] 7.5 g/dL 6.4-8.2 [facility] Work Phone: [phone] Triglyceride [Mass/Vol] 80 mg/dL <199 [facility] Work Phone: [phone] Comment on above: The drugs N-Acetylcy steine and Metamizole may falsely depress this assay.Serum Triglycerides Reference Interval Normal <150 mg/dL Borderline high 150 - 199 mg/dL High 200 - 499 mg/dL Very High > or = 500 mg/dL Direct bilirubinon 2 Bilirubin.direct [Mass/Vol] 0.27 mg/dL 0.00-0.30 [facility] Work Phone: [phone] Laboratory - Chemistry and C hemistry - challengeon 08-13-2022 ALP [Catalytic activity/Vol] 66 U/L 45-117 [facility] Work Phone: [phone] ALT [Catalytic activity/Vol] 35 U/L 16-61 [facility] Work Phone: [phone] Globulin (S) [Mass/Vol] 3.9 g/dL 2.2-4.2 [facility] Work Phone: [phone] Serum or plasma albumin mary kate urement (mass/volume)on 08-13-2022 Albumin [Mass/Vol] 3.6 g/dL 3.2-5.0 [facility] Work Phone: [phone] Serum or plasma cholesterol in HDL measurement (mass/volume)on 08-13-2022 Cholesterol in HDL [Mass/Vol] 48 mg/dL >40 [facility] Work Phone: [phone] Comment on above: The drugs N-Acetylcy steine and Metamizole may falsely depress this assay. Reference Range HDL <40 mg/dL Low HDL Cholesterol HDL >or= 60 mg/dL High HDL Cholesterol Serum or plasma cholesterol in VLDL measurement (mass/volume)on 08-13-2022 Cholesterol in VLDL [Mass/Vol] 16 mg/dL 5-40 [facility] Work Phone: Serum or plasma low density lipoprotein (LDL) cholesterol measurement (mass/volume)on 08-13-2022 Cholesterol in LDL [Mass/Vol] 72 mg/dL 0-[address] [facility] [employer] Work Phone: Thin prep Papanicolaou smear with manual screeningon 08-13-2022 Thin prep Papanicolaou smear with manual screening 22 U/L 15-[address] [facility] [employer] Work Phone: Office Visit: OSAon 10-05-20 Dietary management education, guidance, and counseling (procedure) yes Invalid Interpretation Code [facility] Phone: Documentation of current medications (procedure) Done Invalid Interpretation Code [facility] Phone: Fall risk assessment No Invalid Interpretation Code [facility] Phone: Tobacco smoking status NHIS Never Invalid Interpretation Code [facility] Phone: Tobacco use [facility] Never smoker Invalid Interpretation Code [facility] Phone: Clinical Lists Update: Prelo head doffer 01-27-2017 Alanine aminotransferase (ALT) 54 U/L Invalid Interpretation Code [employer] Phone: [phone] Albumin 4.6 g/dL Invalid Interpretation Code [employer] Phone: [phone] Alkaline phosphatase (ALP) 67 U/L Invalid Interpretation Code [employer] Phone: [phone] Aspartate aminotransferase (AST) 35 U/L Invalid Interpretation Code [employer] Phone: [phone] Bilirubin (total) 1.40 mg/dL High [employer] Phone: [phone] Calcium 10.2 mg/dL Invalid Interpretation Code [employer] Phone: [phone] Chloride 102 mmol/L Invalid Interpretation Code [employer] Phone: [phone] Cholesterol 142 mg/dL Invalid Interpretation Code [employer] Phone: [phone] Cholesterol to HDL Ratio 3.4 {ratio} Invalid Interpretation Code [employer] Phone: CO2 26 mmol/L Invalid Interpretation Code [employer] Work Phone: [phone] Creatinine 0.9 mg/dL Invalid Interpretation Code [employer] Work Phone: [phone] Erythrocytes (RBC) 5.16 10*6/uL Invalid Interpretation Code [employer] Work Phone: [phone] Glucose 96 mg/dL Invalid Interpretation Code [employer] Work Phone: [phone] Glucose mass conc 96 mg/dL Invalid Interpretation Code [facility] Work Phone: HDL Cholesterol 42.00 mg/dL Invalid Interpretation Code [employer] Work Phone: [phone] Hematocrit (HCT) 45.1 % Invalid Interpretation Code [employer] Work Phone: [phone] Hemoglobin (HGB) 15.0 g/dL Invalid Interpretation Code [employer] Work Phone: [phone] LDL Cholesterol 84.4 mg/dL Invalid Interpretation Code [employer] Work Phone: [phone] MCH 29.0 pg Invalid Interpretation Code [employer] Work Phone: [phone] MCHC 33.2 g/dL Invalid Interpretation Code [employer] Work Phone: [phone] MCV 87.4 fL Invalid Interpretation Code [employer] Work Phone: [phone] Platelets 319 10*3/mm3 Invalid Interpretation Code [employer] Work Phone: [phone] PMV by Sam 9.0 fL Invalid Interpretation Code [employer] Work Phone: [phone] Potassium 4.6 mmol/L Invalid Interpretation Code [employer] Work Phone: [phone] Protein 8.0 g/dL Invalid Interpretation Code [employer] Work Phone: [phone] RDW-CA 12.3 % Invalid Interpretation Code [employer] Work Phone: [phone] Sodium 144 mmol/L Invalid Interpretation Code [employer] Work Phone: [phone] Triglyceride 78 mg/dL Invalid Interpretation Code [employer] Work Phone: [phone] Urea nitrogen 12 mg/dL Invalid Interpretation Code [employer] Work Phone: [phone] very low density lipoproteins 15.60 mg/dL Invalid Interpretation Code [employer] Phone: [phone] WBC (Leukocytes) 7.1 10*3/uL Invalid Interpretation Code [employer] Phone: [phone] Clinical Lists Update: Prelo head doffer 10-27-2016 Left ventricular Ejection fraction 65 % Invalid Interpretation Code [employer] Phone: [phone] Office Visiton 10-15-2016 Dietary management education, guidance, and counseling (procedure) yes Invalid Interpretation Code [employer] Phone: [phone] Documentation of current medications (procedure) Done Invalid Interpretation Code [employer] Phone: [phone] Tobacco use [facility] Never smoker Invalid Interpretation Code [employer] Phone: [phone] Replaced Document: Rupinder Nash CG Observationson 10-15-2016 EKG QRS axis 3 deg Invalid Interpretation Code [facility] Phone: electrocardiogram interpretation Sinus Rhythm Voltage criteria for LVH (R(I)+S(III) exceeds 2.50 mV) -Voltage criteria w/o ST/T abnormality may be normal. BORDERLINE Invalid Interpretation Code [employer] Phone: [phone] GE use only - for [employer] import when terms are not otherwise specified 398 ms Invalid Interpretation Code [employer] Phone: [phone] Interpretation Sinus Rhythm Voltage criteria for LVH (R(I)+S(III) exceeds 2.50 mV) -Voltage criteria w/o ST/T abnormality may be normal. BORDERLINE Invalid Interpretation Code [facility] Phone: P [place] 20 deg Invalid Interpretation Code [facility] Phone: P wave axis, electrocardiogram 20 deg Invalid Interpretation Code [employer] Phone: [phone] IA Interval 142 ms Invalid Interpretation Code [facility] Phone: IA interval, electrocardiogram 142 ms Invalid Interpretation Code [employer] Phone: [phone] Pulse (Heart Rate) 67 /min Invalid Interpretation Code [employer] Phone: QRS axis, electrocardiogram 3 deg Invalid Interpretation Code [facility] Work Phone: [phone] QRS Duration 96 ms Invalid Interpretation Code [facility] Work Phone: QRS duration, electrocardiogram 96 ms Invalid Interpretation Code [facility] [employer] Work Phone: [phone] QT Interval new path ms Invalid Interpretation Code [facility] Work Phone: QT interval, electrocardiogram new path ms Invalid Interpretation Code [facility] [employer] Work Phone: [phone] QTc [place] 398 ms Invalid Interpretation Code [facility] Work Phone: T [place] -1 deg Invalid Interpretation Code [facility] Work Phone: T wave axis, electrocardiogram -1 deg Invalid Interpretation Code [facility] [employer] Work Phone: [phone] Office Visit: TIESHA follow upo n 10-05-2016 Tobacco smoking status NHIS Never Invalid Interpretation Code [employer] Work Phone: [phone] Clinical Lists Update: Prelo head doffer 10-01-2016 HbA1c 5.7 % Invalid Interpretation Code [employer] Work Phone: [phone] Lab Report: Ferritinon 03-09 Ferritin 91 ng/mL Invalid Interpretation Code 26-388 [employer] Work Phone: [phone] Vital Signs Date Time Vital Sign Value Performing Clinician Facility 08-01-2025 10:33-0400 Body temperature 98 [degF] Anju Navarrete [employer] Work Phone: [facility] 08-01-2025 10:33-0400 Body weight 104.32 kg Anju Navarrete [employer] Work Phone: [facility] 08-01-2025 10:33-0400 Diastolic blood pressure 80 mm[Hg] Anju Navarrete [employer] Work Phone: [facility] 08-01-2025 10:33-0400 Heart rate 83 /min Anju Navarrete [employer] Work Phone: [facility] 08-01-2025 10:33-0400 Respiratory rate 14 /min Anju Navarrete [employer] Work Phone: [facility] 08-01-2025 10:33-0400 SaO2% (BldA) [Mass fraction] 98 % Anju Navarrete [employer] Work Phone: [facility] 08-01-2025 10:33-0400 Systolic blood pressure 133 mm[Hg] Anju Navarrete [employer] Work Phone: [facility] 07-18-2025 07:53-0400 Body height 182.88 cm Anju Navarrete [employer] Work Phone: [facility] 07-18-2025 07:53-0400 Body weight 105.23 kg Anju Navarrete [employer] Work Phone: [facility] 07-17-2025 07:32-0400 Body mass index (BMI) [Ratio] 32.3 kg/m2 Anju Navarrete [employer] Work Phone: [facility] 06-13-2025 09:41-0400 Body mass index (BMI) [Ratio] 32.3 kg/m2 Anju Navarrete [employer] Work Phone: [facility] 06-13-2025 09:41-0400 Body temperature 97.4 [degF] Anju Navarrete [employer] Work Phone: [facility] 06-13-2025 09:41-0400 Body weight 105.23 kg Anju Navarrete [employer] Work Phone: [facility] 06-13-2025 09:41-0400 Diastolic blood pressure 83 mm[Hg] Anju Navarretegar [employer] Work Phone: [facility] 06-13-2025 09:41-0400 Heart rate 70 /min Anju Navarrete [employer] Work Phone: [facility] 06-13-2025 09:41-0400 Respiratory rate 18 /min Anju Navarrete [employer] Work Phone: [facility] 06-13-2025 09:41-0400 SaO2% (BldA) [Mass fraction] 98 % Anju Landon [employer] Work Phone: [facility] 06-13-2025 09:41-0400 Systolic blood pressure 138 mm[Hg] Anju Landon [employer] Work Phone: [facility] 05-15-2025 15:32-0400 Body temperature 98 [degF] Anju Landon [employer] Work Phone: [facility] 05-15-2025 15:32-0400 Diastolic blood pressure 85 mm[Hg] Anju Landon [employer] Work Phone: [facility] 05-15-2025 15:32-0400 Heart rate 68 /min Anju Landon [employer] Work Phone: [facility] 05-15-2025 15:32-0400 Respiratory rate 16 /min Anju Landon [employer] Work Phone: [facility] 05-15-2025 15:32-0400 SaO2% (BldA) [Mass fraction] 99 % Anju Landon [employer] Work Phone: [facility] 05-15-2025 15:32-0400 Systolic blood pressure 131 mm[Hg] Anju Landon [employer] Work Phone: [facility] 03-21-2025 08:49-0400 Body height 182.88 cm Anju Landon [employer] Work Phone: [facility] 03-21-2025 08:49-0400 Body mass index (BMI) [Ratio] 31.8 kg/m2 Anju Landon [employer] Work Phone: [facility] 03-21-2025 08:49-0400 Body temperature 98.6 [degF] Anju Landon [employer] Work Phone: [facility] 03-21-2025 08:49-0400 Body weight 106.59 kg Anju Landon [employer] Work Phone: [facility] 03-21-2025 08:49-0400 Diastolic blood pressure 88 mm[Hg] Anju Landon [employer] Work Phone: [facility] 03-21-2025 08:49-0400 Heart rate 61 /min Anju Landon [employer] Work Phone: [facility] 03-21-2025 08:49-0400 Respiratory rate 16 /min Anju Landon [employer] Work Phone: [facility] 03-21-2025 08:49-0400 SaO2% (BldA) [Mass fraction] 99 % Anju Landon [employer] Work Phone: [facility] 03-21-2025 08:49-0400 Systolic blood pressure 135 mm[Hg] Anju Landon [employer] Work Phone: [facility] 02-19-2025 15:41-0400 Body mass index (BMI) [Ratio] 31.8 kg/m2 Anju Landon [employer] Work Phone: [facility] 02-19-2025 15:41-0400 Body temperature 97.7 [degF] Anju Landon [employer] Work Phone: [facility] 02-19-2025 15:41-0400 Body weight 106.59 kg Anju Landon [employer] Work Phone: [facility] 02-19-2025 15:41-0400 Diastolic blood pressure 82 mm[Hg] Anju Landon [employer] Work Phone: [facility] 02-19-2025 15:41-0400 Heart rate 94 /min Anju Landon [employer] Work Phone: [facility] 02-19-2025 15:41-0400 Respiratory rate 18 /min Anju Landon [employer] Work Phone: [facility] 02-19-2025 15:41-0400 SaO2% (BldA) [Mass fraction] 96 % Anju Landon [employer] Work Phone: [facility] 02-19-2025 15:41-0400 Systolic blood pressure 133 mm[Hg] Anju Landon [employer] Work Phone: [facility] 02-12-2025 10:28-0400 Body temperature 98.4 [degF] Anuj Landon [employer] Work Phone: [facility] 02-12-2025 10:28-0400 Diastolic blood pressure 87 mm[Hg] Anju Landon [employer] Work Phone: [facility] 02-12-2025 10:28-0400 Heart rate 70 /min Anju Landon [employer] Work Phone: [facility] 02-12-2025 10:28-0400 Respiratory rate 18 /min Anju Landon [employer] Work Phone: [facility] 02-12-2025 10:28-0400 SaO2% (BldA) [Mass fraction] 94 % Anju Navarretegar [employer] Work Phone: [facility] 02-12-2025 10:28-0400 Systolic blood pressure 144 mm[Hg] Anju Landon [employer] Work Phone: [facility] 02-01-2025 11:56-0400 Body temperature 97.8 [degF] No Primary Care Physician [facility] 02-01-2025 11:56-0400 Diastolic blood pressure 83 mm[Hg] No Primary Care Physician [facility] 02-01-2025 11:56-0400 Heart rate 76 /min No Primary Care Physician [facility] 02-01-2025 11:56-0400 Respiratory rate 16 /min No Primary Care Physician [facility] 02-01-2025 11:56-0400 SaO2% (BldA) [Mass fraction] 96 % No Primary Care Physician [facility] 02-01-2025 11:56-0400 Systolic blood pressure 132 mm[Hg] No Primary Care Physician [facility] 02-01-2025 08:13-0400 Body height 182.88 cm No Primary Care Physician [facility] 02-01-2025 08:13-0400 Body mass index (BMI) [Ratio] 31.1 kg/m2 No Primary Care Physician [facility] 02-01-2025 08:13-0400 Body weight 104 kg No Primary Care Physician [facility] 01-29-2025 15:36-0400 Body mass index (BMI) [Ratio] 32.5 kg/m2 No Primary Care Physician [facility] 01-29-2025 15:36-0400 Body temperature 98.3 [degF] No Primary Care Physician [facility] 01-29-2025 15:36-0400 Body weight 105.68 kg No Primary Care Physician [facility] 01-29-2025 15:36-0400 Diastolic blood pressure 84 mm[Hg] No Primary Care Physician [facility] 01-29-2025 15:36-0400 Heart rate 78 /min No Primary Care Physician [facility] 01-29-2025 15:36-0400 Respiratory rate 18 /min No Primary Care Physician [facility] 01-29-2025 15:36-0400 SaO2% (BldA) [Mass fraction] 96 % No Primary Care Physician [facility] 01-29-2025 15:36-0400 Systolic blood pressure 138 mm[Hg] No Primary Care Physician [facility] 01-23-2025 15:41-0400 Body mass index (BMI) [Ratio] 32.5 kg/m2 No Primary Care Physician [facility] 01-23-2025 15:41-0400 Body temperature 97.8 [degF] No Primary Care Physician [facility] 01-23-2025 15:41-0400 Body weight 105.91 kg No Primary Care Physician [facility] 01-23-2025 15:41-0400 Diastolic blood pressure 87 mm[Hg] No Primary Care Physician [facility] 01-23-2025 15:41-0400 Heart rate 79 /min No Primary Care Physician [facility] 01-23-2025 15:41-0400 Respiratory rate 18 /min No Primary Care Physician [facility] 01-23-2025 15:41-0400 SaO2% (BldA) [Mass fraction] 96 % No Primary Care Physician [facility] 01-23-2025 15:41-0400 Systolic blood pressure 128 mm[Hg] No Primary Care Physician [facility] 01-09-2025 15:21-0500 Body mass index (BMI) [Ratio] 32.2 kg/m2 No Primary Care Physician [facility] 01-09-2025 15:21-0500 Body temperature 97.4 [degF] No Primary Care Physician [facility] 01-09-2025 15:21-0500 Body weight 104.77 kg No Primary Care Physician [facility] 01-09-2025 15:21-0500 Diastolic blood pressure 84 mm[Hg] No Primary Care Physician [facility] 01-09-2025 15:21-0500 Heart rate 78 /min No Primary Care Physician [facility] 01-09-2025 15:21-0500 Respiratory rate 18 /min No Primary Care Physician [facility] 01-09-2025 15:21-0500 SaO2% (BldA) [Mass fraction] 96 % No Primary Care Physician [facility] 01-09-2025 15:21-0500 Systolic blood pressure 129 mm[Hg] No Primary Care Physician [facility] 11-23-2024 16:01-0500 Body temperature 97.7 [degF] No Primary Care Physician [facility] 11-23-2024 16:01-0500 Diastolic blood pressure 89 mm[Hg] No Primary Care Physician [facility] 11-23-2024 16:01-0500 Heart rate 81 /min No Primary Care Physician [facility] 11-23-2024 16:01-0500 Respiratory rate 18 /min No Primary Care Physician [facility] 11-23-2024 16:01-0500 SaO2% (BldA) [Mass fraction] 97 % No Primary Care Physician [facility] 11-23-2024 16:01-0500 Systolic blood pressure 160 mm[Hg] No Primary Care Physician [facility] 11-06-2024 07:31-0500 Body mass index (BMI) [Ratio] 32.6 kg/m2 No Primary Care Physician [facility] 11-06-2024 07:31-0500 Body temperature 97.3 [degF] No Primary Care Physician [facility] 11-06-2024 07:31-0500 Body weight 106.31 kg No Primary Care Physician [facility] 11-06-2024 07:31-0500 Diastolic blood pressure 88 mm[Hg] No Primary Care Physician [facility] 11-06-2024 07:31-0500 Heart rate 74 /min No Primary Care Physician [facility] 11-06-2024 07:31-0500 Respiratory rate 16 /min No Primary Care Physician [facility] 11-06-2024 07:31-0500 SaO2% (BldA) [Mass fraction] 97 % No Primary Care Physician [facility] 11-06-2024 07:31-0500 Systolic blood pressure 134 mm[Hg] No Primary Care Physician [facility] 04-28-2023 08:41-0400 Body height 182.88 cm [employer] Will Hellinger [employer] Work Phone: [facility] 04-28-2023 08:41-0400 Body weight 106.14 kg [employer] Will Hellinger [employer] Work Phone: [facility] 03-31-2023 09:09-0400 Body weight 106.14 kg [employer] Will Hellinger [employer] Work Phone: [facility] 03-31-2023 09:09-0400 Diastolic blood pressure 77 mm[Hg] [employer] Will Hellinger [employer] Work Phone: [facility] 03-31-2023 09:09-0400 Heart rate 72 /min [employer] Will Hellinger [employer] Work Phone: [facility] 03-31-2023 09:09-0400 Respiratory rate 16 /min [employer] Will Hellinger [employer] Work Phone: [facility] 03-31-2023 09:09-0400 SaO2% (BldA) [Mass fraction] 99 % [employer] Will Hellinger [employer] Work Phone: [facility] 03-31-2023 09:09-0400 Systolic blood pressure 124 mm[Hg] [employer] Will Hellinger [employer] Work Phone: [facility] 02-16-2023 14:18-0400 Diastolic blood pressure 78 mm[Hg] [employer] Will Hellinger [employer] Work Phone: [facility] 02-16-2023 14:18-0400 Heart rate 82 /min [employer] Will Hellinger [employer] Work Phone: [facility] 02-16-2023 14:18-0400 SaO2% (BldA) [Mass fraction] 97 % [employer] Will Hellinger [employer] Work Phone: [facility] 02-16-2023 14:18-0400 Systolic blood pressure 114 mm[Hg] [employer] Will Hellinger [employer] Work Phone: [facility] 01-24-2023 16:03-0400 Body height 182.88 cm [employer] Will Hellinger [employer] Work Phone: [facility] 01-24-2023 16:03-0400 Body mass index (BMI) [Ratio] 32 kg/m2 [employer] Will Hellinger [employer] Work Phone: [facility] 01-24-2023 16:03-0400 Body weight 107.13 kg [employer] Will Hellinger [employer] Work Phone: [facility] 01-24-2023 16:03-0400 Diastolic blood pressure 88 mm[Hg] [employer] Will Hellinger [employer] Work Phone: [facility] 01-24-2023 16:03-0400 Heart rate 68 /min [employer] Will Hellinger [employer] Work Phone: [facility] 01-24-2023 16:03-0400 Respiratory rate 16 /min [employer] Will Hellinger [employer] Work Phone: [facility] 01-24-2023 16:03-0400 Systolic blood pressure 128 mm[Hg] [employer] Will Hellinger [employer] Work Phone: [facility] 11-11-2022 06:52-0500 Body mass index (BMI) [Ratio] 32.1 kg/m2 [employer] Will Hellinger [employer] Work Phone: [facility] 11-11-2022 06:52-0500 Body temperature 97.2 [degF] [employer] Will Hellinger [employer] Work Phone: [facility] 11-11-2022 06:52-0500 Body weight 107.5 kg [employer] Will Hellinger [employer] Work Phone: [facility] 11-11-2022 06:52-0500 Diastolic blood pressure 84 mm[Hg] [employer] Will Hellinger [employer] Work Phone: [facility] 11-11-2022 06:52-0500 Heart rate 78 /min [employer] Will Hellinger [employer] Work Phone: [facility] 11-11-2022 06:52-0500 Respiratory rate 18 /min [employer] Will Hellinger [employer] Work Phone: [facility] 11-11-2022 06:52-0500 SaO2% (BldA) [Mass fraction] 96 % [employer] Will Hellinger [employer] Work Phone: [facility] 11-11-2022 06:52-0500 Systolic blood pressure 138 mm[Hg] [employer] Will Hellinger [employer] Work Phone: [facility] 10-05-2017 05:18-0500 BMI (Body Mass Index) 27.86 kg/m2 Mary Carmen Sol [facility] Work Phone: 10-05-2017 05:18-0500 Body Temperature 97.5 [degF] Mary Carmen [facility] Work Phone: 10-05-2017 05:18-0500 BP Diastolic 82 mm[Hg] Mary Carmen Sol [facility] Work Phone: 10-05-2017 05:18-0500 BP Systolic 139 mm[Hg] Mary Carmen Ebenezer [facility] Work Phone: 10-05-2017 05:18-0500 Height 182.25 cm Mary Carmen Ebenezer [facility] Work Phone: 10-05-2017 05:18-0500 Pulse (Heart Rate) 80 /min Mary Carmen Sol [facility] Work Phone: 10-05-2017 05:18-0500 Respiratory Rate 18 /min Mary Carmen Ebenezer [facility] Work Phone: 10-05-2017 05:18-0500 Weight 92.53 kg Mary Carmen Ebenezer [facility] Work Phone: 10-15-2016 15:01-0500 BMI (Body Mass Index) 28.95 kg/m2 Harumi DeFinis [facility] Work Phone: 10-15-2016 15:01-0500 BP Diastolic 82 mm[Hg] Harumi DeFinis [facility] Work Phone: 10-15-2016 15:01-0500 BP Systolic 128 mm[Hg] Harumi DeFinis [facility] Work Phone: 10-15-2016 15:01-0500 BSA (Body Surface Area) 2.18 m2 Harumi DeFinis [facility] Work Phone: 10-15-2016 15:01-0500 Pulse (Heart Rate) 72 /min Harumi DeFinis [facility] Work Phone: 10-15-2016 15:01-0500 Respiratory Rate 16 /min Harumi DeFinis [facility] Work Phone: 10-15-2016 15:01-0500 Weight 96.16 kg Harumi DeFinis [facility] Work Phone: 10-05-2016 06:52-0500 Body Temperature 96.4 [degF] Harumi DeFinis [facility] Work Phone: 10-05-2016 06:52-0500 Body Temperature 96.44 [degF] [facility] Work Phone: 10-05-2016 06:52-0500 Height 182.25 cm [facility] Work Phone: 10-05-2016 06:52-0500 Pulse Oximetry 99 % [facility] Work Phone: 10-05-2016 06:52-0500 Weight 95 kg [facility] Work Phone: Encounters Encounter Date Encounter Type Care Provider Facility Start: 08-01-2025 End: 08-01-2025 Patient encounter procedure Terra KEARNEY [facility] Work Phone: Start: 08-01-2025 End: 08-01-2025 ambulatory Anju Navarrete [employer] Work Phone: -[facility] Start: 07-23-2025 Non-patient / Non-visit Dr. Jann brody MD -[facility] Start: 07-23-2025 End: 07-23-2025 ambulatory Anju Navarretegar [employer] Work Phone: -Cardiovascular Services Start: 07-23-2025 End: 07-23-[address] Jann Cedeno MD -[facility] Services Work Phone: Start: 07-23-2025 End: 07-23-2025 ambulatory Anju Landon Facility:[facility] Start: 07-18-2025 ambulatory Anju Landon Facility:[facility] Start: 07-18-2025 Non-patient / Non-visit Dr. Jann brody MD -[facility] Start: 07-18-2025 End: 07-18-2025 Admission to same day surgery center Dr. Jann Cedeno MD -[employer]/Special Procedures Work Phone: Start: 07-18-2025 End: 07-18-2025 ambulatory Anju Landon [employer] Work Phone: -[employer] Developer/Special Procedures Start: 06-13-2025 End: 06-13-2025 Patient encounter procedure Katja Spence [employer] -[facility] Work Phone: Start: 06-13-2025 End: 06-13-2025 ambulatory Anjutraci Navarrete [employer] Work Phone: -[facility] Start: 05-15-2025 End: 05-15-[address] Jann Cedeno MD -[facility] Work Phone: Start: 05-15-2025 End: 05-15-2025 ambulatory Anju Navarrete [employer] Work Phone: -[facility] Start: 04-18-2025 Non-patient / Non-visit Dr. Jann brody MD -[facility] Start: 04-18-2025 End: 04-18-2025 ambulatory Anju Landon [employer] Work Phone: [facility] Work Phone: Start: 04-18-2025 End: 04-18-2025 Patient encounter procedure Terra KEARNEY -Cardiovascular Services Work Phone: Start: 04-18-2025 End: 04-18-2025 ambulatory Anju Landon Facility:[facility] Start: 04-02-2025 End: 04-02-2025 Patient encounter procedure Terra KEARNEY -[facility] Work Phone: Start: 04-02-2025 End: 04-02-2025 ambulatory Anju Navarrete [employer] Work Phone: [facility] Work Phone: Start: 02-19-2025 End: 02-19-[address] Tatianna Whipple MD -[facility] Work Phone: Start: 02-19-2025 End: 02-19-2025 ambulatory Anju Navarrete Facility[facility] Start: 02-12-2025 End: 02-12-[address] Tatianna Whipple MD -[facility] Work Phone: Start: 02-12-2025 End: 02-12-2025 ambulatory [facility] Facility:[facility] Start: 02-01-2025 ambulatory [facility] Start: 02-01-2025 Non-patient / Non-visit Dr. Tatianna best MD -[facility] Start: 02-01-2025 End: 02-01-2025 Admission to same day surgery center Dr. Tatianna Whipple MD -[facility] Day [facility] Start: 02-01-2025 End: 02-01-2025 ambulatory No Primary Care Physician [facility] Work Phone: Start: 01-29-2025 End: 01-29-[address] Tatianna Whipple MD -[facility] Work Phone: Start: 01-29-2025 End: 01-29-2025 ambulatory Tatianna Sole Facility:[facility] Start: 01-23-2025 End: 01-23-[address] Tatianna Whipple MD -[facility] Work Phone: Start: 01-23-2025 End: 01-23-2025 ambulatory [facility] Facility:[facility] Start: 01-10-2025 End: 01-10-[address] Sancho Jaramillo MD -[facility] Work Phone: Start: 01-10-2025 End: 01-10-2025 ambulatory [facility] Facility:[facility] Start: 01-09-2025 End: 01-09-[address] Tatianna Whipple MD -[facility] Work Phone: Start: 01-09-2025 End: 01-09-2025 ambulatory [facility] Facility:[facility] Start: 01-07-2025 Encounter for genera l adult medical examination with abnormal findings [facility] Start: 01-04-2025 End: 01-04-[address] Sancho Jaramillo MD -[facility] Work Phone: Start: 01-04-2025 End: 01-04-2025 ambulatory [facility] Facility:[facility] Start: 12-31-2024 End: 12-31-[address] Sancho Jaramillo MD -[facility] Work Phone: Start: 12-31-2024 End: 12-31-2024 ambulatory Anju Landon Facility:[facility] Start: 12-22-2024 End: 12-22-2024 Patient encounter procedure Anju Navarrete [employer] -Laboratory Work Phone: Start: 12-22-2024 End: 12-22-2024 ambulatory [facility] Facility:[facility] Start: 11-27-2024 End: 11-27-[address] Sancho Jaramillo MD -[facility] Work Phone: Start: 11-27-2024 End: 11-27-2024 ambulatory Sancho Jaramillo Facility:[facility] Start: 11-23-2024 End: 11-23-2024 Patient encounter procedure RENNY Mathur -[facility] Work Phone: Start: 11-23-2024 End: 11-23-2024 ambulatory No Primary Care Physician Facility:[facility] Start: 11-23-2024 End: 11-23-2024 Patient encounter procedure [employer] Aster Mathur -Laboratory Work Phone: Start: 11-23-2024 End: 11-23-2024 ambulatory No Primary Care Physician Facility:[facility] Start: 11-06-2024 End: 11-06-2024 Patient encounter procedure Katja Spence [employer] -[facility] Work Phone: Start: 11-06-2024 End: 11-06-2024 ambulatory Katja Spence [employer] Facility:[facility] Start: 04-28-2023 End: 04-28-2023 Admission to same day surgery center [employer]-Randal Mondragon [employer] Work Phone: [facility]-Business Intelligence Et[employer] Developer/Special Procedures Start: 04-28-2023 End: 04-28-2023 ambulatory [employer] Will Helrheaer [employer] Work Phone: [facility] Work Phone: Start: 03-31-2023 End: 03-31-2023 Patient encounter procedure [employer] Will Avilesrheaer [employer] Work Phone: [facility] Start: 02-22-2023 Non-patient / Non-visit [employer] T rolando Ninaer [employer] Work Phone: [facility] Start: 02-22-2023 End: 02-22-2023 ambulatory [employer] Will Tracirheaer [employer] Work Phone: [facility] Work Phone: Start: 02-22-2023 End: 02-22-2023 Patient encounter procedure [employer] Will Helrheaer [employer] Work Phone: [facility]-Cardiovascular Services Start: 02-16-2023 End: 02-16-2023 Patient encounter procedure [employer] Will Avilesrheaer [employer] Work Phone: [facility] Start: 01-24-2023 End: 01-24-2023 Patient encounter procedure [employer] Will Helrheaer [employer] Work Phone: [facility] Start: 01-11-2023 Non-patient / Non-visit [employer] T rolando Ninaer [employer] Work Phone: [facility] Start: 11-11-2022 End: 11-11-2022 Patient encounter procedure [employer] Will Helrheaer [employer] Work Phone: [facility]-Pulmonary Medicine [facility] Start: 08-13-2022 End: 08-13-2022 ambulatory [facility] Work Phone: Start: 08-13-2022 End: 08-13-2022 Patient encounter procedure [facility]-Laboratory Procedures Date Procedure Procedure Detail Performing Clinician Start: 02-01-2025 Blepharoplasty No Prima ry Care Physician Start: 01-04-2025 MRI of joint of lowe r extremity No Primary Care Physician Start: 12-22-2024 Measurement of renal function Anju Landon [employer] Work Phone: Comment on above: GFR Calc Start: 12-22-2024 Prostate specific an tigen measurement Anju Landon [employer] Work Phone: Comment on above: This test was perfor med using the TPSA assay method for [employer] chemistry system. Values obtained with differentassay methods [...] 04-03-2016 Evaluate pt use of inhaler Isaac ovalle Work Phone: Start: 03-05-2016 End: 03-13-2016 Assay of ferritin Katja S Spence C [employer] Work Phone: Start: 03-05-2016 End: 03-13-2016 Assay of ferritin Katja S Spence C [employer] Work Phone: Start: 02-17-2016 End: 10-01-2016 Follow Up Appt 3 months Katja garcia CNP Work Phone: Start: 02-17-2016 End: 10-01-2016 Pulmonary Function Test - complete Katja Spence CNP Work Phone: Start: 02-17-2016 End: 10-01-2016 Follow Up Appt 3 months Katja garcia CNP Work Phone: Start: 02-17-2016 End: 10-01-2016 Pulmonary Function Test - complete Katja Spence CNP Work Phone: Plan of Treatment Date Care Activity Detail Author Start: 07-18-2025 Patient discharge [facility] Start: 02-01-2025 Anesthesia eyelid reconstructive procedure ANESTH BLEPHAROPLASTY [facility] Start: 02-01-2025 Blepharoplasty upper eyelid BLEPHAROPLASTY UPPER EYELID [facility] Start: 02-01-2025 [facility] Start: 02-01-2025 Patient discharge [facility] Start: 10-26-2017 End: 10-26-2017 Appointment Appointment [employer] Phone: Start: 10-05-2017 End: 10-05-2017 Follow Up Appt 1 year Follow Up Appt 1 year [facility] Phone: Start: 10-05-2017 End: 10-05-2017 Appointment Appointment [facility] Phone: Start: 10-21-2016 End: 10-21-2016 Echocardiography Echocardiogram (complete) [facility] Phone: Start: 10-21-2016 End: 10-21-2016 Echocardiography Echocardiogram (complete) [employer] Phone: Start: 10-15-2016 End: 10-18-2016 Cardiovascular stress test using treadmill Treadmill stress test (no imaging) [facility] Phone: Start: 10-15-2016 End: 10-15-2016 Ecg routine ecg w/least 12 lds w/i&r EKG (In office) [facility] Phone: Start: 10-15-2016 End: 10-15-2016 Echocardiography Echocardiogram (complete) [facility] Work Phone: Start: 10-15-2016 End: 10-15-2016 Follow Up Appt 1 year Follow Up Appt 1 year [facility] Phone: Start: 10-15-2016 End: 10-15-2016 PFM PFM [facility] Work Phone: Start: 10-15-2016 End: 10-18-2016 Cardiovascular stress test using treadmill Treadmill stress test (no imaging) [facility] Work Phone: Start: 10-15-2016 End: 10-15-2016 Echocardiography Echocardiogram (complete) [facility] Work Phone: Start: 10-15-2016 End: 10-15-2016 Electrocardiogram, complete EKG (In office) [facility] Work Phone: Start: 10-15-2016 End: 10-15-2016 Follow Up Appt 1 year Follow Up Appt 1 year [facility] Work Phone: Start: 10-15-2016 End: 10-15-2016 PFM PFM [facility] Work Phone: Start: 10-05-2016 End: 10-05-2016 Follow Up Appt 1 year Follow Up Appt 1 year [facility] Work Phone: Start: 10-05-2016 End: 10-05-2016 Follow Up Appt 1 year Follow Up Appt 1 year [facility] Work Phone: Start: 06-14-2016 End: 10-01-2016 Pulmonary Function Test - complete Pulmonary Function Test - complete [facility] Work Phone: Start: 06-14-2016 End: 10-01-2016 Pulmonary Function Test - complete Pulmonary Function Test - complete [facility] Work Phone: Start: 04-01-2016 End: 04-01-2016 Follow Up Appt 6 months Follow Up Appt 6 months [facility] Work Phone: Start: 04-01-2016 End: 04-01-2016 Follow Up Appt 6 months Follow Up Appt 6 months [facility] Work Phone: Start: 03-05-2016 End: 03-13-2016 Assay of ferritin Ferritin [facility] Work Phone: Start: 03-05-2016 End: 03-13-2016 Assay of ferritin Ferritin [facility] Work Phone: Start: 02-17-2016 End: 10-01-2016 Follow Up Appt 3 months Follow Up Appt 3 months [facility] Work Phone: Start: 02-17-2016 End: 10-01-2016 Pulmonary Function Test - complete Pulmonary Function Test - complete [facility] Work Phone: Start: 02-17-2016 End: 10-01-2016 Follow Up Appt 3 months Follow Up Appt 3 months [facility] Work Phone: Start: 02-17-2016 End: 10-01-2016 Pulmonary Function Test - complete Pulmonary Function Test - complete [facility] Work Phone: Lipid 1996 panel - S monalisa or Plasma [facility] Patient referral [facility] Work Phone: [facility] Payers Date Payer Category Payer Unknown [id number] 2024 Self-pay [id number] 2015 Unknown [id number] Self-pay 0 Unknown [id number] 2.16.8 [id number] Unknown [id number] 2.16.8 [id number] Unknown [id number] 2.16.8 [id number] Unknown [id number] 2.16.8 [id number] Unknown [id number] 2.16.8 [id number] Unknown [id number] 2.16.8 40.1.106632.3.579.2.462 Unknown [id number] 2.16.8 40.1.866456.3.579.2.462 Unknown [id number] 2.16.8 40.1.341369.3.579.2.462 Unknown [id number] 2.16.8 40.1.725826.3.579.2.462 Unknown [id number] 2.16.8 40.1.314405.3.579.2.462 Unknown [id number] 2.16.8 40.1.005423.3.579.2.462 Unknown [id number] 2.16.8 40.1.050246.3.579.2.462 Unknown [id number] 2.16.8 40.1.386520.3.579.2.462 Unknown [id number] 2.16.8 40.1.578801.3.579.2.462 Unknown [id number] 2.16.8 40.1.709423.3.579.2.462 Unknown [id number] 2.16.8 40.1.874270.3.579.2.462 Unknown [id number] 2.16.8 40.1.426129.3.579.2.462 Unknown [id number] 2.16.8 40.1.544570.3.579.2.462 Unknown [id number] 2.16.8 40.1.510996.3.579.2.462 Unknown [id number] 2.16.8 40.1.674013.3.579.2.462 Unknown [id number] 2.16.8 40.1.922069.3.579.2.462 Unknown [id number] 2.16.8 40.1.850649.3.579.2.462 Unknown [id number] 2.16.8 40.1.069713.3.579.2.462 Unknown [id number] 2.16.8 40.1.243441.3.579.2.462 Unknown [id number] 2.16.8 40.1.017568.3.579.2.462 Unknown [id number] 2.16.8 [id number] Social History Date Type Detail Facility Start: 12-02-2021 End: 04-28-2023 Tobacco smoking status SDIS Unknown if ever smoked [facility] Start: 01-09-2021 Non-smoker [facility] Start: 1970 Sex Assigned At Male [facility] Start: 01-22-2025 End: 07-18-2025 Tobacco smoking status NHIS Never smoked tobacco (finding) [facility] Start: 02-01-2025 Sex Male (finding) [facility] Sex Male [facility] Goals Date Patient Goal Desired Activity /State Mental Status Date Assessment Result Facility 02-01-2025 Cognitive function Voice/Name [facility] Work Phone: Clinical Notes 11-06-2024 to 07-18-2025 Note Date & Type Note Facility 07-18-2025 History and physi rajani note [facility] 07-18-2025 Note [facility] Records Department [address] [place] [address] History Physical Exam 07/18/25 0916 MR#: [id number] Acct: [id number] Name: ISAURA RAMIREZ Rep #: [id number] : 1970 54 From: Jann Cedeno MD PCP: DASHA Pitts Status:[facility]: [facility] HPI - General HPI Narrative ISAURA RAMIREZ, is a 54 M who presents right lower extremity painful/pruritic varicose veins on anterior lower leg. He had a prior GSV ablation which did not resolve his symptoms and they have been refractory to compression. Venous duplex reveals varicose veins originating from inferior aspect of accessory saphenous vein in thigh. [facility] Medical History Wears glasses History of steroid [...] Medications ???Medication ???Instructions ???Recorded ???Last Taken ???Type atorvastatin 10 mg tablet 10 mg PO QDAY #90 tabs 06/06/23 Rx fluticasone fur. 200 mcg-umeclid 1 inh inhalation DAILY #3 ea 11/0607/18/25 Rx 62.5 mcg-vilant 25 mcg inhalat.powder (Trelegy Ellipta) dupilumab 300 mg/2 mL subcutaneous 300 mg (2 mL) subcut Q2W #4 mL 0 11/21/24 01/31/25 Rx pen injector (Dupixent) pramipexole 1 mg tablet 1 mg PO QHS #90 tabs 06/25/25 Unkn own Rx aspirin 81 mg tablet,delayed 81 mg PO DAILY 07/17/25 07/17/25 H istory release (Adult Low Dose Aspirin) Allergy/AdvReac Type Severity Reaction Status Date / Time iodine Allergy Anaphylaxis Verified 06/13/25 15:22 Family History Grandmother Myocardial infarction, Onset Age: 40 x3 SC's Father Alcoholism Mother Breast cancer Aunt Cancer Breast cancer Grandmother Diabetes Grandfather Heart disease Surgical History H/O blepharoplasty Hx of surgical procedure Hx of colonoscopy H/O knee surgery History of nasal surgery Social History Smoking Status: Never smoker alcohol intake: current substance use type: does not use additional social history: uses aspirin and ibuprofen as needed ROS Constitutional Constitutional: Denies chills, fever(s), frequent falls, lethargy or weakness Eyes Eyes: Denies blind spots, change in vision or loss of vision ENT HEENT: Denies bleeding gums, hoarseness or sore throat Cardiovascular Cardiovascular: Denies abdominal pain, bluish discoloration of hand/feet, chest pain with activity, claudication, cold extremities, cyanosis, dyspnea on exertion, erythema on extremities, irregular heart rhythm, leg edema, leg ulcers, numbness in extremities or weakness in extremities Respiratory/Chest Respiratory/Chest: Denies cough, excessive phlegm production, shortness of breath at rest, shortness of breath with exertion or wheezing Gastrointestinal Gastrointestinal: Denies anorexia, change in stool character, constipation, diarrhea, melena or rectal bleeding Genitourinary Genitourinary: Denies dysuria or hematuria Musculoskeletal Musculoskeletal: Denies abnormal gait Integumentary Integumentary: Reports other Details: ; Denies erythema, non-healing lesions or wounds Neurologic Neurologic: Denies abnormal speech, focal weakness, headache(s), loss of vision, numbness, paresthesias or sensory deficit Hematologic/Lymphatic Hematologic/Lymphatic: Denies easy bleeding, easy bruising or lymphadenopathy Vital Signs Vital Signs Vital Signs: Weight Weight: 232 lb Body Mass Index (BMI) 32.3 Physical Exam Const alert, oriented x3, no apparent distress and healthy appearing General Appearance: cooperative; Negative for combative or lethargic Orientation / Consciousness: awake Exam Limitations: no limitations HEENT Head and Scalp: normocephalic and atraumatic Eyes EOMs intact bilaterally General Eye: normal appearance of both eyes Neck full ROM General: trachea midline Resp normal respiratory effort and no use of accessory muscles Effort and Inspection: Negative for labored, stridor or audible wheezes Cardio regular rate and regular rhythm Back/Spine Cervical Spine: cervical ROM normal Extremity full ROM, normal capillary refill and no clubbing, cyanosis or edema Skin no rashes or lesions noted (more content not included)... [facility] 05-15-2025 Evaluation note Diagnosis Onset Date Resolution Varicose veins with inflammation chronic May 15, 2025 3 :25pm Asthma chronic June 13 3:17pm Obesity chronic June 13 3:17pm TIESHA (obstructive sleep apnea) chronic June 13, 2025 3:17pm Varicose veins with inflammation chronic July 18, 2 025 7:22am [facility] Work Phone: 1(596) 104-447305-20-2025 Evaluation note* Diagnosis Onset Date Resolution Status Admit Date Venous insufficiency acute April 02, 2025 8:58am Pruritus noneactive April 02, 2025 8:58am Varicose veins with inflammation chronic May 15, 2025 3 :25pm Asthma chronic June 13 3:17pm Obesity chronic June 13 3:17pm TIESHA (obstructive sleep apnea) chronic June 13, 2025 3:17pm Varicose veins with inflammation chronic July 18, 2 025 7:22am [facility] Work Phone: 1([phone]) [phone] Evaluation note* Diagnosis Onset Date Resolution Status Admit Date Status post blepharoplasty acute February 19, 2025 3:25pm Venous insufficiency acute April 02, 2025 8:58am Pruritus noneactive April 02, 2025 8:58am Varicose veins with inflammation chronic May 15, 2025 3 :25pm Asthma chronic June 13 3:17pm Obesity chronic June 13 3:17pm TIESHA (obstructive sleep apnea) chroni c June 13, 2025 3:17pm [facility] Work Phone: 1(612) 938-570703-21-2025 History and physical note [facility] Medical Records Department [address] [place] [address] History & Physical Exam 02/01/25 0916 MR#: [id number] Acct: [id number] Name: ISAURA RAMIREZ Rep #:[id number] : 1970 54 From: Tatianna Whipple MD PCP: DASHA Pitts Status:[facility] Location: [place] [address] History and Physical Date of Admission: 02/01/25 The patient is examined and there are no changes to the H&P dated 01/28/2025. Informed consent was obtained for bilateral upper blepharoplasty. He is marked in the preop holdingarea prior to surgery. Assessment & Plan Assessment/Plan (1) Visual field defect: (2) Dermatochalasis of both upper eyelids: PLAN: Plan Patient for bilateral upper blepharoplasty. 02/01/25 0916 Cosigner Signature (if applicable): CC: DASHA Navarrete; Dr. Tatianna Whipple MD~ Signed [facility]03-21-2025 Consult note Author Marline Marcum [facility] Note Date/Time February 01, 2025 11: 28am [facility] Medical Records Department [address] [place] [address] Anesthesia Postop Eval I 02/01/25 1127 MR#: [id number] Acct: [id number] Name: ISAURA RAMIREZ Rep #:[id number] : 1970 54 From: Marline Marcum CRNA PCP: DASHA Pitts Status:REG SDC Y Race: C Location: [place] [address] Anesthesia: Postop Eval I Current Vital Signs Temperature: 97.0 F Pulse Rate: 89 Blood Pressure: 130/84 Respiratory Rate: 20 Pulse Ox: 100 Assessment Airway patent: Yes Spontaneous unlabored respirations: Yes nausea: No Vomiting: No Anesthesia Complication: No Fluid Hydration Crystalloid volume administer (ml): 1,100 Total IV fluid infused: 1,100 Progress Note Anesthesia document: Postop Eval 1 completed: Yes 02/01/258 <Electronically signed by Marline leach CRNA> Date _ Marline Marcum CONTAINER FILLER Cosigner Signature: Date CC: ~ Signed [facility] Work Phone: 1([phone]) 421-809003-21-2025 Discharge summary Author Tatianna Whipple [facility] Note Date/Time February 01, 2025 11: 13am [facility] Medical Records Department [address] [place] [address] Instructions for Home/Discharge Instructions 02/01/25 1112 MR#: [id number] Acct: [id number] Name: ISAURA RAMIREZ Rep #:[id number] : 1970 54 From: Tatianna Whipple MD PCP: DASHA Pitts Status:[facility] Discharge Instructions Dressing / Incision Additional Dressing/Incision [...] Care Provider: Anju Navarrete Instructions Print Language: Syrian Discharge Orders/Prescriptions Prescriptions: No Action Trelegy Ellipta [...] by Tatianna Whipple MD>Tatianna Whipple MD CC: MUSEUM DOCENT-C Anju Navarrete ~ Signed [facility] Work Phone: 1(695) 978-342003-21-2025 Discharge summary Author Tatianna Whipple [facility] Note Date/Time February 01, 2025 11: 12am [facility] Medical Records Department [address] [place] [address] Instructions for Home/Discharge Instructions 02/01/25 1111 MR#: [id number] Acct: [id number] Name: ISAURA RAMIREZ Rep #:[id number] : 1970 54 From: Tatianna Whipple MD PCP: DASHA Pitts Status:REG [facility] Discharge Instructions Dressing / Incision Additional Dressing/Incision [...] Care Provider: Anju Navarrete Instructions Print Language: Syrian Discharge Orders/Prescriptions Prescriptions: No Action Trelegy Ellipta [...] MD CC: KONGC Anju Navarrete ~ Signed [facility] Work Phone: 1(249) 747-932903-21-2025 Consult note [facility] Medical Records Department [address] [place] [address] Anesthesia Postop Eval II 02/01/25 1149 MR#: [id number] Acct: [id number] Name: ISAURA RAMIREZ Rep #:[id number] : 1970 54 From: Isidoro napoles MD PCP: DASHA Pitts Status:REG SDC Y Race: C Location: [place] [address] Anesthesia Postop Eval I Sum Postop Eval Completion status Anesthesia document: Postop Eval 1 completed: Yes Anesthesia Postop Eval I Summary Anesthesia Postop Eval I Summary: Anesthesia Postop Eval I: Assessment Summary Airway patent Yes 02/01/25 11:27 CONTAINER [email or web address] Spontaneous unlabored Yes 02/01/25 11:27 CONTAINER [email or web address] respirations Mental status nausea No 02/01/25 11:27 CONTAINER [email or web address] Vomiting No 02/01/25 11:27 CONTAINER [email or web address] Anesthesia Postop Eval I: Fluid Summary Crystalloid volume administer 1,100 02/01/25 11:27 CONTAINER [email or web address].JGEN (ml) Colloids volume administered ( ml) Blood Product volume administered (ml) Total IV fluid infused 1,100 02/01/25 11:27 CONTAINER [email or web address].JGEN Anesthesia Postop Eval I: Summary Notes Anesthesia Complication No 02/01/25 11:27 CONTAINER [email or web address] Anesthesia Complication Comment: Post-operative progress note Anesthesia: Postop Eval II Evaluation Mental status: Awake Pain Level: 1 nausea: No Vomiting: No Complications Anesthesia Complication: No 02/01/25 1150 lidya VO> Date _ Isidoro Mcclendon MD Cosigner Signature: Date CC: ~ Signed [facility]03-21-2025 Consult note [facility] Medical Records Department [address] [place] [address] Anesthesia Postop Eval I 02/01/25 1127 MR#: [id number] Acct: [id number] Name: RAMIREZISAURA STELLA Rep #:[id number] : 1970 54 From: Marline Marcum CRNA PCP: DASHA Pitts Status:REG [facility] Y Race: C Location: [place] [address] Anesthesia: Postop Eval I Current Vital Signs Temperature: 97.0 F Pulse Rate: 89 Blood Pressure: 130/84 Respiratory Rate: 20 Pulse Ox: 100 Assessment Airway patent: Yes Spontaneous unlabored respirations: Yes nausea: No Vomiting: No Anesthesia Complication: No Fluid Hydration Crystalloid volume administer (ml): 1,100 Total IV fluid infused: 1,100 Progress Note Anesthesia document: Postop Eval 1 completed: Yes 02/01/25 1128 y CONTAINER FILLER> Date _ Marline Marcum CONTAINER FILLER Cosigner Signature: Date CC: ~ Signed [facility]03-21-2025 Procedure note [facility] Medical Records Department [address] [place] [address] Operative Report 02/01/25 1113 MR#: [id number] Acct: [id number] Name: ISAURA RAMIREZ Rep #:[id number] : 1970 54 From: Tatianna Whipple MD PCP: DASHA Pitts Status:REG [facility] Location: [place] [address] Problems Associated Problem List Diagnoses (1) Dermatochalasis of both upper eyelids: (2) Visual field defect: Operative Report (Standard) Operative Information Date of Procedure: 02/01/25 Pre-Operative Diagnosis: Bilateral upper eyelid dermatochalasis and visual fieldlimitation. Post-Operative Diagnosis: Same Surgery/Procedure Performed: Bilateral upper blepharoplasty. wrapper opener: Yes Administrative Job Titles: Samira Jordan Tasks completed by first aid attendant: Retracting Type of Anesthesia: General RN Documented [...] asubcuticular fashion. The sutures anchored at the moravian and glabella using Mastisol and Steri-Strips. Erythromycin [...] DASHA Navarrete; Dr. Tatianna Whipple MD~ Signed [facility]03-21-2025 History and physical note Author Tatianna Whipple [facility] Note Date/Time February 01, 2025 1:4 5pm [facility] Medical Records Department [address] [place] [address] History & Physical Exam 02/01/25 0916 MR#: [id number] Acct: [id number] Name: ISAURA RAMIREZ Rep #:[id number] : 1970 54 From: Tatianna Whipple MD PCP: DASHA Pitts Status:REG [facility] Location: [place] [address] History and Physical Date of Admission: 02/01/25 [...] Whipple MD> Cosigner Signature (if applicable): CC: MUSEUM DOCENT-C Anju Navarrete; Dr. Tatianna Whipple MD~ Signed [facility] Work Phone: [phone]) [phone] Discharge summary [facility] Medical Records Department [address] [place] [address] Instructions for Home/Discharge Instructions 02/01/25 1112 MR#: [id number] Acct: [id number] Name: ISAURA RAMIREZ Rep #:[id number] : 1970 54 From: Tatianna Whipple MD PCP: DASHA Pitts Status:REG [facility] Discharge Instructions Dressing / Incision Additional Dressing/Incision [...] Care Provider: Anju Navarrete Instructions Print Language: Syrian Discharge Orders/Prescriptions Prescriptions: No Action Trelegy Ellipta [...] Self Care 02/01/25 1113Tatianna Whipple MD CC: MUSEUM DOCENT-C Anju Navarrete ~ Signed [facility]03-21-2025 Discharge summary [facility] Medical Records Department [address] [place] [address] Instructions for Home/Discharge Instructions 02/01/25 1111 MR#: [id number] Acct: [id number] Name: ISAURA RAMIREZ Rep #:[id number] : 1970 54 From: Tatianna Whipple MD PCP: DASHA Pitts Status:REG [facility] Discharge Instructions Dressing / Incision Additional Dressing/Incision [...] Care Provider: Anju Navarrete Instructions Print Language: Syrian Discharge Orders/Prescriptions Prescriptions: No Action Trelegy Ellipta [...] Self Care 02/01/25 1112Tatianna Whipple MD CC: KONGC Anju Navarrete ~ Signed [facility]03-21-2025 Consult note Author Isidoro Mcclendon [facility] Note Date/Time February 01, 2025 8:3 7am [facility] Medical Records Department [address] [place] [address] Pre-Anesthesia Evaluation 02/01/25 0831 MR#: [id number] Acct: [id number] Name: ISAURA RAMIREZ Rep #:[id number] : 1970 54 From: Isidoro napoles MD PCP: DASHA Pitts Status:REG [facility] Y Race: C Location: [place] [address] ASA Classification* ASA Classification ASA Classification: 2 [...] upper blepharoplasty Anesthesia History Anesthesia History - remanufacturing technician: Anesthesia History - remanufacturing technician Hx Hospitalization No 01/22/25 12:03 Any Problems [...] take am of surgery PONV PONV - remanufacturing technician: PONV - remanufacturing technician Female No 01/22/25 12:03 HX of Motion [...] 02/01/25 08:13 Respiratory Assessment Respiratory Assessment - remanufacturing technician: Respiratory Tract Infection Hx - remanufacturing technician Hx Respiratory Tract Infection No 01/22/25 12:03 STOP Sleep Apnea STOP Sleep Apnea - remanufacturing technician: STOP Sleep Apnea - remanufacturing technician Hx Hypertension No 01/22/25 12:03 Hx Sleep [...] Tobacco Use History Tobacco Use History - remanufacturing technician: Tobacco Use History - remanufacturing technician Tobacco Use Smoking Status Never smoker 01/22/25 12:03 Hx Tobacco Use No 01/22/25 12:03 Years Smoking Packs Smoked per Day Smoking Cessation Date was within the last 15 years Hx Smoking Cessation Date Hx Smoking Cessation Counseling Hematologic Medial History Hematologic Hx - remanufacturing 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 Hx of Blood Transfusion No 01/22/25 12:03 [...] confused, unrespo /Reproduction History /Reproductive History - remanufacturing technician: /Reproductive Hx- remanufacturing technician Hx Now Gestational Age (in weeks): EDC: [...] Grandmother Myocardial infarction, Onset Age: 40 x3 SC's Father Alcoholism Mother Breast cancer Aunt Cancer [...] MD Cosigner Signature: Date CC: ~ Signed [facility] Work Phone: 1(441) 276-659903-21-2025 [facility] Medical Records Department [address] [place] [address] History Physical Exam 02/01/25 0916 MR#: [id number] Acct: [id number] Name: ISAURA RAMIREZ Rep #: [id number] : 1970 54 From: Tatianna Whipple MD PCP: DASHA Pitts Status:REG [facility] Location: [place] [address] History and Physical Date of Admission: 02/01/25 The patient is examined and there are no changes to the H P dated 01/28/2025. Informed consent was obtained for bilateral upper blepharoplasty. He is marked in the preop holding area prior to surgery. Assessment Plan Assessment/Plan (1) Visual field defect: (2) Dermatochalasis of both upper eyelids: PLAN: Plan Patient for bilateral upper blepharoplasty. 02/01/25915 Cosigner Signature (if applicable): CC: MUSEUM DOCENT-C Anju Navarrete; Dr. 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 Hx Hospitalization No 01/22/25 12:03 Any Problems [...] take am of surgery PONV PONV - remanufacturing technician: PONV - remanufacturing technician Female No 01/22/25 12:03 HX of Motion [...] 02/01/25 08:13 Respiratory Assessment Respiratory Assessment - remanufacturing technician: Respiratory Tract Infection Hx - remanufacturing technician Hx Respiratory Tract Infection No 01/22/25 12:03 STOP Sleep Apnea STOP Sleep Apnea - remanufacturing technician: STOP Sleep Apnea - remanufacturing technician Hx Hypertension No 01/22/25 12:03 Hx Sleep [...] Tobacco Use History Tobacco Use History - remanufacturing technician: Tobacco Use History - remanufacturing technician Tobacco Use Smoking Status Never smoker 01/22/25 12:03 Hx Tobacco Use No 01/22/25 12:03 Years Smoking Packs Smoked per Day Smoking Cessation Date was within the last 15 years Hx Smoking Cessation Date Hx Smoking Cessation Counseling Hematologic Medial History Hematologic Hx - remanufacturing 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 Hx of Blood Transfusion No 01/22/25 12:03 [...] confused, unrespo /Reproduction History /Reproductive History - remanufacturing technician: /Reproductive Hx- remanufacturing technician Hx Now Gestational Age (in weeks): EDC: [...] Grandmother Myocardial infarction, Onset Age: 40 x3 SC's Father Alcoholism Mother Breast cancer Aunt Cancer [...] 02/01/25 0837 lidya VO> Date _ Isidoro Nolandignjose Signature: Date CC: ~ Signed [facility]03-12-2025 Evaluation note* Diagnosis Onset Date Resolution Status Admit Date Dermatochalasis of both uppe r eyelids acute [...] post blepharoplasty acute February 19, 2025 3:25pm Venous insufficiency acute April 02, 2025 8:58am Pruritus noneactive April 02, 2025 8:58am [email or web address] Work Phone: 1(295) 239-345102-17-2025 Evaluation note* Diagnosis Onset Date Resolution Status Admit Date Left knee pain acute December 152024 3:27pm Osteoarthritis of left knee acute December 31, 2024 3:27pm Dermatochalasis of both uppe r eyelids acute January 09, 2:57pm Visual field defect acute Febru shon2024 2:57pm Left knee pain acute December 162024 12:09pm Left tibial fracture acute uary 2024 12:09pm Osteoarthritis of left knee acute [...] post blepharoplasty acute February 19, 2025 3:25pm [email or web address] Work Phone: 1([phone]) [phone] Evaluation note* Diagnosis Onset Date Resolution Status Admit Date Left knee pain acute December 152024 3:27pm Osteoarthritis of left knee acute December 31, 2024 3:27pm Dermatochalasis of both uppe r eyelids acute January 09 025 2:57pm Visual field defect acute 2024 [...] post blepharoplasty acute February 19, 2025 3:25pm Venous insufficiency acute April 02, 2025 8:58am Pruritus noneactive April 02, 2025 8:58am [facility] Work Phone: 1([phone]) 654-515512-24-2024 Evaluation note* Diagnosis Onset Date Resolution Status [...] of both uppe r eyelids acute January 09 025 2:57pm Visual field defect acute 2024 [...] field defect acute February 01, 2025 7:50am [facility] Work Phone: Consult note Author Isidoro Mcclendon [facility] Note Date/Time February 01, 2025 11: 50am [facility] Medical Records Department [address] [place] [address] Anesthesia Postop Eval II 02/01/25 1149 MR#: [id number] Acct: [id number] Name: ISAURA RAMIREZ Rep #:[id number] : 1970 54 From: Isidoro napoles MD PCP: DASHA Pitts Status:REG [facility] Y Race: C Location: [place] [address] Anesthesia Postop Eval I Sum Postop Eval Completion status Anesthesia document: Postop Eval 1 completed: Yes Anesthesia Postop Eval I Summary Anesthesia Postop Eval I Summary: Anesthesia Postop Eval I: Assessment Summary Airway patent Yes 02/01/25 11:27 CONTAINER [email or web address] Spontaneous unlabored Yes 02/01/25 11:27 CONTAINER [email or web address] respirations Mental status nausea No 02/01/25 11:27 CONTAINER [email or web address] Vomiting No 02/01/25 11:27 CONTAINER [email or web address] Anesthesia Postop Eval I: Fluid Summary Crystalloid volume administer 1,100 02/01/25 11:27 CONTAINER [email or web address] (ml) Colloids volume administered ( ml) Blood Product volume administered (ml) Total IV fluid infused 1,100 02/01/25 11:27 CONTAINER [email or web address] Anesthesia Postop Eval I: Summary Notes Anesthesia Complication No 02/01/25 11:27 CONTAINER [email or web address] Anesthesia Complication Comment: Post-operative progress note Anesthesia: Postop Eval II Evaluation Mental status: Awake Pain Level: 1 nausea: No Vomiting: No Complications Anesthesia Complication: No 02/01/25 1150 <Electronically signed by Isidoro bose MD> Date _ Isidoro Mcclendon MD Cosigner Signature: Date CC: ~ Signed [facility] Work Phone: Evaluation noteNo assessment information available [facility] Work Phone: Evaluation note* Diagnosis Onset Date Resolution Status Asthma chronic TIESHA (obstructive sleep apnea) chronic Restless leg syndrome chroni c Hyperlipidemia chronic Varicose veins of lower extremity noneactive [facility] Work Phone: Evaluation note* Diagnosis Onset Date Resolution Status Hyperlipidemia chronic Varicose veins of lower extremity noneactive Varicose veins of lower extremity noneactive [facility] Work Phone: History and physical note Author Jann Cedeno [facility] Note Date/Time July 18, 2025 9:20am [facility] Medical Records Department [address] [place] [address] History & Physical Exam 07/18/2516 MR#: [id number] Acct: [id number] Name: ISAURA RAMIREZ Rep #:[id number] : 1970 54 From: Jann Cedeno MD PCP: DASHA Pitts Status:REG [facility] Location: [facility] HPI - General HPI Narrative ISAURA RAMIREZ, is a 54 M who presents right lower extremity painful/pruritic varicose veins on anterior lower leg. He had a prior GSV ablation which did not resolve his symptoms and they have been refractory to compression. Venous duplexreveals varicose veins originating from inferior aspect of accessory saphenous vein in thigh. [facility] Medical History Wears glasses History of steroid [...] mg PO QDAY #90 tabs 06/0601/31/25 Rx fluticasone fur. 200 mcg-umeclid 1 inh inhalation JOSÉ MANUEL Y #3 ea 11/06/24 07/18/25 Rx 62.5 mcg-vilant 25 mcg inhalat.powder (Trelegy Ellipta) dupilumab 300 mg/2 mL subcutaneous 300 mg (2 mL) subcu t Q2W #4 mL 11/21/24 01/31/25 Rx pen injector (Dupixent) pramipexole 1 mg tablet 1 mg PO QHS #90 tabs 5 Unknown Rx aspirin 81 mg tablet,delayed 81 mg PO DAILY 07/17/25 0 07/17/25 History release (Adult Low Dose Aspirin) Allergy/AdvReac Type Severity Reaction Status Date / Time iodine Allergy Anaphylaxis Verified 06/13/25 15:22 Family History Grandmother Myocardial infarction, Onset Age: 40 x3 SC's Father Alcoholism Mother Breast cancer Aunt Cancer Breast cancer Grandmother Diabetes Grandfather Heart disease Surgical History H/O blepharoplasty Hx of surgical procedure Hx of colonoscopy H/O knee surgery History of nasal surgery Social History Smoking Status: Never smoker alcohol intake: current substance use type: does not use additional social history: uses aspirin and ibuprofen as needed ROS Constitutional Constitutional: Denies chills, fever(s), frequent falls, lethargy or weakness Eyes Eyes: Denies blind spots, change in vision or loss of vision ENT HEENT: Denies bleeding gums, hoarseness or sore throat Cardiovascular Cardiovascular: Denies abdominal pain, bluish discoloration of hand/feet, chest pain with activity, claudication, cold extremities, cyanosis, dyspnea on exertion, erythema on extremities, irregular heart rhythm, leg edema, leg ulcers, numbness in extremities or weakness in extremities Respiratory/Chest Respiratory/Chest: Denies cough, excessive phlegm production, shortness of breath at rest, shortness of breath with exertion or wheezing Gastrointestinal Gastrointestinal: Denies anorexia, change in stool character, constipation, diarrhea, melena or rectal bleeding Genitourinary Genitourinary: Denies dysuria or hematuria Musculoskeletal Musculoskeletal: Denies abnormal gait Integumentary Integumentary: Reports other Details: ; Denies erythema, non-healing lesions or wounds Neurologic Neurologic: Denies abnormal speech, focal weakness, headache(s), loss of vision,numbness, paresthesias or sensory deficit Hematologic/Lymphatic Hematologic/Lymphatic: Denies easy bleeding, easy bruising or lymphadenopathy Vital Signs Vital Signs Vital Signs: Weight Weight: 232 lb Body Mass Index (BMI) 32.3 Physical Exam Const alert, oriented x3, no apparent distress and healthy appearing General Appearance: cooperative; Negative for combative or lethargic Orientation / Consciousness: awake Exam Limitations: no limitations HEENT Head and Scalp: normocephalic and atraumatic Eyes EOMs intact bilaterally General Eye: normal appearance of both eyes Neck full ROM General: trachea midline Resp normal respiratory effort and no use of accessory muscles Effort and Inspection: Negative for labored, stridor or audible wheezes Cardio regular rate and regular rhythm Back/Spine Cervical Spine: cervical ROM normal Extremity full ROM, normal capillary refill and no clubbing, cyanosis or edema Skin no rashes or lesions noted and no wounds Neuro oriented x3, CN's II-XII intact bilaterally, no focal motor deficits and no sensory deficits noted Psych thought process normal, cooperative, affect normal, speech normal and activity/motor behavior normal Assessment & Plan Assessment/Plan (1) Varicose veins with inflammation: PLAN: -foam ablation varicose vein cluster and ASV 07/18/25 0920 <Electronically signed by Jann Cedeno MD> Cosigner Signature (if applicable): CC: MUSEUM DOCENTArnold Navarrete; Dr. Jann Cedeno MD~ Signed [facility] Work Phone: Reason for referral (narrative)No reason for referral information availableWGerman [facility] Work Phone: Chief Complaint and Reason [...] January 10, 2025 12:09pm pre op #1 kulwinder upper bleph January 23 3:28pm pre #2 kulwinder upper bleph January 29, 2025 3:28pm Bilateral [...] 162024 12:09pm Dermatochalasis of both upper eyelids [facility] 2024 3:28pm Visual field defect January 23, 2025 3:2 8pm Dermatochalasis of both upper eyelids [facility] 2024 3:28pm Visual field defect January 29, 2025 3:2 8pm Dermatochalasis of both upper eyelids [facility] 2024 7:50am Visual field defect February 01, 2025 7:5 0am Chief Complaint Admit Date LEFT KNEE December 31, 2024 3:27pm LT KNEE MEDIAL PAIN, R/O MENISCUS TEAR F ebruary 2024 12:20pm UPPER BLEPH January 09, 2025 2:57pm LEFT KNEE January 10, 2025 12:09pm pre op #1 kulwinder upper bleph January 23 3:28pm pre #2 kulwinder upper bleph January 29, 2025 3:28pm Bilateral uppper blepharoplasty February 012024 7:50am Bilateral uppper blepharoplasty February 012024 9:16am post #1 kulwinder upper bleph February 12, 2025 10:24am post #2 kulwinder upper bleph February 19, 2025 3:25pm Itching [...] 162024 12:09pm Dermatochalasis of both upper eyelids [facility] 2024 3:28pm Visual field defect January 23, 2025 3:2 8pm Dermatochalasis of both upper eyelids [facility] 2024 3:28pm Visual field defect January 29, 2025 3:2 8pm Dermatochalasis of both upper eyelids [facility] 2024 7:50am Visual field defect February 01, 2025 7:5 0am Status post blepharoplasty February 12 10:24am Status post blepharoplasty February 19 3:25pm Chief Complaint Admit Date LEFT KNEE December 31, 2024 3:27pm LT KNEE MEDIAL PAIN, R/O MENISCUS TEAR F ebruary 2024 12:20pm UPPER BLEPH January 09, 2025 2:57pm LEFT KNEE January 10, 2025 12:09pm pre op #1 kulwinder upper bleph January 23 3:28pm pre #2 kulwinder upper bleph January 29, 2025 3:28pm Bilateral uppper blepharoplasty February 012024 7:50am Bilateral uppper blepharoplasty February 012024 9:16am post #1 kulwinder upper bleph February 12, 2025 10:24am post #2 kulwinder upper bleph February 19, 2025 3:25pm Itching where varicose veins were April 022024 8:58am Pain April 18, 2025 7:26a m Reason for Visit Admit Date Left knee [...] 162024 12:09pm Dermatochalasis of both upper eyelids [facility] 2024 3:28pm Visual field defect January 23, 2025 3:2 8pm Dermatochalasis of both upper eyelids [facility] 2024 3:28pm Visual field defect January 29, 2025 3:2 8pm Dermatochalasis of both upper eyelids [facility] 2024 7:50am Visual field defect February 01, 2025 7:5 0am Status post blepharoplasty February 12 10:24am Status post blepharoplasty February 19 3:25pm Venous insufficiency April 02, 2025 8:58 am Pruritus April 02, 2025 8:58a m Chief Complaint Admit Date pre op #1 kulwinder upper bleph January 23 3:28pm pre #2 kulwinder upper bleph January 29, 2025 3:28pm Bilateral uppper blepharoplasty February 012024 7:50am Bilateral uppper blepharoplasty February 012024 9:16am post #1 kulwinder upper bleph February 12, 2025 10:24am post #2 kulwinder upper bleph February 19, 2025 3:25pm Itching where varicose veins were April 022024 8:58am Pain April 18, 2025 7:26a m Discuss results May 15, 2025 3:25p m Reason for Visit Admit Date Dermatochalasis of both upper eyelids [facility] 2024 3:28pm Visual field defect January 23, 2025 3:2 8pm Dermatochalasis of both upper eyelids [facility] 2024 3:28pm Visual field defect January 29, 2025 3:2 8pm Dermatochalasis of both upper eyelids [facility] 2024 7:50am Visual field defect February 01, 2025 7:5 0am Status post blepharoplasty February 12 10:24am Status post blepharoplasty February 19 3:25pm Venous insufficiency April 02, 2025 8:58 am Pruritus April 02, 2025 8:58a m Chief Complaint Admit Date post #2 kulwinder upper bleph February 19, 2025 3:25pm Itching where varicose veins were April 022024 8:58am Pain April 18, 2025 7:26a m Discuss results May 15, 2025 3:25p m 6 M FU June 13, 2025 3:17 pm Reason for Visit Admit Date Status post blepharoplasty February 19 3:25pm Venous insufficiency April 02, 2025 8:58 am Pruritus April 02, 2025 8:58a m Varicose veins with inflammation May 3:25pm Asthma June 13, 2025 3:17 pm Obesity June 13, 2025 3:17 pm TIESHA (obstructive sleep apnea) June 13, 2025 3:17pm Chief Complaint Admit Date Itching where varicose veins were April 022024 8:58am Pain April 18, 2025 7:26a m Discuss results May 15, 2025 3:25p m 6 M FU June 13, 2025 3:17 pm Varicose veins of unspecified lower extr emity with July 18, 2025 7:22am Varicose veins of unspecified lower extr emity with July 18, 2025 9:16am Reason for Visit Admit Date Venous insufficiency April 02, 2025 8:58 am Pruritus April 02, 2025 8:58a m Varicose veins with inflammation May 3:25pm Asthma June 13, 2025 3:17 pm Obesity June 13, 2025 3:17 pm TIESHA (obstructive sleep apnea) June 13, 2025 3:17pm Varicose veins with inflammation Septemb er 2024 7:22am Chief Complaint Admit Date Itching where varicose veins were April 022024 8:58am Pain April 18, 2025 7:26a m Discuss results May 15, 2025 3:25p m 6 M FU June 13, 2025 3:17 pm Varicose veins of unspecified lower extr emity with July 18, 2025 7:22am Varicose veins of unspecified lower extr emity with July 18, 2025 9:16am RLE S/P FOAM PROCEDURE July 23 8:59am Chief Complaint Admit Date Pain April 18, 2025 7:26a m Discuss results May 15, 2025 3:25p m 6 M FU June 13, 2025 3:17 pm Varicose veins of unspecified lower extr emity with July 18, 2025 7:22am Varicose veins of unspecified lower extr emity with July 18, 2025 9:16am RLE S/P FOAM PROCEDURE July 23 8:59am Post R Foam Ablation 2-4 WK FU August 01, 2025 10:10am Reason for Visit Admit Date Varicose veins with inflammation May 3:25pm Asthma June 13, 2025 3:17 pm Obesity June 13, 2025 3:17 pm TIESHA (obstructive sleep apnea) June 13, 2025 3:17pm Varicose veins with inflammation Septemb er 2024 7:22am Family History No Family History Records Found [...] 21, 2015 1:36pm Living Will No January 09, 021 10:33am Power of Account [employer] No January 09, 2021 10:33am Advance Directive Response Recorded Date/ Time Advance Directives No April 28 8:41am Living Will No April 28, 2023 8:41am Power of Account [employer] No April 28 8:41am Advance Directive Response Recorded Date/ Time Living Will No April 28, 2023 8:41am Do you have a Healthcare Power of Account [employer]? No April 28, 2023 8:41am Advance Directives No December 4:43pm Living Will No January 22, 2025 12:03pm Do you have a Healthcare Power of Account [employer]? No January 22, 2025 12:03pm Advance Directive Response Recorded Date/ Time Advance Directives No March 21, 2025 8:49am Living Will No January 22, 2025 12:03pm Do you have a Healthcare Power of Account [employer]? No January 22, 2025 12:03pm Advance Directive Response Recorded Date/ Time Advance Directives No March 21, 2025 8:49am Advance Directive Response Recorded Date/ Time Living Will No July 18 7:53am Do you have a Healthcare Power of Account [employer]? No July 18, 2025 7:53am Advance Directives No July 7:53am Summary Purpose Additional Source Comments Goals (unrecognized [...] Dr. Jamel Pena MD Family Provider Active Will Mondragon [employer] DOC[employer], [employer]UM DOCENT-C Primary Care Provider Active Team Status: Inactive Member Role Status Dates Will Mondragon [employer] DOCENT, [employer]UM DOCENT-C Primary Care Provider, Referr ing Provider Active Dr. Nnamdi Mondragon MD Attending Provider Active Team Status: Inactive Member Role Status Dates Will Maicoer [employer] DOCENT, MUSEUM DOCENT-C Primary Care Provider, Referr ing Provider Active Dr. Isaac Allred MD Attending Provider Active Team Status: Active Member Role Status Dates Will Maicoer MUSEUM DOCENT, MUSEUM DOCENT-C Primary Care Provider Active Janee Palma Attending Provider Active Team Status: Inactive Member Role Status Dates Will Maicoer MUSEUM DOCENT, MUSEUM DOCENT-C Primary Care Provider, Referr ing Provider Active Terra KEARNEY PA Attending Provider Active Team Status: Active Member Role Status Dates Will Ninaer MUSEUM DOCENT, MUSEUM DOCENT-C Primary Care Provider Active Dr. Jann Cedeno MD Attending Provider Active Team Status: Inactive Member Role Status Dates Will Maicoer MUSEUM DOCENT, MUSEUM DOCENT-C Primary Care Provider Active Terra KEARNEY PA Attending Provider, Referrin g Provider Active Team Status: Inactive Member Role Status Dates Will Helrheaer MUSEUM DOCENT, MUSEUM DOCENT-C Primary Care Provider, Referr ing Provider Active CAIO Coates Attending Provider Active Team Status: Active Member Role Status Dates Will Mondragon MUSEUM DOCENT, MUSEUM DOCENT-C Primary Care Provider Active Dr. Jann Cedeno MD Attending Provider Active CAIO Coates Referring Provider Active Team Status: Inactive Member Role Status Dates Will Maicoer MUSEUM DOCENT, MUSEUM DOCENT-C Primary Care Provider Active CAIO Coates Attending Provider, Referring Provider Active Team Status: Inactive Member Role Status Dates Will Maicoer MUSEUM DOCENT, MUSEUM DOCENT-C Primary Care Provider Active Dr. Jann Cedeno MD Attending Provider, Referring Pro vider Active Team Status: Active Member Role Status Dates Anju Navarrete [employer]-C Primary Care Provider Active Team Status: Inactive Member Role Status Dates Katja Spence NP, [employer] DOCENT-C Attending Provider Active Start: November 06, 2024 [...] Inactive Member Role Status Dates Anju Navarrete [employer]-C Primary Care Provider Active Start: December 22, 2024 End: December 22, 2024 Anju Navarrete [employer]ENT-C Attending Provider Active St art: December 22, 2024 End: December 22, 2024 Anju Navarrete [employer] DOCENT-C Referring Provider Active St art: December 22, 2024 End: December 22, 2024 Team Status: Inactive Member Role Status Dates Anju Navarrete M[employer]UM DOCENT-C Primary Care Provider Active Start: December 31, 2024 End: December 31, 2024 Anju Navarrete MUSEUM DOCENT-C Referring Provider Active St art: December 31, [...] Inactive Member Role Status Dates Anju Navarrete MUSEUM DOCENT-C Primary Care Provider Active Start: January 09, 2025 End: January 09, 2025 Anju Navarrete NP-C Referring Provider Active St art: January 09, 2025 End: January 09, 2025 Dr. Tatianna Whipple MD Attending Provider Active Start: January 09, 2025 End: January 09, 2025 Team Status: Inactive Member Role Status Dates Anju Navarrete M[employer] DOCENT-C Primary Care Provider Active Start: January 10, [...] NP-C Referring Provider Active St art: January 29, [...] Active Member Role Status Dates Anju Navarrete NP-C [...] Inactive Member Role Status Dates Anju Navarrete , [employer] DOCENT-C Primary Care Provider Active Start: February 19, 2025 End: February 19, 2025 Anju Navarrete , [employer]UM DOCENT-C Referring Provider Active St art: February 19, 2025 End: February 19, 2025 Dr. Tatianna Whipple MD Attending Provider Active Start: February 19, 2025 End: February 19, 2025 Team Status: Inactive Member Role Status Dates Anju Landon , [employer] DOCENT-C Primary Care Provider Active Start: April 02, 2025 End: April 02, 2025 Anju Navarrete , [employer]UM DOCENT-C Referring Provider Active St art: April 02, 2025 End: April 02, 2025 CAIO Dominguez Attending Provider Active Star t: April 02, 2025 End: April 02, 2025 Team Status: Inactive Member Role Status Dates Anjutraci Navarrete , [employer]UM DOCENT-C Primary Care Provider Active Start: April 18, 2025 End: April 18, 2025 CAIO Dominguez Attending Provider Active Star t: April 18, 2025 End: April 18, 2025 CAIO Dominguez Referring Provider Active Star t: April 18, 2025 End: April 18, 2025 Team Status: Active Member Role Status Dates Anju Navarrete , [employer] DOCENT-C Primary Care Provider Active Start: April 18, 2025 Dr. Jann Cedeno MD Attending Provider Active S tart: April 18, 2025 Team Status: Active Member Role/Relationship Status Dates Anju Navarrete , [employer] DOCENT-C Primary Care Provider Active Team Status: Inactive Member Role/Relationship Status Dates Anjutraci Navarrete , MUSEUM DOCENT-C Referring Provider Active St art: January 23, 2025 End: January 23, 2025 Dr. Tatianna Whipple MD Attending Provider Active Start: January 23, 2025 End: January 23, 2025 Team Status: Inactive Member Role/Relationship Status Dates Anju Navarrete , MUSEUM DOCENT-C Referring Provider Active St art: January 29, 2025 End: January 29, 2025 Dr. Tatianna Whipple MD Attending Provider Active Start: January 29, 2025 End: January 29, 2025 Team Status: Inactive Member Role/Relationship Status Dates Anju Landon , [employer]-C Primary Care Provider Active Start: February 01, 2025 End: February 01, 2025 Dr. Tatianna Whipple MD Attending Provider Active Start: February 01, 2025 End: February 01, 2025 Dr. Tatianna Whipple MD Referring Provider Active Start: February 01, 2025 End: February 01, 2025 Team Status: Active Member Role/Relationship Status Dates Anju Navarrete M[employer] DOCENT-C Primary Care Provider Active Start: February 01, 2025 Dr. Tatianna Whipple MD Attending Provider Active Start: February 01, 2025 Dr. Tatianna Whipple MD Referring Provider Active Start: February 01, 2025 Dr. Tatianna Whipple MD Other Provider Active St art: February 01, 2025 Team Status: Inactive Member Role/Relationship Status Dates Anju Navarrete [employer]-C Primary Care Provider Active Start: February 12, 2025 End: February 12, 2025 Anju Navarrete , [employer]ENT-C Referring Provider Active St art: February 12, 2025 End: February 12, 2025 Dr. Tatianna Whipple MD Attending Provider Active Start: February 12, 2025 End: February 12, 2025 Team Status: Inactive Member Role/Relationship Status Dates Anju Navarrete , [employer]ENT-C Primary Care Provider Active Start: February 19, 2025 End: February 19, 2025 Anju Navarrete , [employer] DOCENT-C Referring Provider Active St art: February 19, 2025 End: February 19, 2025 Dr. Tatianna Whipple MD Attending Provider Active Start: February 19, 2025 End: February 19, 2025 Team Status: Inactive Member Role/Relationship Status Dates Anju Navarrete M[employer] DOCENT-C Primary Care Provider Active Start: April 02, 2025 End: April 02, 2025 Anju Navarrete , MUSEUM DOCENT-C Referring Provider Active St art: April 02, 2025 End: April 02, 2025 CAIO Dominguez Attending Provider Active Star t: April 02, 2025 End: April 02, 2025 Team Status: Inactive Member Role/Relationship Status Dates Anjutraci Navarrete , M[employer] DOCENT-C Primary Care Provider Active Start: April 18, 2025 End: April 18, 2025 CAIO Dominguez Attending Provider Active Star t: April 18, 2025 End: April 18, 2025 CAIO Dominguez Referring Provider Active Star t: April 18, 2025 End: April 18, 2025 Team Status: Active Member Role/Relationship Status Dates Anju Navarrete , M[employer] DOCENT-C Primary Care Provider Active Start: April 18, 2025 Dr. Jann Cedeno MD Attending Provider Active S tart: April 18, 2025 CAIO Dominguez Referring Provider Active Star t: April 18, 2025 Team Status: Inactive Member Role/Relationship Status Dates Anjutraci Navarrete , M[employer] DOCENT-C Primary Care Provider Active Start: May 15, 2025 End: May 15, 2025 Anju Navarrete , M[employer] DOCENT-C Referring Provider Active St art: May 15, 2025 End: May 15, 2025 Dr. Jann Cedeno MD Attending Provider Active S tart: May 15, 2025 End: May 15, 2025 Team Status: Inactive Member Role/Relationship Status Dates Anjutraci Navarrete , [employer]-C Primary Care Provider Active Start: February 19, 2025 End: February 19, 2025 Anjutraci Navarrete , [employer]ENT-C Referring Provider Active St art: February 19, 2025 End: February 19, 2025 Dr. Tatianna Whipple MD Attending Provider Active Start: February 19, 2025 End: February 19, 2025 Team Status: Inactive Member Role/Relationship Status Dates Anjutraci Navarrete , [employer]-C Primary Care Provider Active Start: April 02, 2025 End: April 02, 2025 Anju Navarrete , [employer] DOCENT-C Referring Provider Active St art: April 02, 2025 End: April 02, 2025 CAIO Dominguez Attending Provider Active Star t: April 02, 2025 End: April 02, 2025 Team Status: Inactive Member Role/Relationship Status Dates Anju Navarrete , [employer]ENT-C Primary Care Provider Active Start: April 18, 2025 End: April 18, 2025 CAIO Dominguez Attending Provider Active Star t: April 18, 2025 End: April 18, 2025 CAIO Dominguez Referring Provider Active Star t: April 18, 2025 End: April 18, 2025 Team Status: Active Member Role/Relationship Status Dates Anjutraci Navarrete , [employer]ENT-C Primary Care Provider Active Start: April 18, 2025 Dr. Jann Cedeno MD Attending Provider Active S tart: April 18, 2025 CAIO Dominguez Referring Provider Active Star t: April 18, 2025 Team Status: Inactive Member Role/Relationship Status Dates Anju Landon , [employer] DOCENT-C Primary Care Provider Active Start: May 15, 2025 End: May 15, 2025 Anju Navarrete , [employer] DOCENT-C Referring Provider Active St art: May 15, 2025 End: May 15, 2025 Dr. Jann Cedeno MD Attending Provider Active S tart: May 15, 2025 End: May 15, 2025 Team Status: Inactive Member Role/Relationship Status Dates Anju Navarrete , [employer]-C Primary Care Provider Active Start: June 13, 2025 End: June 13, 2025 Anju Navarrete , [employer]ENT-C Referring Provider Active St art: June 13, 2025 End: June 13, 2025 Katja Spence NP, [employer]ENT-C Attending Provider Active Start: June 13, 2025 End: June 13, 2025 Team Status: Inactive Member Role/Relationship Status Dates Anju Landon , [employer] DOCENT-C Primary Care Provider Active Start: April 02, 2025 End: April 02, 2025 Anju Navarrete , [employer] DOCENT-C Referring Provider Active St art: April 02, 2025 End: April 02, 2025 CAIO Dominguez Attending Provider Active Star t: April 02, 2025 End: April 02, 2025 Team Status: Inactive Member Role/Relationship Status Dates Anjutraci Navarrete , [employer] DOCENT-C Primary Care Provider Active Start: April 18, 2025 End: April 18, 2025 CAIO Dominguez Attending Provider Active Star t: April 18, 2025 End: April 18, 2025 CAIO Dominguez Referring Provider Active Star t: April 18, 2025 End: April 18, 2025 Team Status: Active Member Role/Relationship Status Dates Anju Navarrete , [employer] DOCENT-C Primary Care Provider Active Start: April 18, 2025 Dr. Jann Cedeno MD Attending Provider Active S tart: April 18, 2025 CAIO Dominguez Referring Provider Active Star t: April 18, 2025 Team Status: Inactive Member Role/Relationship Status Dates Anju Navarrete , [employer]-C Primary Care Provider Active Start: May 15, 2025 End: May 15, 2025 Anju Navarrete , [employer] DOCENT-C Referring Provider Active St art: May 15, 2025 End: May 15, 2025 Dr. Jann Cedeno MD Attending Provider Active S tart: May 15, 2025 End: May 15, 2025 Team Status: Inactive Member Role/Relationship Status Dates Anju Navarrete , [employer]-C Primary Care Provider Active Start: June 13, 2025 End: June 13, 2025 Anju Navarrete [employer]-C Referring Provider Active St art: June 13, 2025 End: June 13, 2025 Katja Spence NP, [employer]-C Attending Provider Active Start: June 13, 2025 End: June 13, 2025 Team Status: Inactive Member Role/Relationship Status Dates Anju Navarrete , [employer]-C Primary Care Provider Active Start: July 18, 2025 End: July 18, 2025 Dr. Jann Cedeno MD Attending Provider Active S tart: July 18, 2025 End: July 18, 2025 Dr. Jann Cedeno MD Referring Provider Active S tart: July 18, 2025 End: July 18, 2025 Team Status: Active Member Role/Relationship Status Dates Anju Navarrete , [employer]-C Primary Care Provider Active Start: July 18, 2025 Dr. Jann Cedeno MD Attending Provider Active S tart: July 18, 2025 Dr. Jann Cedeno MD Referring Provider Active S tart: July 18, 2025 Dr. Jann Cedeno MD Other Provider Active Start : July 18, 2025 Team Status: Active Member Role/Relationship Status Dates Anju Navarrete , [employer]-C Primary care physician Active Team Status: Inactive Member Role/Relationship Status Dates Anju Navarrete , [employer]-C Primary care physician Active Start: April 02, 2025 End: April 02, 2025 Anju Navarrete , [employer]-C Referring Provider Active St art: April 02, 2025 End: April 02, 2025 CAIO Dominguez Attending physician Active Sta rt: April 02, 2025 End: April 02, 2025 Team Status: Inactive Member Role/Relationship Status Dates Anju Navarrete , [employer]-C Primary care physician Active Start: April 18, 2025 End: April 18, 2025 CAIO Dominguez Attending physician Active Sta rt: April 18, 2025 End: April 18, 2025 CAIO Dominguez Referring Provider Active Star t: April 18, 2025 End: April 18, 2025 Team Status: Active Member Role/Relationship Status Dates Anju Navarrete , [employer]-C Primary care physician Active Start: April 18, 2025 Dr. Jann Cedeno MD Attending physician Active Start: April 18, 2025 CAIO Dominguez Referring Provider Active Star t: April 18, 2025 Team Status: Inactive Member Role/Relationship Status Dates Anju Navarrete , [employer]-C Primary care physician Active Start: May 15, 2025 End: May 15, 2025 Anjutraci Navarrete , [employer]-C Referring Provider Active St art: May 15, 2025 End: May 15, 2025 Dr. Jann Cedeno MD Attending physician Active Start: May 15, 2025 End: May 15, 2025 Team Status: Inactive Member Role/Relationship Status Dates Anju Navarrete , [employer]-C Primary care physician Active Start: June 13, 2025 End: June 13, 2025 Anju Navarrete , [employer]-C Referring Provider Active St art: June 13, 2025 End: June 13, 2025 Katja Spence NP, [employer]-C Attending physician Active Start: June 13, 2025 End: June 13, 2025 Team Status: Inactive Member Role/Relationship Status Dates Anju Navarrete , [employer]-C Primary care physician Active Start: July 18, 2025 End: July 18, 2025 Dr. Jann Cedeno MD Attending physician Active Start: July 18, 2025 End: July 18, 2025 Dr. Jann Cedeno MD Referring Provider Active S tart: July 18, 2025 End: July 18, 2025 Team Status: Active Member Role/Relationship Status Dates Anju Navarrete , [employer]-C Primary care physician Active Start: July 18, 2025 Dr. Jann Cedeno MD Attending physician Active Start: July 18, 2025 Dr. Jann Cedeno MD Referring Provider Active S tart: July 18, 2025 Dr. Jann Cedeno MD Nurse Practitioner Active S tart: July 18, 2025 Team Status: Inactive Member Role/Relationship Status Dates Anju Navarrete , [employer] Primary care physician Active Start: July 23, 2025 End: July 23, 2025 Dr. Jann Cedeno MD Attending physician Active Start: July 23, 2025 End: July 23, 2025 Dr. Jann Cedeno MD Referring Provider Active S tart: July 23, 2025 End: July 23, 2025 Team Status: Active Member Role/Relationship Status Dates Anju Navarrete , [employer] Primary care physician Active Start: July 23, 2025 Dr. Jann Cedeno MD Attending physician Active Start: July 23, 2025 Team Status: Inactive Member Role/Relationship Status Dates Anju Navarrete , [employer] Primary care physician Active Start: April 18, 2025 End: April 18, 2025 CAIO Dominguez Attending physician Active Sta rt: April 18, 2025 End: April 18, 2025 CAIO Dominguez Referring Provider Active Star t: April 18, 2025 End: April 18, 2025 Team Status: Active Member Role/Relationship Status Dates Anju Navarrete , [employer] Primary care physician Active Start: April 18, 2025 Dr. Jann Cedeno MD Attending physician Active Start: April 18, 2025 CAIO Dominguez Referring Provider Active Star t: April 18, 2025 Team Status: Inactive Member Role/Relationship Status Dates Anju Landon , [employer] Primary care physician Active Start: May 15, 2025 End: May 15, 2025 Anjutraci Navarrete , [employer] Referring Provider Active St art: May 15, 2025 End: May 15, 2025 Dr. Jann Cedeno MD Attending physician Active Start: May 15, 2025 End: May 15, 2025 Team Status: Inactive Member Role/Relationship Status Dates Anjutraci Navarrete , [employer] Primary care physician Active Start: June 13, 2025 End: June 13, 2025 Anju Navarrete , [employer] Referring Provider Active St art: June 13, 2025 End: June 13, 2025 Katja Spence NP, [employer] Attending physician Active Start: June 13, 2025 End: June 13, 2025 Team Status: Inactive Member Role/Relationship Status Dates Anju Navarrete , [employer] Primary care physician Active Start: July 18, 2025 End: July 18, 2025 Dr. Jann Cedeno MD Attending physician Active Start: July 18, 2025 End: July 18, 2025 Dr. Jann Cedeno MD Referring Provider Active S tart: July 18, 2025 End: July 18, 2025 Team Status: Active Member Role/Relationship Status Dates Anju Navarrete , [employer] Primary care physician Active Start: July 18, 2025 Dr. Jann Cedeno MD Attending physician Active Start: July 18, 2025 Dr. Jann Cedeno MD Referring Provider Active S tart: July 18, 2025 Dr. Jann Cedeno MD Nurse Practitioner Active S tart: July 18, 2025 Team Status: Inactive Member Role/Relationship Status Dates DASHA Pitts Primary care physician Active Start: July 23, 2025 End: July 23, 2025 Dr. Jann Cedeno MD Attending physician Active Start: July 23, 2025 End: July 23, 2025 Dr. Jann Cedeno MD Referring Provider Active S tart: July 23, 2025 End: July 23, 2025 Team Status: Active Member Role/Relationship Status Dates DASHA Pitts Primary care physician Active Start: July 23, 2025 Dr. Jann Cedeno MD Attending physician Active Start: July 23, 2025 Team Status: Inactive Member Role/Relationship Status Dates DASHA Pitts Primary care physician Active Start: August 01, 2025 End: August 01, 2025 DASHA Pitts Referring Provider Active St art: August 01, 2025 End: August 01, 2025 CAIO Dominguez Attending physician Active Sta rt: August 01, 2025 End: August 01, 2025 (unrecognized sect ion and content) No Status Records Found INFORMATION SOURCE (unrecogn ized section and content) DATE CREATED AUTHOR 08/09/2025 [facility] FOR RECORDS PERTAINING TO PATIENTS WHO ARE [...] BE BASED ON THE PRIMARY CLINICAL RECORDS. [employer] provides no warranty or guarantee of the accuracy or completeness of information in this document.
== END | disposition home or self-care (01) ==
LOC: CT 06:25
PROVIDERS: PCP Nurse Practitioner Family; Referring Provider Nurse Practitioner Family; Visit Provider Nurse Practitioner Family
DX: E78.6 Lipoprotein deficiency (principal)
CPT/HCPCS: 75571; 76380

== ENCOUNTER 2025-11-11 05:49 | Day surgery (SDC) | payer BC, SELFPAY ==
--- NOTE | 2025-11-01 06:24 | EKG12_ITS ---
Test Reason : PREOP Blood Pressure : */* mmHG Vent. Rate : 51 BPM Atrial Rate : 51 BPM P-R Int : 144 ms QRS Dur : 86 ms QT Int : 408 ms P-R-T Axes : 37 3 11 degrees QTcB Int : 376 ms Sinus bradycardia Otherwise normal ECG Confirmed by Omkar Burnett ([id number]), video editor TERESA FABIAN ([id number]) on 11/01/2025 10:39:26 AM Referred By: Noe Tomlin Confirmed By: Omkar Burnett
--- NOTE | 2025-11-01 16:40 | PAT.ANESEVAL ---
Pre-Assessment Diagnosis/Proposed Procedure Planned Operative Procedure(s): ROBOTIC LEFT INGUINAL HERNIA REPAIR WITH MESH OPEN UMBILICAL HERNIA REPAIR POSS MESH Anesthesia History Anesthesia History - granulator tender: Anesthesia History - granulator tender Hx Hospitalization No 10/28/25 08:07 Any Problems With Anesthesia No 10/28/25 08:07 Cholinesterase deficiency No 10/28/25 08:07 You/Your Family Experience No 10/28/25 08:07 fever (hyperthermia) with Relationship Recent Exposure to Contagious No 03/21/25 08:49 Disease Does patient have nerve No 10/28/25 08:07 stimulator Patient instructed to have device shut off --Does patient have Pacemaker or ICD? When Was Last Pacemaker Check QUESTION #4 FULL TEXT: You/Your Family Experience fever (hyperthermia) with Anesthesia Last Oral Intake Last Oral intake: Last Oral Intake NPO since Meds taken in AM with sips of water? 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 PONV - granulator tender: PONV - granulator tender Female No 10/28/25 08:07 HX of Motion Sickness No 10/28/25 08:07 HX of N/V After Surgery No 10/28/25 08:07 Non-Smoker Yes 10/28/25 08:07 Duration of Surgery greater Yes 10/28/25 08:07 than 60 minutes Number of Risk Factors 2 10/28/25 08:07 PONV Score Moderate Risk 10/28/25 08:07 Height & Weight Height & Weight: Anesthesia: Height & Weight Height 6 ft 10/02/25 07:54 Respiratory Assessment Respiratory Assessment - granulator tender: Respiratory Tract Infection Hx - granulator tender Hx Respiratory Tract Infection No 10/28/25 08:07 STOP Sleep Apnea STOP Sleep Apnea - granulator tender: STOP Sleep Apnea - granulator tender Hx Hypertension No 10/28/25 08:07 Hx Sleep Apnea Yes 10/28/25 08:07 CPAP No 10/28/25 08:07 BIPAP Yes 10/28/25 08:07 Do you snore loudly (louder than talking or can be heard Do you often feel tired/ fatigued/ sleepy during daytime? Has anyone observed you stop breathing during sleep? STOP Results Positive 10/28/25 08:07 QUESTION #5 FULL TEXT : Do you snore loudly (louder than talking or can be heard through closed doors)? Tobacco Use History Tobacco Use History - granulator tender: Tobacco Use History - granulator tender Tobacco Use Smoking Status Never smoker 10/28/25 08:07 Hx Tobacco Use No 10/28/25 08:07 Years Smoking Packs Smoked per Day Smoking Cessation Date was within the last 15 years Hx Smoking Cessation Date Hx Smoking Cessation Counseling Hematologic Medial History Hematologic Hx - granulator tender: Hematologic Medical Hx - manager hospice Hx of Blood Transfusion No 10/28/25 08:07 Hx of Transfusion in last 3 No 10/28/25 08:07 Months Date of Last Transfusion (if within last 3 months) Ever experience any problems No 10/28/25 08:07 with transfusion(s)? Specify any problems Hx of Preganancy in last 3 N/A 10/28/25 08:07 Months Nurse Filling Out Transfusion DSCHRIBER 10/28/25 08:07 & Questions: Date: 10/28/25 10/28/25 08:07 Time: 08:08 10/28/25 08:07 Patient unable to answer at this time (ie. confused, unrespo /Reproduction History /Reproductive History - granulator tender: /Reproductive Hx- granulator tender Hx Now No 10/28/25 08:07 Gestational Age (in weeks): EDC: Hx Hx Para Hx Section SAB No 10/28/25 08:07 Does the father of the baby or his family experience fever w Father of the baby Malignant Hypertension history comment [facility] Medical History (Updated 10/28/25 @ 08:14 by Nay Marte) Loss of hearing Alcohol use Back pain Heartburn History of pain when walking Cardiology follow-up encounter Inguinal hernia of left side without obstruction or gangrene Umbilical hernia Wears glasses Arthritis Non-smoker BiPAP (biphasic positive airway pressure) dependence Tear of meniscus of left knee Left tibial fracture High cholesterol History of asthma Osteoarthritis of left knee Left knee pain History of exercise stress test (~10/2016) History of echocardiogram (~10/2016) Dyspnea TIESHA (obstructive sleep apnea) Restless leg syndrome Hyperlipidemia Abnormal echocardiogram Chest pain Home Medications ?Medication ?Instructions ?Recorded ?Last Taken ?Type atorvastatin 10 mg tablet 10 mg PO QDAY #90 tabs 06/06/23 01/31/25 Rx fluticasone fur. 200 mcg-umeclid 1 inh inhalation DAILY #3 ea 11/06/24 07/18/25 Rx 62.5 mcg-vilant 25 mcg inhalat.powder (Trelegy Ellipta) dupilumab 300 mg/2 mL subcutaneous 300 mg (2 mL) subcut Q2W #4 mL 11/21/24 01/31/25 Rx pen injector (Dupixent) pramipexole 1 mg tablet 1 mg PO QHS #90 tabs 06/25/25 Unknown Rx aspirin 81 mg tablet,delayed 81 mg PO DAILY 07/17/25 07/17/25 History release (Adult Low Dose Aspirin) Allergy/AdvReac Type Severity Reaction Status Date / Time iodine Allergy Anaphylaxis Verified 10/28/25 08:05 Family History Grandmother Myocardial infarction, Onset Age: 40 x3 AL's Father Alcoholism Mother Breast cancer Aunt Cancer Breast cancer Grandmother Diabetes Grandfather Heart disease Surgical History (Updated 10/28/25 @ 08:14 by Nay Marte) H/O blepharoplasty Hx of surgical procedure Hx of colonoscopy H/O knee surgery History of nasal surgery Social History Smoking Status: Never smoker alcohol intake: current substance use type: does not use additional social history: uses aspirin and ibuprofen as needed Audit: Pertinent Findings Pertinent Findings EKG Perinent findings: 11/01/2025. Sinus bradycardia at 51 bpm. Consult pertinent findings: 01/24/2023. Dr. Mondragon. 1. History of abnormal EKG?last echo in 2015 showed EF of 65%. Exercise stress test showed no ischemia. 2. Hyperlipidemia?chronic. Doing well. Continue current medical management. Recommendation Anesthesia Recommendation Anesthesia recommendation: OPTIMIZED for anesthesia
[2025-11-11] VITALS (8 sets, daily range): BP systolic 107–119; BP diastolic 68–74; PULSE 58–70; RESP 14–18; TEMP 36.1; O2SAT 95–99; BMI 29.9
--- OUTSIDE RECORDS SUMMARY | 2025-11-11 05:52 | XMS RPT_ITS | CCD ---
Author Organization [facility] Care Team Providers Care Snipper Name Role Phone Celia CONTINKathy Ruby Unavailable Unavaila Marj Rojas Unavailable Unavailable Mary Carmen Sol Unavailable Unavailable Mary Carmen Sol Unavailable Unavailable Helritchie SHOE CEMENTER, SHOE CEMENTER-C Will Primary Care Provider Giancarlo SHOE CEMENTER, SHOE CEMENTER-C Will Referring Provider Dr. Isaac Allred Attending Provider Janee Palma Attending Provider Unavailable Dr. Nnamdi Mondragon Attending Provider CAIO Galvan Attending Provider Dr. Jann Cedeno Attending Provider Giancarlo SHOE CEMENTER, SHOE CEMENTER-C Will Primary Care Provider Giancarlo SHOE CEMENTER, SHOE CEMENTER-C Will Referring Provider CAIO Plummer Attending Provider CAIO Plummer Referring Provider Bebe LAWSON-CKatja Attending Provider Care Physician, No Primary Primary Care Provider Unavailable Aster Lopez Attending Provider Kevan LAWSON-Aster Tee Referring Provider Care Physician, No Primary Referring Provider Un available Sancho Jaramillo MD Attending Provider Rodríguez VO, Dr. Virgen Attending Provider Landon SHOE CEMENTER-C, Ajnu Primary Care Provider Landon SHOE CEMENTER-C, Anju Attending Provider Landon SHOE CEMENTER-C, Anju Referring Provider Sancho Jaramillo MD Referring Provider Sole VO, Dr. Campuzano Attending Provider Sole VO, Dr. Campuzano Referring Provider Sole VO, Dr. Campuzano Other Provider Sancho Jaramillo MD Attending Provider Terra Gann Attending Provider Landon SHOE CEMENTER-C, Anju Primary Care Provider Landon SHOE CEMENTER-C, Anju Referring Provider Bibi KEARNEY, Terra Referring Provider Pao VO, Dr. Forte Attending Provider Landon SHOE CEMENTER-C, Anju Referring Provider Sole VO, Dr. Campuzano Attending Provider Landon SHOE CEMENTER-C, Anju Primary Care Provider Landon SHOE CEMENTER-C, Anju Primary Care Provider Landon SHOE CEMENTER-C, Anju Referring Provider Sole VO, Dr. Campuzano Attending Provider Spence SHOE CEMENTER-C, Katja Attending Provider Landon SHOE CEMENTER-C, Anju Primary Care Provider Landon SHOE CEMENTER-C, Anju Referring Provider [phone] Pao VO, Dr. Forte Referring Provider Dr. Jann Cedeno MD Other Provider Landon SHOE CEMENTER-C, Leckrone Primary Care Physician Terra Gann Attending Physician Dr. Jann Cedeno MD Attending Physician Bebe SHOE CEMENTER-C, Katja Attending Physician Dr. Jann Cedeno MD Nurse Practitioner Landon SHOE CEMENTER-C, Anju Primary Care Physician Terra Gann Attending Physician Landon SHOE CEMENTER-C, Anju Referring Provider Landon, Anju Primary Care Unavailable Ghazoul, Tatianna Attending Unavailable Landon, Anju Referring Unavailable Landon, Anju Primary Care Unavailable Olive, Jann Referring Unavailable Olive, Jann Attending Unavailable Landon, Anju Primary Care [...] Referring Unavailable Landon, Anju Primary Care Unavailable Olive, Jann Referring Unavailable Olive, Jann Attending Unavailable Landon, Anju Referring Unavailable Ghazoul, Tatianna Attending Unavailable Landon, Anju Referring Unavailable Landon, Anju Primary Care Unavailable Ghazoul, Tatianna Attending Unavailable Landon, Anju Primary Care Unavailable Landon, Anju Referring Unavailable OliveJann Attending Unavailable Landon, Anju Primary Care Unavailable [...] Referring Unavailable Landon, Anju Primary Care Unavailable Pao, Jann Attending [...] (11 sources) Iodine Drug Allergy 12-02-2021 Anaphylaxis [facility] (1 source) Iodine Drug Allergy 08-01-2025 [facility] Repository Medications Current Medications Medication Drug [...] 21, 2024 5:03pm Complies with drug therapy Rfesundyqbr-Zxemartfr-K ilanter (20 sources) Start: 11-06-2024 Fluticasone-Um eclidi [...] 06, 2024 9:01am Start: 12-22-2023 End: 11-06-2024 Yxdwqmlljzl-Myevpjabn-Fnmygq er (Trelegy Ellipta) 200-62.5-25 mcg blister with device Discontinued 1 NMA INHALATION DAILY 3 December 22, 2023 9:42am November 06, 2024 9:01am Allergic rhinitis Allergic rhinitis, unspecified Start: 12-22-2023 End: 11-06-2024 Guhlswyajbl-Lucjpelxa-Xpohcn er (Trelegy Ellipta) 200-62.5-25 mcg blister with device Discontinued 1 NMA INHALATION DAILY December 22, 2023 9:42am November 06, 2024 9:01am Start: 11-08-2023 End: 12-22-2023 Tikfqjszyik-Nmrvyfzfx-Jplume er (Trelegy Ellipta) 200-62.5-25 mcg blister with device Discontinued 1 NMA INHALATION DAILY 3 November 08, 2023 1:00am December 22, 2023 9:42am Allergic rhinitis Allergic rhinitis, unspecified Start: 11-08-2023 End: 12-22-2023 Nuwbcojkyqp-Jnvwpmsfo-Bzwlop er (Trelegy Ellipta) 200-62.5-25 mcg blister with [...] One tablet by mouth daily ASPIRIN TBEC 23122234491 Nnamdi Mondragon MD ASPIRIN TBEC (2 sources) Start: 10-15-2016 take 1 tablet by mouth once daily ASPIR-81 TBEC One tablet by mouth daily ASPIRIN TBEC 54418664944 Nnamdi Mondragon MD atorvastatin 10 mg oral [...] One tablet by mouth daily ATORVASTATIN CALCIUM 84639616704 Nnamdi Mondragon MD 120 actuat budesonide 0.16 [...] 2 puffs INH Twice daily BUDESONIDE-FORMOTEROL FUMARATE 52492035546 Isaac Allred Start: 10-05-2016 take 2 puff(s) by in halation twice daily SYMBICORT 160-4.5 MCG/ACT AERO 2 puffs INH Twice daily BUDESONIDE-FORMOTEROL FUMARATE 14277569365 Katja Spence CNP Start: 10-05-2016 take 2 puff(s) by in halation twice daily SYMBICORT 160-4.5 MCG/ACT AERO 2 puffs INH Twice daily BUDESONIDE-FORMOTEROL FUMARATE 19488898774 Isaac Allred cephalexin 500 mg oral capsule [...] AEPB One puffs INH daily FLUTICASONE FUROATE-VILANTEROL 37124621781 Isaac Allred Start: 04-01-2016 take 1 puff(s) by in halation once daily BREO ELLIPTA 200-25 MCG/INH AEPB One puffs INH daily FLUTICASONE FUROATE-VILANTEROL 19801006691 Isaac Allred Start: 04-01-2016 End: 10-05-2016 take 1 puff(s) by inhalation once daily BREO ELLIPTA 200-25 MCG/INH AEPB One puffs INH daily FLUTICASONE FUROATE-VILANTEROL 50681975629 Isaac Allred ibuprofen 200 mg oral tablet [...] tablet PO prior to sleep PRAMIPEXOLE DIHYDROCHLORIDE [id number] Isaac Knight Chalino Problems Active Problems Problem [...] Interpretation Reference Range Facility MR/BMSMarikaZAIDABob 08-01-2025 MR/[facility] [address] [place] [address] OFFICE VISIT Date of Service: 08/01/25 MR#: [id number] Acct: [id number] Name: ISAURA RAMIREZ Rep #: [id number] : 1970 Provider: CAIO Dominguez Age/Sex: 54/M Location: [facility] Status: Signed Intake Vital Signs [...] mL 0 11/21/24 08/01/25 Rx pen injector (OrangeSoda) pramipexole 1 mg tablet 1 mg PO [...] Grandmother Myocardial infarction, Onset Age: 40 x3 NE's Father Alcoholism Mother Breast cancer Aunt Cancer [...] sensory deficit (more content not included)... Normal [facility] Venous Duplex US, Unilateral on 07-23-2025 Venous Duplex US, Unilateral [facility] Cardi[facility] [address] [place] [address] Venous Duplex US, Unilateral 07/23/25 0904 MR#: [id number] Acct: [id number] Name: ISAURA RAMIREZ Rep #: [id number] : 1970 54 From: Jann Cedeno MD [...] 07/23/25 163 Date Jann Cedeno MD CC: SHOE CEMENTER-C Anju Navarrete; CAIO Dominguez; Dr. Jann Cedeno MD Date Dictated: 07/23/25903 Date Transcribed: 07/23/251631 Brush Polisher: Signed Normal [facility] Venous duplex ultrasound rep ortOrdered By: Jann Cedeno on 07-23-2025 US Vein [facility] Cardi[facility] [address] [place] [address] Venous Duplex US, Unilateral 07/23/25903 MR#: [id number] Acct: [id number] Name: ISAURA RAMIREZ Rep #:[id number] : 1970 54 From: Jann Aponte Attending [...] 1632 Date _ Jann Cedeno MD CC: SHOE CEMENTER-C Anju Navarrete; CAIO Dominguez; Dr. Jann Cedeno MD ~ Date Dictated: 07/23/2504 Date Transcribed: 07/23/25 1632 Brush Polisher: Signed [facility] Work Phone: Operative Reporton 5 Operative Report [facility] Medical Records Department [address] [place] [address] Operative Report 07/18/25 1357 MR#: [id number] Acct: [id number] Name: ISAURA RAMIREZ Rep #: [id number] : 1970 54 From: Jann Cedeno MD PCP: DASHA Pitts Status:[facility] Location: [facility] Operative Report (Standard) Operative Information Date of Procedure: 07/18/25 Pre-Operative Diagnosis: Venous insufficiency and varicose veins with pain and pruritus of the right lower extremity Post-Operative Diagnosis: Same Surgery/Procedure Performed: Foam ablation right lower extremity varicosities and accessory saphenous vein in the thigh arc trimmer: No Type of Anesthesia: Local Procedure Start [...] Navarrete; Dr. Jann Cedeno MD Signed Normal [facility] Pulmonary Visit Reporton Pulmonary Visit Report [facility] [place] [address] [place] [address] OFFICE VISIT Date of Service: 06/13/25 MR#: [id number] Acct: [id number] Name: ISAURA RAMIREZ Rep #: [id number] : 1970 Provider: DASHA Spence Age/Sex: 54/M Location: [facility] Status: Signed Assessment and Plan Assessment [...] Additional Comments: This note was generated with [employer] dictation software. It may contain incorrect words, spelling, and punctuation that were not noted in checking the note before signing. Follow Up: 9 Months ([facility]) HPI 6 M FU Chief Complaint: [...] M FU Chief Complaint: CONGESTION FEVER HEADACHE 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 Required: No DME Vendor: [employer] Accompanied by: Self Is patient in pain?: [...] (obstructive sle (more content not included)... Normal [facility] MR/BMSMinh 05-15-2025 MR/BMS.[facility] [address] [place] [address] OFFICE VISIT Date of Service: 05/15/25 MR#: [id number] Acct: [id number] Name: ISAURA RAIMREZ Rep #: [id number] : 1970 Provider: Dr. Jann Cedeno MD Age/Sex: 54/M Location: [facility] Status: Signed Intake Vital Signs [...] Grandmother Myocardial infarction, Onset Age: 40 x3 NE's Father Alcoholism Mother Breast cancer Aunt Cancer [...] developed Nutritiona (more content not included)... Normal [facility] Venous Duplex US - Kulwinder [facility] 04-18-2025 Venous Duplex US - Kulwinder [facility] Cardiovascular Services [address] [place] [address] Venous Duplex US - Kulwinder Extrem 04/18/25 0804 MR#: [id number] Acct: [id number] Name: ISAURA RAMIREZ Rep #: [id number] : 1970 54 From: Jann Cedeno MD [...] the thigh, accessory saphenous vein at knee, audio experience expert vein in calf. Positive for reflux in the left common femoral vein, saphenofemoral junction, great saphenous vein throughout, accessory saphenous vein at knee, perforating vein in the calf __ Ordering Physician: Terra Mtz Referring Physician: Anju Navarrete Performed By: Bishop Rodriguez, COURTNEYT 04/18/25 1615 Date Jann Cedeno MD CC: DASHA Navarrete; CAIO Dominguez Date Dictated: 04/18/25 0804 Date Transcribed: 04/18/251614 Brush Polisher: Signed Normal [facility] Venous duplex ultrasound rep ortOrdered By: Jann Cedeno on 04-18-2025 US Vein [facility] Cardiovascular Services [address] [place] [address] Venous Duplex US - Kulwinder Extrem 04/18/25 0804 MR#: [id number] Acct: [id number] Name: ISAURA RAMIREZ Rep #:[id number] : 1970 54 From: Jann Aponte Attending Dr: CAIO Dominguez Stat us: REG CLI Ordering Dr: Terra [...] the thigh, accessory saphenous vein at knee, audio experience expert vein in calf. Positive for reflux in the left common femoral vein, saphenofemoral junction, great saphenous vein throughout, accessory saphenous vein at knee, perforating vein in the calf __ Ordering Physician: Terra Mtz Referring Physician: Anju Navarrete Performed By: Bishop Rodriguez RVT 04/18/25 6475 Date _ Jann Cedeno MD CC: DASHA Navarrete; CAIO Dominguez ~ Date Dictated: 04/18/25 0804 Date Transcribed: 04/18/25 1615 Brush Polisher: Signed [facility] Work Phone: MR/Suzie 04-02-2025 MR/[facility] [address] [place] [address] OFFICE VISIT Date of Service: 04/02/25 MR#: [id number] Acct: [id number] Name: ISAURA RAMIREZ Rep #: [id number] : 1970 Provider: CAIO Dominguez Age/Sex: 54/M Location: [facility] Status: Signed Intake Vital Signs [...] Visit Reasons: Itching where varicose veins were 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 Required: No Accompanied by: Self Is patient [...] 0 11/21/24 04/02/25 Rx pen injector (Dupixent) [facility] Medical History Wears glasses History of steroid [...] Grandmother Myocardial infarction, Onset Age: 40 x3 NE's Father Alcoholism Mother Breast cancer Aunt Cancer [...] of coordina (more content not included)... Normal [facility] Plastic Surgery Visit Report on 02-19-2025 Plastic Surgery Visit Report [facility] [address], [address] [place] [id number] OFFICE VISIT Date of Service: 02/19/25 MR#: [id number] Acct: [id number] Name: ISAURA RAMIREZ Rep #: [id number] : 1970 Provider: Dr. Tatianna caro MD Age/Sex: 54/M Location: [facility] Status: Signed Intake Vital Signs 01/09/25 15:21 [...] Post Op Diagnoses Status post blepharoplasty Z98.890 [facility] Medical History (Updated 01/22/25 @ 12:02 by [...] Grandmother Myocardial infarction, Onset Age: 40 x3 NE's Father Alcoholism Mother Breast cancer Aunt Cancer [...] Nolandignjose Signature: Date (if applicable) CC: Normal [facility] Plastic Surgery Visit Report on 02-12-2025 Plastic Surgery Visit Report [facility] [address], [address] [place] [address] OFFICE VISIT Date of Service: 02/12/25 MR#: [id number] Acct: [id number] Name: ISAURA RAMIREZ Rep #: [id number] : 1970 Provider: Dr. Tatianna caro MD Age/Sex: 54/M Location: [facility] Status: Signed Intake Vital Signs 01/09/25 [...] capsule 500 mg PO BID 02/12/25 02/12/25 Ny story Nurse's Note: post upper bleph , [...] Post Op Diagnoses Status post blepharoplasty Z98.890 [facility] Medical History (Updated 01/22/25 @ 12:02 by [...] Grandmother Myocardial infarction, Onset Age: 40 x3 NE's Father Alcoholism Mother Breast cancer Aunt Cancer [...] week. 02/12/25 1714 Date Tatianna Whipple MD [facility] Signature: Date (if applicable) CC: Normal [facility] Discharge Instructionon 01-13 Discharge Instruction [facility] Medical Records Department [address] [place] [address] Instructions for Home/Discharge Instructions 02/01/25 1112 MR#: [id number] Acct: [id number] Name: ISAURA RAMIREZ Rep #: [id number] : 1970 54 From: Tatianna Whipple MD PCP: DASHA Pitts Status:REG COC Discharge Instructions Dressing / Incision Additional Dressing/Incision [...] Care Provider: Anju Navarrete Instructions Print Language: Indian Discharge Orders/Prescription s Prescriptions: No Action Trelegy [...] Care 02/01/25 1113 Tatianna Whipple MD CC: SHOE CEMENTER-C Anju Navarrete Signed Normal [facility] Discharge Instruction [facility] Medical Records Department [address] [place] [address] Instructions for Home/Discharge Instructions 02/01/25 1111 MR#: [id number] Acct: [id number] Name: ISAURA RAMIREZ Rep #: [id number] : 1970 54 From: Tatianna Whipple MD PCP: DASHA Pitts Status:REG [facility] Discharge Instructions Dressing / Incision Additional Dressing/Incision [...] Care Provider: Anju Navarrete Instructions Print Language: Indian Discharge Orders/Prescription s Prescriptions: No Action Trelejefe [...] Care 02/01/25 1112 Tatianna Whipple MD CC: SHOE CEMENTER-C Anju Navarrete Signed [facility] MR/POSTOP.[facility] 02-01-2025 MR/POSTOP.[facility] Medical Records Department [address] [place] [address] Anesthesia Postop Eval I 02/01/25 1127 MR#: [id number] Acct: [id number] Name: ISAURA RAMIREZ Rep #: [id number] : 1970 54 From: Marlnie Marcum CRNA PCP: DASHA Pitts Status:REG SDC Y Race: C Location: [address] Anesthesia: Postop Eval I Current Vital [...] completed: Yes 02/01/25 1128 Date Marline Marcum CLINICAL PHARMACOLOGIST Cosigner Signature: Date CC: Signed Normal [facility] MR/IWUGSNVY7mn 02-01-2025 MR/POSTOPAN2 [facility] Medical Records Department [address] [place] [address] Anesthesia Postop Eval II 02/01/25 1149 MR#: [id number] Acct: [id number] Name: ISAURA RAMIREZ Rep #: [id number] : 1970 54 From: Isidoro Mcclendon MD PCP: DASHA Pitts Status:REG SDC Y Race: C Location: [place] [address] Anesthesia Postop Eval I Sum Postop Eval Completion status Anesthesia document: Postop Eval 1 completed: Yes Anesthesia Postop Eval I Summary Anesthesia Postop Eval I Summary: Anesthesia Postop Eval I: Assessment Summary Airway patent Yes 02/01/25 11:27 CLINICAL PHARMACOLOGIST.JGEN Spontaneous unlabored Yes 02/01/25 11:27 CLINICAL PHARMACOLOGIST.JGEN respirations Mental status nausea No 02/01/25 11:27 CLINICAL PHARMACOLOGIST.JGEN Vomiting No 02/01/25 11:27 CLINICAL PHARMACOLOGIST.JGEN Anesthesia Postop Eval I: Fluid Summary Crystalloid volume administer 1,100 02/01/25 11:27 CLINICAL PHARMACOLOGIST.JGEN (ml) Colloids volume administered ( ml) Blood Product volume administered (ml) Total IV fluid infused 1,100 02/01/25 11:27 CLINICAL PHARMACOLOGIST.JGEN Anesthesia Postop Eval I: Summary Notes Anesthesia Complication No 02/01/25 11:27 CLINICAL PHARMACOLOGIST.JGEN Anesthesia Complication Comment: Post-operative progress note Anesthesia: Postop Eval II Evaluation Mental status: Awake Pain Level: 1 nausea: No Vomiting: No Complications Anesthesia Complication: No 02/01/25 1150 Date Isidoro Johnson Signature: Date CC: Signed Normal [facility] Operative Reporton 5 Operative Report [facility] Medical Records Department [address] [place] [address] Operative Report 02/01/25 1113 MR#: [id number] Acct: [id number] Name: ISAURA RAMIREZ Rep #: [id number] : 1970 54 From: Tatianna Whipple MD PCP: DASHA Pitts Status:[facility] Location: [place] [address] Problems Associated Problem List Diagnoses (1) Dermatochalasis of both upper eyelids: (2) Visual field defect: Operative Report (Standard) Operative Information Date of Procedure: 02/01/25 Pre-Operative Diagnosis: Bilateral upper eyelid dermatochalasis and visual field limitation. Post-Operative Diagnosis: Same Surgery/Procedure Performed: Bilateral upper blepharoplasty. arc trimmer: Yes Patient Account Representative: Samira Jordan Tasks completed by assistant chief engineer: Retracting Type of Anesthesia: General RN Documented [...] subcuticular fashion. The sutures anchored at the christianity and glabella using Mastisol and Steri-Strips. Erythromycin [...] 02/01/25 1118 Cosigner Signature (if applicable): CC: SHOE CEMENTERArnold Navarrete; Dr. Tatianna Whipple MD Signed Normal [facility] Plastic Surgery Visit Report on 01-29-2025 Plastic Surgery Visit Report [facility] [address], [address] [place] [address] OFFICE VISIT Date of Service: 01/29/25 MR#: [id number] Acct: [id number] Name: ISAURA RAMIREZ Rep #: [id number] : 1970 Provider: Dr. Tatianna caro MD Age/Sex: 54/M Location: [facility] Status: Signed Intake Vital Signs 01/09/25 [...] Grandmother Myocardial infarction, Onset Age: 40 x3 NE's Father Alcoholism Mother Breast cancer Aunt Cancer [...] 1626 Date (more content not included)... Normal [facility] Plastic Surgery Visit Report on 01-23-2025 Plastic Surgery Visit Report [facility] [address], [address] [place], [place] [address] OFFICE VISIT Date of Service: 01/23/25 MR#: [id number] Acct: [id number] Name: ISAURA RAMIREZ Rep #: [id number] : 1970 Provider: Dr. Tatianna caro MD Age/Sex: 54/M Location: [facility] Status: Signed Intake Vital Signs 01/09/25 [...] Grandmother Myocardial infarction, Onset Age: 40 x3 NE's Father Alcoholism Mother Breast cancer Aunt Cancer [...] Date ____ (more content not included)... Normal [facility] Medical Records Department [address] [place] [address] PAT - Anesthesia 01/22/25 1730 MR#: [id number] Acct: [id number] Name: ISAURA RAMIREZ Rep #: [id number] : 1970 54 From: Elio Santillan MD PCP: DASHA Pitts Status:PRE [facility] Y Race: C Location: [facility] Pre-Assessment Diagnosis/Proposed Procedure Planned Operative Procedure(s): Bilateral upper blepharoplasty Anesthesia History 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 Hx Hospitalization No 01/22/25 12:03 Any Problems [...] take am of surgery PONV PONV - 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: PONV - 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 Female No 01/22/25 12:03 HX of Motion [...] 01/09/25 15:21 Respiratory Assessment Respiratory Assessment - 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: Respiratory Tract Infection Hx - 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 Hx Respiratory Tract Infection No 01/22/25 12:03 STOP Sleep Apnea STOP Sleep Apnea - 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: STOP Sleep Apnea - 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 Hx Hypertension No 01/22/25 12:03 Hx Sleep [...] Tobacco Use History Tobacco Use History - 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: Tobacco Use History - 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 Tobacco Use Smoking Status Never smoker 01/22/25 12:03 Hx Tobacco Use No 01/22/25 12:03 Years Smoking Packs Smoked per Day Smoking Cessation Date was within the last 15 years Hx Smoking Cessation Date Hx Smoking Cessation Counseling Hematologic Medial History Hematologic Hx - 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: Hematologic Medical Hx - care management associate Hx of Blood Transfusion No 01/22/25 12:03 [...] /Reproduct ion History /Reproduct yara History - 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: /Reproduct yara Hx- 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 Hx Now Gestational Age (in weeks): EDC: Hx Hx Para Hx Section SAB [facility] Medical History (Updated 01/22/25 @ 12:02 by [...] ea / (more content not included)... Normal [facility] Orthopedic Visit Reporton Orthopedic Visit Report [facility] [address] [place] [address] [address] [place] [address] OFFICE VISIT Date of Service: 01/10/25 MR#: [id number] Acct: [id number] Name: ISAURA RAMIREZ Rep #: [id number] : 1970 Provider: Dr. Sancho rashid MD Age/Sex: 54/M Location: [facility] Status: Signed Intake Vital Signs 12/24/24 15:43 [...] Allergies iodine Allergy (Verified 01/09/25 15:16) Anaphylaxis [facility] Medical History (Updated 01/10/25 @ 10:54 by [...] Family History (Updated 01/09/25 @ 15:15 by Btei Jaime) Grandmother Myocardial infarction, Onset Age: 40 x3 NE's Father Alcoholism Mother Breast cancer Aunt Cancer [...] knee MRI, phone call FU. Supplemental Info [facility] Imaging Services [address] [place] [address] Lower Ext Joint Only (Routine) MR#: [id number] Acct: [id number] Name: ISAURA RAMIREZ Rep #: [id number] : 1970 M 54 From: Bobby Acuna DO PCP: DASHA Pitts Status: REG CLI Study: Lower Ext Joint Only (Routine) Date of Exam: 01/04/25 Exam# [id number] Ordering Dr: Sancho Jaramillo MD PROCEDURE: Noncontrast [...] internal lig (more content not included)... Normal [facility] Plastic Surgery Visit Report on 01-09-2025 Plastic Surgery Visit Report [facility] [address] [place] [address] OFFICE VISIT Date of Service: 01/09/25 MR#: [id number] Acct: [id number] Name: ISAURA RAMIREZ Rep #: [id number] : 1970 Provider: Dr. Tatianna caro MD Age/Sex: 54/M Location: [facility] [place] Status: Signed Intake Vital Signs 12/24/24 [...] Grandmother Myocardial infarction, Onset Age: 40 x3 NE's Father Alcoholism Mother Breast cancer Aunt Cancer [...] He has recently been seen by his wastewater treatment plant chemist who advocated for him to have upper [...] recliner pos (more content not included)... Normal [facility] Lower Ext Joint Only (Routin e)on 01-04-2025 Lower Ext Joint Only (Routine) [facility] [address] [place], [place] [address] Lower Ext Joint Only (Routine) MR#: [id number] Acct: [id number] Name: ISAURA RAMIREZ Rep #: [id number] : 1970 M 54 From: Bobby Craft i, DO PCP: DASHA Pitts Status: REG CLI Study: Lower Ext Joint Only (Routine) Date of Exam: 0 01/04/25 Exam# [id number] Ordering Dr: Sancho Jaramillo MD PROCEDURE: Noncontrast [...] CC: DASHA Navarrete; Dr. Sancho Jaramillo MD Brush Polisher: Signed Normal [facility] Orthopedic Visit Reporton Orthopedic Visit Report [facility] [address] [place] [address] OFFICE VISIT Date of Service: 12/31/24 MR#: [id number] Acct: [id number] Name: ISAURA RAMIREZ Rep #: [id number] : 1970 Provider: Dr. Sancho rashid MD Age/Sex: 54/M Location: [facility] [place] Status: Signed Intake Vital Signs 11/23/24 16:01 [...] 0 11/21/24 12/31/24 Rx pen injector (Dupixent) [facility] Medical History Osteoarthritis of left knee Left knee pain History of exercise stress test ( 10/2016) History of echocardiogram ( 10/2016) Dyspnea TIESHA (obstructive sleep apnea) Restless leg syndrome Hyperlipidemia Abnormal echocardiogram Chest pain Surgical History History of nasal surgery Family History Grandmother Myocardial infarction, Onset Age: 40 x3 NE's Social History Smoking Status: Never smoker alcohol [...] alignment 12/31/24 1548 Date [facility] Date (if applicable) CC: Normal [facility] Absolute lymphocyte countOrd ered By: Anju Navarrete on 12-22-2024 Lymphocytes Auto (Unsp spec) [#/Vol] 1.43 10*3/uL 0.83-4.51 [facility] Absolute neutrophil countOrd ered By: Anjutraci Navarrete on 12-22-2024 Neutrophils (Bld) [#/Vol] 4.2 10*3/uL 2.0-7.7 [facility] Albumin to globulin ratioOrd ered By: Anjutraci Navarrete on 12-22-2024 Albumin/Globulin [Mass ratio] 0.9 {ratio} 0.9-2.4 [facility] Automated lymphocyte count a s percentage of total leukocytesOrdered By: Anju Navarrete on 12-22-2024 Lymphocytes/100 WBC Auto (Unsp spec) 21.6 % 19-41 [facility] Basophil percentageOrdered B y: Anju Navarrete on 12-22-2024 Basophils/100 WBC (Bld) 0.6 % 0-1 [facility] Bilirubin, totalOrdered By: Anju Navarrete on 12-22-2024 Bilirubin [Mass/Vol] 1.30 mg/dL High 0.20-1.00 [facility] Comment on above: For patients on eltr ombopag therapy, use of Dimension [place] TBIL is not recommended. Blood urea nitrogen (BUN)/cr eatinine ratioOrdered By: Anju Landon on 12-22-2024 Urea nitrogen/Creatinine [Mass ratio] 19.2 mg/mg 10-20 [facility] CBC W/Diff, Automatedon Absolute Lymph 1.43 X10 3/uL Normal 0.83-4.51 [facility] Comment on above: Performed By: #### L 100.0100, L501.9910, L500.4050, L500.4100 ####[facility] [address] [place], [address] Absolute Neut 4.2 X10 3/uL Normal 2.0-7.7 [facility] Comment on above: Performed By: #### L 100.0100, L501.9910, L500.4050, L500.4100 ####[facility] [address] [place], [address] Basophils/100 WBC (Bld) 0.6 % Normal 0-1 [facility] Comment on above: Performed By: #### L 100.0100, L501.9910, L500.4050, L500.4100 ####[facility] [address] [place], [address] Eosinophils/100 WBC (Bld) 3.3 % Normal 0-5 [facility] Comment on above: Performed By: #### L 100.0100, L501.9910, L500.4050, L500.4100 ####[facility] [address] [place], [address] Erythrocyte distribution width (RBC) [Ratio] 12.6 % Normal 11.6-14.6 [facility] Comment on above: Performed By: #### L 100.0100, L501.9910, L500.4050, L500.4100 ####[facility] [address] [place], [address] Hematocrit (Bld) [Volume fraction] 43.1 % Normal 40-54 [facility] Comment on above: Performed By: #### L 100.0100, L501.9910, L500.4050, L500.4100 ####[facility] [address] [place], [address] Hemoglobin (Bld) [Mass/Vol] 14.4 g/dL Normal 13.0-16.5 [facility] Comment on above: Performed By: #### L 100.0100, L501.9910, L500.4050, L500.4100 ####[facility] [address] [place], [address] IG% 0.500 Normal 0.0-0.9 [facility] Comment on above: Result Comment: IG% - Immature Granulocytes (promyelocytes, myelocytes and metamyelocytes) > 1% indicates that a LEFT SHIFT is Present. Performed By: #### L 100.0100, L501.9910, L500.4050, L500.4100 ####[facility] [address] [place], [address] Lymphocytes/100 WBC (Bld) 21.6 % Normal 19-41 [facility] Comment on above: Performed By: #### L 100.0100, L501.9910, L500.4050, L500.4100 ####[facility] [address] [place], [address] MCH (RBC) [Entitic mass] 29.8 pg Normal 27.0-32.0 [facility] Comment on above: Performed By: #### L 100.0100, L501.9910, L500.4050, L500.4100 ####[facility] [address] [place], [address] MCHC (RBC) [Mass/Vol] 33.4 g/dL Normal 32-36 [facility] Comment on above: Performed By: #### L 100.0100, L501.9910, L500.4050, L500.4100 ####[facility] [address] [place], [address] MCV (RBC) [Entitic vol] 89.0 fL Normal 80-94 [facility] Comment on above: Performed By: #### L 100.0100, L501.9910, L500.4050, L500.4100 ####[facility] [address] [place], [address] Monocytes/100 WBC (Bld) 11.3 % High 0-10 [facility] Comment on above: Performed By: #### L 100.0100, L501.9910, L500.4050, L500.4100 ####[facility] [address] [place], [address] Neutrophils/100 WBC (Bld) 62.7 % Normal 47-70 [facility] Comment on above: Performed By: #### L 100.0100, L501.9910, L500.4050, L500.4100 ####[facility] [address] [place], [address] Nucleated RBC (Bld) [#/Vol] 0 10*3/uL Normal 0-5 [facility] Comment on above: Performed By: #### L 100.0100, L501.9910, L500.4050, L500.4100 ####[facility] [address] [place], [address] Platelet mean volume (Bld) [Entitic vol] 9.1 fL Normal 6.2-12.0 [facility] Comment on above: Performed By: #### L 100.0100, L501.9910, L500.4050, L500.4100 ####[facility] [address] [place], [address] Platelets (Bld) [#/Vol] 317 10*3/uL Normal 150-450 [facility] Comment on above: Performed By: #### L 100.0100, L501.9910, L500.4050, L500.4100 ####[facility] [address] [place], [address] RBC (Bld) [#/Vol] 4.84 10*6/uL Normal 4.6-6.2 [facility] Comment on above: Performed By: #### L 100.0100, L501.9910, L500.4050, L500.4100 ####[facility] [address] [place], [address] RDW SD 41.4 fl Normal 35.1-43.9 [facility] Comment on above: Performed By: #### L 100.0100, L501.9910, L500.4050, L500.4100 ####[facility] [address] [place], [address] WBC (Bld) [#/Vol] 6.6 10*3/uL Normal 4.4-11.0 [facility] Comment on above: Performed By: #### L 100.0100, L501.9910, L500.4050, L500.4100 ####[facility] [address] [place], [address] Carbon dioxide measurementOr dered By: Anju Navarrete on 12-22-2024 CO2 [Moles/Vol] 29.0 mmol/L 21.0-32.0 [facility] Chloride measurementOrdered By: Anju Navarrete on 12-22-2024 Chloride [Moles/Vol] 105 mmol/L 98-107 [facility] Comprehensive Metabolic Prof ilon 12-22-2024 Albumin [Mass/Vol] 3.5 g/dL Normal 3.2-5.0 [facility] Comment on above: Performed By: #### L 100.0100, L501.9910, L500.4050, L500.4100 ####[facility] [address] [place], [address] Albumin/Globulin [Mass ratio] 0.9 {ratio} Normal 0.9-2.4 [facility] Comment on above: Performed By: #### L 100.0100, L501.9910, L500.4050, L500.4100 ####[facility] [address] [place], [address] ALK P 65 U/L Normal 45-117 [facility] Comment on above: Performed By: #### L 100.0100, L501.9910, L500.4050, L500.4100 ####[facility] [address] [place], [address] ALT [Catalytic activity/Vol] 22 U/L Normal 16-61 [facility] Comment on above: Performed By: #### L 100.0100, L501.9910, L500.4050, L500.4100 ####[facility] [address] [place], [address] AST [Catalytic activity/Vol] 18 U/L Normal 15-37 [facility] Comment on above: Performed By: #### L 100.0100, L501.9910, L500.4050, L500.4100 ####[facility] [address] [place], [address] Bilirubin [Mass/Vol] 1.30 mg/dL High 0.20-1.00 [facility] Comment on above: Result Comment: For patients on eltrombopag therapy, use of Dimension [place] TBIL is not recommended. Performed By: #### L 100.0100, L501.9910, L500.4050, L500.4100 ####[facility] [address] [place], [address] BUN/CRE 19.2 RATIO Normal 10-20 [facility] Comment on above: Performed By: #### L 100.0100, L501.9910, L500.4050, L500.4100 ####[facility] [address] [place], [address] CA,Total 9.2 mg/dL Normal 8.5-10.1 [facility] Comment on above: Performed By: #### L 100.0100, L501.9910, L500.4050, L500.4100 ####[facility] [address] [place], [address] Chloride [Moles/Vol] 105 mmol/L Normal 98-107 [facility] Comment on above: Performed By: #### L 100.0100, L501.9910, L500.4050, L500.4100 ####[facility] [address] [place], [address] CO2 [Moles/Vol] 29.0 mmol/L Normal 21.0-32.0 [facility] Comment on above: Performed By: #### L 100.0100, L501.9910, L500.4050, L500.4100 ####[facility] [address] [place], [address] Creatinine [Mass/Vol] 0.94 mg/dL Normal 0.70-1.30 [facility] Comment on above: Result Comment: The validity of the calculated GFR GFRAA in patients over 70 years has not been determined. Clinical correlation is essential. Performed By: #### L 100.0100, L501.9910, L500.4050, L500.4100 ####[facility] [address] [place], [address] EST GFR - AA 108 mL/min Normal >60 [facility] Comment on above: Result Comment: Afri can [place] GFR Calc Performed By: #### L 100.0100, L501.9910, L500.4050, L500.4100 ####[facility] [address] [place], [address] GAP 4 Low 5-15 [facility] Comment on above: Performed By: #### L 100.0100, L501.9910, L500.4050, L500.4100 ####[facility] [address] [place], [address] GFR/1.73 sq M.predicted among non-blacks MDRD (S/P/Bld) [Vol rate/Area] 89 mL/min/{1.73_m2} Normal >60 [facility] Comment on above: Result Comment: Non- GFR Calc Performed By: #### L 100.0100, L501.9910, L500.4050, L500.4100 ####[facility] [address] [place], [address] Globulin (S) [Mass/Vol] 3.8 g/dL Normal 2.2-4.2 [facility] Comment on above: Performed By: #### L 100.0100, L501.9910, L500.4050, L500.4100 ####[facility] [address] [place], [address] Glucose [Mass/Vol] 101 mg/dL Normal 74-106 [facility] Comment on above: Result Comment: Fast ing Glucose result from 100 to 125 mg/dL suggests IMPAIRED HOMEOSTASIS per A.D.A. criteria. Performed By: #### L 100.0100, L501.9910, L500.4050, L500.4100 ####[facility] [address] [place], [address] Potassium [Moles/Vol] 4.2 mmol/L Normal 3.5-5.1 [facility] Comment on above: Performed By: #### L 100.0100, L501.9910, L500.4050, L500.4100 ####[facility] [address] [place], [address] Sodium [Moles/Vol] 138 mmol/L Normal 136-145 [facility] Comment on above: Performed By: #### L 100.0100, L501.9910, L500.4050, L500.4100 ####[facility] [address] [place], [address] T PROT 7.3 g/dL Normal 6.4-8.2 [facility] Comment on above: Performed By: #### L 100.0100, L501.9910, L500.4050, L500.4100 ####[facility] [address] [place], [address] Urea nitrogen [Mass/Vol] 18 mg/dL Normal 7-18 [facility] Comment on above: Performed By: #### L 100.0100, L501.9910, L500.4050, L500.4100 ####[facility] [address] [place], [address] Eosinophil percentageOrdered By: Anju Navarrete on 12-22-2024 Eosinophils/100 WBC (Bld) 3.3 % 0-5 [facility] Erythrocyte distribution wid th ratioOrdered By: Anju Navarrete on 12-22-2024 Erythrocyte distribution width (RBC) [Ratio] 12.6 % 11.6-14.6 [facility] Erythrocyte distribution wid th standard deviationOrdered By: Anju Navarrete on 12-22-2024 Erythrocyte distribution width (RBC) [Entitic vol] 41.4 fL 35.1-43.9 [facility] Erythrocyte distribution width (RBC) [Ratio] 41.4 fl 35.1-43.9 [facility] Estimated glomerular filtrat ion rate (GFR) AmericanOrdered By: Anju Navarrete on 12-22-2024 Estimated GFR (MDRD) Amer 108 mL/min >60 [facility] Comment on above: GFR Calc Glomerular filtration rate ( GFR) estimationOrdered By: Anju Navarrete on 12-22-2024 Estimated GFR (MDRD) Non-Af Amer 89 mL/min >60 [facility] Comment on above: Non- GFR Calc GFR/1.73 sq M.predicted among non-blacks MDRD (S/P/Bld) [Vol rate/Area] 89 mL/min/{1.73_m2} >60 [facility] Comment on above: Non- GFR Calc Glucose measurementOrdered B y: Anju Navarrete on 12-22-2024 Glucose [Mass/Vol] 101 mg/dL 74-106 [facility] Comment on above: Fasting Glucose resu lt from 100 to 125 mg/dL suggests IMPAIRED HOMEOSTASIS per A.D.A. criteria. Hematocrit Auto (Bld) [Volum e fraction]Ordered By: Anju Navarrete on 12-22-2024 Hematocrit (Bld) [Volume fraction] 43.1 % 40-54 [facility] Hemoglobin measurementOrdere d By: Anju Navarrete on 12-22-2024 Hemoglobin (Bld) [Mass/Vol] 14.4 g/dL 13.0-16.5 [facility] High density lipoprotein (HD L) measurementOrdered By: Anju Navarrete on 12-22-2024 Cholesterol in HDL [Mass/Vol] 50 mg/dL >40 [facility] Comment on above: The drugs N-Acetylcy steine and Metamizole may falsely depress this assay. Reference Range HDL <40 mg/dL Low HDL Cholesterol HDL >or= 60 mg/dL High HDL Cholesterol Immature granulocytes/100 WB C Auto (Bld)Ordered By: Anju Navarrete on 12-22-2024 Immature granulocytes/100 WBC (Bld) 0.500 % 0.0-0.9 [facility] Comment on above: IG% - Immature Granu locytes (promyelocytes, myelocytes and metamyelocytes) > 1% indicates that a LEFT SHIFT is Present. Laboratory - Chemistry and C hemistry - challengeOrdered By: Anju Navarrete on 12-22-2024 AST [Catalytic activity/Vol] 18 U/L 15-37 [facility] Lipid Profileon 12-22-2024 Cholesterol [Mass/Vol] 187 mg/dL Normal 200 [facility] Comment on above: Result Comment: <200 mg/dL Desirable 200-240 mg/dL Borderline >240 mg/dL High Risk Performed By: #### L 100.0100, L501.9910, L500.4050, L500.4100 ####[facility] [address] [place], [address] Cholesterol in HDL [Mass/Vol] 50 mg/dL Normal [facility] Comment on above: Result Comment: The drugs N-Acetylcysteine and Metamizole may falsely depress this assay. Reference Range HDL <40 mg/dL Low HDL Cholesterol HDL >or= 60 mg/dL High HDL Cholesterol Performed By: #### L 100.0100, L501.9910, L500.4050, L500.4100 ####[facility] [address] [place], [address] Cholesterol in LDL [Mass/Vol] 126 mg/dL Normal 0-130 [facility] Comment on above: Performed By: #### L 100.0100, L501.9910, L500.4050, L500.4100 ####[facility] [address] [place], [address] Cholesterol in VLDL [Mass/Vol] 11 mg/dL Normal 5-40 [facility] Comment on above: Performed By: #### L 100.0100, L501.9910, L500.4050, L500.4100 ####[facility] [address] [place], [address] Triglyceride [Mass/Vol] 56 mg/dL Normal [facility] Comment on above: Result Comment: The drugs N-Acetylcysteine and Metamizole may falsely depress this assay. Serum Triglycerides Reference Interval Normal <150 mg/dL Borderline high 150 - 199 mg/dL High 200 - 499 mg/dL Very High > or = 500 mg/dL Performed By: #### L 100.0100, L501.9910, L500.4050, L500.4100 ####[facility] [address] [place], [address] Low density lipoprotein (LDL ) cholesterol measurementOrdered By: Anjutraci Navarrete on 12-22-2024 Cholesterol in LDL [Mass/Vol] 126 mg/dL 0-130 [facility] Lymphocytes Auto (Unsp spec) [#/Vol]Ordered By: Anjutraci Navarrete on 12-22-2024 Lymphocytes (Bld) [#/Vol] 1.43 10*3/uL 0.83-4.51 [facility] Lymphocytes/100 WBC Auto (Un sp spec)Ordered By: Anju Navarrete on 12-22-2024 Lymphocytes/100 WBC (Bld) 21.6 % 19-41 [facility] MCV (mean corpuscular volume ) determinationOrdered By: Anjutraci Navarrete on 12-22-2024 MCV (RBC) [Entitic vol] 89.0 fL 80-94 [facility] Mean corpuscular hemoglobin (MCH) determinationOrdered By: Anjutraci Navarrete on 12-22-2024 MCH (RBC) [Entitic mass] 29.8 pg 27.0-32.0 [facility] Mean corpuscular hemoglobin concentration (MCHC) determinationOrdered By: Anjutraci Navarrete on 12-22-2024 MCHC (RBC) [Mass/Vol] 33.4 g/dL 32-36 [facility] Mean platelet volume determi nationOrdered By: Anju Navarrete on 12-22-2024 Platelet mean volume (Bld) [Entitic vol] 9.1 fL 6.2-12.0 [facility] Monocyte percentageOrdered B y: Anju Navarrete on 12-22-2024 Monocytes/100 WBC (Bld) 11.3 % High 0-10 [facility] Neutrophil percentageOrdered By: Anju Navarrete on 12-22-2024 Neutrophils/100 WBC (Bld) 62.7 % 47-70 [facility] Nucleated red blood cell per centageOrdered By: Anju Navarrete on 12-22-2024 Nucleated RBC/100 WBC (Bld) [Ratio] 0 % 0-5 [facility] PSA,Total - Annual Screenon 12-22-2024 PSA,TOT SCREEN 1.01 ng/mL Normal 0.00-4.00 [facility] Comment on above: Result Comment: This test was performed using the TPSA assay method for the [employer] chemistry system. Values obtained with different assay methods cannot be used interchangably. When changing PSA assays in the course of monitoring a patient, additional sequential testing should be carried out to confirm baseline values. Performed By: #### L 100.0100, L501.9910, L500.4050, L500.4100 ####[facility] [address] [place], [address] Platelet countOrdered By: Ra garcia Navarrete on 12-22-2024 Platelets (Bld) [#/Vol] 317 10*3/uL 150-450 [facility] Potassium measurementOrdered By: Anju Navarrete on 12-22-2024 Potassium [Moles/Vol] 4.2 mmol/L 3.5-5.1 [facility] RBC Auto (Bld) [#/Vol]Ordere d By: Anju Navarrete on 12-22-2024 RBC (Bld) [#/Vol] 4.84 10*6/uL 4.6-6.2 [facility] Screening prostate specific antigen (PSA) measurementOrdered By: Anju Navarrete on 12-22-2024 Prostate Specific Antigen Screen 1.01 ng/mL 0.00-4.00 [facility] Comment on above: This test was perfor med using the TPSA assay method for [employer] chemistry system. Values obtained with differentassay methods cannot be used interchangably.When changing PSA assays in the course of monitoring apatient, additional sequential testing should be carriedout to confirm baseline values. Serum anion gap measurementO rdered By: Anju Navarrete on 12-22-2024 Anion gap [Moles/Vol] 4 mmol/L Low 5-15 [facility] Serum globulin measurementOr dered By: Anju Navarrete on 12-22-2024 Globulin (S) [Mass/Vol] 3.8 g/dL 2.2-4.2 [facility] Serum or plasma alanine haq otransferase (ALT) measurementOrdered By: Anju Navarrete on 12-22-2024 ALT [Catalytic activity/Vol] 22 U/L 16-61 [facility] Serum or plasma albumin mary kate urement (mass/volume)Ordered By: Anju Navarrete on 12-22-2024 Albumin [Mass/Vol] 3.5 g/dL 3.2-5.0 [facility] Serum or plasma alkaline nadege sphatase measurementOrdered By: Anju Navarrete on 12-22-2024 ALP [Catalytic activity/Vol] 65 U/L 45-117 [facility] Serum or plasma calcium mary kate urement (mass/volume)Ordered By: Anju Navarrete on 12-22-2024 Calcium [Mass/Vol] 9.2 mg/dL 8.5-10.1 [facility] Serum or plasma cholesterol measurement (mass/volume)Ordered By: Anju Navarrete on 12-22-2024 Cholesterol [Mass/Vol] 187 mg/dL <200 [facility] Comment on above: <200 mg/dL Desirable 200-240 mg/dL Borderline >240 mg/dL High Risk Serum or plasma creatinine m easurement (mass/volume)Ordered By: Anju Navarrete on 12-22-2024 Creatinine [Mass/Vol] 0.94 mg/dL 0.70-1.30 [facility] Comment on above: The validity of the calculated GFR & GFRAA in patients over 70 years has not been determined. Clinical correlation is essential. Serum or plasma urea nitroge n measurement (mass/volume)Ordered By: Anju Navarrete on 12-22-2024 Urea nitrogen [Mass/Vol] 18 mg/dL 7-18 [facility] Sodium levelOrdered By: Leila Navarrete on 12-22-2024 Sodium [Moles/Vol] 138 mmol/L 136-145 [facility] Total proteinOrdered By: Andres Navarrete on 12-22-2024 Protein [Mass/Vol] 7.3 g/dL 6.4-8.2 [facility] Triglycerides measurementOrd ered By: Anju Navarrete on 12-22-2024 Triglyceride [Mass/Vol] 56 mg/dL <199 [facility] Comment on above: The drugs N-Acetylcy steine and Metamizole may falsely depress this assay.Serum Triglycerides Reference Interval Normal <150 mg/dL Borderline high 150 - 199 mg/dL High 200 - 499 mg/dL Very High > or = 500 mg/dL Very low density lipoprotein (VLDL) cholesterol measurementOrdered By: Anju Navarrete on 12-22-2024 Very low density lipoprotein (VLDL) cholesterol measurement 11 mg/dL -40 [facility] VLDL Cholesterol 11 mg/dL -40 [facility] White blood cell (WBC) count Ordered By: Anju Navarrete on 12-22-2024 WBC (Bld) [#/Vol] 6.6 10*3/uL 4.4-11.0 [facility] Knee 4 or More Viewson 11-27 Knee 4 or More Views [facility] [address] [place] [address] Knee 4 or More Views MR#: [id number] Acct: [id number] Name: ISAURA RAMIREZ Rep #: [id number] : 1970 M 53 From: Navjot Mcallister MD PCP: Care Physician,No Primary Status: DEP [facility] Study: Knee 4 or More Views Date of Exam: 11/27/24 Exam# [id number] Ordering Dr: Sancho Jaramillo MD -[id number] STUDY: X-RAY - LEFT KNEE REASON [...] 14:38 EST Reading Location ID and State: [facility] / [place] , Service support , CC: Dr. 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 Sancho rashid MD Age/Sex: 53/M Location: [facility] Status: Signed with Addenda ADDENDUM by Joyce [...] Performing Provider: Sancho Jaramillo MD Performing Location: [facility] Administered by: Sancho Jaramillo MD on 11/27/24 16:24 Dose Route Admin Location Dispensed Lot Number Expiration Date NDC Man ufacturer 80 mg intra-articular left knee 2 mL [id number] 03/14/26 5325-2438-12 [facility] Date cc: * Signed Intake Vital [...] mL 11/21/24 11/27/24 Rx pen injector (Dupixent) [facility] Medical History (Updated 11/27/24 @ 15:11 by Sancho Jaramillo MD) Osteoarthritis of left knee Left knee pain History of exercise stress test ( 10/2016) History of echocardiogram ( 10/2016) Dyspnea TIESHA (obstructive sleep apnea) Restless leg syndrome Hyperlipidemia Abnormal echocardiogram Chest pain Surgical History History of nasal surgery Family History Grandmother Myocardial infarction, Onset Age: 40 x3 NE's Social History Smoking Status: Never smoker alcohol [...] abnormalities Coding Level of Care Code Attention Data Architect Diagnoses Left knee pain M25.562 Osteoarthritis of left knee M17.12 Comment 10661 and CPT inject major joint Assessment and [...] cons ris (more content not included)... Normal [facility] Absolute neutrophil countOrd ered By: RENNY Mathur on 11-23-2024 Neutrophils (Bld) [#/Vol] 4.2 10*3/uL 2.0-7.7 [facility] Basophil percentageOrdered B y: RENNY Mathur on 11-23-2024 Basophils/100 WBC (Bld) 1.1 % High 0-1 [facility] CBC W/Diff, Automatedon 11-14 Absolute Lymph 1.71 X10 3/uL Normal 0.83-4.51 [facility] Comment on above: Performed By: #### L 100.0100 ####[facility] [address] [place], [address] Absolute Neut 4.2 X10 3/uL Normal 2.0-7.7 [facility] Comment on above: Performed By: #### L 100.0100 ####[facility] [address] [place], [address] Basophils/100 WBC (Bld) 1.1 % High 0-1 [facility] Comment on above: Performed By: #### L 100.0100 ####[facility] [address] [place], [address] Eosinophils/100 WBC (Bld) 3.7 % Normal 0-5 [facility] Comment on above: Performed By: #### L 100.0100 ####[facility] [address] [place], [address] Erythrocyte distribution width (RBC) [Ratio] 12.6 % Normal 11.6-14.6 [facility] Comment on above: Performed By: #### L 100.0100 ####[facility] [address] [place], [address] Hematocrit (Bld) [Volume fraction] 43.2 % Normal 40-54 [facility] Comment on above: Performed By: #### L 100.0100 ####[facility] [address] [place], [address] Hemoglobin (Bld) [Mass/Vol] 14.7 g/dL Normal 13.0-16.5 [facility] Comment on above: Performed By: #### L 100.0100 ####[facility] [address] [place], [address] IG% 0.300 Normal 0.0-0.9 [facility] Comment on above: Result Comment: IG% - Immature Granulocytes (promyelocytes, myelocytes and metamyelocytes) > 1% indicates that a LEFT SHIFT is Present. Performed By: #### L 100.0100 ####[facility] [address] [place], [address] Lymphocytes/100 WBC (Bld) 24.0 % Normal 19-41 [facility] Comment on above: Performed By: #### L 100.0100 ####[facility] [address] [place], [address] MCH (RBC) [Entitic mass] 30.3 pg Normal 27.0-32.0 [facility] Comment on above: Performed By: #### L 100.0100 ####[facility] [address] [place], [address] MCHC (RBC) [Mass/Vol] 34.0 g/dL Normal 32-36 [facility] Comment on above: Performed By: #### L 100.0100 ####[facility] [address] [place], [address] MCV (RBC) [Entitic vol] 89.1 fL Normal 80-94 [facility] Comment on above: Performed By: #### L 100.0100 ####[facility] [address] [place], [address] Monocytes/100 WBC (Bld) 11.4 % High 0-10 [facility] Comment on above: Performed By: #### L 100.0100 ####[facility] [address] [place], [address] Neutrophils/100 WBC (Bld) 59.5 % Normal 47-70 [facility] Comment on above: Performed By: #### L 100.0100 ####[facility] [address] [place], [address] Nucleated RBC (Bld) [#/Vol] 0 10*3/uL Normal 0-5 [facility] Comment on above: Performed By: #### L 100.0100 ####[facility] [address] [place], [address] Platelet mean volume (Bld) [Entitic vol] 9.1 fL Normal 6.2-12.0 [facility] Comment on above: Performed By: #### L 100.0100 ####[facility] [address] [place], [address] Platelets (Bld) [#/Vol] 312 10*3/uL Normal 150-450 [facility] Comment on above: Performed By: #### L 100.0100 ####[facility] [address] [place], [address] RBC (Bld) [#/Vol] 4.85 10*6/uL Normal 4.6-6.2 [facility] Comment on above: Performed By: #### L 100.0100 ####[facility] [address] [place], [address] RDW SD 41.1 fl Normal 35.1-43.9 [facility] Comment on above: Performed By: #### L 100.0100 ####[facility] [address] [place], [address] WBC (Bld) [#/Vol] 7.1 10*3/uL Normal 4.4-11.0 [facility] Comment on above: Performed By: #### L 100.0100 ####[facility] [address] [place], [address] Eosinophil percentageOrdered By: RENNY Mathur on 11-23-2024 Eosinophils/100 WBC (Bld) 3.7 % 0-5 [facility] Erythrocyte distribution wid th ratioOrdered By: RENNY Mathur on 11-23-2024 Erythrocyte distribution width (RBC) [Ratio] 12.6 % 11.6-14.6 [facility] Erythrocyte distribution wid th standard deviationOrdered By: RENNY Mathur on 11-23-2024 Erythrocyte distribution width (RBC) [Entitic vol] 41.1 fL 35.1-43.9 [facility] Hematocrit Auto (Bld) [Volum e fraction]Ordered By: RENNY Mathur on 11-23-2024 Hematocrit (Bld) [Volume fraction] 43.2 % 40-54 [facility] Hemoglobin measurementOrdere d By: RENNY Mathur on 11-23-2024 Hemoglobin (Bld) [Mass/Vol] 14.7 g/dL 13.0-16.5 [facility] Immature granulocytes/100 WB C Auto (Bld)Ordered By: RENNY Mathur on 11-23-2024 Immature granulocytes/100 WBC (Bld) 0.300 % 0.0-0.9 [facility] Comment on above: IG% - Immature Granu locytes (promyelocytes, myelocytes and metamyelocytes) > 1% indicates that a LEFT SHIFT is Present. Lymphocytes Auto (Unsp spec) [#/Vol]Ordered By: RENNY Mathur on 11-23-2024 Lymphocytes (Bld) [#/Vol] 1.71 10*3/uL 0.83-4.51 [facility] Lymphocytes/100 WBC Auto (Un sp spec)Ordered By: RENNY Mathur on 11-23-2024 Lymphocytes/100 WBC (Bld) 24.0 % 19-41 [facility] MCV (mean corpuscular volume ) determinationOrdered By: RENNY Mathur on 11-23-2024 MCV (RBC) [Entitic vol] 89.1 fL 80-94 [facility] Mean corpuscular hemoglobin (MCH) determinationOrdered By: RENNY Mathur on 11-23-2024 MCH (RBC) [Entitic mass] 30.3 pg 27.0-32.0 [facility] Mean corpuscular hemoglobin concentration (MCHC) determinationOrdered By: RENNY Mathur on 11-23-2024 MCHC (RBC) [Mass/Vol] 34.0 g/dL 32-36 [facility] Mean platelet volume determi nationOrdered By: RENNY Mathur on 11-23-2024 Platelet mean volume (Bld) [Entitic vol] 9.1 fL 6.2-12.0 [facility] Monocyte percentageOrdered B y: RENNY Mathur on 11-23-2024 Monocytes/100 WBC (Bld) 11.4 % High 0-10 [facility] Neutrophil percentageOrdered By: RENNY Mathur on 11-23-2024 Neutrophils/100 WBC (Bld) 59.5 % 47-70 [facility] Nucleated red blood cell per centageOrdered By: RENNY Mathur on 11-23-2024 Nucleated RBC/100 WBC (Bld) [Ratio] 0 % 0-5 [facility] Office Visit Reporton 2024 Office Visit Report [facility] [address] [place] [address] OFFICE VISIT Date of Service: 11/23/24 MR#: [id number] Acct: [id number] Patient: ISAURA RAMIREZ Rep #: [id number] : 1970 Provider: Aster Mathur NP Age/Sex: 53/M Location: [facility] [place] Status: Signed Intake Vital Signs 11/06/24 07:31 [...] Visit Reasons: Asthma - severe persistent asthma 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 Required: No Accompanied by: Self Is patient [...] injector Performing Provider: DASHA Crawford Performing Location: [facility] Administered by: Reyna Cisneros on 11/23/24 16:00 Dose Route Admin Location Dispensed Lot Number Expiration Date NDC Man ufacturer 300 mg subcut left arm 2 mL [id number] 03/13/26 6022-3229-91 [employer] Assessment and Plan Assessment and Plan Orders: Orders Dupixent Injection (Patient Provided) Today J45.50 - Severe persistent asthma, uncomplicated Medications: New Dupixent Pen (dupilumab) 300 mg (2 mL) subcut ONCE 2 mL 0RF NS J45.50 - Severe persistent asthma, uncomplicated 11/23/24 1626 Date Aster Johnson Signature: Date (if applicable) CC: Normal [facility] Platelet countOrdered By: RENNY Mathur on 11-23-2024 Platelets (Bld) [#/Vol] 312 10*3/uL 150-450 [facility] RBC Auto (Bld) [#/Vol]Ordere d By: RENNY Mathur on 11-23-2024 RBC (Bld) [#/Vol] 4.85 10*6/uL 4.6-6.2 [facility] White blood cell (WBC) count Ordered By: RENNY Mathur on 11-23-2024 WBC (Bld) [#/Vol] 7.1 10*3/uL 4.4-11.0 [facility] Pulmonary Visit Reporton Pulmonary Visit Report [facility] [place] [address] [place] [address] OFFICE VISIT Date of Service: 11/06/24 MR#: [id number] Acct: [id number] Name: ISAURA RAMIREZ Rep #: [id number] : 1970 Provider: DASHA Spence Age/Sex: 53/M [facility] Status: Signed Assessment and Plan Assessment and [...] patient reports that recently he canceled his [employer] service which canceled his email. Unfortunately, this [...] Chief Complaint: CONGESTION FEVER HEADACHE DME Vendor: [facility] Accompanied by: Self Allergies iodine Allergy (Verified 11/06/24 07:43) Anaphylaxis Medications ???Medication ???Instructions ???Recorded ???Confirmed ???Type aspirin 81 mg tablet,delayed 81 mg PO QDAY 10/21/17 11/06/24 History release (Adult Low Dose Aspirin) atorvastatin 10 mg tablet 10 mg PO QDAY #90 tabs 06/06/23 11/06/24 Rx dupilumab 300 mg/2 mL subcutaneous 300 mg (2 mL) subcut Q2W #4 mL 01/19/24 11/06/24 Rx pen injector ([employer]) pramipexole 1 mg tablet 1 mg PO QHS #90 tabs 05/07/24 11/06/24 Rx fluticasone fur. 200 mcg-umeclid 1 inh inhalation DAILY #3 ea 11/06/24 11/06/24 Rx 62.5 mcg-vilant 25 mcg inhalat.powder (more content not included)... Normal [facility] Absolute lymphocyte countOrd ered By: Dr. Cedeno on 04-28-2023 Lymphocytes Auto (Unsp spec) [#/Vol] 1.75 10*3/uL 0.83-4.51 [facility] Basophil percentageOrdered B y: Dr. Cedeno on 04-28-2023 Basophils/100 WBC (Bld) 1.1 % 0-1 [facility] Eosinophils/100 WBC (Bld) 4.7 % 0-5 [facility] Neutrophils (Bld) [#/Vol] 4.2 10*3/uL 2.0-7.7 [facility] Neutrophils/100 WBC (Bld) 58.3 % 47-70 [facility] WBC (Bld) [#/Vol] 7.3 10*3/uL 4.4-11.0 [facility] Bilirubin [Mass/Vol] 1.40 mg/dL 0.20-1.00 [facility] Comment on above: For patients on eltr ombopag therapy, use of Dimension [place] TBIL is not recommended. Chloride [Moles/Vol] 106 mmol/L 98-107 [facility] Cholesterol [Mass/Vol] 125 mg/dL <200 [facility] Comment on above: <200 mg/dL Desirable 200-240 mg/dL Borderline >240 mg/dL High Risk Glucose [Mass/Vol] 111 mg/dL 74-106 [facility] Comment on above: Fasting Glucose resu lt from 100 to 125 mg/dL suggests IMPAIRED HOMEOSTASIS per A.D.A. criteria. Potassium [Moles/Vol] 4.0 mmol/L 3.5-5.1 [facility] Protein [Mass/Vol] 7.4 g/dL 6.4-8.2 [facility] Sodium [Moles/Vol] 139 mmol/L 136-145 [facility] Triglyceride [Mass/Vol] 58 mg/dL <199 [facility] Comment on above: The drugs N-Acetylcy steine and Metamizole may falsely depress this assay.Serum Triglycerides Reference Interval Normal <150 mg/dL Borderline high 150 - 199 mg/dL High 200 - 499 mg/dL Very High > or = 500 mg/dL Blood erythrocytes count (nu mber/volume)Ordered By: Dr. Cedeno on 04-28-2023 RBC (Bld) [#/Vol] 4.90 10*6/uL 4.6-6.2 [facility] Blood hemoglobin measurement (mass/volume)Ordered By: Dr. Cedeno on 04-28-2023 Hemoglobin (Bld) [Mass/Vol] 15.0 g/dL 13.0-16.5 [facility] Blood lymphocytes/100 leukoc ytesOrdered By: Dr. Cedeno on 04-28-2023 Lymphocytes/100 WBC (Bld) 24.1 % 19-41 [facility] Blood monocytes/100 leukocyt esOrdered By: Dr. Cedeno on 04-28-2023 Monocytes/100 WBC (Bld) 11.4 % 0-10 [facility] Blood platelet mean volumeOr dered By: Dr. Cedeno on 04-28-2023 Platelet mean volume (Bld) [Entitic vol] 9.1 fL 6.2-12.0 [facility] Determination of erythrocyte mean corpuscular volume (MCV)Ordered By: Dr. Cedeno on 04-28-2023 MCV (RBC) [Entitic vol] 90.2 fL 80-94 [facility] Direct bilirubinOrdered By: Dr. Cedeno on 04-28-2023 Bilirubin.direct [Mass/Vol] 0.30 mg/dL 0.00-0.30 [facility] Hematocrit Auto (Bld) [Volum e fraction]Ordered By: Dr. Cedeno on 04-28-2023 Hematocrit (Bld) [Volume fraction] 44.2 % 40-54 [facility] Laboratory - Chemistry and C hemistry - challengeOrdered By: Dr. Cedeno on 04-28-2023 ALP [Catalytic activity/Vol] 73 U/L 45-117 [facility] ALT [Catalytic activity/Vol] 26 U/L 16-61 [facility] CO2 [Moles/Vol] 28.0 mmol/L 21.0-32.0 [facility] Globulin (S) [Mass/Vol] 3.8 g/dL 2.2-4.2 [facility] Urea nitrogen/Creatinine [Mass ratio] 12.8 mg/mg 10-20 [facility] Laboratory - Hematology and Cell countsOrdered By: Dr. Cedeno on 04-28-2023 Erythrocyte distribution width (RBC) [Entitic vol] 40.8 fL 35.1-43.9 [facility] Erythrocyte distribution width (RBC) [Ratio] 12.4 % 11.6-14.6 [facility] Immature granulocytes/100 WBC (Bld) 0.400 % 0.0-0.9 [facility] Comment on above: IG% - Immature Granu locytes (promyelocytes, myelocytes and metamyelocytes) > 1% indicates that a LEFT SHIFT is Present. MCH (RBC) [Entitic mass] 30.6 pg 27.0-32.0 [facility] Nucleated RBC/100 WBC (Bld) [Ratio] 0 % 0-5 [facility] MCHC Auto (RBC) [Mass/Vol]Or dered By: Dr. Cedeno on 04-28-2023 MCHC (RBC) [Mass/Vol] 33.9 g/dL 32-36 [facility] No Panel InformationOrdered By: Dr. Cedeno on 04-28-2023 Estimated Creatinine Clearance Calc 81.06 ml/min [facility] Estimated GFR (MDRD) Amer 84 mL/min >60 [facility] Comment on above: GFR Calc Estimated GFR (MDRD) Non-Af Amer 70 mL/min >60 [facility] Comment on above: Non- GFR Calc Platelets bldOrdered By: Dr. Cedeno on 04-28-2023 Platelets (Bld) [#/Vol] 323 10*3/uL 150-450 [facility] Serum or plasma albumin mary kate urement (mass/volume)Ordered By: Dr. Cedeno on 04-28-2023 Albumin [Mass/Vol] 3.6 g/dL 3.2-5.0 [facility] Serum or plasma calcium mary kate urement (mass/volume)Ordered By: Dr. Cedeno on 04-28-2023 Calcium [Mass/Vol] 9.0 mg/dL 8.5-10.1 [facility] Serum or plasma cholesterol in HDL measurement (mass/volume)Ordered By: Dr. Cedeno on 04-28-2023 Cholesterol in HDL [Mass/Vol] 42 mg/dL >40 [facility] Comment on above: The drugs N-Acetylcy steine and Metamizole may falsely depress this assay. Reference Range HDL <40 mg/dL Low HDL Cholesterol HDL >or= 60 mg/dL High HDL Cholesterol Serum or plasma cholesterol in VLDL measurement (mass/volume)Ordered By: Dr. Cedeno on 04-28-2023 Cholesterol in VLDL [Mass/Vol] 12 mg/dL 5-40 [facility] Serum or plasma creatinine m easurement (mass/volume)Ordered By: Dr. Cedeno on 04-28-2023 Creatinine [Mass/Vol] 1.17 mg/dL 0.70-1.30 [facility] Comment on above: The validity of the calculated GFR & GFRAA in patients over 70 years has not been determined. Clinical correlation is essential. Serum or plasma low density lipoprotein (LDL) cholesterol measurement (mass/volume)Ordered By: Dr. Cedeno on 04-28-2023 Cholesterol in LDL [Mass/Vol] 71 mg/dL 0-130 [facility] Serum or plasma urea nitroge n measurement (mass/volume)Ordered By: Dr. Cedeno on 04-28-2023 Urea nitrogen [Mass/Vol] 15 mg/dL 7-18 [facility] Thin prep Papanicolaou smear with manual screeningOrdered By: Dr. Cedeno on 04-28-2023 Thin prep Papanicolaou smear with manual screening 20 U/L 15-37 [facility] Thin prep Papanicolaou smear with manual screening 5 5-15 [facility] Basophil percentageon 2021 Bilirubin [Mass/Vol] 1.30 mg/dL 0.20-1.00 [facility] Work Phone: Comment on above: For patients on eltr ombopag therapy, use of Dimension [place] TBIL is not recommended. Cholesterol [Mass/Vol] 136 mg/dL <200 [facility] Work Phone: Comment on above: <200 mg/dL Desirable 200-240 mg/dL Borderline >240 mg/dL High Risk Protein [Mass/Vol] 7.5 g/dL 6.4-8.2 [facility] Work Phone: [phone] Triglyceride [Mass/Vol] 80 mg/dL <199 [facility] Work Phone: [phone] Comment on above: The drugs N-Acetylcy steine and Metamizole may falsely depress this assay.Serum Triglycerides Reference Interval Normal <150 mg/dL Borderline high 150 - 199 mg/dL High 200 - 499 mg/dL Very High > or = 500 mg/dL Direct bilirubinon 2 Bilirubin.direct [Mass/Vol] 0.27 mg/dL 0.00-0.30 [facility] Work Phone: [phone] Laboratory - Chemistry and C hemistry - challengeon 08-13-2022 ALP [Catalytic activity/Vol] 66 U/L 45-117 [facility] Work Phone: [phone] [Catalytic activity/Vol] 35 U/L 16-61 [facility] Work Phone: [phone] Globulin (S) [Mass/Vol] 3.9 g/dL 2.2-4.2 [facility] Work Phone: [phone] Serum or plasma albumin mary kate urement (mass/volume)on 08-13-2022 Albumin [Mass/Vol] 3.6 g/dL 3.2-5.0 [facility] Work Phone: [phone] Serum or plasma cholesterol in HDL measurement (mass/volume)on 08-13-2022 Cholesterol in HDL [Mass/Vol] 48 mg/dL >40 [facility] Work Phone: [phone] Comment on above: The drugs N-Acetylcy steine and Metamizole may falsely depress this assay. Reference Range HDL <40 mg/dL Low HDL Cholesterol HDL >or= 60 mg/dL High HDL Cholesterol Serum or plasma cholesterol in VLDL measurement (mass/volume)on 08-13-2022 Cholesterol in VLDL [Mass/Vol] 16 mg/dL 5-40 [facility] Work Phone: Serum or plasma low density lipoprotein (LDL) cholesterol measurement (mass/volume)on 08-13-2022 Cholesterol in LDL [Mass/Vol] 72 mg/dL 0-130 [facility] [place] [facility] Work Phone: Thin prep Papanicolaou smear with manual screeningon 08-13-2022 Thin prep Papanicolaou smear with manual screening 22 U/L 15-37 [facility] [place] Work Phone: Office Visit: OSAon 10-05-20 Dietary management education, guidance, and counseling (procedure) yes Invalid Interpretation Code [facility] Phone: Documentation of current medications (procedure) Done Invalid Interpretation Code [facility] Phone: Fall risk assessment No Invalid Interpretation Code [facility] Phone: Tobacco smoking status NHIS Never Invalid Interpretation Code [facility] Phone: Tobacco use [facility] Never smoker Invalid Interpretation Code [facility] Phone: Clinical Lists 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: 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-2017 Alanine aminotransferase (ALT) 54 U/L Invalid Interpretation Code [facility] Phone: [phone] Albumin 4.6 g/dL Invalid Interpretation Code [facility] Phone: [phone] Alkaline phosphatase (ALP) 67 U/L Invalid Interpretation Code [facility] Phone: [phone] Aspartate aminotransferase (AST) 35 U/L Invalid Interpretation Code [facility] Phone: [phone] Bilirubin (total) 1.40 mg/dL High [facility] Phone: [phone] Calcium 10.2 mg/dL Invalid Interpretation Code [facility] Phone: [phone] Chloride 102 mmol/L Invalid Interpretation Code [facility] Phone: [phone] Cholesterol 142 mg/dL Invalid Interpretation Code [facility] Phone: [phone] Cholesterol to HDL Ratio 3.4 {ratio} Invalid Interpretation Code [facility] Phone: CO2 26 mmol/L Invalid Interpretation Code [facility] Work Phone: [phone] Creatinine 0.9 mg/dL Invalid Interpretation Code [facility] Work Phone: [phone] Erythrocytes (RBC) 5.16 10*6/uL Invalid Interpretation Code [facility] Work Phone: [phone] Glucose 96 mg/dL Invalid Interpretation Code [facility] Work Phone: [phone] Glucose mass conc 96 mg/dL Invalid Interpretation Code [facility] Work Phone: HDL Cholesterol 42.00 mg/dL Invalid Interpretation Code [facility] Work Phone: [phone] Hematocrit (HCT) 45.1 % Invalid Interpretation Code [facility] Work Phone: [phone] Hemoglobin (HGB) 15.0 g/dL Invalid Interpretation Code [facility] Work Phone: [phone] LDL Cholesterol 84.4 mg/dL Invalid Interpretation Code [facility] Work Phone: [phone] MCH 29.0 pg Invalid Interpretation Code [facility] Work Phone: [phone] MCHC 33.2 g/dL Invalid Interpretation Code [facility] Work Phone: [phone] MCV 87.4 fL Invalid Interpretation Code [facility] Work Phone: [phone] Platelets 319 10*3/mm3 Invalid Interpretation Code [facility] Work Phone: [phone] PMV by Sam 9.0 fL Invalid Interpretation Code [facility] Work Phone: [phone] Potassium 4.6 mmol/L Invalid Interpretation Code [facility] Work Phone: [phone] Protein 8.0 g/dL Invalid Interpretation Code [facility] Work Phone: [phone] RDW-CA 12.3 % Invalid Interpretation Code [facility] Work Phone: [phone] Sodium 144 mmol/L Invalid Interpretation Code [facility] Work Phone: [phone] Triglyceride 78 mg/dL Invalid Interpretation Code [facility] Work Phone: [phone] Urea nitrogen 12 mg/dL Invalid Interpretation Code [facility] Work Phone: [phone] very low density lipoproteins 15.60 mg/dL Invalid Interpretation Code [facility] Phone: [phone] WBC (Leukocytes) 7.1 10*3/uL Invalid Interpretation Code [facility] Phone: [phone] Clinical Lists Update: 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 sensor 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 10-27-2016 Left ventricular Ejection fraction 65 % Invalid Interpretation Code [facility] Phone: [phone] Office Visiton 10-15-2016 Dietary management education, guidance, and counseling (procedure) yes Invalid Interpretation Code [facility] Phone: [phone] Documentation of current medications (procedure) Done Invalid Interpretation Code [facility] Phone: [phone] Tobacco use [facility] Never smoker Invalid Interpretation Code [facility] Phone: [phone] Replaced Document: Rupinder Nash CG Observationson 10-15-2016 EKG QRS axis 3 deg Invalid Interpretation Code [facility] Phone: electrocardiogram interpretation Sinus Rhythm Voltage criteria for LVH (R(I)+S(III) exceeds 2.50 mV) -Voltage criteria w/o ST/T abnormality may be normal. BORDERLINE Invalid Interpretation Code [facility] Phone: [phone] GE use only - for [employer] import when terms are not otherwise specified 398 ms Invalid Interpretation Code [facility] Phone: [phone] Interpretation Sinus Rhythm Voltage criteria for LVH (R(I)+S(III) exceeds 2.50 mV) -Voltage criteria w/o ST/T abnormality may be normal. BORDERLINE Invalid Interpretation Code [facility] Phone: P Hines 20 deg Invalid Interpretation Code [facility] Phone: P wave axis, electrocardiogram 20 deg Invalid Interpretation Code [facility] Phone: [phone] HI Interval 142 ms Invalid Interpretation Code [facility] Phone: HI interval, electrocardiogram 142 ms Invalid Interpretation Code [facility] Phone: [phone] Pulse (Heart Rate) 67 /min Invalid Interpretation Code [facility] Phone: QRS axis, electrocardiogram 3 deg Invalid Interpretation Code [facility] Work Phone: [phone] QRS Duration 96 ms Invalid Interpretation Code [facility] Work Phone: QRS duration, electrocardiogram 96 ms Invalid Interpretation Code [facility] [facility] Work Phone: [phone] QT Interval new path ms Invalid Interpretation Code [facility] Work Phone: QT interval, electrocardiogram new path ms Invalid Interpretation Code [facility] [facility] Work Phone: [phone] QTc [place] 398 ms Invalid Interpretation Code [facility] Work Phone: T Hines -1 deg Invalid Interpretation Code [facility] Work Phone: T wave axis, electrocardiogram -1 deg Invalid Interpretation Code [facility] [facility] Work Phone: [phone] Office Visit: TIESHA follow upo n 10-05-2016 Tobacco smoking status NHIS Never Invalid Interpretation Code [facility] Work Phone: [phone] Clinical Lists Update: Prelo sensor operator 10-01-2016 HbA1c 5.7 % Invalid Interpretation Code [facility] Work Phone: [phone] Lab Report: Ferritinon 03-09 Ferritin 91 ng/mL Invalid Interpretation Code 26-388 [facility] Work Phone: [phone] Vital Signs Date Time Vital Sign Value Performing Clinician Facility 08-01-2025 10:33-0400 Body temperature 98 [degF] Anju Navarrete [employer] Work Phone: [facility] 08-01-2025 10:33-0400 Body weight 104.32 kg Anju Navarrete [employer] Work Phone: [facility] 08-01-2025 10:33-0400 Diastolic blood pressure 80 mm[Hg] Anju Navarrete [employer]C Work Phone: [facility] 08-01-2025 10:33-0400 Heart rate 83 /min Anju Navarrete [employer] Work Phone: [facility] 08-01-2025 10:33-0400 Respiratory rate 14 /min Anju Navarrete [employer] Work Phone: [facility] 08-01-2025 10:33-0400 SaO2% (BldA) [Mass fraction] 98 % Anju Navarrete [employer]C Work Phone: [facility] 08-01-2025 10:33-0400 Systolic blood pressure 133 mm[Hg] Anju Navarrete [employer] C[employer]ER[employer]C Work Phone: [facility] 07-18-2025 07:53-0400 Body height 182.88 cm Anju Navarrete [employer]C Work Phone: [facility] 07-18-2025 07:53-0400 Body weight 105.23 kg Anju Navarrete [employer] Work Phone: [facility] 07-17-2025 07:32-0400 Body mass index (BMI) [Ratio] 32.3 kg/m2 Anju Navarrete [employer]C Work Phone: [facility] 06-13-2025 09:41-0400 Body mass index (BMI) [Ratio] 32.3 kg/m2 Anju Navarrete [employer]C Work Phone: [facility] 06-13-2025 09:41-0400 Body temperature 97.4 [degF] Anju Navarrete [employer] C[employer]C Work Phone: [facility] 06-13-2025 09:41-0400 Body weight 105.23 kg Anju Navarrete [employer]C Work Phone: [facility] 06-13-2025 09:41-0400 Diastolic blood pressure 83 mm[Hg] Anju Navarretegar [employer]ER[employer]C Work Phone: [facility] 06-13-2025 09:41-0400 Heart rate 70 /min Anju Navarrete [employer] Work Phone: [facility] 06-13-2025 09:41-0400 Respiratory rate 18 /min Anju Navarrete [employer] Work Phone: [facility] 06-13-2025 09:41-0400 SaO2% (BldA) [Mass fraction] 98 % Anju Landon [employer]C Work Phone: [facility] 06-13-2025 09:41-0400 Systolic blood pressure 138 mm[Hg] Anju Landon [employer]C Work Phone: [facility] 05-15-2025 15:32-0400 Body temperature 98 [degF] Anju Landon [employer] C[employer]ER[employer]C Work Phone: [facility] 05-15-2025 15:32-0400 Diastolic blood pressure 85 mm[Hg] Anju Landon [employer] C[employer]ER[employer]C Work Phone: [facility] 05-15-2025 15:32-0400 Heart rate 68 /min Anju Landon [employer] C[employer]C Work Phone: [facility] 05-15-2025 15:32-0400 Respiratory rate 16 /min Anju Landon [employer] C[employer]ER[employer]C Work Phone: [facility] 05-15-2025 15:32-0400 SaO2% (BldA) [Mass fraction] 99 % Anju Landon SHOE C[employer]ER[employer]C Work Phone: [facility] 05-15-2025 15:32-0400 Systolic blood pressure 131 mm[Hg] Anju Landon SHOE CEMENTER[employer]C Work Phone: [facility] 03-21-2025 08:49-0400 Body height 182.88 cm Anju Landon SHOE C[employer]ER[employer]C Work Phone: [facility] 03-21-2025 08:49-0400 Body mass index (BMI) [Ratio] 31.8 kg/m2 Anju Landon [employer]C Work Phone: [facility] 03-21-2025 08:49-0400 Body temperature 98.6 [degF] Anju Landon SHOE C[employer]ER[employer]C Work Phone: [facility] 03-21-2025 08:49-0400 Body weight 106.59 kg Anju Landon SHOE C[employer]ER[employer]C Work Phone: [facility] 03-21-2025 08:49-0400 Diastolic blood pressure 88 mm[Hg] Anju Landon SHOE CEMENTER[employer]C Work Phone: [facility] 03-21-2025 08:49-0400 Heart rate 61 /min Anju Landon SHOE C[employer]ER[employer]C Work Phone: [facility] 03-21-2025 08:49-0400 Respiratory rate 16 /min Anju Landon SHOE CEMENTER[employer]C Work Phone: [facility] 03-21-2025 08:49-0400 SaO2% (BldA) [Mass fraction] 99 % Anuj Landon SH[employer] C[employer]ER[employer]C Work Phone: [facility] 03-21-2025 08:49-0400 Systolic blood pressure 135 mm[Hg] Anju Landon SHOE C[employer]ER[employer]C Work Phone: [facility] 02-19-2025 15:41-0400 Body mass index (BMI) [Ratio] 31.8 kg/m2 Anju Landon [employer] C[employer]C Work Phone: [facility] 02-19-2025 15:41-0400 Body temperature 97.7 [degF] Anju Landon SHOE C[employer]ER[employer]C Work Phone: [facility] 02-19-2025 15:41-0400 Body weight 106.59 kg Anju Landon SHOE C[employer]ER[employer]C Work Phone: [facility] 02-19-2025 15:41-0400 Diastolic blood pressure 82 mm[Hg] Anju Landon SHOE C[employer]ER[employer]C Work Phone: [facility] 02-19-2025 15:41-0400 Heart rate 94 /min Anju Landon SH[employer] C[employer]C Work Phone: [facility] 02-19-2025 15:41-0400 Respiratory rate 18 /min Anju Landon SH[employer] C[employer]ER[employer]C Work Phone: [facility] 02-19-2025 15:41-0400 SaO2% (BldA) [Mass fraction] 96 % Anju Landon [employer] C[employer]ER[employer]C Work Phone: [facility] 02-19-2025 15:41-0400 Systolic blood pressure 133 mm[Hg] Anju Landon SHOE C[employer]ER[employer]C Work Phone: [facility] 02-12-2025 10:28-0400 Body temperature 98.4 [degF] Anju Landon SH[employer] C[employer]ER[employer]C Work Phone: [facility] 02-12-2025 10:28-0400 Diastolic blood pressure 87 mm[Hg] Anju Landon SH[employer] C[employer]C Work Phone: [facility] 02-12-2025 10:28-0400 Heart rate 70 /min Anju Landon [employer] C[employer]C Work Phone: [facility] 02-12-2025 10:28-0400 Respiratory rate 18 /min Anju Landon SH[employer] C[employer]C Work Phone: [facility] 02-12-2025 10:28-0400 SaO2% (BldA) [Mass fraction] 94 % Anju Navarretegar [employer] C[employer]ER[employer]C Work Phone: [facility] 02-12-2025 10:28-0400 Systolic blood pressure 144 mm[Hg] Anju Landon SHOE C[employer]ER[employer]C Work Phone: [facility] 02-01-2025 11:56-0400 Body temperature 97.8 [degF] No Primary Care Physician [facility] 02-01-2025 11:56-0400 Diastolic blood pressure 83 mm[Hg] No Primary Care Physician [facility] 02-01-2025 11:56-0400 Heart rate 76 /min No Primary Care Physician [facility] 02-01-2025 11:56-0400 Respiratory rate 16 /min No Primary Care Physician [facility] 02-01-2025 11:56-0400 SaO2% (BldA) [Mass fraction] 96 % No Primary Care Physician [facility] 02-01-2025 11:56-0400 Systolic blood pressure 132 mm[Hg] No Primary Care Physician [facility] 02-01-2025 08:13-0400 Body height 182.88 cm No Primary Care Physician [facility] 02-01-2025 08:13-0400 Body mass index (BMI) [Ratio] 31.1 kg/m2 No Primary Care Physician [facility] 02-01-2025 08:13-0400 Body weight 104 kg No Primary Care Physician [facility] 01-29-2025 15:36-0400 Body mass index (BMI) [Ratio] 32.5 kg/m2 No Primary Care Physician [facility] 01-29-2025 15:36-0400 Body temperature 98.3 [degF] No Primary Care Physician [facility] 01-29-2025 15:36-0400 Body weight 105.68 kg No Primary Care Physician [facility] 01-29-2025 15:36-0400 Diastolic blood pressure 84 mm[Hg] No Primary Care Physician [facility] 01-29-2025 15:36-0400 Heart rate 78 /min No Primary Care Physician [facility] 01-29-2025 15:36-0400 Respiratory rate 18 /min No Primary Care Physician [facility] 01-29-2025 15:36-0400 SaO2% (BldA) [Mass fraction] 96 % No Primary Care Physician [facility] 01-29-2025 15:36-0400 Systolic blood pressure 138 mm[Hg] No Primary Care Physician [facility] 01-23-2025 15:41-0400 Body mass index (BMI) [Ratio] 32.5 kg/m2 No Primary Care Physician [facility] 01-23-2025 15:41-0400 Body temperature 97.8 [degF] No Primary Care Physician [facility] 01-23-2025 15:41-0400 Body weight 105.91 kg No Primary Care Physician [facility] 01-23-2025 15:41-0400 Diastolic blood pressure 87 mm[Hg] No Primary Care Physician [facility] 01-23-2025 15:41-0400 Heart rate 79 /min No Primary Care Physician [facility] 01-23-2025 15:41-0400 Respiratory rate 18 /min No Primary Care Physician [facility] 01-23-2025 15:41-0400 SaO2% (BldA) [Mass fraction] 96 % No Primary Care Physician [facility] 01-23-2025 15:41-0400 Systolic blood pressure 128 mm[Hg] No Primary Care Physician [facility] 01-09-2025 15:21-0500 Body mass index (BMI) [Ratio] 32.2 kg/m2 No Primary Care Physician [facility] 01-09-2025 15:21-0500 Body temperature 97.4 [degF] No Primary Care Physician [facility] 01-09-2025 15:21-0500 Body weight 104.77 kg No Primary Care Physician [facility] 01-09-2025 15:21-0500 Diastolic blood pressure 84 mm[Hg] No Primary Care Physician [facility] 01-09-2025 15:21-0500 Heart rate 78 /min No Primary Care Physician [facility] 01-09-2025 15:21-0500 Respiratory rate 18 /min No Primary Care Physician [facility] 01-09-2025 15:21-0500 SaO2% (BldA) [Mass fraction] 96 % No Primary Care Physician [facility] 01-09-2025 15:21-0500 Systolic blood pressure 129 mm[Hg] No Primary Care Physician [facility] 11-23-2024 16:01-0500 Body temperature 97.7 [degF] No Primary Care Physician [facility] 11-23-2024 16:01-0500 Diastolic blood pressure 89 mm[Hg] No Primary Care Physician [facility] 11-23-2024 16:01-0500 Heart rate 81 /min No Primary Care Physician [facility] 11-23-2024 16:01-0500 Respiratory rate 18 /min No Primary Care Physician [facility] 11-23-2024 16:01-0500 SaO2% (BldA) [Mass fraction] 97 % No Primary Care Physician [facility] 11-23-2024 16:01-0500 Systolic blood pressure 160 mm[Hg] No Primary Care Physician [facility] 11-06-2024 07:31-0500 Body mass index (BMI) [Ratio] 32.6 kg/m2 No Primary Care Physician [facility] 11-06-2024 07:31-0500 Body temperature 97.3 [degF] No Primary Care Physician [facility] 11-06-2024 07:31-0500 Body weight 106.31 kg No Primary Care Physician [facility] 11-06-2024 07:31-0500 Diastolic blood pressure 88 mm[Hg] No Primary Care Physician [facility] 11-06-2024 07:31-0500 Heart rate 74 /min No Primary Care Physician [facility] 11-06-2024 07:31-0500 Respiratory rate 16 /min No Primary Care Physician [facility] 11-06-2024 07:31-0500 SaO2% (BldA) [Mass fraction] 97 % No Primary Care Physician [facility] 11-06-2024 07:31-0500 Systolic blood pressure 134 mm[Hg] No Primary Care Physician [facility] 04-28-2023 08:41-0400 Body height 182.88 cm SHOE CEMENTER-C Will Hellinger SHOE CEMENTER Work Phone: [facility] 04-28-2023 08:41-0400 Body weight 106.14 kg SHOE CEMENTER-C Will Hellinger SHOE CEMENTER Work Phone: [facility] 03-31-2023 09:09-0400 Body weight 106.14 kg SHOE C[employer]ER-C Will Hellinger SHOE CEMENTER Work Phone: [facility] 03-31-2023 09:09-0400 Diastolic blood pressure 77 mm[Hg] SH[employer] C[employer]ER-C Will Hellinger SHOE CEMENTER Work Phone: [facility] 03-31-2023 09:09-0400 Heart rate 72 /min SH[employer]C Will Hellinger SHOE CEMENTER Work Phone: [facility] 03-31-2023 09:09-0400 Respiratory rate 16 /min [employer]C Will Hellinger SHOE CEMENTER Work Phone: [facility] 03-31-2023 09:09-0400 SaO2% (BldA) [Mass fraction] 99 % SH[employer]C Will Hellinger SHOE CEMENTER Work Phone: [facility] 03-31-2023 09:09-0400 Systolic blood pressure 124 mm[Hg] SHOE C[employer]ER-C Will Hellinger SHOE CEMENTER Work Phone: [facility] 02-16-2023 14:18-0400 Diastolic blood pressure 78 mm[Hg] SHOE C[employer]ER-C Will Hellinger SHOE CEMENTER Work Phone: [facility] 02-16-2023 14:18-0400 Heart rate 82 /min [employer]C Will Hellinger SHOE CEMENTER Work Phone: [facility] 02-16-2023 14:18-0400 SaO2% (BldA) [Mass fraction] 97 % SH[employer]C Will Hellinger SHOE CEMENTER Work Phone: [facility] 02-16-2023 14:18-0400 Systolic blood pressure 114 mm[Hg] SHOE CEMENTER-C Will Hellinger SHOE CEMENTER Work Phone: [facility] 01-24-2023 16:03-0400 Body height 182.88 cm SHOE CEMENTER-C Will Hellinger SHOE CEMENTER Work Phone: [facility] 01-24-2023 16:03-0400 Body mass index (BMI) [Ratio] 32 kg/m2 [employer] Will Hellinger SHOE CEMENTER Work Phone: [facility] 01-24-2023 16:03-0400 Body weight 107.13 kg SHOE CEMENTER-C Will Hellinger SHOE CEMENTER Work Phone: [facility] 01-24-2023 16:03-0400 Diastolic blood pressure 88 mm[Hg] SHOE CEMENTER-C Will Hellinger SHOE CEMENTER Work Phone: [facility] 01-24-2023 16:03-0400 Heart rate 68 /min SH[employer] C[employer]C Will Hellinger SHOE CEMENTER Work Phone: [facility] 01-24-2023 16:03-0400 Respiratory rate 16 /min SH[employer] C[employer]C Will Hellinger SHOE CEMENTER Work Phone: [facility] 01-24-2023 16:03-0400 Systolic blood pressure 128 mm[Hg] SHOE CEMENTER-C Will Hellinger SHOE CEMENTER Work Phone: [facility] 11-11-2022 06:52-0500 Body mass index (BMI) [Ratio] 32.1 kg/m2 [employer]C Will Hellinger SHOE CEMENTER Work Phone: [facility] 11-11-2022 06:52-0500 Body temperature 97.2 [degF] SH[employer] C[employer]ER-C Will Hellinger SHOE CEMENTER Work Phone: [facility] 11-11-2022 06:52-0500 Body weight 107.5 kg SHOE CEMENTER-C Will Hellinger SHOE CEMENTER Work Phone: [facility] 11-11-2022 06:52-0500 Diastolic blood pressure 84 mm[Hg] SHOE CEMENTER-C Will Hellinger SHOE CEMENTER Work Phone: [facility] 11-11-2022 06:52-0500 Heart rate 78 /min SHOE C[employer]ER-C Will Hellinger SHOE CEMENTER Work Phone: [facility] 11-11-2022 06:52-0500 Respiratory rate 18 /min SH[employer] CEMENTER-C Will Hellinger SHOE CEMENTER Work Phone: [facility] 11-11-2022 06:52-0500 SaO2% (BldA) [Mass fraction] 96 % SH[employer] C[employer]ER-C Will Hellinger SHOE CEMENTER Work Phone: [facility] 11-11-2022 06:52-0500 Systolic blood pressure 138 mm[Hg] SHOE CEMENTER-C Will Hellinger SHOE CEMENTER Work Phone: [facility] 10-05-2017 05:18-0500 BMI (Body Mass Index) 27.86 kg/m2 Mary Carmen Sol [facility] Work Phone: 10-05-2017 05:18-0500 Body Temperature 97.5 [degF] [facility]en [facility] Work Phone: 10-05-2017 05:18-0500 BP Diastolic 82 mm[Hg] [facility] Work Phone: 10-05-2017 05:18-0500 BP Systolic 139 mm[Hg] Mary Carmen [facility] Work Phone: 10-05-2017 05:18-0500 Height 182.25 cm Mary Carmen [facility] [place] Work Phone: 10-05-2017 05:18-0500 Pulse (Heart Rate) 80 /min [facility] [place] Work Phone: 10-05-2017 05:18-0500 Respiratory Rate 18 /min Mary Carmen [facility] Work Phone: 10-05-2017 05:18-0500 Weight 92.53 kg Mary Carmen [facility] [place] Work Phone: 10-15-2016 15:01-0500 BMI (Body Mass Index) 28.95 kg/m2 Harumi [facility] Work Phone: 10-15-2016 15:01-0500 BP Diastolic 82 mm[Hg] [facility] Work Phone: 10-15-2016 15:01-0500 BP Systolic 128 mm[Hg] Harumi DeFinis [facility] Work Phone: 10-15-2016 15:01-0500 BSA (Body Surface Area) 2.18 m2 [facility]umi DeFinis [facility] Work Phone: 10-15-2016 15:01-0500 Pulse (Heart Rate) 72 /min [facility] Work Phone: 10-15-2016 15:01-0500 Respiratory Rate 16 /min Harumi DeFinis [facility] Work Phone: 10-15-2016 15:01-0500 Weight 96.16 kg [facility]umi De[facility]is [facility] Work Phone: 10-05-2016 06:52-0500 Body Temperature 96.4 [degF] [facility] DeFinis [facility] Work Phone: 10-05-2016 06:52-0500 Body [...] End: 08-01-2025 Patient encounter procedure Terra KEARNEY -[facility] Work Phone: Start: 08-01-2025 End: 08-01-2025 ambulatory Anju Navarrete SHOE CEMENTER-C Work Phone: -[facility] Start: 07-23-2025 Non-patient / Non-visit Dr. Jann brody MD -[facility] Start: 07-23-2025 End: 07-23-2025 ambulatory Anju Navarretegar SHOE CEMENTER-C Work Phone: -Cardiovascular Services Start: 07-23-2025 End: 07-23-[address] Jann Cedeno MD -Cardi[facility] Services Work Phone: Start: 07-23-2025 End: 07-23-2025 ambulatory Anju Landon Facility:[facility] Start: 07-18-2025 ambulatory Anju Landon Facility:[facility] Start: 07-18-2025 Non-patient / Non-visit Dr. Jann brody MD -[facility] Start: 07-18-2025 End: 07-18-2025 Admission to same day surgery center Dr. Jann Cedeno MD -[facility]care [facility] Intern/Special Procedures Work Phone: Start: 07-18-2025 End: 07-18-2025 ambulatory Anju Landon SHOE CEMENTER-C Work Phone: -Healthcare Administration Intern/Special Procedures Start: 06-13-2025 End: 06-13-2025 Patient encounter procedure Katja Spence SHOE CEMENTER-C -[facility] Work Phone: Start: 06-13-2025 End: 06-13-2025 ambulatory Anjutraci Navarrete SHOE CEMENTER-C Work Phone: -[facility] Start: 05-15-2025 End: 05-15-[address] Jann Cedeno MD -[facility] Work Phone: Start: 05-15-2025 End: 05-15-2025 ambulatory Anju Navarrete SHOE CEMENTER-C Work Phone: -[facility] Start: 04-18-2025 Non-patient / Non-visit Dr. Jann brody MD -[facility] Start: 04-18-2025 End: 04-18-2025 ambulatory Anju Landon SHOE CEMENTER-C Work Phone: [facility] Work Phone: Start: 04-18-2025 End: 04-18-2025 Patient encounter procedure Terra KEARNEY -Cardiovascular Services Work Phone: Start: 04-18-2025 End: 04-18-2025 ambulatory Anju Landon Facility:[facility] Start: 04-02-2025 End: 04-02-2025 Patient encounter procedure Terra KEARNEY -[facility] Work Phone: Start: 04-02-2025 End: 04-02-2025 ambulatory Anju Navarrete SHOE CEMENTER-C Work Phone: [facility] Work Phone: Start: 02-19-2025 End: 02-19-[address] Tatianna Whipple MD -[facility] Work Phone: Start: 02-19-2025 End: 02-19-2025 ambulatory Anju Navarrete Facility:[facility] Start: 02-12-2025 End: 02-12-[address] Tatianna Whipple MD -[facility] Work Phone: Start: 02-12-2025 End: 02-12-2025 ambulatory [facility] Facility:[facility] Start: 02-01-2025 ambulatory [facility] Start: 02-01-2025 Non-patient / Non-visit Dr. Tatianna best MD -[facility] Start: 02-01-2025 End: 02-01-2025 Admission to same day surgery center Dr. Tatianna Whipple MD -Surgical Day Care Start: 02-01-2025 End: 02-01-2025 ambulatory No Primary Care Physician [facility] Work Phone: Start: 01-29-2025 End: 01-29-[address] Tatianna Whipple MD -[facility] Work Phone: Start: 01-29-2025 End: 01-29-2025 ambulatory Tatianna Sole Facility:[facility] Start: 01-23-2025 End: 01-23-[address] Tatianna Whipple MD -[facility] Work Phone: Start: 01-23-2025 End: 01-23-2025 ambulatory [facility] Facility:[facility] Start: 01-10-2025 End: 01-10-[address] Sancho Jaramillo MD -[facility] Work Phone: Start: 01-10-2025 End: 01-10-2025 ambulatory [facility] Facility:[facility] Start: 01-09-2025 End: 01-09-[address] Tatianna Whipple MD -[facility] Work Phone: Start: 01-09-2025 End: 01-09-2025 ambulatory [facility] Facility:[facility] Start: 01-07-2025 Encounter for genera l adult medical examination with abnormal findings [facility] Start: 01-04-2025 End: 01-04-[address] Sancho Jaramillo MD -[facility] Work Phone: Start: 01-04-2025 End: 01-04-2025 ambulatory [facility] Facility:[facility] Start: 12-31-2024 End: 12-31-[address] Sancho Jaramillo MD -[facility] Work Phone: Start: 12-31-2024 End: 12-31-2024 ambulatory Anju Landon Facility:[facility] Start: 12-22-2024 End: 12-22-2024 Patient encounter procedure Anju Navarrete SHOE CEMENTER-C -Laboratory Work Phone: Start: 12-22-2024 End: 12-22-2024 ambulatory [facility] Facility:[facility] Start: 11-27-2024 End: 11-27-[address] Sancho Jaramillo MD -[facility] Work Phone: Start: 11-27-2024 End: 11-27-2024 ambulatory Sancho Jaramillo Facility:[facility] Start: 11-23-2024 End: 11-23-2024 Patient encounter procedure RENNY Mathur -[facility] Work Phone: Start: 11-23-2024 End: 11-23-2024 ambulatory No Primary Care Physician Facility:[facility] Start: 11-23-2024 End: 11-23-2024 Patient encounter procedure SHOE CEMENTER Aster Mathur -Laboratory Work Phone: Start: 11-23-2024 End: 11-23-2024 ambulatory No Primary Care Physician Facility:[facility] Start: 11-06-2024 End: 11-06-2024 Patient encounter procedure Katja Spence SHOE CEMENTER-C -[facility] Work Phone: Start: 11-06-2024 End: 11-06-2024 ambulatory Katja Spence SHOE CEMENTER Facility:[facility] Start: 04-28-2023 End: 04-28-2023 Admission to same day surgery center SHOE CEMENTER-Randal Mondragon SHOE CEMENTER Work Phone: [facility]-Healthcare Administration Intern/Special Procedures Start: 04-28-2023 End: 04-28-2023 ambulatory SHOE CEMENTER-C Will Helrheaer SHOE CEMENTER Work Phone: [facility] Work Phone: Start: 03-31-2023 End: 03-31-2023 Patient encounter procedure SHOE CEMENTER-C Will Avilesrheaer SHOE CEMENTER Work Phone: [facility] V[facility] Surgery Start: 02-22-2023 Non-patient / Non-visit SHOE CEMENTER-C T rolando Ninaer SHOE CEMENTER Work Phone: [facility] Start: 02-22-2023 End: 02-22-2023 ambulatory SHOE CEMENTER-C Will Tracirheaer SHOE CEMENTER Work Phone: [facility] Work Phone: Start: 02-22-2023 End: 02-22-2023 Patient encounter procedure SHOE CEMENTER-C Will Helrheaer SHOE CEMENTER Work Phone: [facility]-Cardiovascular Services Start: 02-16-2023 End: 02-16-2023 Patient encounter procedure SHOE CEMENTER-C Will Avilesrheaer SHOE CEMENTER Work Phone: [facility]ascular Surgery Start: 01-24-2023 End: 01-24-2023 Patient encounter procedure SHOE CEMENTER-C Will Helrheaer SHOE CEMENTER Work Phone: [facility] Start: 01-11-2023 Non-patient / Non-visit SHOE CEMENTER-C T rolando Ninaer SHOE CEMENTER Work Phone: [facility] Start: 11-11-2022 End: 11-11-2022 Patient encounter procedure SHOE CEMENTER-C Will Helrheaer SHOE CEMENTER Work Phone: [facility]-Pulmonary Medicine [facility] Start: 08-13-2022 End: 08-13-2022 ambulatory [facility] Work Phone: Start: 08-13-2022 End: 08-13-2022 Patient encounter procedure [facility]-Laboratory Procedures Date Procedure Procedure Detail Performing Clinician Start: 02-01-2025 Blepharoplasty No Prima ry Care Physician Start: 01-04-2025 MRI of joint of lowe r extremity No Primary Care Physician Start: 12-22-2024 Measurement of renal function Anju Landon SHOE CEMENTER-C Work Phone: Comment on above: GFR Calc Start: 12-22-2024 Prostate specific an tigen measurement Anju Landon SHOE CEMENTER-C Work Phone: Comment on above: This test was perfor med using the TPSA assay method for [employer] chemistry system. Values obtained with differentassay methods [...] Assay of ferritin Katja S Spence C SHOE CEMENTER Work Phone: Start: 03-05-2016 End: 03-13-2016 Assay of ferritin Katja S Spence C SHOE CEMENTER Work Phone: Start: 02-17-2016 End: 10-01-2016 Follow [...] Activity Detail Author Start: 07-18-2025 Patient discharge [facility] Start: 02-01-2025 Anesthesia eyelid reconstructive procedure ANESTH BLEPHAROPLASTY [facility] Start: 02-01-2025 Blepharoplasty upper eyelid BLEPHAROPLASTY UPPER EYELID [facility] Start: 02-01-2025 [facility] Start: 02-01-2025 Patient discharge [facility] Start: 10-26-2017 End: 10-26-2017 Appointment Appointment [facility] Phone: Start: 10-05-2017 End: 10-05-2017 Follow Up Appt 1 year Follow Up Appt 1 year [facility] Phone: Start: 10-05-2017 End: 10-05-2017 Appointment Appointment [facility] Phone: Start: 10-21-2016 End: 10-21-2016 Echocardiography Echocardiogram (complete) [facility] Phone: Start: 10-21-2016 End: 10-21-2016 Echocardiography Echocardiogram (complete) [facility] Phone: Start: 10-15-2016 End: 10-18-2016 Cardiovascular stress test using treadmill Treadmill stress test (no imaging) [facility] Phone: Start: 10-15-2016 End: 10-15-2016 Ecg routine ecg w/least 12 lds w/i&r EKG (In office) [facility] Phone: Start: 10-15-2016 End: 10-15-2016 Echocardiography Echocardiogram (complete) [facility] Work Phone: Start: 10-15-2016 End: 10-15-2016 Follow Up Appt 1 year Follow Up Appt 1 year [facility] Phone: Start: 10-15-2016 End: 10-15-2016 PFM PFM [facility] Work Phone: Start: 10-15-2016 End: 10-18-2016 Cardiovascular stress test using treadmill Treadmill stress test (no imaging) [facility] Work Phone: Start: 10-15-2016 End: 10-15-2016 Echocardiography Echocardiogram (complete) [facility] Work Phone: Start: 10-15-2016 End: 10-15-2016 Electrocardiogram, complete EKG (In office) [facility] Work Phone: Start: 10-15-2016 End: 10-15-2016 Follow Up Appt 1 year Follow Up Appt 1 year [facility] Work Phone: Start: 10-15-2016 End: 10-15-2016 PFM PFM [facility] Work Phone: Start: 10-05-2016 End: 10-05-2016 Follow Up Appt 1 year Follow Up Appt 1 year [facility] Work Phone: Start: 10-05-2016 End: 10-05-2016 Follow Up Appt 1 year Follow Up Appt 1 year [facility] Work Phone: Start: 06-14-2016 End: 10-01-2016 Pulmonary Function Test - complete Pulmonary Function Test - complete [facility] Work Phone: Start: 06-14-2016 End: 10-01-2016 Pulmonary Function Test - complete Pulmonary Function Test - complete [facility] Work Phone: Start: 04-01-2016 End: 04-01-2016 Follow Up Appt 6 months Follow Up Appt 6 months [facility] Work Phone: Start: 04-01-2016 End: 04-01-2016 Follow Up Appt 6 months Follow Up Appt 6 months [facility] Work Phone: Start: 03-05-2016 End: 03-13-2016 Assay of ferritin Ferritin [facility] Work Phone: Start: 03-05-2016 End: 03-13-2016 Assay [...] 3 months Follow Up Appt 3 months [facility] Work Phone: Start: 02-17-2016 End: 10-01-2016 Pulmonary Function Test - complete Pulmonary Function Test - complete [facility] Work Phone: Lipid 1996 panel - S monalisa or Plasma [facility] Patient referral [facility] Work Phone: [facility] Payers Date Payer Category Payer Unknown [id number] 2024 Self-pay [id number] 2015 Unknown [id number] Self-pay 0 Unknown [id number] 2.16.8 [id number] Unknown [id number] 2.16.8 [id number] Unknown [id number] 2.16.8 40.1.438163.3.579.2.462 Unknown [id number] 2.16.8 40.1.840296.3.579.2.462 Unknown [id number] 2.16.8 40.1.628605.3.579.2.462 Unknown [id number] 2.16.8 40.1.426673.3.579.2.462 Unknown [id number] 2.16.8 40.1.941487.3.579.2.462 Unknown [id number] 2.16.8 40.1.151936.3.579.2.462 Unknown [id number] 2.16.8 40.1.413382.3.579.2.462 Unknown [id number] 2.16.8 40.1.628936.3.579.2.462 Unknown [id number] 2.16.8 40.1.232826.3.579.2.462 Unknown [id number] 2.16.8 40.1.731159.3.579.2.462 Unknown [id number] 2.16.8 40.1.706250.3.579.2.462 Unknown [id number] 2.16.8 40.1.940714.3.579.2.462 Unknown [id number] 2.16.8 40.1.444668.3.579.2.462 Unknown [id number] 2.16.8 40.1.453341.3.579.2.462 Unknown [id number] 2.16.8 40.1.888240.3.579.2.462 Unknown [id number] 2.16.8 40.1.920698.3.579.2.462 Unknown [id number] 2.16.8 40.1.900522.3.579.2.462 Unknown [id number] 2.16.8 40.1.472510.3.579.2.462 Unknown [id number] 2.16.8 40.1.528485.3.579.2.462 Unknown [id number] 2.16.8 40.1.107388.3.579.2.462 Unknown [id number] 2.16.8 40.1.623017.3.579.2.462 Unknown [id number] 2.16.8 40.1.012383.3.579.2.462 Unknown [id number] 2.16.8 40.1.864852.3.579.2.462 Unknown [id number] 2.16.8 40.1.966361.3.579.2.462 Social History Date Type Detail Facility Start: 12-02-2021 End: 04-28-2023 Tobacco smoking status NCIS Unknown if ever smoked [facility] Start: 01-09-2021 Non-smoker [facility] Start: 1970 Sex Assigned At Male [facility] Start: 01-22-2025 End: 07-18-2025 Tobacco smoking status NHIS Never smoked tobacco (finding) [facility] Start: 02-01-2025 Sex Male (finding) [facility] Sex Male [facility] Goals Date Patient Goal Desired Activity /State Mental Status Date Assessment Result Facility 02-01-2025 Cognitive function Voice/Name [facility] Work Phone: Clinical Notes 11-06-2024 to 07-18-2025 Note Date & Type Note Facility 07-18-2025 History and physi rajani note [facility] 07-18-2025 Note [facility] Medical Records Department [address] [place] [address] History Physical Exam 07/18/25 0916 MR#: [id number] Acct: [id number] Name: ISAURA RAMIREZ Rep #: [id number] : 1970 54 From: Jann Cedeno MD PCP: DASHA Pitts Status:REG [facility] Location: [facility] HPI - General HPI Narrative ISAURA RAMIREZ, is a 54 M who presents right lower extremity painful/pruritic varicose veins on anterior lower leg. He had a prior GSV ablation which did not resolve his symptoms and they have been refractory to compression. Venous duplex reveals varicose veins originating from inferior aspect of accessory saphenous vein in thigh. [facility] Medical History Wears glasses History of steroid [...] Grandmother Myocardial infarction, Onset Age: 40 x3 NE's Father Alcoholism Mother Breast cancer Aunt Cancer [...] or lesions noted (more content not included)... [facility] 05-15-2025 Evaluation note Diagnosis Onset Date Resolution Varicose veins with inflammation chronic May 15, 2025 3 :25pm Asthma chronic June 13 3:17pm Obesity chronic June 13 3:17pm TIESHA (obstructive sleep apnea) chronic June 13, 2025 3:17pm Varicose veins with inflammation chronic July 18, 2 025 7:22am [facility] Work Phone: 1(705) 173-856205-20-2025 Evaluation note* Diagnosis Onset Date Resolution Status Admit Date Venous insufficiency acute April 02, 2025 8:58am Pruritus noneactive April 02, 2025 8:58am Varicose veins with inflammation chronic May 15, 2025 3 :25pm Asthma chronic June 13 3:17pm Obesity chronic June 13 3:17pm TIESHA (obstructive sleep apnea) chronic June 13, 2025 3:17pm Varicose veins with inflammation chronic July 18, 2 025 7:22am [facility] Work Phone: 1(127) 640-181404-08-2025 Evaluation note* Diagnosis Onset Date Resolution Status Admit Date Status post blepharoplasty acute February 19, 2025 3:25pm Venous insufficiency acute April 02, 2025 8:58am Pruritus noneactive April 02, 2025 8:58am Varicose veins with inflammation chronic May 15, 2025 3 :25pm Asthma chronic June 13 3:17pm Obesity chronic June 13 3:17pm TIESHA (obstructive sleep apnea) chroni c June 13, 2025 3:17pm [facility] Work Phone: 1(283) 726-568703-21-2025 History and physical note [facility] Medical Records Department [address] [place] [address] History & Physical Exam 02/01/25 0916 MR#: [id number] Acct: [id number] Name: ISAURA RAMIREZ Rep #:[id number] : 1970 54 From: Tatianna Whipple MD PCP: DASHA Pitts Status:[facility] Location: [place] [address] History and Physical Date of Admission: 02/01/25 [...] DASHA Navarrete; Dr. Tatianna Whipple MD~ Signed [facility]03-21-2025 Consult note Author Marline Marcum [facility] Note Date/Time February 01, 2025 11: 28am [facility] Medical Records Department [address] [place] [address] Anesthesia Postop Eval I 02/01/25 1127 MR#: [id number] Acct: [id number] Name: ISAURA RAMIREZ Rep #:[id number] : 1970 54 From: Marline Marcum CRNA PCP: DASHA Pitts Status:REG SDC Y Race: C Location: [place] [address] Anesthesia: Postop Eval I Current Vital Signs [...] Marline leach CRNA> Date _ Marline Marcum CLINICAL PHARMACOLOGIST Cosigner Signature: Date CC: ~ Signed [facility] Work Phone: 1(216) 963-349203-21-2025 Discharge summary Author Tatianna Whipple [facility] Note Date/Time February 01, 2025 11: 13am [facility] Medical Records Department [address] [place] [address] Instructions for Home/Discharge Instructions 02/01/25 1112 MR#: [id number] Acct: [id number] Name: ISAURA RAMIREZ Rep #:[id number] : 1970 54 From: Tatianna Whipple MD PCP: DASHA Pitts Status:REG [facility] Discharge Instructions Dressing / Incision Additional Dressing/Incision [...] Care Provider: Anju Navarrete Instructions Print Language: Indian Discharge Orders/Prescriptions Prescriptions: No Action Trelegy Ellipta [...] by Tatianna Whipple MD>Tatianna Whipple MD CC: SHOE CEMENTER-C Anju Navarrete ~ Signed [facility] Work Phone: 1(811) 298-926203-21-2025 Discharge summary Author Tatianna Whipple [facility] Note Date/Time February 01, 2025 11: 12am [facility] Medical Records Department [address] [place] [address] Instructions for Home/Discharge Instructions 02/01/25 1111 MR#: [id number] Acct: [id number] Name: ISAURA RAMIREZ Rep #:[id number] : 1970 54 From: Tatianna Whipple MD PCP: DASHA Pitts Status:REG [facility] Discharge Instructions Dressing / Incision Additional Dressing/Incision [...] Care Provider: Anju Navarrete Instructions Print Language: Indian Discharge Orders/Prescriptions Prescriptions: No Action Trelegy Ellipta [...] MD CC: KONGC Anju Navarrete ~ Signed [facility] Work Phone: 1(720) 347-918603-21-2025 Consult note [facility] Medical Records Department [address] [place] [address] Anesthesia Postop Eval II 02/01/25 1149 MR#: [id number] Acct: [id number] Name: ISAURA RAMIREZ Rep #:[id number] : 1970 54 From: Isidoro napoles MD PCP: DASHA Pitts Status:REG SDC Y Race: C Location: [place] [address] Anesthesia Postop Eval I Sum Postop Eval Completion status Anesthesia document: Postop Eval 1 completed: Yes Anesthesia Postop Eval I Summary Anesthesia Postop Eval I Summary: Anesthesia Postop Eval I: Assessment Summary Airway patent Yes 02/01/25 11:27 CLINICAL PHARMACOLOGIST.JGEN Spontaneous unlabored Yes 02/01/25 11:27 CLINICAL PHARMACOLOGIST.JGEN respirations Mental status nausea No 02/01/25 11:27 CLINICAL PHARMACOLOGIST.JGEN Vomiting No 02/01/25 11:27 CLINICAL PHARMACOLOGIST.JGEN Anesthesia Postop Eval I: Fluid Summary Crystalloid volume administer 1,100 02/01/25 11:27 CLINICAL PHARMACOLOGIST.JGEN (ml) Colloids volume administered ( ml) Blood Product volume administered (ml) Total IV fluid infused 1,100 02/01/25 11:27 CLINICAL PHARMACOLOGIST.JGEN Anesthesia Postop Eval I: Summary Notes Anesthesia Complication No 02/01/25 11:27 CLINICAL PHARMACOLOGIST.JGEN Anesthesia Complication Comment: Post-operative progress note Anesthesia: Postop Eval II Evaluation Mental status: Awake Pain Level: 1 nausea: No Vomiting: No Complications Anesthesia Complication: No 02/01/25 1150 lidya VO> Date _ Isidoro Mcclendon MD Cosigner Signature: Date CC: ~ Signed [facility]03-21-2025 Consult note [facility] Medical Records Department [address] [place] [address] Anesthesia Postop Eval I 02/01/25 1127 MR#: [id number] Acct: [id number] Name: RAMIREZISAURA STELLA Rep #:[id number] : 1970 54 From: Marline Marcum CRNA PCP: DASHA Pitts Status:REG [facility] Y Race: C Location: [place] [address] Anesthesia: Postop Eval I Current Vital Signs Temperature: 97.0 F Pulse Rate: 89 Blood Pressure: 130/84 Respiratory Rate: 20 Pulse Ox: 100 Assessment Airway patent: Yes Spontaneous unlabored respirations: Yes nausea: No Vomiting: No Anesthesia Complication: No Fluid Hydration Crystalloid volume administer (ml): 1,100 Total IV fluid infused: 1,100 Progress Note Anesthesia document: Postop Eval 1 completed: Yes 02/01/25 1128 y CLINICAL PHARMACOLOGIST> Date _ Marline Marcum CLINICAL PHARMACOLOGIST Cosigner Signature: Date CC: ~ Signed [facility]03-21-2025 Procedure note [facility] Medical Records Department [address] [place] [address] Operative Report 02/01/25 1113 MR#: [id number] Acct: [id number] Name: ISAURA RAMIREZ Rep #:[id number] : 1970 54 From: Tatianna Whipple MD PCP: DASHA Pitts Status:REG [facility] Location: [place] [address] Problems Associated Problem List Diagnoses (1) Dermatochalasis of both upper eyelids: (2) Visual field defect: Operative Report (Standard) Operative Information Date of Procedure: 02/01/25 Pre-Operative Diagnosis: Bilateral upper eyelid dermatochalasis and visual fieldlimitation. Post-Operative Diagnosis: Same Surgery/Procedure Performed: Bilateral upper blepharoplasty. arc trimmer: Yes Patient Account Representative: Samira Jordan Tasks completed by assistant chief engineer: Retracting Type of Anesthesia: General RN Documented [...] asubcuticular fashion. The sutures anchored at the christianity and glabella using Mastisol and Steri-Strips. Erythromycin [...] DASHA Navarrete; Dr. Tatianna Whipple MD~ Signed [facility]03-21-2025 History and physical note Author Tatianna Whipple [facility] Note Date/Time February 01, 2025 1:4 5pm [facility] Medical Records Department [address] [place] [address] History & Physical Exam 02/01/25 0916 MR#: [id number] Acct: [id number] Name: ISAURA RAMIREZ Rep #:[id number] : 1970 54 From: Tatianna Whipple MD PCP: DASHA Pitts Status:REG [facility] Location: [place] [address] History and Physical Date of Admission: 02/01/25 [...] Whipple MD> Cosigner Signature (if applicable): CC: SHOE CEMENTER-C Anju Navarrete; Dr. Tatianna Whipple MD~ Signed [facility] Work Phone: 1(616) 704-806703-21-2025 Discharge summary [facility] Medical Records Department [address] [place] [address] Instructions for Home/Discharge Instructions 02/01/25 1112 MR#: [id number] Acct: [id number] Name: ISAURA RAMIREZ Rep #:[id number] : 1970 54 From: Tatianna Whipple MD PCP: DASHA Pitts Status:REG [facility] Discharge Instructions Dressing / Incision Additional Dressing/Incision [...] Care Provider: Anju Navarrete Instructions Print Language: Indian Discharge Orders/Prescriptions Prescriptions: No Action Trelegy Ellipta [...] Self Care 02/01/25 1113Tatianna Whipple MD CC: SHOE CEMENTER-C Anju Navarrete ~ Signed [facility]03-21-2025 Discharge summary [facility] Medical Records Department [address] [place] [address] Instructions for Home/Discharge Instructions 02/01/25 1111 MR#: [id number] Acct: [id number] Name: ISAURA RAMIREZ Rep #:[id number] : 1970 54 From: Tatianna Whipple MD PCP: DASHA Pitts Status:REG [facility] Discharge Instructions Dressing / Incision Additional Dressing/Incision [...] Care Provider: Anju Navarrete Instructions Print Language: Indian Discharge Orders/Prescriptions Prescriptions: No Action Trelegy Ellipta [...] MD CC: KONGC Anju Navarrete ~ Signed [facility]03-21-2025 Consult note Author Isidoro Mcclendon [facility] Note Date/Time February 01, 2025 8:3 7am [facility] Medical Records Department [address] [place] [address] Pre-Anesthesia Evaluation 02/01/25 0831 MR#: [id number] Acct: [id number] Name: ISAURA RAMIREZ Rep #:[id number] : 1970 54 From: Isidoro napoles MD PCP: DASHA Pitts Status:REG [facility] Y Race: C Location: [place] [address] ASA Classification* ASA Classification ASA Classification: 2 [...] upper blepharoplasty Anesthesia History 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 Hx Hospitalization No 01/22/25 12:03 Any Problems [...] take am of surgery PONV PONV - 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: PONV - 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 Female No 01/22/25 12:03 HX of Motion [...] 02/01/25 08:13 Respiratory Assessment Respiratory Assessment - 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: Respiratory Tract Infection Hx - 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 Hx Respiratory Tract Infection No 01/22/25 12:03 STOP Sleep Apnea STOP Sleep Apnea - 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: STOP Sleep Apnea - 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 Hx Hypertension No 01/22/25 12:03 Hx Sleep [...] Tobacco Use History Tobacco Use History - 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: Tobacco Use History - 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 Tobacco Use Smoking Status Never smoker 01/22/25 12:03 Hx Tobacco Use No 01/22/25 12:03 Years Smoking Packs Smoked per Day Smoking Cessation Date was within the last 15 years Hx Smoking Cessation Date Hx Smoking Cessation Counseling Hematologic Medial History Hematologic Hx - 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: Hematologic Medical Hx - care management associate Hx of Blood Transfusion No 01/22/25 12:03 [...] confused, unrespo /Reproduction History /Reproductive History - 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: /Reproductive Hx- 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 Hx Now Gestational Age (in weeks): EDC: [...] Grandmother Myocardial infarction, Onset Age: 40 x3 NE's Father Alcoholism Mother Breast cancer Aunt Cancer [...] MD Cosigner Signature: Date CC: ~ Signed [facility] Work Phone: 1(527) 443-491403-21-[address] [facility] Medical Records Department [address] [place] [address] History Physical Exam 02/01/25 0916 MR#: [id number] Acct: [id number] Name: ISAURA RAMIREZ Rep #: [id number] : 1970 54 From: Tatianna Whipple MD PCP: DASHA Pitts Status:REG [facility] Location: [place] [address] History and Physical Date of Admission: 02/01/25 [...] blepharoplasty. 02/01/25915 Cosigner Signature (if applicable): CC: SHOE CEMENTER-C Anju Navarrete; Dr. 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 Hx Hospitalization No 01/22/25 12:03 Any Problems [...] take am of surgery PONV PONV - 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: PONV - 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 Female No 01/22/25 12:03 HX of Motion [...] 02/01/25 08:13 Respiratory Assessment Respiratory Assessment - 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: Respiratory Tract Infection Hx - 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 Hx Respiratory Tract Infection No 01/22/25 12:03 STOP Sleep Apnea STOP Sleep Apnea - 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: STOP Sleep Apnea - 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 Hx Hypertension No 01/22/25 12:03 Hx Sleep [...] Tobacco Use History Tobacco Use History - 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: Tobacco Use History - 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 Tobacco Use Smoking Status Never smoker 01/22/25 12:03 Hx Tobacco Use No 01/22/25 12:03 Years Smoking Packs Smoked per Day Smoking Cessation Date was within the last 15 years Hx Smoking Cessation Date Hx Smoking Cessation Counseling Hematologic Medial History Hematologic Hx - 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: Hematologic Medical Hx - care management associate Hx of Blood Transfusion No 01/22/25 12:03 [...] confused, unrespo /Reproduction History /Reproductive History - 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: /Reproductive Hx- 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 Hx Now Gestational Age (in weeks): EDC: [...] Grandmother Myocardial infarction, Onset Age: 40 x3 NE's Father Alcoholism Mother Breast cancer Aunt Cancer [...] Isidoro Nolandignjose Signature: Date CC: ~ Signed [facility]03-12-2025 Evaluation note* Diagnosis Onset Date Resolution [...] 8:58am Pruritus noneactive April 02, 2025 8:58am [facility] [employer] Work Phone: 1(823) 779-310202-17-2025 Evaluation note* Diagnosis Onset Date Resolution Status [...] post blepharoplasty acute February 19, 2025 3:25pm [facility] Work Phone: 1(963) 510-274602-17-2025 Evaluation note* Diagnosis Onset Date Resolution Status [...] 8:58am Pruritus noneactive April 02, 2025 8:58am [facility] Work Phone: 1(957) 467-923912-24-2024 Evaluation note* Diagnosis Onset Date Resolution Status Admit Date Asthma chronic November 06, 2024 7:39am Obesity chronic November 06, 2024 7:39am TISEHA (obstructive sleep apnea) chroni c November 06, [...] field defect acute February 01, 2025 7:50am [facility] Work Phone: Consult note Author Isidoro Mcclendon [facility] Note Date/Time February 01, 2025 11: 50am [facility] Medical Records Department [address] [place] [address] Anesthesia Postop Eval II 02/01/25 1149 MR#: [id number] Acct: [id number] Name: ISAURA RAMIREZ Rep #:[id number] : 1970 54 From: Isidoro napoles MD PCP: DASHA Pitts Status:REG [facility] Y Race: C Location: [place] [address] Anesthesia Postop Eval I Sum Postop Eval Completion status Anesthesia document: Postop Eval 1 completed: Yes Anesthesia Postop Eval I Summary Anesthesia Postop Eval I Summary: Anesthesia Postop Eval I: Assessment Summary Airway patent Yes 02/01/25 11:27 CLINICAL PHARMACOLOGIST.JGEN Spontaneous unlabored Yes 02/01/25 11:27 CLINICAL PHARMACOLOGIST.JGEN respirations Mental status nausea No 02/01/25 11:27 CLINICAL PHARMACOLOGIST.JGEN Vomiting No 02/01/25 11:27 CLINICAL PHARMACOLOGIST.JGEN Anesthesia Postop Eval I: Fluid Summary Crystalloid volume administer 1,100 02/01/25 11:27 CLINICAL PHARMACOLOGIST.JGEN (ml) Colloids volume administered ( ml) Blood Product volume administered (ml) Total IV fluid infused 1,100 02/01/25 11:27 CLINICAL PHARMACOLOGIST.JGEN Anesthesia Postop Eval I: Summary Notes Anesthesia Complication No 02/01/25 11:27 CLINICAL PHARMACOLOGIST.JGEN Anesthesia Complication Comment: Post-operative progress note Anesthesia: Postop Eval II Evaluation Mental status: Awake Pain Level: 1 nausea: No Vomiting: No Complications Anesthesia Complication: No 02/01/25 1150 <Electronically signed by Isidoro bose MD> Date _ Isidoro Mcclendon MD Cosigner Signature: Date CC: ~ Signed [facility] Work Phone: Evaluation noteNo assessment information available [facility] Work Phone: Evaluation note* Diagnosis Onset Date Resolution Status Asthma chronic TIESHA (obstructive sleep apnea) chronic Restless leg syndrome chroni c Hyperlipidemia chronic Varicose veins of lower extremity noneactive [facility] Work Phone: Evaluation note* Diagnosis Onset Date Resolution Status Hyperlipidemia chronic Varicose veins of lower extremity noneactive Varicose veins of lower extremity noneactive [facility] Work Phone: History and physical note Author Jann Cedeno [facility] Note Date/Time July 18, 2025 9:20am [facility] Medical Records Department [address] [place] [address] History & Physical Exam 07/18/2516 MR#: [id number] Acct: [id number] Name: ISAURA RAMIREZ Rep #:[id number] : 1970 54 From: Jann Cedeno MD PCP: DASHA Pitts Status:REG [facility] Location: [facility] HPI - General HPI Narrative ISAURA RAMIREZ, is a 54 M who presents right lower extremity painful/pruritic varicose veins on anterior lower leg. He had a prior GSV ablation which did not resolve his symptoms and they have been refractory to compression. Venous duplexreveals varicose veins originating from inferior aspect of accessory saphenous vein in thigh. [facility] Medical History Wears glasses History of steroid [...] Grandmother Myocardial infarction, Onset Age: 40 x3 NE's Father Alcoholism Mother Breast cancer Aunt Cancer [...] Cedeno MD> Cosigner Signature (if applicable): CC: SHOE CEMENTERArnold Navarrete; Dr. Jann Cedeno MD~ Signed [facility] Work Phone: Reason for referral (narrative)No reason for referral information [facility]WTr[facility] Work Phone: Chief Complaint and Reason for [...] 162024 12:09pm Dermatochalasis of both upper eyelids [facility] 2024 3:28pm Visual field defect January 23, 2025 3:2 8pm Dermatochalasis of both upper eyelids [facility] 2024 3:28pm Visual field defect January 29, 2025 3:2 8pm Dermatochalasis of both upper eyelids [facility] 2024 7:50am Visual field defect February [...] 162024 12:09pm Dermatochalasis of both upper eyelids [facility] 2024 3:28pm Visual field defect January 23, 2025 3:2 8pm Dermatochalasis of both upper eyelids [facility] 2024 3:28pm Visual field defect January 29, 2025 3:2 8pm Dermatochalasis of both upper eyelids [facility] 2024 7:50am Visual field defect February [...] 162024 12:09pm Dermatochalasis of both upper eyelids [facility] 2024 3:28pm Visual field defect January 23, 2025 3:2 8pm Dermatochalasis of both upper eyelids [facility] 2024 3:28pm Visual field defect January 29, 2025 3:2 8pm Dermatochalasis of both upper eyelids [facility] 2024 7:50am Visual field defect February [...] Admit Date Dermatochalasis of both upper eyelids [facility] 2024 3:28pm Visual field defect January 23, 2025 3:2 8pm Dermatochalasis of both upper eyelids [facility] 2024 3:28pm Visual field defect January 29, 2025 3:2 8pm Dermatochalasis of both upper eyelids [facility] 2024 7:50am Visual field defect February [...] No January 09, 021 10:33am Power of External Grinder No January 09, 2021 10:33am Advance Directive Response Recorded Date/ Time Advance Directives No April 28 8:41am Living Will No April 28, 2023 8:41am Power of External Grinder No April 28 8:41am Advance Directive Response Recorded Date/ Time Living Will No April 28, 2023 8:41am Do you have a Healthcare Power of External Grinder? No April 28, 2023 8:41am Advance Directives No December 4:43pm Living Will No January 22, 2025 12:03pm Do you have a Healthcare Power of External Grinder? No January 22, 2025 12:03pm Advance Directive Response Recorded Date/ Time Advance Directives No March 21, 2025 8:49am Living Will No January 22, 2025 12:03pm Do you have a Healthcare Power of External Grinder? No January 22, 2025 12:03pm Advance Directive Response Recorded Date/ Time Advance Directives No March 21, 2025 8:49am Advance Directive Response Recorded Date/ Time Living Will No July 18 7:53am Do you have a Healthcare Power of External Grinder? No July 18, 2025 7:53am Advance Directives [...] Pena MD Family Provider Active Will Mondragon SHOE CEMENTER, SHOE CEMENTER-C Primary Care Provider Active Team Status: Inactive Member Role Status Dates Will Mondragon SHOE CEMENTER, SHOE CEMENTER-C Primary Care Provider, Referr ing Provider Active Dr. Nnamdi Mondragon MD Attending Provider Active Team Status: Inactive Member Role Status Dates Will Maicoer SHOE CEMENTER, SHOE CEMENTER-C Primary Care Provider, Referr ing Provider Active Dr. Isaac Allred MD Attending Provider Active Team Status: Active Member Role Status Dates Will Maicoer SHOE CEMENTER, SHOE CEMENTER-C Primary Care Provider Active Janee Palma Attending Provider Active Team Status: Inactive Member Role Status Dates Will Maicoer SHOE CEMENTER, SHOE CEMENTER-C Primary Care Provider, Referr ing Provider Active Terra KEARNEY PA Attending Provider Active Team Status: Active Member Role Status Dates Will Ninaer SHOE CEMENTER, SHOE CEMENTER-C Primary Care Provider Active Dr. Jann Cedeno MD Attending Provider Active Team Status: Inactive Member Role Status Dates Will Maicoer SHOE CEMENTER, SHOE CEMENTER-C Primary Care Provider Active Terra KEARNEY PA Attending Provider, Referrin g Provider Active Team Status: Inactive Member Role Status Dates Will Helrheaer SHOE CEMENTER, SHOE CEMENTER-C Primary Care Provider, Referr ing Provider Active CAIO Coates Attending Provider Active Team Status: Active Member Role Status Dates Will Mondragon SHOE CEMENTER, SHOE CEMENTER-C Primary Care Provider Active Dr. Jann Cedeno MD Attending Provider Active CAIO Coates Referring Provider Active Team Status: Inactive Member Role Status Dates Will Maicoer SHOE CEMENTER, SHOE CEMENTER-C Primary Care Provider Active CAIO Coates Attending Provider, Referring Provider Active Team Status: Inactive Member Role Status Dates Will Maicoer SHOE CEMENTER, SHOE CEMENTER-C Primary Care Provider Active Dr. Jann Cedeno MD Attending Provider, Referring Pro vider Active Team Status: Active Member Role Status Dates Anju Navarrete SHOE CEMENTER-C Primary Care Provider Active Team Status: Inactive Member Role Status Dates Katja Spence NP, SHOE CEMENTER-C Attending Provider Active Start: November 06, 2024 [...] Inactive Member Role Status Dates Anju Navarrete SHOE CEMENTER-C Primary Care Provider Active Start: December 22, 2024 End: December 22, 2024 Anju Navarrete SHOE CEMENTER-C Attending Provider Active St art: December 22, 2024 End: December 22, 2024 Anju Navarrete SHOE CEMENTER-C Referring Provider Active St art: December 22, 2024 End: December 22, 2024 Team Status: Inactive Member Role Status Dates Anju Navarrete SHOE CEMENTER-C Primary Care Provider Active Start: December 31, 2024 End: December 31, 2024 Anju Navarrete SHOE CEMENTER-C Referring Provider Active St art: December 31, [...] Inactive Member Role Status Dates Anju Navarrete SHOE CEMENTER-C Primary Care Provider Active Start: January 09, 2025 End: January 09, 2025 Anju Navarrete NP-C Referring Provider Active St art: January 09, 2025 End: January 09, 2025 Dr. Tatianna Whipple MD Attending Provider Active Start: January 09, 2025 End: January 09, 2025 Team Status: Inactive Member Role Status Dates Anju Navarrete SHOE CEMENTER-C Primary Care Provider Active Start: January 10, [...] Member Role Status Dates Anju Navarrete , SHOE CEMENTER-C Primary Care Provider Active Start: February 19, 2025 End: February 19, 2025 Anju Navarrete , SHOE CEMENTER-C Referring Provider Active St art: February 19, 2025 End: February 19, 2025 Dr. Tatianna Whipple MD Attending Provider Active Start: February 19, 2025 End: February 19, 2025 Team Status: Inactive Member Role Status Dates Anju Landon , SHOE CEMENTER-C Primary Care Provider Active Start: April 02, 2025 End: April 02, 2025 Anju Navarrete , SHOE CEMENTER-C Referring Provider Active St art: April 02, 2025 End: April 02, 2025 CAIO Dominguez Attending Provider Active Star t: April 02, 2025 End: April 02, 2025 Team Status: Inactive Member Role Status Dates Anjutraci Navarrete , SHOE CEMENTER-C Primary Care Provider Active Start: April 18, 2025 End: April 18, 2025 CAIO Dominguez Attending Provider Active Star t: April 18, 2025 End: April 18, 2025 CAOI Dominguez Referring Provider Active Star t: April 18, 2025 End: April 18, 2025 Team Status: Active Member Role Status Dates Anju Navarrete , SHOE CEMENTER-C Primary Care Provider Active Start: April 18, 2025 Dr. Jann Cedeno MD Attending Provider Active S tart: April 18, 2025 Team Status: Active Member Role/Relationship Status Dates Anju Navarrete , SHOE CEMENTER-C Primary Care Provider Active Team Status: Inactive Member Role/Relationship Status Dates Anjutraci Navarrete , SHOE CEMENTER-C Referring Provider Active St art: January 23, 2025 End: January 23, 2025 Dr. Tatianna Whipple MD Attending Provider Active Start: January 23, 2025 End: January 23, 2025 Team Status: Inactive Member Role/Relationship Status Dates Anju Navarrete , SHOE CEMENTER-C Referring Provider Active St art: January 29, 2025 End: January 29, 2025 Dr. Tatianna Whipple MD Attending Provider Active Start: January 29, 2025 End: January 29, 2025 Team Status: Inactive Member Role/Relationship Status Dates Anju Landon , SHOE CEMENTER-C Primary Care Provider Active Start: February 01, 2025 End: February 01, 2025 Dr. Tatianna Whipple MD Attending Provider Active Start: February 01, 2025 End: February 01, 2025 Dr. Tatianna Whipple MD Referring Provider Active Start: February 01, 2025 End: February 01, 2025 Team Status: Active Member Role/Relationship Status Dates Anju Navarrete SHOE CEMENTER-C Primary Care Provider Active Start: February 01, 2025 Dr. Tatianna Whipple MD Attending Provider Active Start: February 01, 2025 Dr. Tatianna Whipple MD Referring Provider Active Start: February 01, 2025 Dr. Tatianna Whipple MD Other Provider Active St art: February 01, 2025 Team Status: Inactive Member Role/Relationship Status Dates Anju Navarrete SHOE CEMENTER-C Primary Care Provider Active Start: February 12, 2025 End: February 12, 2025 Anju Navarrete , SHOE CEMENTER-C Referring Provider Active St art: February 12, 2025 End: February 12, 2025 Dr. Tatianna Whipple MD Attending Provider Active Start: February 12, 2025 End: February 12, 2025 Team Status: Inactive Member Role/Relationship Status Dates Anju Navarrete , SHOE CEMENTER-C Primary Care Provider Active Start: February 19, 2025 End: February 19, 2025 Anju Navarrete , SHOE CEMENTER-C Referring Provider Active St art: February 19, 2025 End: February 19, 2025 Dr. Tatianna Whipple MD Attending Provider Active Start: February 19, 2025 End: February 19, 2025 Team Status: Inactive Member Role/Relationship Status Dates Anju Navarrete SHOE CEMENTER-C Primary Care Provider Active Start: April 02, 2025 End: April 02, 2025 Anju Navarrete , SHOE CEMENTER-C Referring Provider Active St art: April 02, 2025 End: April 02, 2025 CAIO Dominguez Attending Provider Active Star t: April 02, 2025 End: April 02, 2025 Team Status: Inactive Member Role/Relationship Status Dates Anjutraci Navarrete , SHOE CEMENTER-C Primary Care Provider Active Start: April 18, 2025 End: April 18, 2025 CAIO Dominguez Attending Provider Active Star t: April 18, 2025 End: April 18, 2025 CAIO Dominguez Referring Provider Active Star t: April 18, 2025 End: April 18, 2025 Team Status: Active Member Role/Relationship Status Dates Anju Navarrete , SHOE CEMENTER-C Primary Care Provider Active Start: April 18, 2025 Dr. Jann Cedeno MD Attending Provider Active S tart: April 18, 2025 CAIO Dominguez Referring Provider Active Star t: April 18, 2025 Team Status: Inactive Member Role/Relationship Status Dates Anjutraci Navarrete , SHOE CEMENTER-C Primary Care Provider Active Start: May 15, 2025 End: May 15, 2025 Anju Navarrete , SHOE CEMENTER-C Referring Provider Active St art: May 15, 2025 End: May 15, 2025 Dr. Jann Cedeno MD Attending Provider Active S tart: May 15, 2025 End: May 15, 2025 Team Status: Inactive Member Role/Relationship Status Dates Anjutraci Navarrete , SHOE CEMENTER-C Primary Care Provider Active Start: February 19, 2025 End: February 19, 2025 Anjutraci Navarrete , SHOE CEMENTER-C Referring Provider Active St art: February 19, 2025 End: February 19, 2025 Dr. Tatianna Whipple MD Attending Provider Active Start: February 19, 2025 End: February 19, 2025 Team Status: Inactive Member Role/Relationship Status Dates Anjutraci Navarrete , SHOE CEMENTER-C Primary Care Provider Active Start: April 02, 2025 End: April 02, 2025 Anju Navarrete , SHOE CEMENTER-C Referring Provider Active St art: April 02, 2025 End: April 02, 2025 CAIO Dominguez Attending Provider Active Star t: April 02, 2025 End: April 02, 2025 Team Status: Inactive Member Role/Relationship Status Dates Anju Navarrete , SHOE CEMENTER-C Primary Care Provider Active Start: April 18, 2025 End: April 18, 2025 CAIO Dominguez Attending Provider Active Star t: April 18, 2025 End: April 18, 2025 CAIO Dominguez Referring Provider Active Star t: April 18, 2025 End: April 18, 2025 Team Status: Active Member Role/Relationship Status Dates Anjutraci Navarrete , SHOE CEMENTER-C Primary Care Provider Active Start: April 18, 2025 Dr. Jann Cedeno MD Attending Provider Active S tart: April 18, 2025 CAIO Dominugez Referring Provider Active Star t: April 18, 2025 Team Status: Inactive Member Role/Relationship Status Dates Anju Landon , SHOE CEMENTER-C Primary Care Provider Active Start: May 15, 2025 End: May 15, 2025 Anju Navarrete , SHOE CEMENTER-C Referring Provider Active St art: May 15, 2025 End: May 15, 2025 Dr. Jann Cedeno MD Attending Provider Active S tart: May 15, 2025 End: May 15, 2025 Team Status: Inactive Member Role/Relationship Status Dates Anju Navarrete , SHOE CEMENTER-C Primary Care Provider Active Start: June 13, 2025 End: June 13, 2025 Anju Navarrete , SHOE CEMENTER-C Referring Provider Active St art: June 13, 2025 End: June 13, 2025 Katja Spence NP, SHOE CEMENTER-C Attending Provider Active Start: June 13, 2025 End: June 13, 2025 Team Status: Inactive Member Role/Relationship Status Dates Anju Landon , SHOE CEMENTER-C Primary Care Provider Active Start: April 02, 2025 End: April 02, 2025 Anju Navarrete , SHOE CEMENTER-C Referring Provider Active St art: April 02, 2025 End: April 02, 2025 CAIO Dominguez Attending Provider Active Star t: April 02, 2025 End: April 02, 2025 Team Status: Inactive Member Role/Relationship Status Dates Anjutraci Navarrete , SHOE CEMENTER-C Primary Care Provider Active Start: April 18, 2025 End: April 18, 2025 CAIO Dominguez Attending Provider Active Star t: April 18, 2025 End: April 18, 2025 CAIO Dominguez Referring Provider Active Star t: April 18, 2025 End: April 18, 2025 Team Status: Active Member Role/Relationship Status Dates Anju Navarrete , SHOE CEMENTER-C Primary Care Provider Active Start: April 18, 2025 Dr. Jann Cedeno MD Attending Provider Active S tart: April 18, 2025 CAIO Dominguez Referring Provider Active Star t: April 18, 2025 Team Status: Inactive Member Role/Relationship Status Dates Anju Navarrete , SHOE CEMENTER-C Primary Care Provider Active Start: May 15, 2025 End: May 15, 2025 Anju Navarrete , SHOE CEMENTER-C Referring Provider Active St art: May 15, 2025 End: May 15, 2025 Dr. Jann Cedeno MD Attending Provider Active S tart: May 15, 2025 End: May 15, 2025 Team Status: Inactive Member Role/Relationship Status Dates Anju Navarrete , SHOE CEMENTER-C Primary Care Provider Active Start: June 13, 2025 End: June 13, 2025 Anju Navarrete SHOE CEMENTER-C Referring Provider Active St art: June 13, 2025 End: June 13, 2025 Katja Spence NP, SHOE CEMENTER-C Attending Provider Active Start: June 13, 2025 End: June 13, 2025 Team Status: Inactive Member Role/Relationship Status Dates Anju Navarrete , SHOE CEMENTER-C Primary Care Provider Active Start: July 18, 2025 End: July 18, 2025 Dr. Jann Cedeno MD Attending Provider Active S tart: July 18, 2025 End: July 18, 2025 Dr. Jann Cedeno MD Referring Provider Active S tart: July 18, 2025 End: July 18, 2025 Team Status: Active Member Role/Relationship Status Dates Anju Navarrete , SHOE CEMENTER-C Primary Care Provider Active Start: July 18, 2025 Dr. Jann Cedeno MD Attending Provider Active S tart: July 18, 2025 Dr. Jann Cedeno MD Referring Provider Active S tart: July 18, 2025 Dr. Jann Cedeno MD Other Provider Active Start : July 18, 2025 Team Status: Active Member Role/Relationship Status Dates Anju Navarrete , SHOE CEMENTER-C Primary care physician Active Team Status: Inactive Member Role/Relationship Status Dates Anju Navarrete , SHOE CEMENTER-C Primary care physician Active Start: April 02, 2025 End: April 02, 2025 Anju Navarrete , SHOE CEMENTER-C Referring Provider Active St art: April 02, 2025 End: April 02, 2025 CAIO Dominguez Attending physician Active Sta rt: April 02, 2025 End: April 02, 2025 Team Status: Inactive Member Role/Relationship Status Dates Anju Navarrete , SHOE CEMENTER-C Primary care physician Active Start: April 18, 2025 End: April 18, 2025 CAIO Dominguez Attending physician Active Sta rt: April 18, 2025 End: April 18, 2025 CAIO Dominguez Referring Provider Active Star t: April 18, 2025 End: April 18, 2025 Team Status: Active Member Role/Relationship Status Dates Anju Navarrete , SHOE CEMENTER-C Primary care physician Active Start: April 18, 2025 Dr. Jann eCdeno MD Attending physician Active Start: April 18, 2025 CAIO Dominguez Referring Provider Active Star t: April 18, 2025 Team Status: Inactive Member Role/Relationship Status Dates Anju Navarrete , SHOE CEMENTER-C Primary care physician Active Start: May 15, 2025 End: May 15, 2025 Anjutraci Navarrete , SHOE CEMENTER-C Referring Provider Active St art: May 15, 2025 End: May 15, 2025 Dr. Jann Cedeno MD Attending physician Active Start: May 15, 2025 End: May 15, 2025 Team Status: Inactive Member Role/Relationship Status Dates Anju Navarrete , SHOE CEMENTER-C Primary care physician Active Start: June 13, 2025 End: June 13, 2025 Anju Navarrete , SHOE CEMENTER-C Referring Provider Active St art: June 13, 2025 End: June 13, 2025 Katja Spence NP, SHOE CEMENTER-C Attending physician Active Start: June 13, 2025 End: June 13, 2025 Team Status: Inactive Member Role/Relationship Status Dates Anju Navarrete , SHOE CEMENTER-C Primary care physician Active Start: July 18, 2025 End: July 18, 2025 Dr. Jann Cedeno MD Attending physician Active Start: July 18, 2025 End: July 18, 2025 Dr. Jann Cedeno MD Referring Provider Active S tart: July 18, 2025 End: July 18, 2025 Team Status: Active Member Role/Relationship Status Dates Anju Navarrete , SHOE CEMENTER-C Primary care physician Active Start: July 18, 2025 Dr. Jann Cedeno MD Attending physician Active Start: July 18, 2025 Dr. Jann Cedeno MD Referring Provider Active S tart: July 18, 2025 Dr. Jann Cedeno MD Nurse Practitioner Active S tart: July 18, 2025 Team Status: Inactive Member Role/Relationship Status Dates Anju Navarrete , SHOE CEMENTER-C Primary care physician Active Start: July 23, 2025 End: July 23, 2025 Dr. Jann Cedeno MD Attending physician Active Start: July 23, 2025 End: July 23, 2025 Dr. Jann Cedeno MD Referring Provider Active S tart: July 23, 2025 End: July 23, 2025 Team Status: Active Member Role/Relationship Status Dates Anju Navarrete , SHOE CEMENTER-C Primary care physician Active Start: July 23, 2025 Dr. Jann Cedeno MD Attending physician Active Start: July 23, 2025 Team Status: Inactive Member Role/Relationship Status Dates Anju Navarrete , SHOE CEMENTER-C Primary care physician Active Start: April 18, 2025 End: April 18, 2025 CAIO Dominguez Attending physician Active Sta rt: April 18, 2025 End: April 18, 2025 CAIO Dominguez Referring Provider Active Star t: April 18, 2025 End: April 18, 2025 Team Status: Active Member Role/Relationship Status Dates Anju Navarrete , SHOE CEMENTER-C Primary care physician Active Start: April 18, 2025 Dr. Jann Cedeno MD Attending physician Active Start: April 18, 2025 CAIO Dominguez Referring Provider Active Star t: April 18, 2025 Team Status: Inactive Member Role/Relationship Status Dates Anju Landon , SHOE CEMENTER-C Primary care physician Active Start: May 15, 2025 End: May 15, 2025 Anjutraci Navarrete , SHOE CEMENTER-C Referring Provider Active St art: May 15, 2025 End: May 15, 2025 Dr. Jann Cedeno MD Attending physician Active Start: May 15, 2025 End: May 15, 2025 Team Status: Inactive Member Role/Relationship Status Dates Anjutraci Navarrete , SHOE CEMENTER-C Primary care physician Active Start: June 13, 2025 End: June 13, 2025 Anju Navarrete , SHOE CEMENTER-C Referring Provider Active St art: June 13, 2025 End: June 13, 2025 Katja Spence NP, SHOE CEMENTER-C Attending physician Active Start: June 13, 2025 End: June 13, 2025 Team Status: Inactive Member Role/Relationship Status Dates Anju Navarrete , SHOE CEMENTER-C Primary care physician Active Start: July 18, 2025 End: July 18, 2025 Dr. Jann Cedeno MD Attending physician Active Start: July 18, 2025 End: July 18, 2025 Dr. Jann Cedeno MD Referring Provider Active S tart: July 18, 2025 End: July 18, 2025 Team Status: Active Member Role/Relationship Status Dates Anju Navarrete , SHOE CEMENTER-C Primary care physician Active Start: July 18, [...] section and content) DATE CREATED AUTHOR 08/09/2025 [facility] FOR RECORDS PERTAINING TO PATIENTS WHO [...] BE BASED ON THE PRIMARY CLINICAL RECORDS. [employer] provides no warranty or guarantee of the accuracy or completeness of information in this document.
[2025-11-11] MEDS: Lactated Ringers 1,000 ML 15 ML IV (06:28)
--- NOTE | 2025-11-11 06:48 | HP.PCM_ITS ---
HPI - General General Date of Admission: 11/11/25 Date of Service: 11/11/25 Chief Complaint: Left inguinal hernia/umbilical hernia HPI Narrative ISAURA WEBB, is a 54 M who presents for a robotic repair of a left inguinal hernia as well as an umbilical hernia. Patient was recently seen to the office and surgery was offered to him. He presents today for repair. He denies any new issues or problems since seen in the office [facility], [facility] Medical History (Updated 10/28/25 @ 08:14 by Nay Marte) Loss of hearing Alcohol use Back pain Heartburn History of pain when walking Cardiology follow-up encounter Inguinal hernia of left side without obstruction or gangrene Umbilical hernia Wears glasses Arthritis Non-smoker BiPAP (biphasic positive airway pressure) dependence Tear of meniscus of left knee Left tibial fracture High cholesterol History of asthma Osteoarthritis of left knee Left knee pain History of exercise stress test (~10/2016) History of echocardiogram (~10/2016) Dyspnea TIESHA (obstructive sleep apnea) Restless leg syndrome Hyperlipidemia Abnormal echocardiogram Chest pain Home Medications ?Medication ?Instructions ?Recorded ?Last Taken ?Type atorvastatin 10 mg tablet 10 mg PO QDAY #90 tabs 06/0611/06/25 Rx fluticasone fur. 200 mcg-umeclid 1 inh inhalation JOSÉ MANUEL Y #3 ea 11/06/24 11/11/25 Rx 62.5 mcg-vilant 25 mcg inhalat.powder (Trelegy Ellipta) dupilumab 300 mg/2 mL subcutaneous 300 mg (2 mL) subcu t Q2W #4 mL 11/21/24 01/31/25 Rx pen injector (Dupixent) pramipexole 1 mg tablet 1 mg PO QHS #90 tabs 06/25/2 5 11/06/25 Rx aspirin 81 mg tablet,delayed 81 mg PO DAILY 07/17/25 1 01/07/25 History release (Adult Low Dose Aspirin) Allergy/AdvReac Type Severity Reaction Status Date / Time iodine Allergy Anaphylaxis Verified 11/11/25 06:12 Family History Grandmother Myocardial infarction, Onset Age: 40 x3 SD's Father Alcoholism Mother Breast cancer Aunt Cancer Breast cancer Grandmother Diabetes Grandfather Heart disease Surgical History (Updated 10/28/25 @ 08:14 by Nay Marte) H/O blepharoplasty Hx of surgical procedure Hx of colonoscopy H/O knee surgery History of nasal surgery Social History Smoking Status: Never smoker alcohol intake: current substance use type: does not use additional social history: uses aspirin and ibuprofen as needed Patient's Goals Of Care . What would you like to achieve or improve as a result of your hospital stay?: , Vital Signs Vital Signs Vital Signs: 11/11/25 06:14 11/11/25 06:14 11/11/25 06:14 Temperature 97.0 F L Temperature Source Temporal Pulse Rate 62 Respiratory Rate 18 Respiratory Pattern Normal Blood Pressure 111/72 Blood Pressure Mean 85 Blood Pressure Source Monitor Blood Pressure Position Semi-Fowlers Blood Pressure Location Left Arm Baseline BP 111/72 Pulse Ox 95 Oxygen Delivery Method Room Air Weight Weight: 220 lb 7.396 oz Body Mass Index (BMI) 29.9 Physical Exam Const alert, oriented x3 and no apparent distress Assessment & Plan Assessment/Plan (1) Inguinal hernia of left side without obstruction or gangrene: (2) Umbilical hernia: PLAN: Plan Robotic left inguinal hernia repair along with an open umbilical hernia repair is planned for today. We discussed the details of the planned procedure and he wishes to proceed. This will begin this morning
--- NOTE | 2025-11-11 07:14 | PRE.ANES_ITS ---
ASA Classification* ASA Classification ASA Classification: 2 Assessment & Plan Anesthesia* Anesthesia Assessment Anesthesia Assessment: Discussed sedation and/or anesthesia options, risks, benefits, and alternatives with patient/parents/legal guardian/POA. Questions invited. The patient/parents/legal guardian/POA seems to understand and agrees to proceed with anesthesia plan. Reviewed the physical assessment, medical history, allergy history and patient home medications list prior to surgery/procedure/anesthetic and documented any changes. Performed airway and anesthesia risk assessments. Anesthesia Type Anesthesia Type: General History Source History Obtained from:: Patient and Chart Anesthesia Focused Assessment* Temperature: 97.0 F Pulse Rate: 62 Blood Pressure: 111/72 Respiratory Rate: 18 Pulse Ox: 95 Oxygen Delivery Method: Room Air Airway Assessment Mouth opens: >3 cm Mallampati Score: II Teeth Condition: Intact and Missing Neck Range of motion (ROM): Full ROM Labs Anesthesia Preop lab: CBC WBC, (4.4-11.0) 6.6 K/mm3 12/22/24, 08:46 RBC, (4.6-6.2) 4.84 M/mm3 12/22/24, 08:46 Hgb, (13.0-16.5) 14.4 g/dL 12/22/24, 08:46 Hct, (40-54) 43.1 % 12/22/24, 08:46 Plt Count, (150-450) 317 K/mm3 12/22/24, 08:46 CHEMISTRY Potassium, (3.5-5.1) 4.2 mmol/L 12/22/24, 08:46 Sodium, (136-145) 138 mmol/L 12/22/24, 08:46 BUN, (7-18) 18 mg/dL 12/22/24, 08:46 Creatinine, (0.70-1.30) 0.94 mg/dL 12/22/24, 08:46 Glucose, (74-106) 101 mg/dL 12/22/24, 08:46 TSH, (0.358-3.74) 2.03 uIU/mL 03/10/19, 07:38 COAG Pre-Assessment Diagnosis/Proposed Procedure Planned Operative Procedure(s): ROBOTIC LEFT INGUINAL HERNIA REPAIR WITH MESH OPEN UMBILICAL HERNIA REPAIR POSS MESH Anesthesia History 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 When Was Last Pacemaker Check QUESTION #4 FULL TEXT: You/Your Family Experience fever (hyperthermia) with Anesthesia Last Oral Intake Last Oral intake: Last Oral Intake NPO since 22:00 11/11/25 06:14 Meds taken in AM with sips of Yes 11/11/25 06:14 water? 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 Female No 10/28/25 08:07 HX of Motion Sickness No 10/28/25 08:07 HX of N/V After Surgery No 10/28/25 08:07 Non-Smoker Yes 10/28/25 08:07 Duration of Surgery greater Yes 10/28/25 08:07 than 60 minutes Number of Risk Factors 2 10/28/25 08:07 PONV Score Moderate Risk 10/28/25 08:07 Height & Weight Height & Weight: Anesthesia: Height & Weight Height 6 ft 11/11/25 06:14 Weight: 100 kg 11/11/25 06:14 Body Mass Index (BMI) 29.9 11/11/25 06:14 Respiratory Assessment Respiratory Assessment - kiss machine operator: Respiratory Tract Infection Hx - kiss machine operator Hx Respiratory Tract Infection No 10/28/25 08:07 STOP Sleep Apnea STOP Sleep Apnea - kiss machine operator: STOP Sleep Apnea - kiss machine operator Hx Hypertension No 10/28/25 08:07 Hx Sleep Apnea Yes 10/28/25 08:07 CPAP No 10/28/25 08:07 BIPAP Yes 10/28/25 08:07 Do you snore loudly (louder than talking or can be heard Do you often feel tired/ fatigued/ sleepy during daytime? Has anyone observed you stop breathing during sleep? STOP Results Positive 10/28/25 08:07 QUESTION #5 FULL TEXT : Do you snore loudly (louder than talking or can be heard through closed doors)? 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 Specify any problems Hx of Preganancy in last 3 N/A 10/28/25 08:07 Months Nurse Filling Out Transfusion DSCHRIBER 10/28/25 08:07 & Questions: Date: 10/28/25 10/28/25 08:07 Time: 08:08 10/28/25 08:07 Patient unable to answer at this time (ie. confused, unrespo /Reproduction History /Reproductive History - kiss machine operator: /Reproductive Hx- kiss machine operator Hx Now No 10/28/25 08:07 Gestational Age (in weeks): EDC: Hx Hx Para Hx Section SAB No 10/28/25 08:07 Does the father of the baby or his family experience fever w Father of the baby Malignant Hypertension history comment Active Medications Active Medications: Current Medications Generic Name Dose Route Start Last Admin Trade Name Freq PRN Reason Stop Dose Admin Cefazolin Sodium 2 gm/ Sodium 110 mls @ 200 mls/hr 11/11/25 07:00 Chloride IV 11/11/25 07:32 INTRAOP ONE Lactated Ringer's 1,000 mls @ 15 mls/hr 11/11/25 06:15 11/11/25 06:28 IV 15 mls/hr .Q48H CANDI Administration PFSH Medical History Loss of hearing Alcohol use Back pain Heartburn History of pain when walking Cardiology follow-up encounter Inguinal hernia of left side without obstruction or gangrene Umbilical hernia Wears glasses Arthritis Non-smoker BiPAP (biphasic positive airway pressure) dependence Tear of meniscus of left knee Left tibial fracture High cholesterol History of asthma Osteoarthritis of left knee Left knee pain History of exercise stress test (~10/2016) History of echocardiogram (~10/2016) Dyspnea TIESHA (obstructive sleep apnea) Restless leg syndrome Hyperlipidemia Abnormal echocardiogram Chest pain Home Medications ?Medication ?Instructions ?Recorded ?Last Taken ?Type atorvastatin 10 mg tablet 10 mg PO QDAY #90 tabs 06/0611/06/25 Rx fluticasone fur. 200 mcg-umeclid 1 inh inhalation JOSÉ MANUEL Y #3 ea 11/06/24 11/11/25 Rx 62.5 mcg-vilant 25 mcg inhalat.powder (Trelegy Ellipta) dupilumab 300 mg/2 mL subcutaneous 300 mg (2 mL) subcu t Q2W #4 mL 11/21/24 01/31/25 Rx pen injector (Dupixent) pramipexole 1 mg tablet 1 mg PO QHS #90 tabs 5 11/06/25 Rx aspirin 81 mg tablet,delayed 81 mg PO DAILY 07/17/25 1 01/07/25 History release (Adult Low Dose Aspirin) Allergy/AdvReac Type Severity Reaction Status Date / Time iodine Allergy Anaphylaxis Verified 11/11/25 06:12 Family History Grandmother Myocardial infarction, Onset Age: 40 x3 IN's Father Alcoholism Mother Breast cancer Aunt Cancer Breast cancer Grandmother Diabetes Grandfather Heart disease Surgical History H/O blepharoplasty Hx of surgical procedure Hx of colonoscopy H/O knee surgery History of nasal surgery Social History Smoking Status: Never smoker alcohol intake: current substance use type: does not use additional social history: uses aspirin and ibuprofen as needed Review of Systems (Anesthesia) ROS Narrative System reviewed and no additional complaints, except as documented.
[2025-11-11] MEDS: Cefazolin 1 GM/5 ML Vial 2 GM IV (07:23)
[2025-11-11] MEDS: Midazolam 2 MG/2 ML Syringe IV (07:25)
[2025-11-11] MEDS: Lidocaine 1% (5 ml sdv) 5 ML Vial IV (07:33)
[2025-11-11] MEDS: fentaNYL 100 MCG/2 ML Ampul IV (07:33)
[2025-11-11] MEDS: Bupiv/Epi 0.25% 30 ML Vial (08:02)
--- NOTE | 2025-11-11 09:45 | PCM.POST.ANE ---
Anesthesia: Postop Eval I Current Vital Signs Temperature: 97 F Pulse Rate: 70 Blood Pressure: 119/70 Respiratory Rate: 14 Pulse Ox: 98 Oxygen Delivery Method: Room Air Assessment Airway patent: Yes Spontaneous unlabored respirations: Yes Mental status: Awake and Calm nausea: No Vomiting: No Anesthesia Complication: No Fluid Hydration Crystalloid volume administer (ml): 1,200 Total IV fluid infused: 1,200 Progress Note Anesthesia document: Postop Eval 1 completed: Yes
--- NOTE | 2025-11-11 09:47 | DCINST_ITS ---
Discharge Instructions Diet Discharge Diet: Light diet - advance as tolerated Activity Discharge Activity: Return to Normal Activity and May Shower May shower in (days): 1 Ice area for (Minutes): 30 Lifting Restrictions: No lifting pushing or pulling more than 20 pounds for 6 weeks Dressing / Incision Call your doctor if your incision/area has: Continuous Slow Oozing, Sudden Increased Bleeding, Increased Pain/ Swelling, Increased Redness, Foul Smelling Discharge and Swelling at the incision site Call your doctor if you observe: Fever of 101 or Higher Remove Dressing in: 3 days Cleanse incision/area with: Soap & Water Follow Up Care Please Follow Up With: Noe Tomlin MD When: 2 weeks. Please call office to schedule appointment Test Results: Test results from this visit will be discussed in further detail at your follow- up appointment, if applicable. Discharge Plan Admission Primary Reason for Your Visit: Left inguinal hernia repair as well as umbilical hernia repair Attending Provider: Noe Tomlin Primary Care Provider: Anju Navarrete Instructions Print Language: Urdu Discharge Orders/Prescriptions Prescriptions: New oxycodone 5 mg tablet 5 mg PO Q8H PRN (Reason: pain) 3 Days Qty: 12 0RF Continued Trelegy Ellipta 200-62.5-25 mcg blister with device 1 inh inhalation DAILY Qty: 3 3RF aspirin [Adult Low Dose Aspirin] 81 mg tablet,delayed release (DR/EC) 81 mg PO DAILY atorvastatin 10 mg tablet 10 mg PO QDAY Qty: 90 3RF Dupixent Pen 300 mg/2 mL pen injector 300 mg subcut Q2W Qty: 4 11RF pramipexole 1 mg tablet 1 mg PO QHS Qty: 90 3RF Referrals / Follow Up: Anju Navarrete, FAMILY PRACTICE DOCTOR-C [Primary Care Provider, Family Practice] Disposition Disposition (needs filled in before D/C Order can be placed): Home, Self Care
--- NOTE | 2025-11-11 09:51 | PCM.OPRPT ---
[facility] CPT Codes: 55763 RPR AA HRN RCR < 3 [place]DC [place] [address]72 Lap ing hernia repair init Operative Report (Standard) Operative Information Date of Procedure: 11/11/25 Pre-Operative Diagnosis: Left inguinal hernia/umbilical hernia Post-Operative Diagnosis: Same Surgery/Procedure Performed: 1. Robotic left inguinal hernia repair with mesh 2. Open umbilical hernia repair commissioner of conciliation: Yes Vp Software Support: Donovan Greenfield Tasks completed by assistant women's basketball coach: Closing, Trocar, Retracting and Other Additional care assistant?: No Type of Anesthesia: General and Local RN Documented Start/Stop Times: Operation Date: 11/11/25 07:30 Case Time Into Pre-Op 11/11/25 05:58 Out of Pre-Op 11/11/25 07:21 Anesthesia Start 11/11/25 07:23 Into Room 11/11/25 07:23 Procedure Start 11/11/25 07:49 Procedure End 11/11/25 09:28 Anesthesia End 11/11/25 09:33 Out of Room 11/11/25 09:33 Into Recovery 11/11/25 09:36 Procedure Start Time: 07:49 Procedure Stop Time: 09:28 Select all DRAINS/GRAFTS/IMPLANTS that apply: Prosthetic device Prosthetic device details: ProGrip 10 x 15 cm mesh Special Medications: Ancef IV Estimated Blood Loss: 15 mL Specimen collected: No Description of surgery: The patient is a 54-year-old male who is recently seen through the office with a left inguinal hernia as well as an umbilical hernia. I offered him a robotic left inguinal hernia repair along with an open umbilical hernia repair as I felt that the umbilical hernia defect was fairly small. We discussed the details of the planned procedure including the risks benefits and alternatives. He wished to proceed. Patient was brought to the operating today following informed consent. Preoperative antibiotics were given and a timeout was performed. He was placed supine on the operative table with arms outstretched and arm boards. General anesthesia was induced. His arms were then comfortably tucked at his sides. The abdomen was then prepped and draped in the usual sterile manner. A curvilinear incision was made around the superior aspect of the umbilicus after local anesthetic was injected. Dissection was carried down using electrocautery to the level of the fascia. The skin of the umbilicus and hernia were then encircled using a Erika clamp. The skin of the umbilicus was then detached from the hernia sac using #15 blade. The hernia sac and contents were excised. An 8 mm trocar was then inserted. Towel clamps were then placed to maintain insufflation. The abdomen was then fully insufflated with CO2 gas. Camera was then inserted. An 8 mm trocar was placed on the right side of the abdomen as well as another 8 mm trocar in the left side of the abdomen. These were placed under direct visualization and without difficulty. The patient was then placed in mild Trendelenburg positioning. The da Suzette robot was then brought onto the operative field and appropriately docked. Instrumentation was then inserted. The left-sided hernia was clearly visible. No obvious evidence of right inguinal hernia. The peritoneum overlying the left inguinal hernia was then incised in a medial to lateral direction using curved scissors and electrocautery. A subperitoneal plane was then developed. Levy's ligament was dissected out medially. Hernia sac was reduced along with a fairly sizable cord lipoma. There was also lipomatous tissue in the vicinity of the femoral vessels as well. Once sufficient dissection was performed, a ProGrip 10 x 15 cm mesh was selected and trimmed to size to fit the operative field. The mesh was then inserted. It was laid in position. It was then unrolled. This covered over the fascial defect nicely. The peritoneum was then closed using a 6 inch 3 -0 V-Loc suture. This closed the peritoneum nicely. The robot was then undocked. The trocars were removed. Insufflation was allowed to escape. The fascial defect at the umbilicus was then closed using 0 Nurolon. 3 separate interrupted sutures were placed to close the small fascial defect. The defect measured about 7 mm. The skin of the umbilicus was then reaffixed to the fascia using 3-0 Vicryl. 3-0 Vicryl was also used to reapproximate the subdermal layer at the umbilical incision site. 4-0 Vicryl was then used to close the skin on all 3 incisions. Skin glue was applied as dressing. An OpSite and a cottonball were applied at the umbilicus. The patient was then awakened anesthesia and taken recovery in good condition. Surgical Findings: See operative note Complications Complications: No Admit VTE Documentation VTE Present on Admission: No VTE Mechan Device Prophylaxis: SCD's VTE Pharm Prophylaxis ordered?: No Reason prophylaxis not ordered: Treatment Not Indicated
--- NOTE | 2025-11-11 12:14 | POSTOPAN2_ITS ---
Anesthesia Postop Eval I Sum Postop Eval Completion status Anesthesia document: Postop Eval 1 completed: Yes Anesthesia Postop Eval I Summary Anesthesia Postop Eval I Summary: Anesthesia Postop Eval I: Assessment Summary Airway patent Yes 11/11/25 09:45 [email or web address] [email or web address] Spontaneous unlabored Yes 11/11/25 09:45 VISUAL [email or web address] respirations Mental status Awake,Calm 11/11/25 09:45 VISUAL [email or web address] nausea No 11/11/25 09:45 [email or web address] Vomiting No 11/11/25 09:45 [email or web address] Anesthesia Postop Eval I: Fluid Summary Crystalloid volume administer 1,200 11/11/25 09:45 [email or web address] (ml) Colloids volume administered ( ml) Blood Product volume administered (ml) Total IV fluid infused 1,200 11/11/25 09:45 [email or web address] Anesthesia Postop Eval I: Summary Notes Anesthesia Complication No 11/11/25 09:45 [email or web address] Anesthesia Complication Comment: Post-operative progress note Anesthesia: Postop Eval II Evaluation Mental status: Awake and Calm Pain Level: 1 nausea: No Vomiting: No Complications Anesthesia Complication: No
--- NOTE | 2025-11-11 12:14 | PCM.POSTANE2 ---
Anesthesia Postop Eval I Sum Postop Eval Completion status Anesthesia document: Postop Eval 1 completed: Yes Anesthesia Postop Eval I Summary Anesthesia Postop Eval I Summary: Anesthesia Postop Eval I: Assessment Summary Airway patent Yes 11/11/25 09:45 [email or web address] Spontaneous unlabored Yes 11/11/25 09:45 [email or web address] respirations Mental status Awake,Calm 11/11/25 09:45 [email or web address] nausea No 11/11/25 09:45 [email or web address] Vomiting No 11/11/25 09:45 [email or web address] Anesthesia Postop Eval I: Fluid Summary Crystalloid volume administer 1,200 11/11/25 09:45 [email or web address] (ml) Colloids volume administered ( ml) Blood Product volume administered (ml) Total IV fluid infused 1,200 11/11/25 09:45 [email or web address] Anesthesia Postop Eval I: Summary Notes Anesthesia Complication No 11/11/25 09:45 [email or web address] Anesthesia Complication Comment: Post-operative progress note Anesthesia: Postop Eval II Evaluation Mental status: Awake and Calm Pain Level: 1 nausea: No Vomiting: No Complications Anesthesia Complication: No
== END 2025-11-11 10:56 | disposition home or self-care (01) ==
LOC: SDC 05:50 → AC 05:50
PROVIDERS: PCP Nurse Practitioner Family; Referring Provider Surgery; Visit Provider Surgery
PROC: 0YQ64ZZ Repair Left Inguinal Region, Percutaneous Endoscopic Approach (ICD-10-PCS; CPT 49650; principal; 2025-11-11 07:10)
DX: K40.90 Unilateral inguinal hernia, without obstruction or gangrene, not specified as recurrent (principal); Z79.82 Long term (current) use of aspirin; E78.00 Pure hypercholesterolemia, unspecified; Z79.51 Long term (current) use of inhaled steroids; K42.9 Umbilical hernia without obstruction or gangrene; Z79.899 Other long term (current) drug therapy
CPT/HCPCS: 49650; S2900; 00840; 93005; C1781; J2405